=== PATIENT | male | born 1935 | race Caucasian/White ===

== ENCOUNTER 2016-06-23 10:38 | Observation (INO) ==
[2016-06-23] MEDS ORDERED: Aspirin 81 MG TAB.CHEW PO ONE (11:05)
--- NOTE | 2016-06-23 11:13 | Emergency Department Note ---
Disposition Clinical Impression: Right sided weakness, Stroke-like symptoms Disposition: Admitted As Inpatient Condition: Good Referrals: Jonathan Herron Jr, MD [Primary Care Provider] - Forms: ED Satisfaction Letter General Adult HPI - General Chief complaint: ED Neuro Symptoms/Deficit Stated complaint: fell yesterday neuro Time Seen by Provider: 06/23/16 10:41 Source: patient, family Limitations: no limitations Nursing Notes Reviewed: Yes Vital Signs Reviewed: Yes - History of Present Illness Pain Scale: 3 - Related Data Home Medications Medication Instructions Recorded Confirmed Aspirin 81 mg PO DAILY 06/23/16 06/23/16 Cholecalciferol (Vitamin D3) 2,000 unit PO DAILY 06/23/16 06/23/16 [Vitamin D] Clotrimazole 1% CRM [Lotrimin 1%] 1 appl TP BID 06/23/16 06/23/16 Dextrose Gel [Gluctose] 15 gm PO DAILY PRN 06/23/16 06/23/16 Finasteride [Proscar] 5 mg PO DAILY 06/23/16 06/23/16 Hydrocortisone 2.5% CREAM [Cortaid] 1 applic TP QID 06/23/16 06/23/16 Insulin ASPART [NovoLOG] 10 unit SQ TID 06/23/16 06/23/16 Metformin [Glucophage] 1,000 mg PO DAILY 06/23/16 06/23/16 Mv-Mn/FA/Vit K/Lycop/Lut/Coq10 1 each PO DAILY 06/23/16 06/23/16 [Daily Multivitamin Capsule] Potassium Chloride [K-Tab ER] 10 meq PO BID 06/23/16 06/23/16 Pravastatin Sodium [Pravachol] 40 mg PO DAILY 06/23/16 06/23/16 Ranitidine HCl [Heartburn Relief] 150 mg PO HS 06/23/16 06/23/16 Tamsulosin [Flomax] 0.4 mg PO BID 06/23/16 06/23/16 Urea [Ure-K] 1 appl TP BID 06/23/16 06/23/16 Allergies Allergy/AdvReac Type Severity Reaction Status Date / Time gabapentin Allergy Itching Verified 06/12/16 20:56 Nortriptyline Allergy Rash Verified 06/12/16 20:56 Terazosin Allergy Itching Verified 06/12/16 20:56 Past Medical History - Past Medical History Medical history: Reports: arthritis, cancer, diabetes, hypertension, other Psychiatric history: Reports: PTSD - Social History Smoking Status: Former smoker Smokeless Tobacco Status: No Alcohol use: Reports: rarely Drug use: Reports: none Physical Exam - General Limitations: no limitations General appearance: alert Course Vital Signs Temperature 97.5 F L 06/23/16 10:42 Pulse Rate 95 06/23/16 10:42 Respiratory Rate 16 06/23/16 10:42 Blood Pressure 156/102 06/23/16 10:42 O2 Sat by Pulse Oximetry 96 06/23/16 10:42 Temperature 97.5 F L 06/23/16 10:42 Pulse Rate 95 06/23/16 10:42 Respiratory Rate 16 06/23/16 10:42 Blood Pressure 156/102 06/23/16 10:42 O2 Sat by Pulse Oximetry 96 06/23/16 10:42 Medical Decision Making - MDM Narrative Medical decision making narrative: I examined this patient and my medical decision-making was reviewed with the COMMUNICATION ENGINEER/PA/Advanced Practice Nurse/Resident Physician. I agree with the documented findings, disposition and treatment plan as described except to the extent set forth below. I evaluated this patient with Dr. Hayden, agree with his evaluation management plan, supervised care the patient's stay. Patient had a what he thought was a TIA about 2 days ago that left him with facial droop and also he has been dragging his left foot. Not certain why he did not come in sooner. He also said he fell off his ladder denies striking his head. He said some issues with driving also. He has had TIAs in the past; lives at home with his spouse. Going to do a stroke workup. He is outside of the window for any intervention. He will need admission, neurology evaluation. We will also have social welfare clerk see him. Patient's agreement with this plan. Head CT 06/23/16 10:45 IMPRESSION: No acute intracranial abnormality. D/ / Munir Daniels MD / Munir Daniels MD Interpreting Provider: Munir Daniels MD Chest X-Ray 06/23/16 11:05 IMPRESSION: Right upper lobe pulmonary nodule. Follow-up chest CT is recommended for further evaluation. D/ / Larry Leiva MD / Larry Leiva MD Interpreting Provider: Larry Leiva MD Patient CT is back with no signs of acute bleed. Does have a right upper lobe pulmonary nodule which will need outpatient follow-up. Waiting on his labs. Starting on aspirin. And then talking with neurology and hospitalist for admission and further workup. 1226 hrs.: Labs are back. Patient stable. We will discuss with neurology and hospitalist for admission. - Lab Data Result diagrams: 06/23/16 11:21 06/23/16 11:21 Lab Results 06/23/16 06/23/16 06/23/16 Range/Units 10:45 11:21 11:21 WBC 7.3 (4.3-11.1) K/mcL RBC 5.29 (4.19-5.50) M/mcL Hgb 14.2 (12.9-16.9) g/dL Hct 42.9 (37.5-50.1) % MCV 81.1 L (83.0-100.0) fL MCH 26.8 L (28.0-33.3) pg MCHC 33.1 (31.6-35.5) g/dL RDW 14.2 (11.5-14.5) % Plt Count 263 (140-400) K/mcL MPV 11.5 (9.4-12.4) fL Immature Gran % 0.4 (0-4) % Seg Neutrophils % 68.3 % Lymphocytes % 21.9 % Monocytes % 8.3 % Eosinophils % 0.7 % Basophils % 0.4 % Neutrophils # 5.0 (1.6-8.9) K/mcL Lymphocytes # 1.6 (0.6-4.6) K/mcL Monocytes # 0.6 (0.0-1.3) K/mcL Eosinophils # 0.1 (0.0-0.6) K/mcL Basophils # 0.0 (0.0-0.2) K/mcL Sodium 140 (136-145) mEq/L Potassium 4.1 (3.5-4.5) mEq/L Chloride 104 (98-109) mEq/L Carbon Dioxide 26 (19-29) mEq/L BUN 19 (8-26) mg/dL Creatinine 1.06 (0.72-1.25) mg/dL Est GFR ( Amer) > 60 (> 60) Est GFR (Non-Af Amer) > 60 (> 60) BUN/Creatinine Ratio 18 (6-26) Glucose 329 H (70-99) mg/dL POC Glucose 273 H (58-89) Calculated Osmolality 305 H (280-300) Calcium 9.4 (8.6-10.8) mg/dL
[2016-06-23 11:26] LABS: Basophils % 0.4 %; Eosinophils # 0.1 K/mcL (0.0-0.6); Eosinophils % 0.7 %; Hematocrit 42.9 % (37.5-50.1); Hemoglobin 14.2 g/dL (12.9-16.9); Immature Granulocytes % 0.4 % (0-4); Lymphocytes # 1.6 K/mcL (0.6-4.6); Lymphocytes % 21.9 %; Mean Corpuscular HGB Conc 33.1 g/dL (31.6-35.5); Mean Corpuscular Hemoglobin 26.8 pg (28.0-33.3); Mean Corpuscular Volume 81.1 fL (83.0-100.0); Mean Platelet Volume 11.5 fL (9.4-12.4); Monocytes # 0.6 K/mcL (0.0-1.3); Monocytes % 8.3 %; Platelet Count 263 K/mcL (140-400); Red Blood Count 5.29 M/mcL (4.19-5.50); Red Cell Distribution Width 14.2 % (11.5-14.5); Segmented Neutrophils % 68.3 %
[2016-06-23 11:38] LABS: BUN/Creatinine Ratio 18 (6-26); Blood Urea Nitrogen 19 mg/dL (8-26); Calcium 9.4 mg/dL (8.6-10.8); Carbon Dioxide 26 mEq/L (19-29); Chloride 104 mEq/L (98-109); Glucose 329 mg/dL (70-99); Osmolality,Calculated 305 (280-300); Potassium 4.1 mEq/L (3.5-4.5); Sodium 140 mEq/L (136-145); eGFR For African Americans > 60 (> 60); eGFR For Non-African Americans > 60 (> 60)
--- NOTE | 2016-06-23 11:57 | Emergency Department Note ---
Disposition Clinical Impression: Right sided weakness, Stroke-like symptoms Disposition: Admitted As Inpatient Condition: Good Referrals: Jonathan Herron Jr, MD [Partnered Physician] - Forms: ED Satisfaction Letter Time of Disposition: 12:16 Neuro HPI - General Chief Complaint: ED Neuro Symptoms/Deficit Stated Complaint: fell yesterday neuro Time Seen by Provider: 06/23/16 10:41 Source: patient, family Mode of arrival: ambulatory Limitations: no limitations Nursing Notes Reviewed: Yes Vital Signs Reviewed: Yes - History of Present Illness HPI Narrative: Patient presents emergency room with complaint of right-sided weakness that started 2 days ago. He notices symptoms on and off. He was walking around the yard and fell a couple days prior even to that. Family is concerned and brought him into the emergency room for evaluation. Denied any fevers chills nausea vomiting diarrhea. Denied chest pain shortness of breath headache or vision changes. Main complaint was inability to use his right lower extremity as well as he normally does. No other history concerning for stroke or TIA according to the patient her family Onset of Symptoms Date: 06/21/16 Symptom Onset Unknown: Yes Location: right arm, right leg History of same: No Severity: mild Quality: weakness Symptoms Improving: No Improves with: none Worsens with: none Context: gradual onset On Anticoagulants: No Associated symptoms: Reports: denies other symptoms Treatments Prior to Arrival: none - Related Data Allergies/Adverse Reactions: Allergies Allergy/AdvReac Type Severity Reaction Status Date / Time gabapentin Allergy Itching Verified 06/12/16 20:56 Nortriptyline Allergy Rash Verified 06/12/16 20:56 Terazosin Allergy Itching Verified 06/12/16 20:56 All systems ED: reviewed and negative except as stated. Cardiovascular: Denies: chest pain, palpitations Respiratory: Denies: cough, dyspnea, wheezes Gastrointestinal: Denies: abdominal pain Musculoskeletal: Denies: back pain, neck pain Neurological: Reports: weakness, abnormal gait. Denies: headache Past Medical History - Past Medical History Attestation: Yes The following information was validated with the patient. Source: patient Medical history: Reports: arthritis, cancer, diabetes, hypertension, other Psychiatric history: Reports: PTSD - Social History Smoking Status: Former smoker Smokeless Tobacco Status: No Alcohol use: Reports: rarely Drug use: Reports: none Physical Exam - General Limitations: no limitations General appearance: alert - Eye Eye exam: Present: normal appearance, PERRL, EOMI - ENT ENT exam: normal exam, normal oropharynx, mucous membranes moist - Chest Chest inspection: Present: normal inspection, symmetric chest wall rise - Respiratory Respiratory exam: Present: normal lung sounds bilaterally - Cardiovascular Cardiovascular exam: Present: regular rate, normal rhythm, normal heart sounds - Abdominal Exam Abdominal exam: Present: soft, Non-Tender. Absent: tenderness, distention, pulsatile mass - Extremities Exam Extremities exam: Present: normal inspection, full ROM. Absent: tenderness - Back Exam Back exam: Present: normal inspection, full ROM. Absent: tenderness - Neurological Exam Neurological exam: Present: alert, oriented X3, CN II-XII intact, normal gait, motor sensory deficit (Patient has decreased strength in the right upper and right lower extremity at a 4 out of 5. He hand can hold against gravity but does have weakness) - Psychiatric Psychiatric exam: Present: normal affect, normal mood - Skin Skin exam: Present: warm, dry, intact, normal color Course Course Narrative: Patient seen and examined the time of arrival. See history of present illness. 81-year-old male presents emergency room in the care of the family for evaluation of difficulty with walking. Symptom onset has been progressively coming on over the last 2 weeks but main episodes of over the last 2 days. Gentleman now is saying that he has difficulty with using his right foot. He feels like his foot turns out he is trying to walk. He denies any history of stroke. He does have hypertension diabetes and high cholesterol. He takes his medications according to him. He denies any recent trauma or injury. He has no other complaints or symptoms at this time except that he has difficulty with using the right side of his body. My physical exam on initial presentation shows right-sided facial droop his speech is normal with no slurring of his phonation at this time. His trachea is midline pupils are equal round reactive to light his extraocular muscles are intact. He has no visual field deficits based on my evaluation at the bedside. He moves the bilateral upper and lower extremities has full range of motion but does have what appears to be a 4 out of 5 muscle strength on the right side in comparison to the left. Right lower extremity shows what appears to be mild ataxia and drift with the foot deviating laterally with lifting the leg off the bed. Otherwise stroke scale was resulted and documented in the note. Based on my evaluation patient has an NIH of 3. Symptom onset was greater than 48 hours ago. Patient is not in acute stroke on presentation. Stroke alert was not called on arrival. Patient this point is stable presentation with no progression of his symptoms. He has no other acute neurologic findings on my evaluation. He is mentating appropriately he is alert and oriented 3. He is not on any blood thinners at this time and has no other acute findings on evaluation. Patient had basic laboratory workup while here and CT imaging of his head to be resulted. No other acute findings at this time warrant further workup. Patient was informed that we would recommend admission to the hospital for definitive stroke evaluation. He is comfortable with this plan at this time. We will provide him with an aspirin while here in the emergency room and complete the course of care. Vital signs stable he is afebrile - Reevaluation(s) Reevaluation #1: CT of the head is negative for acute intracranial bleed. Patient's mentation and presentation of been stable with no changes throughout the course of care at this time. Labs are reviewed he does have elevated glucose but no other acute findings during this triage evaluation. Hospitalist patient this time for admission. Family informed patient informed comfortable with this plan. We will continue monitor his admission process is completed. Consultation was placed for the neurologist and we will also contact him out of the emergency room. Time: 12:08 Vital Signs Temperature 97.5 F L 06/23/16 10:42 Pulse Rate 95 06/23/16 10:42 Respiratory Rate 16 06/23/16 10:42 Blood Pressure 156/102 06/23/16 10:42 O2 Sat by Pulse Oximetry 96 06/23/16 10:42 Temperature 97.5 F L 06/23/16 10:42 Pulse Rate 95 06/23/16 10:42 Respiratory Rate 16 06/23/16 10:42 Blood Pressure 156/102 06/23/16 10:42 O2 Sat by Pulse Oximetry 96 06/23/16 10:42 Neuro Symptoms/Deficit - MDM Narrative Medical decision making narrative: Right-sided weakness, increased falls, strokelike symptoms - Medical Records Medical records reviewed: Yes I reviewed the patient's medical records. - Lab Data Lab results reviewed: Yes I reviewed the patient's lab results. Result diagrams: 06/23/16 11:21 06/23/16 11:21 Lab Results 06/23/16 06/23/16 06/23/16 Range/Units 10:45 11:21 11:21 WBC 7.3 (4.3-11.1) K/mcL RBC 5.29 (4.19-5.50) M/mcL Hgb 14.2 (12.9-16.9) g/dL Hct 42.9 (37.5-50.1) % MCV 81.1 L (83.0-100.0) fL MCH 26.8 L (28.0-33.3) pg MCHC 33.1 (31.6-35.5) g/dL RDW 14.2 (11.5-14.5) % Plt Count 263 (140-400) K/mcL MPV 11.5 (9.4-12.4) fL Immature Gran % 0.4 (0-4) % Seg Neutrophils % 68.3 % Lymphocytes % 21.9 % Monocytes % 8.3 % Eosinophils % 0.7 % Basophils % 0.4 % Neutrophils # 5.0 (1.6-8.9) K/mcL Lymphocytes # 1.6 (0.6-4.6) K/mcL Monocytes # 0.6 (0.0-1.3) K/mcL Eosinophils # 0.1 (0.0-0.6) K/mcL Basophils # 0.0 (0.0-0.2) K/mcL Sodium 140 (136-145) mEq/L Potassium 4.1 (3.5-4.5) mEq/L Chloride 104 (98-109) mEq/L Carbon Dioxide 26 (19-29) mEq/L BUN 19 (8-26) mg/dL Creatinine 1.06 (0.72-1.25) mg/dL Est GFR ( Amer) > 60 (> 60) Est GFR (Non-Af Amer) > 60 (> 60) BUN/Creatinine Ratio 18 (6-26) Glucose 329 H (70-99) mg/dL POC Glucose 273 H (58-89) Calculated Osmolality 305 H (280-300) Calcium 9.4 (8.6-10.8) mg/dL - Radiology Data Radiology results reviewed: Yes I reviewed the patient's radiology results. CT imaging of the head as well as chest x-ray negative for acute findings. This is reviewed by myself and confirmed by the radiologist - EKG Data EKG attestation: Yes I reviewed and interpreted this EKG. EKG shows normal: sinus rhythm, axis, intervals, QRS complexes, ST-T waves Rate: normal Rhythm: NSR [place]/QRS: normal When compared to previous EKG there are: no significant changes Interpretation: no acute changes, unchanged when compared to prior tracing (date ) (06/12/16) NIH Stroke Scale - Level of Consciousness LOC: Alert - LOC Questions LOC Questions: Answers both correctly - LOC Commands LOC Commands: Performs both correctly - Best Gaze Best Gaze: Normal - Visual Visual: No visual loss - Facial Palsy Facial Palsy: Minor asymmetry on smiling, flattened nasolabial fold - Motor Arms Motor Arm-Left: No drift for 10 seconds Motor Arm-Right: No drift for 10 seconds - Motor Legs Motor Leg-Left: No drift for 5 seconds Motor Leg-Right: No drift for 5 seconds - Limb Ataxia Limb Ataxia: Present in TWO limbs - Sensory Sensory: Normal - Best Language Best Language: No aphasia - Dysarthria Dysarthria: Normal - Extinction and Inattention Extinction and Inattention: Normal - NIHSS Total Score NIHSS Total Score: 3 TPA Checklist - LKW: 3-4.5 hrs Add. Contraindications Patient/family understanding: The patient/family members have been counseled and understood the risk, benefit , and alternatives of treatment. Critical Care Time Critical Care Time: Yes Total Critical Care Time: 35 Attestation: Independent of medical intervention consultations
--- NOTE | 2016-06-23 13:29 | Neurology - Consult Note ---
<Alan Gomez - Last Filed: 06/23/16 15:48> Date of Encounter: 06/23/16 Time of Encounter: 13:29 Assessment and Plan (1) Stroke-like symptoms Current Visit: Yes Status: Acute - possible CVA with right sided weakness, improved - CT head negative for hemorrhagic bleed - will proceed with stroke workup including Brain MRI, Carotid doppler, ECHO, and lipid panel - he certainly has many of the risk factors for stroke, former smoker, HTN, HLD , DM - he takes an ASA at home and was given 324 in the ED (2) Right sided weakness Current Visit: Yes Status: Acute - weak dorsiflexion of right foot, as he describes almost a foot drop as well as obvious right leg weakness - history of right total knee replacement several years ago - denies any back pain or radicular pain, denies any bowel/bladder dysfunction or saddle anesthesia - will await MRI brain before further imaging or recommendations - reflexes are diminished with poor muscle mass in bilateral lower extremities likely multifactorial from diabetes and deconditioning - will workup for possible CVA (3) Diabetic neuropathy associated with type 2 diabetes mellitus Current Visit: Yes Status: Chronic - history of diabetic neuropathy bilaterally - he has diminished sensation and proprioception in the foot and toes - admits that it gets worse when sugars run higher which has been recently over the past several days - does not currently take medications for his neuropathy Qualifiers: Diabetes mellitus complication detail: with other neurological complication Qualified Code(s): E11.49 - Type 2 diabetes mellitus with other diabetic neurological complication History of Present Illness Chief complaint: RIGHT LEG WEAKNESS/CVA HPI: Mr. 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 Neurology was consulted for possible CVA from the ED. Patient seen and examined in the ED. Over the past several months patient has increased issues with ambulation and gait. However, over the past 2 days patient reports difficulty with ambulation due to right leg weakness or numbness. Symptoms have been intermittent most recent today around 0900. He describes his right foot as going "down and out" and sometimes dragging. Denies any history of TIA or stroke. Today was the worst with some associated numbness/tingling around the lips as well, lasting only a few seconds. His son and girlfriend had to help him out of the bathroom. Reports the other day of falling. Denies any headache, fever, recent illness, chest pain, syncope, or loss of consciousness. Denies any slurring of the speech , facial drooping, or difficulty speaking. Blood sugars have reportedly been running high and usually he has noticed these symptoms of numbness and pain when they run high. History of diabetic neuropathy, he reports that he goes to the [facility] for therapy 3 times a week to help with strength and conditioning. He admits to laying around the house over the past 2 months without much activity. Illness over several months ago when they discovered a nodule in his lung and prescribed him steroids, reports his gait has progressively worsened since then because sugars were as high as 400 at that time. Past Med Surg Social Fam HX - Past Medical History Medical history: arthritis, cancer, diabetes, hypertension, other Psychiatric history: PTSD - Past Surgical History Surgical History: knee replacement - Social History Smoking Status: Former smoker Smokeless Tobacco Status: No Alcohol use: rarely Drug use: none Medications and Allergies Aspirin 81 mg PO DAILY 06/23/16 [History] Cholecalciferol (Vitamin D3) [Vitamin D] 2,000 unit PO DAILY 06/23/16 [History] Clotrimazole 1% CRM [Lotrimin 1%] 1 appl TP BID 06/23/16 [History] Dextrose Gel [Gluctose] 15 gm PO DAILY PRN 06/23/16 [History] Finasteride [Proscar] 5 mg PO DAILY 06/23/16 [History] Hydrocortisone 2.5% CREAM [Cortaid] 1 applic TP QID 06/23/16 [History] Insulin ASPART [NovoLOG] 10 unit SQ TID 06/23/16 [History] Metformin [Glucophage] 1,000 mg PO DAILY 06/23/16 [History] Mv-Mn/FA/Vit K/Lycop/Lut/Coq10 [Daily Multivitamin Capsule] 1 each PO DAILY [History] Potassium Chloride [K-Tab ER] 10 meq PO BID 06/23/16 [History] Pravastatin Sodium [Pravachol] 40 mg PO DAILY 06/23/16 [History] Ranitidine HCl [Heartburn Relief] 150 mg PO HS 06/23/16 [History] Tamsulosin [Flomax] 0.4 mg PO BID 06/23/16 [History] Urea [Ure-K] 1 appl TP BID 06/23/16 [History] Allergies gabapentin Allergy (Verified 06/12/16 20:56) Itching Nortriptyline Allergy (Verified 06/12/16 20:56) Rash Terazosin Allergy (Verified 06/12/16 20:56) Itching All Systems: A 10-system review of systems was performed and is negative for pertinent findings except as documented above in the HPI. - Constitutional Constitutional ROS IM: weakness, weight loss, no fever(s), no headache(s), no increased appetite - Nose, Mouth, Throat Nose, mouth and throat: as per HPI - Cardiovascular Cardiovascular ROS IM: as per HPI - Respiratory Respiratory IM: as per HPI - Gastrointestinal Gastrointestinal: as per HPI - Genitourinary Genitourinary ROS: as per HPI - Musculoskeletal Musculoskeletal ROS IM: abnormal gait, muscle weakness, numbness, no arthralgias , no back pain - Integumentary Integumentary IM: as per HPI - Neurological Neurological ROS: as per HPI Physical Examination - Vital Signs Vital Signs: Initial Vital Signs Temp Pulse Resp BP Pulse Ox 97.5 F L 95 16 156/102 96 06/23/16 10:42 06/23/16 10:42 06/23/16 10:42 06/23/16 10:42 06/23/16 10:42 - Constitutional General appearance: comfortable - Neurologic Sensorimotor examination: intact Detailed motor examination: grossly full strength in all extremities, full strength in all major muscle groups Motor examination - right side: 3/5: hip flexors, tibialis Anterior, quadriceps , toe extension (EHL), plantarflexion, 4/5: deltoids, story reader, 5/5: biceps, triceps , wrist flexion, wrist extension Motor examination - left side: 4/5: hip flexors, story reader, quadriceps, tibialis Anterior, toe extension (EHL), plantarflexion, 5/5: deltoids, biceps, triceps, wrist flexion, wrist extension Detailed sensory examination: other (diminished sensation in lower extremities particularly in the feet and lower leg, POOR proprioception in upper and lower extremities) Reflex and gait examination: other (not observed/tested) Reflexes: Biceps: 1+, Triceps: 1+, Brachioradialis: 1+, Patella: 1+, Achilles: 1 + Mental Status Examination: awake, alert, oriented to person, oriented to place, oriented to time, follows commands appropriately, answers questions appropriately (hard of hearing), no agnosia, no aphasia, no aproxia Cranial nerve examination: PERRL, EOMI, visual monreal intact, sensory to face intact, mastication intact, no facial asymmetry is present, no dysarthria, hearing is intact symmetrically, soft palate elevates bilaterally upon phonation , flexes SCM and trapezius muscles symmetrically with full power, tongue protrudes midline, no atrophy or facial fasiculations present Ataxia: right lower extremity (dysmetria to upper and lower right extremities,) Results - Laboratory Findings CBC and BMP: 06/23/16 11:21 06/23/16 11:21 Abnormal lab findings: Abnormal lab results MCV 81.1 fL (83.0-100.0) L 06/23/16 11:21 MCH 26.8 pg (28.0-33.3) L 06/23/16 11:21 Glucose 329 mg/dL (70-99) H 06/23/16 11:21 POC Glucose 273 (58-89) H 06/23/16 10:45 Calculated Osmolality 305 (280-300) H 06/23/16 11:21 Consult Discharge Plan - Plan Referrals: Jonathan Herron Jr, MD [Primary Care Provider] - <Watson Jimenes - Last Filed: 06/23/16 15:57> Date of Encounter: 06/23/16 Time of Encounter: 15:49 Assessment and Plan (1) Right sided weakness Current Visit: Yes Status: Acute Patient presents with new-onset weakness primarily of the right lower extremity however there is some subtle weakness of the right upper extremity as well. Since admission he is had blood pressures as high as 187/150. I am concerned about the possibility of a left hemispheric infarct. CT scan of the brain was negative for evidence of hemorrhagic infarct. He denies back pain which she is the likelihood of radiculopathy and lumbar stenosis. He does have other stroke risk factors including diabetes mellitus and uncontrolled hypertension. He is scheduled to have an MRI scan of the brain this evening along with carotid Doppler study and echocardiogram. His already received an aspirin. Further conditions will be made pending the outcome of the MRI scan. History of Present Illness HPI: On the chart was reviewed, patient was seen and examined, along with Dr. Gomez. CT scans of the brain were reviewed as well. The case was discussed with Dr. Gomez. I agree with his history as stated above. All Systems: A 10-system review of systems was performed and is negative for pertinent findings except as documented above in the HPI. Review of Systems: 10 point Review of systems is consistent with a history of present illness and otherwise negative. Physical Examination - Vital Signs Vital Signs: Initial Vital Signs Temp Pulse Resp BP Pulse Ox 97.5 F L 95 16 156/102 96 06/23/16 10:42 06/23/16 10:42 06/23/16 10:42 06/23/16 10:42 06/23/16 10:42 - Neurologic Detailed sensory examination: other (He does complain of hypoesthesia of the right leg.) Results - Laboratory Findings CBC and BMP: 06/23/16 11:21 06/23/16 11:21 Abnormal lab findings: Abnormal lab results MCV 81.1 fL (83.0-100.0) L 06/23/16 11:21 MCH 26.8 pg (28.0-33.3) L 06/23/16 11:21 Glucose 329 mg/dL (70-99) H 06/23/16 11:21 POC Glucose 252 (58-89) H 06/23/16 14:42 Calculated Osmolality 305 (280-300) H 06/23/16 11:21
[2016-06-23] MEDS ORDERED: Naloxone 0.4 MG/ML INJ IVP PRN (14:21)
[2016-06-23] MEDS ORDERED: Ondansetron 4 MG/2 ML VIAL IVP PRN (14:21)
[2016-06-23] MEDS ORDERED: MOM Conc 10 ML UD.LIQ PO PRN (14:21)
[2016-06-23] MEDS ORDERED: Acetaminophen 325 MG TABLET PO PRN (14:21)
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
[2016-06-23] MEDS ORDERED: D5% in Water 1,000 ML IV PRN (15:44)
[2016-06-23] MEDS ORDERED: *HR* Dextrose 50 % in Water (Syg) 50 ML SYRINGE IVP PRN (15:44)
[2016-06-23] MEDS ORDERED: Dextrose Gel 15 GM PO PRN ×2 (15:44)
[2016-06-23 16:09] LABS: Hemoglobin A1C 7.3 %
[2016-06-23] MEDS: Insulin LISPRO 300 UNITS/3 ML VIAL SQ SCH ×3 (17:44→21:26)
[2016-06-23 18:20] LABS: Chol/HDL Ratio 3.7 (0-4.9); Cholesterol 143 mg/dL (< 200); HDL Cholesterol 39 mg/dL (40-59); LDL Cholesterol,Calculated 66 mg/dL (0-99); Triglycerides 191 mg/dL (< 150)
[2016-06-23] MEDS ORDERED: [UNRECOGNIZED DRUG - OTHER] TP SCH (21:00)
[2016-06-23] MEDS: Famotidine 20 MG TABLET PO SCH (21:23)
[2016-06-23] MEDS: Clotrimazole 1% CRM 15 GM TUBE TP SCH (21:27)
[2016-06-24 04:56] LABS: Basophils % 0.5 %; Eosinophils # 0.2 K/mcL (0.0-0.6); Eosinophils % 2.6 %; Hematocrit 40.4 % (37.5-50.1); Hemoglobin 13.6 g/dL (12.9-16.9); Immature Granulocytes % 0.3 % (0-4); Lymphocytes % 30.9 %; Mean Corpuscular HGB Conc 33.7 g/dL (31.6-35.5); Mean Corpuscular Hemoglobin 27.3 pg (28.0-33.3); Mean Platelet Volume 11.4 fL (9.4-12.4); Monocytes # 0.6 K/mcL (0.0-1.3); Monocytes % 9.7 %; Neutrophils # 3.6 K/mcL (1.6-8.9); Platelet Count 253 K/mcL (140-400); Red Blood Count 4.99 M/mcL (4.19-5.50); Red Cell Distribution Width 14.2 % (11.5-14.5)
[2016-06-24 05:12] LABS: BUN/Creatinine Ratio 16 (6-26); Blood Urea Nitrogen 13 mg/dL (8-26); Calcium 8.9 mg/dL (8.6-10.8); Carbon Dioxide 23 mEq/L (19-29); Chloride 109 mEq/L (98-109); Glucose 99 mg/dL (70-99); Osmolality,Calculated 292 (280-300); Potassium 3.3 mEq/L (3.5-4.5); Sodium 141 mEq/L (136-145); eGFR For African Americans > 60 (> 60); eGFR For Non-African Americans > 60 (> 60)
--- NOTE | 2016-06-24 08:02 | Neurology Progress Note ---
Date of Encounter: 06/24/16 Time of Encounter: 08:02 Assessment and Plan (1) Right sided weakness Current Visit: Yes Status: Acute - no acute signs of cerebrovascular infarct - Brain MRI is negative for intracranial abnormality - preliminary Carotid reveals nonstenotic plaque - denies any back pain or radicular pain to suggest radiculopathy - right dorsiflexion continues to remain weak - ECHO results remain pending, as long as normal patient ok to discharge - recommend placing patient in ankle-fot orthotic and schedule for an outpatient EMG in the office with Dr. Jimenes. Continue baby Aspirin at home Thank you for your consult (2) Diabetic neuropathy associated with type 2 diabetes mellitus Current Visit: Yes Status: Chronic - likely a component of the numbness is due to diabetic neuropathy - agree with plan to start on Lyrica Qualifiers: Qualified Code(s): E11.49 - Type 2 diabetes mellitus with other diabetic neurological complication Subjective Principal diagnosis: Right leg weakness Interval history: Patient seen and examined. He reports resting well yesterday and feels improvement in his lower extremity. He continues to speak without much difficulty and denies any headaches, back pain, radicular pain, urinary symptoms. Imaging did not reveal evidence of any acute infarct. Objective - Constitutional Vitals: Temp Pulse Resp BP Pulse Ox 97.9 F 85 17 153/79 93 L 06/24/16 07:37 06/24/16 07:37 06/24/16 07:37 06/24/16 07:37 06/24/16 07:37 General appearance: Present: A&O X 3, pleasant, no acute distress - Eye Eye exam: Present: EOMI, normal appearance - Neurological Exam Sensorimotor examination: Present: intact Motor Examination: Present: grossly full strength in all extremities, full strength in all major muscle groups Motor examination - right side: 3/5: hip flexors, tibialis Anterior, quadriceps , toe extension (EHL), plantarflexion, 4/5: deltoids, fork repairer, 5/5: biceps, triceps , wrist flexion, wrist extension Motor examination - left side: 4/5: hip flexors, fork repairer, quadriceps, tibialis Anterior, toe extension (EHL), plantarflexion, 5/5: deltoids, biceps, triceps, wrist flexion, wrist extension Sensation intact: Present: other (He does complain of hypoesthesia of the right leg.) Reflex and gait examination: other (not observed/tested) Reflexes: Biceps: 1+, Triceps: 1+, Brachioradialis: 1+, Patella: 1+, Achilles: 1 + Mental Status Examination: Present: awake, alert, oriented to person, oriented to place, oriented to time, follows commands appropriately, answers questions appropriately (hard of hearing), no agnosia, no aphasia, no aproxia Cranial nerve examination: Present: PERRL, EOMI, visual monreal intact, sensory to face intact, mastication intact, no facial asymmetry is present, no dysarthria, hearing is intact symmetrically, soft palate elevates bilaterally upon phonation, flexes SCM and trapezius muscles symmetrically with full power, tongue protrudes midline, no atrophy or facial fasiculations present Ataxia: right lower extremity Results - Laboratory Findings CBC and BMP: 06/24/16 04:31 06/24/16 04:31 Abnormal lab findings: Abnormal lab results MCV 81.0 fL (83.0-100.0) L 06/24/16 04:31 MCH 27.3 pg (28.0-33.3) L 06/24/16 04:31 Potassium 3.3 mEq/L (3.5-4.5) L 06/24/16 04:31 POC Glucose 99 (58-89) H 06/24/16 07:32 Hemoglobin A1c 7.3 % (-5.6) H 06/23/16 11:21 Triglycerides 191 mg/dL (< 150) H 06/23/16 11:21 VLDL Cholesterol, Calc 38 mg/dL (< 31) H 06/23/16 11:21 HDL Cholesterol 39 mg/dL (40-59) L 06/23/16 11:21 Consult Discharge Plan - Plan Referrals: Jonathan Herron Jr, MD [Primary Care Provider] -
[2016-06-24] MEDS: Insulin LISPRO 300 UNITS/3 ML VIAL SQ SCH ×4 (08:29→20:46)
[2016-06-24] MEDS ORDERED: Lisinopril 20 MG TABLET PO SCH (09:00)
[2016-06-24] MEDS: Finasteride 5 MG TABLET PO SCH (09:33)
[2016-06-24] MEDS: Aspirin 81 MG TAB.CHEW PO SCH (09:33)
[2016-06-24] MEDS: Cholecalciferol (D-3) 1,000 UNIT TABLET PO SCH (09:34)
[2016-06-24] MEDS: Multivit/Ca/Min/Fe/FA 1 TAB TABLET PO SCH (09:34)
--- NOTE | 2016-06-24 10:47 | Internal Med Progress Note ---
Date of Encounter: 06/24/16 Time of Encounter: 10:00 - Assessment and plan (1) Right sided weakness Current Visit: Yes Status: Acute Assessment and plan: 1-week history of right sided weakness with associated falls. Brain MRI/MRA negative for any acute process. No signs of CVA. Negative doppler of carotids. Appreciate neurology input. PT/ OT recommend rehab placement. information services assistant is following: [facility] will have a bed on Monday. (2) Hypertension Current Visit: Yes Status: Chronic Assessment and plan: Start lisinopril at a lower dose. Qualifiers: Hypertension type: essential hypertension Qualified Code(s): I10 - Essential (primary) hypertension (3) Diabetes mellitus Current Visit: Yes Status: Acute Assessment and plan: He takes metformin and novolog. continue insulin sliding scale and diabetic diet. Qualifiers: Diabetes mellitus type: type 2 Diabetes mellitus complication status: with neurologic complications Diabetes mellitus complication detail: with polyneuropathy Diabetes mellitus penitentiary insulin use: with penitentiary use Qualified Code(s): E11.42 - Type 2 diabetes mellitus with diabetic polyneuropathy; Z79.4 - residential (current) use of insulin (4) Diabetic neuropathy associated with type 2 diabetes mellitus Current Visit: Yes Status: Chronic Assessment and plan: pt was started on lyrica. Qualifiers: Diabetes mellitus complication detail: with other neurological complication Qualified Code(s): E11.49 - Type 2 diabetes mellitus with other diabetic neurological complication - Subjective Interval history: he reports persistent weakness in all extremities. patient reports he was taking lisinopril 40 - 20 mg in the past and he developed hypotension. - Constitutional Vitals: Temp Pulse Resp BP Pulse Ox 97.9 F 85 17 153/79 93 L 06/24/16 07:37 06/24/16 07:37 06/24/16 07:37 06/24/16 07:37 06/24/16 09:03 General appearance: Present: A&O X 3, pleasant, no acute distress, answers questions appropriately - Eye Eye exam: Present: PERRL - Neck Neck exam general surgery: Present: supple, trachea midline. Absent: lymphadenopathy - Respiratory Respiratory exam: Present: CTAB - Cardiovascular Cardiovascular exam: Present: RRR - GI/Abdominal GI/Abdominal exam: Present: normal bowel sounds, soft. Absent: distended, tenderness - Extremities Exam Extremities exam: Absent: pedal edema - Neurological Exam Neurological exam: Present: alert, oriented X3, no focal deficits, strengths equal and symetr throughout. Absent: pronater drift, facial droop, speech deficit - Skin Skin exam: Absent: rash Internal Medicine: Result - Labs CBC & Chem 7: 06/24/16 04:31 06/24/16 04:31 Labs: Short CBC 06/24/16 Range/Units 04:31 WBC 6.5 (4.3-11.1) K/mcL Hgb 13.6 (12.9-16.9) g/dL Hct 40.4 (37.5-50.1) % Plt Count 253 (140-400) K/mcL Neutrophils # 3.6 (1.6-8.9) K/mcL BMP 06/24/16 04:31 Sodium 141 Potassium 3.3 L Chloride 109 Carbon Dioxide 23 BUN 13 Creatinine 0.80 Glucose 99 Calcium 8.9 - Impressions Impressions Head MRA 06/23/16 13:02 IMPRESSION: No acute intracranial abnormality. Mild parenchymal volume loss. Mild chronic microvascular disease. Unremarkable MRA of the head. D/ / Jose A Wilson MD / Jose A Wilson MD Interpreting Provider: Jose A Wilson MD Consult Discharge Plan - Plan Referrals: Jonathan Herron Jr, MD [Primary Care Provider] -
--- NOTE | 2016-06-24 11:08 | ECHO - Doppler Report ---
Echo with Saline Contrast Name: Wilfredo Conn Date of Study: 06/23/2016 Date: 1935 Ht: 65.0 in Medical Record#: [id number] Age: 81 Wt: 148.0 lb Gender: Male BSA: 1.74 Order #: [id number] Location: [facility] Room #: [facility] Reading Physician: Ian Machado DO, FACLuiza, DOUGLAS LYLE Snagger: Karissa Orozco RVT Ordering Physician: Rosanne Nguyen CNP Primary Physician: Jonathan Herron MD Indications: Cerebrovascular Accident Impressions: LVEF 60-65%. Normal LV chamber size, wall thickness and function. Mild left ventricular diastolic dysfunction. Normal right ventricular structure and function. No significant valvular dysfunction. No evidence of PFO with agitated saline contrast. No evidence of pulmonary hypertension. Left Ventricular Wall Motion: Rest Echo Findings All wall segments showed normal motion. Findings: Study Quality * Technically adequate exam. ECG Findings * Normal sinus rhythm. Left Ventricle * LVEF 60-65%. * Normal LV chamber size, wall thickness and function. * Mild left ventricular diastolic dysfunction. Right Ventricle * Normal right ventricular structure and function. Left Atrium * Mildly dilated left atrium. Right Atrium * Normal right atrial size. Interatrial Septum * No evidence of PFO with agitated saline contrast. Aortic Valve * Trileaflet aortic valve. * The noncoronary cusp appears focally calcified. * No aortic regurgitation. * No aortic stenosis. Mitral Valve * Mildly thickened mitral valve leaflets. * Trace mitral regurgitation. * No mitral stenosis. Tricuspid Valve * Normal tricuspid valve structure and function. * Trace tricuspid regurgitation. * No evidence of pulmonary hypertension. Pulmonic Valve * Normal pulmonic valve structure and function. * No pulmonic regurgitation. Aorta * Normally sized aortic root. Pericardium * There is a trivial pericardial effusion present. IVC * Normal IVC dimensions and inspiratory collapse. Pulmonary Artery * Normal visualized portions of the main pulmonary artery. History Hypertension Diabetes Contrast: Agitated saline 20 ml. Measurements: BP: 177/ 81 2D Normal Values RVIDd: 3.40 cm <2.7 cm IVSd: 1.00 cm 0.6 - 1.0 cm LVIDd: 4.50 cm 3.7 - 5.6 cm LVPWd: .90 cm 0.6 - 1.1 cm LVIDs: 3.00 cm 1.5 - 3.6 cm AO: 2.80 cm < 4.0 cm LA: 3.40 cm 2.0 - 4.0cm %FS: 33.30 cm >25 % LA volume: 57 Mitral Valve Peak E:.59 m/sec Peak A:1.09 m/sec E/A Ratio:0.5 Peak E' Lat Georges:4.78 cm/s Peak E' Med Georges:4.39 cm/s E/E' Lat Ratio:12.3 E/E' Med Ratio:13.3 Tricuspid Valve TV Regurg Peak Grad: 24.00mmHg TV Regurg Peak Georges: 2.46m/sec Updated by Ian Machado DO, FACLuiza, DARIELA, DOUGLAS on 06/24/2016 11:01:26 AM electronically signed on 06/24/2016 11:03:22 AM with status of Final Wall Motion Cabrera: 1=Normal, 2=Hypokinesis, 3=Akinesis, 4=Dyskinesis, 5=Aneurysmal, 6=Hyperkinetic, X=Not Visualized (Blank)=Missing
--- NOTE | 2016-06-24 16:14 | Electrocardiograph Report ---
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
--- NOTE | 2016-06-24 16:25 | Carotid Imaging Report ---
Carotid Duplex Patient Name:Wilfredo Conn Order Number:[id number] Procedure Date:06/23/2016 Date:1935ge:81 yrs Gender:Male Lt BP:177 / 81 mmHg Location:[facility] Room #: 3B52 Powerhouse Attendant:Karissa Orozco RVT Referring MD:Rosanne Nguyen FINISH REPAIR WORKER road worker:Jonathan Herron MD Reading MD:Gurpreet Tinoco MD , FACS Risk Factors Yes/No Hypertension Yes Diabetes Yes Smoker Previous Yes Impressions: Findings: Bilateral carotid systems have nonstenotic plaque. Findings Carotid Duplex: Right: There is nonstenotic plaque in the right bifurcation. There is smooth heterogeneous plaque. There is nonstenotic plaque in the right proximal internal carotid artery. There is smooth heterogeneous plaque. Left: There is nonstenotic plaque in the left mid common carotid artery. There is smooth heterogeneous plaque. There is nonstenotic plaque in the left bifurcation. There is smooth heterogeneous plaque. There is nonstenotic plaque in the left proximal internal carotid artery. There is smooth heterogeneous plaque. Prior Study: No prior study available for comparison. Carotid Results Right PSV EDV Assessment Proximal CCA 89 7 Normal Mid CCA 77 7 Normal Distal CCA 64 9 Normal Bifurcation 110 21 Non Stenotic Plaque Proximal ICA 80 11 Non Stenotic Plaque Mid ICA 102 16 Normal Distal ICA 60 11 Normal ECA 122 8 Normal Vertebral Artery 47 8 Antegrade Flow Left PSV EDV Assessment Proximal CCA 81 9 Normal Mid CCA 76 9 Non Stenotic Plaque Distal CCA 71 10 Normal Bifurcation 90 8 Non Stenotic Plaque Proximal ICA 67 9 Non Stenotic Plaque Mid ICA 66 14 Normal Distal ICA 92 22 Normal ECA 128 8 Normal Vertebral Artery 64 14 Antegrade Flow Ratio's Right ICA/CCA Ratio: 1.32 ICA/CCA Values: 102/77 Left ICA/CCA Ratio: 1.21 ICA/CCA Values: 92/76 Updated by Gurpreet Tinoco MD, FACS on 06/24/2016 4:19:51 PM Gurpreet Tinoco MD electronically signed on 06/24/2016 4:20:19 PM with status of Final
[2016-06-24] MEDS: Clotrimazole 1% CRM 15 GM TUBE TP SCH ×2 (20:48→21:05)
[2016-06-24] MEDS: Famotidine 20 MG TABLET PO SCH (21:05)
[2016-06-25] MEDS: Insulin LISPRO 300 UNITS/3 ML VIAL SQ SCH ×5 (06:49→20:45)
[2016-06-25] MEDS: Aspirin 81 MG TAB.CHEW PO SCH (08:22)
[2016-06-25] MEDS: Multivit/Ca/Min/Fe/FA 1 TAB TABLET PO SCH (08:22)
[2016-06-25] MEDS: Cholecalciferol (D-3) 1,000 UNIT TABLET PO SCH (08:23)
[2016-06-25] MEDS: Finasteride 5 MG TABLET PO SCH (08:23)
[2016-06-25] MEDS: Clotrimazole 1% CRM 15 GM TUBE TP SCH ×2 (08:24→20:01)
--- NOTE | 2016-06-25 12:11 | Internal Med Progress Note ---
Date of Encounter: 06/25/16 Time of Encounter: 11:30 - Assessment and plan (1) Right sided weakness Current Visit: Yes Status: Acute Assessment and plan: 1-week history of right sided weakness with associated falls. Brain MRI/MRA negative for any acute process. No signs of CVA. Negative doppler of carotids. Appreciate neurology input. PT/ OT recommend rehab placement. volunteer services manager is following: [place] [facility] will have a bed on Monday. (2) Hypertension Current Visit: Yes Status: Chronic Assessment and plan: continue lisinopril. bp is adequate. Qualifiers: Hypertension type: essential hypertension Qualified Code(s): I10 - Essential (primary) hypertension (3) Diabetes mellitus Current Visit: Yes Status: Acute Assessment and plan: He takes metformin and novolog. continue insulin sliding scale and diabetic diet. 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 Qualifiers: Diabetes mellitus complication detail: with other neurological complication Qualified Code(s): E11.49 - Type 2 diabetes mellitus with other diabetic neurological complication - Subjective Interval history: patient has no complaints. no dizziness. no chest pain. no lightheadedness. He still has generalized weakness. - Constitutional Vitals: Temp Pulse Resp BP Pulse Ox 98.2 F 86 18 135/76 95 06/25/16 11:19 06/25/16 11:19 06/25/16 11:19 06/25/16 11:19 06/25/16 11:19 General appearance: Present: cooperative, A&O X 3, pleasant, no acute distress, answers questions appropriately - Eye Eye exam: Present: PERRL, sclera anicteric - Neck Neck exam general surgery: Present: lymphadenopathy. Absent: supple, trachea midline - Respiratory Respiratory exam: Present: CTAB. Absent: wheezes, tachypnea - Cardiovascular Cardiovascular exam: Present: RRR. Absent: systolic murmur - GI/Abdominal GI/Abdominal exam: Present: normal bowel sounds, soft. Absent: distended, tenderness - Extremities Exam Extremities exam: Absent: pedal edema - Neurological Exam Neurological exam: Present: alert, oriented X3, strengths equal and symetr throughout. Absent: facial droop, speech deficit - Skin Skin exam: Absent: rash Internal Medicine: Result - Labs CBC & Chem 7: 06/24/16 04:31 06/24/16 04:31 Consult Discharge Plan - Plan Referrals: Jonathan Herron Jr, MD [Primary Care Provider] -
[2016-06-25] MEDS: Famotidine 20 MG TABLET PO SCH (20:01)
[2016-06-26 04:54] LABS: BUN/Creatinine Ratio 14 (6-26); Blood Urea Nitrogen 12 mg/dL (8-26); Calcium 9.1 mg/dL (8.6-10.8); Carbon Dioxide 21 mEq/L (19-29); Chloride 107 mEq/L (98-109); Glucose 197 mg/dL (70-99); Osmolality,Calculated 295 (280-300); Potassium 3.5 mEq/L (3.5-4.5); Sodium 140 mEq/L (136-145); eGFR For African Americans > 60 (> 60); eGFR For Non-African Americans > 60 (> 60)
[2016-06-26] MEDS: Finasteride 5 MG TABLET PO SCH (08:41)
[2016-06-26] MEDS: Aspirin 81 MG TAB.CHEW PO SCH (08:41)
[2016-06-26] MEDS: Multivit/Ca/Min/Fe/FA 1 TAB TABLET PO SCH (08:42)
[2016-06-26] MEDS: Cholecalciferol (D-3) 1,000 UNIT TABLET PO SCH (08:42)
[2016-06-26] MEDS: Insulin LISPRO 300 UNITS/3 ML VIAL SQ SCH ×4 (08:42→20:05)
[2016-06-26] MEDS: Clotrimazole 1% CRM 15 GM TUBE TP SCH ×2 (08:43→20:22)
--- NOTE | 2016-06-26 11:04 | Internal Med Progress Note ---
Date of Encounter: 06/26/16 Time of Encounter: 10:45 - Assessment and plan (1) Right sided weakness Current Visit: Yes Status: Acute Assessment and plan: 1-week history of right sided weakness with associated falls. Brain MRI/MRA negative for any acute process. No signs of CVA. Negative doppler of carotids. Appreciate neurology input. PT/ OT recommend rehab placement. vocational services specialist is following: [place] [facility] will have a bed on Monday. (2) Hypertension Current Visit: Yes Status: Chronic Assessment and plan: Not yet controlled. Increase lisinopril to 10 mg twice a day. Start metoprolol 50 mg twice a day. Close monitoring. Qualifiers: Hypertension type: essential hypertension Qualified Code(s): I10 - Essential (primary) hypertension (3) Diabetes mellitus Current Visit: Yes Status: Acute Assessment and plan: He takes metformin and novolog 10 units TIDAC. Blood sugars are ranging from 160-260. continue insulin sliding scale and diabetic diet. Qualifiers: Diabetes mellitus type: type 2 Diabetes mellitus complication status: with neurologic complications Diabetes mellitus complication detail: with polyneuropathy Diabetes mellitus senior care insulin use: with terminal system operator use Qualified Code(s): E11.42 - Type 2 diabetes mellitus with diabetic polyneuropathy; Z79.4 - termite control representative (current) use of insulin (4) Diabetic neuropathy associated with type 2 diabetes mellitus Current Visit: Yes Status: Chronic Assessment and plan: pt was started on lyrica. Qualifiers: Diabetes mellitus complication detail: with other neurological complication Qualified Code(s): E11.49 - Type 2 diabetes mellitus with other diabetic neurological complication - Subjective Interval history: Patient reports feeling better. No complaints. - Constitutional Vitals: Temp Pulse Resp BP Pulse Ox 98.3 F 91 16 155/75 94 L 06/26/16 07:19 06/26/16 07:19 06/26/16 07:19 06/26/16 07:19 06/26/16 07:19 General appearance: Present: cooperative, A&O X 3, pleasant, no acute distress, answers questions appropriately - Eye Eye exam: Present: PERRL, sclera anicteric - Neck Neck exam general surgery: Present: supple, trachea midline. Absent: lymphadenopathy - Respiratory Respiratory exam: Present: CTAB - Cardiovascular Cardiovascular exam: Present: RRR - GI/Abdominal GI/Abdominal exam: Present: normal bowel sounds, soft. Absent: distended, tenderness - Extremities Exam Extremities exam: Absent: pedal edema - Back Exam Back exam: Absent: CVA tenderness (L), CVA tenderness (R) - Neurological Exam Neurological exam: Present: alert, oriented X3. Absent: facial droop, speech deficit - Skin Skin exam: Absent: rash Internal Medicine: Result - Labs CBC & Chem 7: 06/24/16 04:31 06/26/16 03:42 Labs: BMP 06/26/16 03:42 Sodium 140 Potassium 3.5 Chloride 107 Carbon Dioxide 21 BUN 12 Creatinine 0.85 Glucose 197 H Calcium 9.1 - VTE Documentation of Mechanical Device: Intermittent pneumatic compression device Consult Discharge Plan - Plan Referrals: Jonathan Herron Jr, MD [Primary Care Provider] -
[2016-06-26] MEDS: Famotidine 20 MG TABLET PO SCH (20:05)
[2016-06-27 05:10] LABS: BUN/Creatinine Ratio 14 (6-26); Blood Urea Nitrogen 13 mg/dL (8-26); Calcium 9.3 mg/dL (8.6-10.8); Carbon Dioxide 22 mEq/L (19-29); Chloride 107 mEq/L (98-109); Glucose 176 mg/dL (70-99); Osmolality,Calculated 296 (280-300); Potassium 3.7 mEq/L (3.5-4.5); Sodium 141 mEq/L (136-145); eGFR For African Americans > 60 (> 60); eGFR For Non-African Americans > 60 (> 60)
[2016-06-27] MEDS: Multivit/Ca/Min/Fe/FA 1 TAB TABLET PO SCH (08:36)
[2016-06-27] MEDS: Aspirin 81 MG TAB.CHEW PO SCH (08:36)
[2016-06-27] MEDS: Finasteride 5 MG TABLET PO SCH (08:36)
[2016-06-27] MEDS: Insulin LISPRO 300 UNITS/3 ML VIAL SQ SCH ×4 (08:36→20:54)
[2016-06-27] MEDS: Cholecalciferol (D-3) 1,000 UNIT TABLET PO SCH (08:36)
[2016-06-27] MEDS: Clotrimazole 1% CRM 15 GM TUBE TP SCH ×3 (08:45→20:55)
--- NOTE | 2016-06-27 10:07 | Internal Med Progress Note ---
Date of Encounter: 06/27/16 Time of Encounter: 10:00 - Assessment and plan (1) Right sided weakness Current Visit: Yes Status: Acute Assessment and plan: 1-week history of right sided weakness with associated falls. Brain MRI/MRA negative for any acute process. No signs of CVA. Negative doppler of carotids. Appreciate neurology input. PT/ OT recommend rehab placement. stable for discharge. rehabilitation services director is following : [facility] a bed tomorrow. (2) Hypertension Current Visit: Yes Status: Chronic Assessment and plan: better controlled. continue lisinopril 10 mg twice a day and metoprolol 50 mg twice a day. Close monitoring. Qualifiers: Hypertension type: essential hypertension Qualified Code(s): I10 - Essential (primary) hypertension (3) Diabetes mellitus Current Visit: Yes Status: Acute Assessment and plan: He takes metformin and novolog 10 units TIDAC. fasting is 163. continue insulin sliding scale and diabetic diet. 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 Qualifiers: Diabetes mellitus complication detail: with other neurological complication Qualified Code(s): E11.49 - Type 2 diabetes mellitus with other diabetic neurological complication - Subjective Interval history: Patient has no complaints. - Constitutional Vitals: Temp Pulse Resp BP Pulse Ox 98.5 F 83 17 164/81 97 06/27/16 06:53 06/27/16 06:53 06/27/16 06:53 06/27/16 06:53 06/27/16 06:53 General appearance: Present: cooperative, A&O X 3, pleasant, no acute distress, answers questions appropriately - Eye Eye exam: Present: PERRL, sclera anicteric - Neck Neck exam general surgery: Present: supple, trachea midline. Absent: lymphadenopathy - Respiratory Respiratory exam: Present: CTAB - Cardiovascular Cardiovascular exam: Present: RRR - GI/Abdominal GI/Abdominal exam: Present: normal bowel sounds, soft. Absent: distended, tenderness - Extremities Exam Extremities exam: Absent: pedal edema - Back Exam Back exam: Absent: CVA tenderness (L), CVA tenderness (R) - Neurological Exam Neurological exam: Present: alert, oriented X3, no focal deficits. Absent: facial droop, speech deficit - Skin Skin exam: Absent: rash Internal Medicine: Result - Labs CBC & Chem 7: 06/24/16 04:31 06/27/16 04:00 Labs: BMP 06/27/16 04:00 Sodium 141 Potassium 3.7 Chloride 107 Carbon Dioxide 22 BUN 13 Creatinine 0.90 Glucose 176 H Calcium 9.3 - VTE Documentation of Mechanical Device: Intermittent pneumatic compression device Consult Discharge Plan - Plan Referrals: Jonathan Herron Jr, MD [Primary Care Provider] - 07/04/16 3:00 pm
[2016-06-27] MEDS: Famotidine 20 MG TABLET PO SCH (20:53)
[2016-06-28 06:58] VITALS: BP 118/66
--- NOTE | 2016-06-28 07:29 | Discharge Summary ---
Date of Encounter: 06/28/16 Time of Encounter: 07:27 - Discharge Diagnosis (1) Right sided weakness Priority: Primary Status: Acute (2) Diabetes mellitus Priority: Secondary Status: Acute Qualifiers: Diabetes mellitus type: type 2 Diabetes mellitus complication status: with neurologic complications Diabetes mellitus complication detail: with polyneuropathy Diabetes mellitus long term care administrator insulin use: with longterm use Qualified Code(s): E11.42 - Type 2 diabetes mellitus with diabetic polyneuropathy; Z79.4 - truck terminal manager (current) use of insulin (3) Diabetic neuropathy associated with type 2 diabetes mellitus Priority: Secondary Status: Chronic Qualifiers: Diabetes mellitus complication detail: with other neurological complication Qualified Code(s): E11.49 - Type 2 diabetes mellitus with other diabetic neurological complication (4) Hypertension Priority: Secondary Status: Chronic Qualifiers: Hypertension type: essential hypertension Qualified Code(s): I10 - Essential (primary) hypertension - Discharge Medications Prescriptions: Lisinopril [Zestril] 10 mg PO BID #60 tablet Metoprolol [Lopressor] 50 mg PO BID #60 tablet Home Medications: Aspirin 81 mg PO DAILY 06/23/16 [History] Cholecalciferol (Vitamin D3) [Vitamin D3] 2,000 unit PO DAILY 06/23/16 [History] Clotrimazole 1% CRM [Lotrimin 1%] 1 appl TP BID 06/23/16 [History] Dextrose Gel [Gluctose] 15 gm PO DAILY PRN 06/23/16 [History] Finasteride [Proscar] 5 mg PO DAILY 06/23/16 [History] Hydrocortisone 2.5% CREAM [Cortaid] 1 applic TP QID 06/23/16 [History] Insulin ASPART [NovoLOG] 10 unit SQ TID 06/23/16 [History] Metformin [Glucophage] 1,000 mg PO DAILY 06/23/16 [History] Mv-Mn/FA/Vit K/Lycop/Lut/Coq10 [Daily Multivitamin Capsule] 1 each PO DAILY [History] Potassium Chloride [K-Tab ER] 10 meq PO BID 06/23/16 [History] Pravastatin Sodium [Pravachol] 40 mg PO DAILY 06/23/16 [History] Ranitidine HCl [Heartburn Relief] 150 mg PO HS 06/23/16 [History] Tamsulosin [Flomax] 0.4 mg PO BID 06/23/16 [History] Urea [Ure-K] 1 appl TP BID 06/23/16 [History] Lisinopril [Zestril] 10 mg PO BID #60 tablet 06/28/16 [Rx] Metoprolol [Lopressor] 50 mg PO BID #60 tablet 06/28/16 [Rx] Allergies/Adverse Reactions: Allergies gabapentin Allergy (Verified 06/12/16 20:56) Itching Nortriptyline Allergy (Verified 06/12/16 20:56) Rash Terazosin Allergy (Verified 06/12/16 20:56) Itching Date of admission: 06/23/16 12:26 Primary care physician: Jonathan Herron Jr, MD Consults: 06/23/16 12:47 Consult to Neurology [CONS] Routine Consulting Provider: [facility] Reason for Consult: CVA Call Completed: Yes 06/23/16 14:23 Consult to Physical Therapy [CONS] Routine Comment: Evaluate, develop and implement POC 06/23/16 14:24 Consult to Speech Therapy [CONS] Stat Comment: Evaluate, develop and implement POC Reason for Consult: CVA symptoms Time Notified: 14:25 Call Completed: No 06/23/16 14:48 OT [Consult to Occupational Therapy] [CONS] Routine Comment: Evaluate, develop and implement POC 06/23/16 15:51 Consult to Storekeeper Steward [CONS] Stat Reason for SW Consult: Rehab, home health Discharging clinician: Jagruti Leija Anticipated date of discharge: 06/28/16 - Patient Status Disposition: Transfer SNF Condition: Good Functional capacity at discharge: uses cane/walker Overall status at discharge: patient is progressing back to baseline - Discharge Instructions Instructions: Diabetes Mellitus Type 2 in Adults (DC) Follow Up With: Jonathan Herron Jr, MD [Primary Care Provider] - 07/04/16 3:00 pm Watson Jimenes DO [Partnered Physician] - (in 1-2 weeks for EMG) - Diet and Activity Activity: as per physical therapy Diet: diabetic diet, low fat, low cholesterol, low salt diet Hospital course: Mr. Conn is a 81 year old male with history of diabetes mellitus type 2, hypertension who was observed in the hospital with 1 week history of right- sided weakness, facial tingling and falls. Patient was observed and monitored for possible TIA/CVA. He underwent a brain MRI and MRA which did not show any acute stroke. Patient was evaluated by neurology and recommended continuing baby aspirin and scheduling outpatient follow-up with neurology. Patient was also evaluated by physical therapy and recommended placement to skilled rehabilitation. Patient is scheduled to be discharged to [facility] today. - Time Spent with Patient Total time spent providing and/or coordinating discharge services: Less than 30 minutes (25 min) - Constitutional Vitals: Temp Pulse Resp BP Pulse Ox 98.4 F 81 15 118/66 94 L 06/28/16 06:58 06/28/16 06:58 06/28/16 06:58 06/28/16 06:58 06/28/16 06:58 General appearance: Present: cooperative, A&O X 3, pleasant, no acute distress, answers questions appropriately - Respiratory Respiratory exam: Present: CTAB. Absent: accessory muscle use, rales, rhonchi, wheezes - Cardiovascular Cardiovascular exam: Present: RRR, +S1, +S2. Absent: diastolic murmur, gallop, rubs, systolic murmur - Extremities Exam Extremities exam: Present: warm, radial pulses palpable and symetrical. Absent : calf tenderness, cyanotic, pedal edema - Neurological Exam Neurological exam: Present: CN II-XII intact, oriented X3, no focal deficits. Absent: facial droop, speech deficit Additional comments: Decreased strength in right lower extremity. - Skin Skin exam: Present: dry, intact - VTE Documentation of Mechanical Device: Intermittent pneumatic compression device - Attending Attestation This document has been at least partially created by [employer] voice recognition technology by Dr. Leija. Errors in grammar, wording or other phrases may exist. If errors are found after the documentation is signed, they will be addressed individually in the addendum section of this document when appropriate.
--- NOTE | 2016-06-28 07:35 | Physician Discharge Referral ---
ExtendedCare Referral Info Transfer To: SNF Provider in Charge after Transfer: PCP Institutional Level of Care: Skilled - Diagnosis (1) Right sided weakness Priority: Primary Status: Acute (2) Diabetes mellitus Priority: Secondary Status: Acute (3) Diabetic neuropathy associated with type 2 diabetes mellitus Priority: Secondary Status: Chronic (4) Hypertension Priority: Secondary Status: Chronic - Transfer Medications Prescriptions: Lisinopril [Zestril] 10 mg PO BID #60 tablet Metoprolol [Lopressor] 50 mg PO BID #60 tablet Home Medications: Aspirin 81 mg PO DAILY 06/23/16 [History] Cholecalciferol (Vitamin D3) [Vitamin D3] 2,000 unit PO DAILY 06/23/16 [History] Clotrimazole 1% CRM [Lotrimin 1%] 1 appl TP BID 06/23/16 [History] Dextrose Gel [Gluctose] 15 gm PO DAILY PRN 06/23/16 [History] Finasteride [Proscar] 5 mg PO DAILY 06/23/16 [History] Hydrocortisone 2.5% CREAM [Cortaid] 1 applic TP QID 06/23/16 [History] Insulin ASPART [NovoLOG] 10 unit SQ TID 06/23/16 [History] Metformin [Glucophage] 1,000 mg PO DAILY 06/23/16 [History] Mv-Mn/FA/Vit K/Lycop/Lut/Coq10 [Daily Multivitamin Capsule] 1 each PO DAILY [History] Potassium Chloride [K-Tab ER] 10 meq PO BID 06/23/16 [History] Pravastatin Sodium [Pravachol] 40 mg PO DAILY 06/23/16 [History] Ranitidine HCl [Heartburn Relief] 150 mg PO HS 06/23/16 [History] Tamsulosin [Flomax] 0.4 mg PO BID 06/23/16 [History] Urea [Ure-K] 1 appl TP BID 06/23/16 [History] Lisinopril [Zestril] 10 mg PO BID #60 tablet 06/28/16 [Rx] Metoprolol [Lopressor] 50 mg PO BID #60 tablet 06/28/16 [Rx] Allergies/Adverse Reactions: Allergies gabapentin Allergy (Verified 06/12/16 20:56) Itching Nortriptyline Allergy (Verified 06/12/16 20:56) Rash Terazosin Allergy (Verified 06/12/16 20:56) Itching - Respiratory Orders Smoking Cessation: Smoking cessation has been advised. For more information, call the [place] Tobacco Quit Line at 3-148-WUOD-NOW. - Ancillary Orders May consult with Dentist, Training Development Director, Engine Cleaner PRN - Advance Directives Code Status: Full Code - Mobility Orders Other (per PT/ OT) - Rehabiliation Orders Rehab Potential: Fair Rehab Orders: Evaluation for Physical Therapy, Evaluation for Occupational Therapy - Diet Orders No Added Salt (LORNA), No Concentrated Sweets, Cardiac (and diabetic) CERTIFICATION: I certify that the transfer of the above named patient to an Extended Care Facility is necessary for the continuing treatment of the diagnosis listed. The above information is true and accurate reflection of patient's current condition. Confidential - Redisclosure prohibited without a patient's written consent.
[2016-06-28] MEDS: Insulin LISPRO 300 UNITS/3 ML VIAL SQ SCH (09:00)
[2016-06-28] MEDS: Finasteride 5 MG TABLET PO SCH (09:33)
[2016-06-28] MEDS: Clotrimazole 1% CRM 15 GM TUBE TP SCH (09:33)
[2016-06-28] MEDS: Aspirin 81 MG TAB.CHEW PO SCH (09:33)
[2016-06-28] MEDS: Cholecalciferol (D-3) 1,000 UNIT TABLET PO SCH (09:34)
[2016-06-28] MEDS: Multivit/Ca/Min/Fe/FA 1 TAB TABLET PO SCH (09:34)
== END 2016-06-28 11:59 ==
LOC: 3BNU 10:38 → EMEROO 10:38 → SUATTDRO 12:26 → 3BNU 13:32
PROVIDERS: ADMIT Internal Medicine; ATTEND Internal Medicine

== ENCOUNTER 2016-07-19 00:01 | Inpatient (IN) ==
[2016-07-19 00:46] LABS: Basophils % 0.3 %; Eosinophils % 0.1 %; Hematocrit 40.9 % (37.5-50.1); Hemoglobin 13.6 g/dL (12.9-16.9); Immature Granulocytes % 0.4 % (0-4); Lymphocytes # 1.5 K/mcL (0.6-4.6); Lymphocytes % 10.6 %; Mean Corpuscular HGB Conc 33.3 g/dL (31.6-35.5); Mean Corpuscular Hemoglobin 27.7 pg (28.0-33.3); Mean Corpuscular Volume 83.3 fL (83.0-100.0); Mean Platelet Volume 12.1 fL (9.4-12.4); Monocytes # 0.8 K/mcL (0.0-1.3); Monocytes % 6.2 %; Neutrophils # 11.2 K/mcL (1.6-8.9); Platelet Count 205 K/mcL (140-400); Red Blood Count 4.91 M/mcL (4.19-5.50); Red Cell Distribution Width 13.9 % (11.5-14.5); Segmented Neutrophils % 82.4 %
[2016-07-19 00:56] LABS: Prothrombin Time 10.9 Seconds (9.4-12.1)
[2016-07-19 00:59] LABS: Activated Partial Thrombo Time 28.6 Seconds (26.0-36.0)
[2016-07-19 01:00] LABS: BUN/Creatinine Ratio 18 (6-26); Blood Urea Nitrogen 25 mg/dL (8-26); Calcium 8.8 mg/dL (8.6-10.8); Carbon Dioxide 24 mEq/L (19-29); Chloride 105 mEq/L (98-109); Glucose 138 mg/dL (70-99); Osmolality,Calculated 293 (280-300); Potassium 4.1 mEq/L (3.5-4.5); Sodium 138 mEq/L (136-145); eGFR For African Americans > 60 (> 60); eGFR For Non-African Americans 51 (> 60)
--- NOTE | 2016-07-19 01:56 | Emergency Department Note ---
Disposition Clinical Impression: GI bleed Qualifiers: GI bleed type/associated pathology: unspecified gastrointestinal hemorrhage type Qualified Code(s): K92.2 - Gastrointestinal hemorrhage, unspecified Disposition: Admitted As Inpatient Condition: Good GI Bleed HPI - General Chief complaint: ED GI Bleed Stated complaint: rectal bleed Source: patient Limitations: physical limitation Nursing Notes Reviewed: Yes Vital Signs Reviewed: Yes - History of Present Illness HPI Narrative: Patient transferred from the [place] for evaluation of GI bleed. Physician: Report from the [place] states that the patient has blood in his stool and they do not have GI. Patient is a resident there. Upon arrival squad report the patient states that he has been having issues for approximately 2 months related to GI and constipation. Patient does not complain of any specific abdominal pain but states that he is here because they noticed blood. He has not noticed blood in his stool because he has not been checking. Patient is resting comfortably in bed and is a relatively poor historian. He does complain of different GI issues of which are related to pain with constipation and straining. Patient has a history of colon cancer that has undergone resection and chemotherapy. - Related Data Home Medications Medication Instructions Recorded Confirmed Aspirin 81 mg PO DAILY 06/23/16 06/23/16 Cholecalciferol (Vitamin D3) 2,000 unit PO DAILY 06/23/16 06/23/16 [Vitamin D3] Clotrimazole 1% CRM [Lotrimin 1%] 1 appl TP BID 06/23/16 06/23/16 Dextrose Gel [Gluctose] 15 gm PO DAILY PRN 06/23/16 06/23/16 Finasteride [Proscar] 5 mg PO DAILY 06/23/16 06/23/16 Hydrocortisone 2.5% CREAM [Cortaid] 1 applic TP QID 06/23/16 06/23/16 Insulin ASPART [NovoLOG] 10 unit SQ TID 06/23/16 06/23/16 Metformin [Glucophage] 1,000 mg PO DAILY 06/23/16 06/23/16 Mv-Mn/FA/Vit K/Lycop/Lut/Coq10 1 each PO DAILY 06/23/16 06/23/16 [Daily Multivitamin Capsule] Potassium Chloride [K-Tab ER] 10 meq PO BID 06/23/16 06/23/16 Pravastatin Sodium [Pravachol] 40 mg PO DAILY 06/23/16 06/23/16 Ranitidine HCl [Heartburn Relief] 150 mg PO HS 06/23/16 06/23/16 Tamsulosin [Flomax] 0.4 mg PO BID 06/23/16 06/23/16 Urea [Ure-K] 1 appl TP BID 06/23/16 06/23/16 Previous Rx's Medication Instructions Recorded Lisinopril [Zestril] 10 mg PO BID #60 tablet 06/28/16 Metoprolol [Lopressor] 50 mg PO BID #60 tablet 06/28/16 Allergies Allergy/AdvReac Type Severity Reaction Status Date / Time gabapentin Allergy Itching Verified 06/12/16 20:56 Nortriptyline Allergy Rash Verified 06/12/16 20:56 Terazosin Allergy Itching Verified 06/12/16 20:56 All systems ED: reviewed and negative except as stated. Constitutional: Denies: fever, chills, weakness Cardiovascular: Denies: chest pain Respiratory: Denies: cough, dyspnea Gastrointestinal: Reports: constipation, hematochezia. Denies: abdominal pain, nausea, vomiting, diarrhea Genitourinary: Denies: urgency, dysuria Musculoskeletal: Denies: back pain Integumentary: Denies: rash Neurological: Denies: headache, weakness Endocrine: Denies: fatigue Past Medical History - Past Medical History Medical history: Reports: arthritis, cancer, diabetes, hypertension, other Surgical history: Reports: knee replacement Psychiatric history: Reports: PTSD - Social History Smoking Status: Former smoker Smokeless Tobacco Status: No Alcohol use: Reports: rarely Drug use: Reports: none Physical Exam - General Limitations: physical limitation General appearance: alert - Head Head exam: atraumatic, normocephalic - Eye Eye exam: Present: normal appearance - ENT ENT exam: normal exam, normal oropharynx - Neck Neck exam: Present: normal inspection, full ROM - Chest Chest inspection: Present: normal inspection - Respiratory Respiratory exam: Present: normal lung sounds bilaterally. Absent: respiratory distress - Cardiovascular Cardiovascular exam: Present: regular rate, normal rhythm - Abdominal Exam Abdominal exam: Present: soft, Non-Tender - Rectal Exam Rectal exam: Present: normal rectal tone, heme (+) stool, hemorrhoids - Extremities Exam Extremities exam: Present: normal inspection. Absent: tenderness - Neurological Exam Neurological exam: Present: alert - Psychiatric Psychiatric exam: Present: normal affect, normal mood Course - Reevaluation(s) Reevaluation #1: Patient with past medical history of colon cancer that was resected with chemotherapy. There is a transfer from the [place] for rectal bleeding that was confirmed with rectal exam. Due to the complexity of his previous colon cancer and the possibility of recurrent cancer, we recommend admission for further evaluation. - Consultations Consultation #1: Discussed with Dr. Alarcon. Patient accepted for admission. Vital Signs Temperature 98.0 F 07/19/16 00:04 Pulse Rate 90 07/19/16 00:04 Respiratory Rate 18 07/19/16 00:04 Blood Pressure 125/68 07/19/16 00:04 O2 Sat by Pulse Oximetry 96 07/19/16 00:04 Temperature 98.0 F 07/19/16 00:04 Pulse Rate 90 07/19/16 00:04 Respiratory Rate 18 07/19/16 04:09 Blood Pressure 149/67 07/19/16 04:09 O2 Sat by Pulse Oximetry 96 07/19/16 00:04 Oxygen Delivery Oxygen Delivery Room Air GI Bleed - Lab Data Result diagrams: 07/19/16 00:34 07/19/16 00:34 Lab Results 07/19/16 07/19/16 07/19/16 Range/Units 00:34 00:34 00:34 WBC 13.6 H (4.3-11.1) K/mcL RBC 4.91 (4.19-5.50) M/mcL Hgb 13.6 (12.9-16.9) g/dL Hct 40.9 (37.5-50.1) % MCV 83.3 (83.0-100.0) fL MCH 27.7 L (28.0-33.3) pg MCHC 33.3 (31.6-35.5) g/dL RDW 13.9 (11.5-14.5) % Plt Count 205 (140-400) K/mcL MPV 12.1 (9.4-12.4) fL Immature Gran % 0.4 (0-4) % Seg Neutrophils % 82.4 % Lymphocytes % 10.6 % Monocytes % 6.2 % Eosinophils % 0.1 % Basophils % 0.3 % Neutrophils # 11.2 H (1.6-8.9) K/mcL Lymphocytes # 1.5 (0.6-4.6) K/mcL Monocytes # 0.8 (0.0-1.3) K/mcL Eosinophils # 0.0 (0.0-0.6) K/mcL Basophils # 0.0 (0.0-0.2) K/mcL PT 10.9 (9.4-12.1) Seconds INR 1.0 APTT 28.6 (26.0-36.0) Seconds Sodium 138 (136-145) mEq/L Potassium 4.1 (3.5-4.5) mEq/L Chloride 105 (98-109) mEq/L Carbon Dioxide 24 (19-29) mEq/L BUN 25 (8-26) mg/dL Creatinine 1.36 H (0.72-1.25) mg/dL Est GFR ( Amer) > 60 (> 60) Est GFR (Non-Af Amer) 51 L (> 60) BUN/Creatinine Ratio 18 (6-26) Glucose 138 H (70-99) mg/dL Calculated Osmolality 293 (280-300) Calcium 8.8 (8.6-10.8) mg/dL Stool Occult Blood (Negative) Blood Type Antibody Screen 07/19/16 07/19/16 Range/Units 00:34 01:03 WBC (4.3-11.1) K/mcL RBC (4.19-5.50) M/mcL Hgb (12.9-16.9) g/dL Hct (37.5-50.1) % MCV (83.0-100.0) fL MCH (28.0-33.3) pg MCHC (31.6-35.5) g/dL RDW (11.5-14.5) % Plt Count (140-400) K/mcL MPV (9.4-12.4) fL Immature Gran % (0-4) % Seg Neutrophils % % Lymphocytes % % Monocytes % % Eosinophils % % Basophils % % Neutrophils # (1.6-8.9) K/mcL Lymphocytes # (0.6-4.6) K/mcL Monocytes # (0.0-1.3) K/mcL Eosinophils # (0.0-0.6) K/mcL Basophils # (0.0-0.2) K/mcL PT (9.4-12.1) Seconds INR APTT (26.0-36.0) Seconds Sodium (136-145) mEq/L Potassium (3.5-4.5) mEq/L Chloride (98-109) mEq/L Carbon Dioxide (19-29) mEq/L BUN (8-26) mg/dL Creatinine (0.72-1.25) mg/dL Est GFR ( Amer) (> 60) Est GFR (Non-Af Amer) (> 60) BUN/Creatinine Ratio (6-26) Glucose (70-99) mg/dL Calculated Osmolality (280-300) Calcium (8.6-10.8) mg/dL Stool Occult Blood Positive A (Negative) Blood Type O NEGATIVE Antibody Screen NEGATIVE Attestation Statement - Attestation Attestation: For this encounter, I have reviewed the resident, GERIATRIC CARE MANAGER, or PA documentation, treatment plan, and medical decision making; and I have had face to face time with this patient. 81-year-old [facility]. Patient has a history of neoplasm of the colon which has produced hematochezia and the past which has required blood transfusion. Rectal exam revealed brown stool surrounded by gross blood. Patient's vital signs are stable in the emergency department today in his hemoglobin is not significantly decreased however patient is at risk for worsening of his condition and may require acute intervention. Patient will be admitted for further care and evaluation of hematochezia.
--- NOTE | 2016-07-19 03:38 | Internal Med History&Physical ---
<John Hale - Last Filed: 07/19/16 05:50> Date of Encounter: 07/19/16 Internal Medicine - H&P: HPI History of present illness: Mr. Conn is a 81 year old male Internal Medicine - H&P: Meds Aspirin 81 mg PO DAILY 06/23/16 [History] Cholecalciferol (Vitamin D3) [Vitamin D3] 2,000 unit PO DAILY 06/23/16 [History] Clotrimazole 1% CRM [Lotrimin 1%] 1 appl TP BID 06/23/16 [History] Dextrose Gel [Gluctose] 15 gm PO DAILY PRN 06/23/16 [History] Finasteride [Proscar] 5 mg PO DAILY 06/23/16 [History] Hydrocortisone 2.5% CREAM [Cortaid] 1 applic TP QID 06/23/16 [History] Insulin ASPART [NovoLOG] 10 unit SQ TID 06/23/16 [History] Metformin [Glucophage] 1,000 mg PO DAILY 06/23/16 [History] Mv-Mn/FA/Vit K/Lycop/Lut/Coq10 [Daily Multivitamin Capsule] 1 each PO DAILY [History] Potassium Chloride [K-Tab ER] 10 meq PO BID 06/23/16 [History] Pravastatin Sodium [Pravachol] 40 mg PO DAILY 06/23/16 [History] Ranitidine HCl [Heartburn Relief] 150 mg PO HS 06/23/16 [History] Tamsulosin [Flomax] 0.4 mg PO BID 06/23/16 [History] Urea [Ure-K] 1 appl TP BID 06/23/16 [History] Lisinopril [Zestril] 10 mg PO BID #60 tablet 06/28/16 [Rx] Metoprolol [Lopressor] 50 mg PO BID #60 tablet 06/28/16 [Rx] Allergies gabapentin Allergy (Verified 06/12/16 20:56) Itching Nortriptyline Allergy (Verified 06/12/16 20:56) Rash Terazosin Allergy (Verified 06/12/16 20:56) Itching All Systems PM: A 10-system review of systems was performed and is negative for pertinent findings except as documented above in the HPI. - Constitutional Vitals: Temp Pulse Resp BP Pulse Ox 98.0 F 90 18 149/67 96 02/21/17 00:04 07/19/16 00:04 07/19/16 04:09 07/19/16 04:09 07/19/16 00:04 Internal Med - H&P Results - Labs CBC & Chem 7: 07/19/16 00:34 07/19/16 00:34 - Attending Attestation I examined this patient and my medical decision-making was reviewed with the Resident Physician, Dr Carlton. I agree with the documented findings, disposition and treatment plan as described except to the extent set forth below. Pt asymptomatic, no CP, dizziness. Exam RRR S1S2, abd soft, nontender, + BS Hb 13.6 Plan: monitor H&H, VS. gentle iv fluid hydration. Full code. <Ranjan Carlton - Last Filed: 07/19/16 05:59> Date of Encounter: 07/19/16 Time of Encounter: 03:35 Assessment and Plan (1) Lower GI bleed Current visit: Yes Status: Acute Hb was 13.6 upon admission and he is not actively bleeding since admission Will obtain CBC now to monitor for any acute drops in hemoglobin No urgent need for colonoscopy while inpatient, but he may benefit from GI/ Surgery consult if bleeding persists Obtain iron profile, ferritin as MCV was 83 Will start on clear liquids and administer maintenance fluids at 75 ml/hr (2) RUFINA (acute kidney injury) Current visit: Yes Status: Acute Likely pre-renal secondary to dehydration as patient has been having poor oral intake and nausea Will start on clear liquids, encourage fluid intake and supplement with maintenance fluids at 75 ml/hr Hold home Lisinopril and avoid nephrotoxic agents (3) Non-insulin dependent type 2 diabetes mellitus Current visit: Yes Status: Chronic Hold home diabetic medications while in hospital He will be on clear liquids for now, start on SSI ACHS accuchecks (4) Hypertension Current visit: No Status: Chronic Blood pressures well controlled since admission Will continue home Metoprolol but hold Lisinopril in setting of RUFINA Qualifiers: Hypertension type: essential hypertension Qualified Code(s): I10 - Essential (primary) hypertension (5) DVT prophylaxis Current visit: Yes Status: Acute SCDs in setting of GIB Internal Medicine - H&P: HPI Chief complaint: rectal bleed Admitted From: Long-term Nursing Facility Plans for Post Hospital Care: Transfer Detention Care History of present illness: Mr. Conn is a 81 year old male who is transferred here from the [place] for GI bleed. He is a poor historian and there is no family at bedside. Patient states that he has no complaints himself and did not notice the GI bleed until a nurse saw her earlier yesterday night. He does not have any abdominal pain but describes recurrent constipation and diarrhea which she takes medication for. He did mention having an episode of diarrhea earlier yesterday but admitted taking laxatives prior to it. He also describes having nausea but has not had any vomiting. He does state that his appetite has been poor lately and attributes some of his nausea due to neuropathy. Of note, he does have a history of colon cancer and had a resection in roughly 2001 and was on chemotherapy. He reports no complications from the procedure and denied having any bleeding or clotting problems. 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 He currently denies any chest pain , shortness of breath, fever, chills. Past Med Surg Social Fam HX - Past Medical History Medical history: arthritis, cancer, diabetes, hypertension, other Psychiatric history: PTSD - Past Surgical History Surgical History: knee replacement - Social History Smoking Status: Former smoker Smokeless Tobacco Status: No Alcohol use: rarely Drug use: none - Family History Father Living Status: Hx Family Neurologic Disorders: Yes All Systems PM: A 10-system review of systems was performed and is negative for pertinent findings except as documented above in the HPI. - Constitutional Constitutional: no chills, no fever(s), no night sweats - EENT Eyes: no change in vision, no discharge, no pain, no photophobia Ears: no ear discharge, no ear pain, no tinnitus Nose, mouth and throat: no dysphagia, no nasal discharge, no neck pain, no sore throat - Cardiovascular Cardiovascular ROS IM: no chest pain, no diaphoresis, no dyspnea, no lightheadedness, no palpitations, no syncope - Respiratory Respiratory: no cough, no dyspnea, no wheezing, no excessive phlegm production - Gastrointestinal Gastrointestinal: hematochezia, nausea, no abdominal pain, no diarrhea, no hematemesis, no melena, no vomiting - Musculoskeletal Musculoskeletal ROS IM: myalgias, numbness, tingling - Integumentary Integumentary IM: no rash, no unusual bruising - Neurological Neurological ROS: memory loss, no confusion, no convulsions, no focal weakness, no numbness, no tingling, no tremor(s) - Hematologic/Lymphatic Hematologic/Lymphatic: no easy bruising - Constitutional Vitals: Temp Pulse Resp BP Pulse Ox 98.0 F 90 18 125/68 96 07/19/16 00:04 07/19/16 00:04 07/19/16 00:04 07/19/16 00:04 07/19/16 00:04 General appearance: Present: cooperative, A&O X 3, pleasant, no acute distress, answers questions appropriately - Head Head exam: Present: atraumatic, normocephalic - Eye Eye exam: Present: PERRL, conjuntiva pink, sclera anicteric - Neck Neck exam general surgery: Present: supple, trachea midline. Absent: lymphadenopathy - Respiratory Respiratory exam: Present: CTAB. Absent: accessory muscle use, rales, rhonchi, wheezes - Cardiovascular Cardiovascular exam: Present: RRR, +S1, +S2. Absent: diastolic murmur, gallop, rubs, systolic murmur - GI/Abdominal GI/Abdominal exam: Present: normal bowel sounds, soft, no peritoneal signs. Absent: distended, tenderness Additional comments: previous midline scar noted from previous colon resection - Extremities Exam Extremities exam: Present: warm, radial pulses palpable and symetrical. Absent : calf tenderness, cyanotic, pedal edema - Neurological Exam Neurological exam: Present: alert, oriented X3, no focal deficits. Absent: facial droop, speech deficit - Skin Skin exam: Present: dry, intact Internal Med - H&P Results - Labs CBC & Chem 7: 07/19/16 00:34 07/19/16 00:34
[2016-07-19] MEDS ORDERED: Acetaminophen 325 MG TABLET PO PRN (03:54)
[2016-07-19] MEDS ORDERED: Naloxone 0.4 MG/ML INJ IVP PRN (03:54)
[2016-07-19] MEDS ORDERED: Ondansetron ODT 4 MG TAB.RAPDIS SL PRN (03:54)
[2016-07-19] MEDS ORDERED: Dextrose Gel 15 GM PO PRN ×2 (05:51)
[2016-07-19] MEDS ORDERED: *HR* Dextrose 50 % in Water (Syg) 50 ML SYRINGE IVP PRN (05:51)
[2016-07-19] MEDS ORDERED: D5% in Water 1,000 ML IV PRN (05:51)
[2016-07-19] MEDS: 0.9 % Sodium Chloride 1,000 ML IVC SCH ×2 (06:59→23:17)
[2016-07-19] MEDS: Insulin LISPRO 300 UNITS/3 ML VIAL SQ SCH ×4 (07:07→22:54)
[2016-07-19 07:18] LABS: BUN/Creatinine Ratio 19 (6-26); Blood Urea Nitrogen 20 mg/dL (8-26); Calcium 9.3 mg/dL (8.6-10.8); Carbon Dioxide 26 mEq/L (19-29); Chloride 107 mEq/L (98-109); Glucose 149 mg/dL (70-99); Osmolality,Calculated 297 (280-300); Potassium 4.5 mEq/L (3.5-4.5); Sodium 141 mEq/L (136-145); eGFR For African Americans > 60 (> 60); eGFR For Non-African Americans > 60 (> 60)
[2016-07-19 07:22] LABS: Basophils % 0.4 %; Eosinophils # 0.1 K/mcL (0.0-0.6); Eosinophils % 0.5 %; Hematocrit 43.7 % (37.5-50.1); Hemoglobin 14.4 g/dL (12.9-16.9); Immature Granulocytes % 0.4 % (0-4); Lymphocytes # 2.2 K/mcL (0.6-4.6); Lymphocytes % 20.5 %; Mean Corpuscular Hemoglobin 27.6 pg (28.0-33.3); Mean Corpuscular Volume 83.7 fL (83.0-100.0); Mean Platelet Volume 12.5 fL (9.4-12.4); Monocytes # 0.8 K/mcL (0.0-1.3); Monocytes % 7.8 %; Neutrophils # 7.6 K/mcL (1.6-8.9); Platelet Count 207 K/mcL (140-400); Red Blood Count 5.22 M/mcL (4.19-5.50); Red Cell Distribution Width 14.1 % (11.5-14.5); Segmented Neutrophils % 70.4 %
[2016-07-19 07:53] LABS: Hemoglobin A1C 7.4 %
[2016-07-19] MEDS: Finasteride 5 MG TABLET PO SCH (08:11)
[2016-07-19] MEDS: Aspirin 81 MG TAB.CHEW PO SCH (08:12)
[2016-07-19 10:37] LABS: % Iron Saturation 13 % (20-55); Iron 42 mcg/dL (65-175); Transferrin 228 mg/dL (174-364)
[2016-07-19 11:01] LABS: Ferritin 71 ng/ml (22-275)
--- NOTE | 2016-07-19 16:02 | Internal Med Progress Note ---
Date of Encounter: 07/19/16 Time of Encounter: 15:59 - Assessment and plan (1) Lower GI bleed Current Visit: Yes Status: Acute Assessment and plan: Patient was admitted due to a lower GI bleeding. However, his hemoglobin is 14.1. No signs of active bleeding during this encounter. Coagulation profile within normal limits. I have consulted with gastroenterology for possible endoscopic exercise. The patient has a history of colon cancer. He states that hot colonoscopy done in February of last year. Will follow recommendations by gastroenterology. (2) DVT prophylaxis Current Visit: Yes Status: Acute Assessment and plan: Avoid heparin in light of GI bleeding. Compressive devices for DVT prophylaxis. (3) RUFINA (acute kidney injury) Current Visit: Yes Status: Acute Assessment and plan: Initial RUFINA which has responded to iv fluids. (4) Non-insulin dependent type 2 diabetes mellitus Current Visit: Yes Status: Chronic (5) Hypertension Current Visit: No Status: Chronic Qualifiers: Hypertension type: essential hypertension Qualified Code(s): I10 - Essential (primary) hypertension - Time Spent With Patient 25 - 35 minutes - Subjective Interval history: This is my first encounter with the patient. The patient is alert, awake, oriented. He denies abdominal pain at this point. He states that some blood was found his stool yesterday and [facility] - Constitutional Vitals: Temp Pulse Resp BP Pulse Ox 98.1 F 94 18 155/78 94 L 07/19/16 14:00 07/19/16 14:00 07/19/16 14:00 07/19/16 14:00 07/19/16 14:00 General appearance: Present: cooperative, A&O X 3, pleasant, no acute distress, answers questions appropriately - Head Head exam: Present: atraumatic, normocephalic - Eye Eye exam: Present: PERRL, conjuntiva pink, sclera anicteric Pupils: Present: PERRL - Neck Neck exam general surgery: Present: supple, trachea midline. Absent: lymphadenopathy - Respiratory Respiratory exam: Present: CTAB. Absent: accessory muscle use, rales, rhonchi, wheezes - Cardiovascular Cardiovascular exam: Present: RRR, +S1, +S2. Absent: diastolic murmur, gallop, rubs, systolic murmur - GI/Abdominal GI/Abdominal exam: Present: normal bowel sounds, soft, no peritoneal signs. Absent: distended, tenderness - Extremities Exam Extremities exam: Present: warm, radial pulses palpable and symetrical. Absent : calf tenderness, cyanotic, pedal edema - Neurological Exam Neurological exam: Present: CN II-XII intact, oriented X3, no focal deficits. Absent: pronater drift, facial droop, speech deficit - Skin Skin exam: Present: dry, intact Internal Medicine: Result - Labs CBC & Chem 7: 07/19/16 06:37 07/19/16 06:37 Labs: Short CBC 07/19/16 Range/Units 06:37 WBC 10.8 (4.3-11.1) K/mcL Hgb 14.4 (12.9-16.9) g/dL Hct 43.7 (37.5-50.1) % Plt Count 207 (140-400) K/mcL Neutrophils # 7.6 (1.6-8.9) K/mcL BMP 07/19/16 06:37 Sodium 141 Potassium 4.5 Chloride 107 Carbon Dioxide 26 BUN 20 Creatinine 1.07 Glucose 149 H Calcium 9.3 - ABG Interpretation ABG results: PT/INR, D-dimer PT 10.9 Seconds (9.4-12.1) 07/19/16 00:34 Consult Discharge Plan - Plan Referrals: Jonathan Herron Jr, MD [Partnered Physician] - 08/01/16 2:45 pm Watson Jimenes DO [Partnered Physician] - 08/01/16 1:45 pm
[2016-07-19] MEDS: Famotidine 20 MG TABLET PO SCH (22:55)
[2016-07-20 09:04] LABS: Hematocrit 44.8 % (37.5-50.1); Hemoglobin 14.4 g/dL (12.9-16.9)
[2016-07-20] MEDS: Aspirin 81 MG TAB.CHEW PO SCH (10:20)
--- NOTE | 2016-07-20 11:09 | Discharge Summary ---
Date of Encounter: 07/20/16 Time of Encounter: 11:05 - Discharge Diagnosis (1) Lower GI bleed Priority: Primary Status: Acute (2) DVT prophylaxis Priority: Secondary Status: Acute (3) RUFINA (acute kidney injury) Priority: Secondary Status: Acute (4) Non-insulin dependent type 2 diabetes mellitus Priority: Secondary Status: Chronic (5) Hypertension Priority: Secondary Status: Chronic Qualifiers: Hypertension type: essential hypertension Qualified Code(s): I10 - Essential (primary) hypertension - Discharge Medications Home Medications: Aspirin 81 mg PO DAILY 06/23/16 [History] Cholecalciferol (Vitamin D3) [Vitamin D3] 2,000 unit PO DAILY 06/23/16 [History] Dextrose Gel [Gluctose] 15 gm PO DAILY PRN 06/23/16 [History] Finasteride [Proscar] 5 mg PO DAILY 06/23/16 [History] Insulin ASPART [NovoLOG] 10 unit SQ TID 06/23/16 [History] Metformin [Glucophage] 1,000 mg PO DAILY 06/23/16 [History] Mv-Mn/FA/Vit K/Lycop/Lut/Coq10 [Daily Multivitamin Capsule] 1 each PO DAILY [History] Potassium Chloride [K-Tab ER] 10 meq PO BID 06/23/16 [History] Pravastatin Sodium [Pravachol] 40 mg PO DAILY 06/23/16 [History] Ranitidine HCl [Heartburn Relief] 150 mg PO HS 06/23/16 [History] Tamsulosin [Flomax] 0.4 mg PO BID 06/23/16 [History] Urea [Ure-K] 1 appl TP BID 06/23/16 [History] Lisinopril [Zestril] 10 mg PO BID #60 tablet 06/28/16 [Rx] Metoprolol [Lopressor] 50 mg PO BID #60 tablet 06/28/16 [Rx] Chlorhexidine Gluconate [Betasept] 15 ml TP BID 07/19/16 [History] Docusate Sodium [Dok] 200 mg PO DAILY 07/19/16 [History] Fludrocortisone Acetate [Florinef] 0.1 mg PO DAILY 07/19/16 [History] MOM Conc [Milk of Magnesia Conc] 10 ml PO Q4H PRN 07/19/16 [History] Mirtazapine [Remeron] 15 mg PO HS 07/19/16 [History] Ondansetron HCl 4 mg PO Q6H PRN 07/19/16 [History] Polyethylene Glycol/Polyvinyl [Hypotears Eye Drops] 1 drop BOTH EYES TID [History] Pregabalin [Lyrica] 50 mg PO HS 07/19/16 [History] Allergies/Adverse Reactions: Allergies gabapentin Allergy (Verified 07/19/16 09:47) Itching Nortriptyline Allergy (Verified 07/19/16 09:47) Rash Terazosin Allergy (Verified 07/19/16 09:47) Itching Date of admission: 07/19/16 03:07 [facility] Consults: 07/19/16 04:00 Consult to Clean Out Driller [CONS] Routine Reason for SW Consult: [facility] 07/19/16 10:51 Consult to Gastroenterology [CONS] Routine Consulting Provider: Gastroenterology Darya Reason for Consult: Lower GI bleed. Discussed with Watson Hardy Call Completed: No Discharging clinician: Jay Christian Anticipated date of discharge: 07/20/16 - Patient Status Disposition: Transfer Inpatient Rehab Fac Condition: Fair Functional capacity at discharge: independent ambulation Overall status at discharge: patient is back to baseline - Discharge Instructions Follow Up With: Jonathan Herron Jr, MD [Partnered Physician] - 08/01/16 2:45 pm Watson Jimenes DO [Partnered Physician] - 08/01/16 1:45 pm - Diet and Activity Activity: increase activity as tolerated Diet: advance to your usual diet Interval History: Mr. Conn is a 81 year old male who is transferred here from the [facility] for GI bleed. He is a poor historian and there is no family at bedside. Patient states that he has no complaints himself and did not notice the GI bleed until a nurse saw her earlier yesterday night. He does not have any abdominal pain but describes recurrent constipation and diarrhea which she takes medication for. He did mention having an episode of diarrhea earlier yesterday but admitted taking laxatives prior to it. He also describes having nausea but has not had any vomiting. He does state that his appetite has been poor lately and attributes some of his nausea due to neuropathy. Of note, he does have a history of colon cancer and had a resection in roughly 2001 and was on chemotherapy. He reports no complications from the procedure and denied having any bleeding or clotting problems. 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 He currently denies any chest pain , shortness of breath, fever, chills. Hospital course: Mr. Conn is a 81 year old male admitted due to lower GI bleeding. His hemoglobin has been stable and within normal limits since admission. No signs of bleeding since admission. He was evaluated by gastroenterology, at this point they do not recommend to repeat endoscopic studies. Furthermore, the patient underwent a colonoscopy 3 months ago. We will discharge the patient back to the [facility], the patient should follow up with gastroenterology at the [facility] or with [facility]. The patient was explained about the plan, expresses understanding. We will discharge the patient today. Pending acceptance from the [facility]. - Time Spent with Patient Total time spent providing and/or coordinating discharge services: Greater than 30 minutes - Constitutional Vitals: Temp Pulse Resp BP Pulse Ox 98.1 F 72 18 177/81 96 07/20/16 06:26 07/20/16 06:26 07/20/16 06:26 07/20/16 06:26 07/20/16 06:26 General appearance: Present: cooperative, A&O X 3, pleasant, no acute distress, answers questions appropriately - Head Head exam: Present: atraumatic, normocephalic - Eye Eye exam: Present: PERRL, conjuntiva pink, sclera anicteric Pupils: Present: PERRL - Neck Neck exam general surgery: Present: supple, trachea midline. Absent: lymphadenopathy - Respiratory Respiratory exam: Present: CTAB. Absent: accessory muscle use, rales, rhonchi, wheezes - Cardiovascular Cardiovascular exam: Present: RRR, +S1, +S2. Absent: diastolic murmur, gallop, rubs, systolic murmur - GI/Abdominal GI/Abdominal exam: Present: normal bowel sounds, soft, no peritoneal signs. Absent: distended, tenderness - Extremities Exam Extremities exam: Present: warm, radial pulses palpable and symetrical. Absent : calf tenderness, cyanotic, pedal edema - Neurological Exam Neurological exam: Present: CN II-XII intact, oriented X3, no focal deficits. Absent: pronater drift, facial droop, speech deficit - Skin Skin exam: Present: dry, intact - VTE Documentation of Mechanical Device: Intermittent pneumatic compression device
--- NOTE | 2016-07-20 11:14 | Physician Discharge Referral ---
ExtendedCare Referral Info Transfer To: ECF Provider in Charge after Transfer: PCP Institutional Level of Care: Skilled - Diagnosis (1) Lower GI bleed Status: Acute (2) DVT prophylaxis Status: Acute (3) RUFINA (acute kidney injury) Status: Acute (4) Non-insulin dependent type 2 diabetes mellitus Status: Chronic (5) Hypertension Status: Chronic - Transfer Medications Home Medications: Aspirin 81 mg PO DAILY 06/23/16 [History] Cholecalciferol (Vitamin D3) [Vitamin D3] 2,000 unit PO DAILY 06/23/16 [History] Dextrose Gel [Gluctose] 15 gm PO DAILY PRN 06/23/16 [History] Finasteride [Proscar] 5 mg PO DAILY 06/23/16 [History] Insulin ASPART [NovoLOG] 10 unit SQ TID 06/23/16 [History] Metformin [Glucophage] 1,000 mg PO DAILY 06/23/16 [History] Mv-Mn/FA/Vit K/Lycop/Lut/Coq10 [Daily Multivitamin Capsule] 1 each PO DAILY [History] Potassium Chloride [K-Tab ER] 10 meq PO BID 06/23/16 [History] Pravastatin Sodium [Pravachol] 40 mg PO DAILY 06/23/16 [History] Ranitidine HCl [Heartburn Relief] 150 mg PO HS 06/23/16 [History] Tamsulosin [Flomax] 0.4 mg PO BID 06/23/16 [History] Urea [Ure-K] 1 appl TP BID 06/23/16 [History] Lisinopril [Zestril] 10 mg PO BID #60 tablet 06/28/16 [Rx] Metoprolol [Lopressor] 50 mg PO BID #60 tablet 06/28/16 [Rx] Chlorhexidine Gluconate [Betasept] 15 ml TP BID 07/19/16 [History] Docusate Sodium [Dok] 200 mg PO DAILY 07/19/16 [History] Fludrocortisone Acetate [Florinef] 0.1 mg PO DAILY 07/19/16 [History] MOM Conc [Milk of Magnesia Conc] 10 ml PO Q4H PRN 07/19/16 [History] Mirtazapine [Remeron] 15 mg PO HS 07/19/16 [History] Ondansetron HCl 4 mg PO Q6H PRN 07/19/16 [History] Polyethylene Glycol/Polyvinyl [Hypotears Eye Drops] 1 drop BOTH EYES TID [History] Pregabalin [Lyrica] 50 mg PO HS 07/19/16 [History] Allergies/Adverse Reactions: Allergies gabapentin Allergy (Verified 07/19/16 09:47) Itching Nortriptyline Allergy (Verified 07/19/16 09:47) Rash Terazosin Allergy (Verified 07/19/16 09:47) Itching - Respiratory Orders Smoking Cessation: Smoking cessation has been advised. For more information, call the [place] Tobacco Quit Line at 8-826-VYPB-NOW. - Advance Directives Code Status: Full Code - Mobility Orders Other (As tolerated. Fall precautions.) - Rehabiliation Orders Rehab Potential: Fair Rehab Orders: ROM Exercises, Evaluation for Physical Therapy, Evaluation for Occupational Therapy - Diet Orders Regular CERTIFICATION: I certify that the transfer of the above named patient to an Extended Care Facility is necessary for the continuing treatment of the diagnosis listed. The above information is true and accurate reflection of patient's current condition. Confidential - Redisclosure prohibited without a patient's written consent.
--- NOTE | 2016-07-20 11:27 | Gastroenterology Consult Note ---
<Watson Hardy - Last Filed: 07/20/16 11:24> Date of Encounter: 07/20/16 Time of Encounter: 09:55 - Assessment and plan (1) Lower GI bleed Current Visit: Yes Status: Acute Assessment and plan: Likely secondary to hemorrhoids. Hgb stable at 14.4. No indication for colonoscopy at this time. (2) Alternating constipation and diarrhea Current Visit: Yes Status: Acute Assessment and plan: Recommend daily fiber supplement. - Time Spent With Patient Total time spent is greater than 50% in coordination of care (as documented) at patient's floor/unit and/or counseling patient: GI History of Present Illness - Data of Consult Patient: new to practice Consult date: 07/20/16 Requesting Physician: Jay Christian - Consult Narrative Reason for consult: GI bleed History of present illness: Mr. Conn is a 81 year old male with PMHx of arthritis, colon cancer, DM, HTN who was transferred [facility] with GI bleed. He states he did not see any BRBPR, but he also noted that he does not look either. Hgb on admission 13.6 and FOBT was positive. He reports history of hemorrhoids. He denies abdominal pain, but does complain of alternating constipation and diarrhea. He admits to nausea, but denies any vomiting. He has history of colon cancer and had resection around 2001 and chemotherapy. Procedures: Colonoscopy February 2016 per pt report. NSAIDs: ASA Anticoagulation: None Past Med Surg Social Fam HX - Past Medical History Medical history: arthritis, cancer, diabetes, hypertension, other Psychiatric history: PTSD - Past Surgical History Surgical History: knee replacement - Social History Smoking Status: Former smoker Smokeless Tobacco Status: No Alcohol use: rarely Drug use: none - Family History Father History Unknown: Yes Adopted: [place]: [place] [employer] Age: 63 Family Member Ethnicity: Non- Living Status: Age at : 61 Hx Family Cardiac Disorders: Yes Hx Family Respiratory Disorders: No Hx Family Cancer: No Hx Family GI Disorders: No Hx Family Genitourinary Disorders: No Hx Family Endocrine Disorder: No Hx Family Musculoskeletal Disorders: No Hx Family Neuromuscular Disorders: No Hx Family Neurologic Disorders: Yes Hx Family HEENT Disorders: No Hx Family Autoimmune Disorders: No Hx Family Reproductive Disorders: No Hx Family Psychosocial Disorders: No Hx Family Medical Disorders: No - Gastrointestinal Gastrointestinal: Present: as per HPI - Constitutional Constitutional: as per HPI - EENT Eyes: as per HPI Ears: Present: as per HPI Nose, mouth and throat: Present: as per HPI - Cardiovascular Cardiovascular ROS: Present: as per HPI - Respiratory Respiratory IM: Present: as per HPI - Genitourinary Genitourinary: Absent: change in color, Urinary frequency - Neurological ROS Neurological GI: Present: as per HPI - Hematologic/Lymphatic Hematologic/Lymphatic pediatric: Present: as per HPI - Musculoskeletal Musculoskeletal ROS GI: Present: as per HPI - Integumentary Integumentary GI: Present: as per HPI - Psychiatric ROS Psychiatric GI: Present: as per HPI - Endocrine Endocrine IM: Present: as per HPI - Constitutional Vitals: Temp Pulse Resp BP Pulse Ox 98.1 F 72 18 177/81 96 07/20/16 06:26 07/20/16 06:26 07/20/16 06:26 07/20/16 06:26 07/20/16 06:26 General appearance: Present: cooperative, A&O X 3, no acute distress, answers questions appropriately - Head Head exam: Present: atraumatic, normocephalic - Eye Eye exam: Present: normal appearance, sclera anicteric - ENT ENT exam: Present: mucous membranes moist - Neck Neck exam general surgery: Present: normal inspection, trachea midline - Respiratory Respiratory exam: Present: CTAB. Absent: rales, rhonchi - Cardiovascular Cardiovascular exam: Present: RRR, +S1, +S2 - GI/Abdominal GI/Abdominal exam: Present: soft, no peritoneal signs. Absent: distended, firm , guarding, tenderness - Rectal Rectal exam: Present: deferred - Extremities Exam Extremities exam: Present: warm - Neurological Exam Neurological exam: Present: no focal deficits - Psychiatric Psychiatric exam: Present: normal affect, normal mood - Skin Skin exam: Present: dry, intact, normal color, warm Results - Labs CBC & Chem 7: 07/20/16 08:45 07/19/16 06:37 Labs: Last Result Calcium 9.3 mg/dL (8.6-10.8) 07/19/16 06:37 Iron 42 mcg/dL (65-175) L 07/19/16 06:37 % Saturation 13 % (20-55) L 07/19/16 06:37 Transferrin 228 mg/dL (174-364) 07/19/16 06:37 Ferritin 71 ng/ml (22-275) 07/19/16 06:37 Stool Occult Blood Positive (Negative) A 07/19/16 01:03 Entire Visit Hgb 14.4 g/dL (12.9-16.9) 07/20/16 08:45 Hct 44.8 % (37.5-50.1) 07/20/16 08:45 PT 10.9 Seconds (9.4-12.1) 07/19/16 00:34 Ferritin 71 ng/ml (22-275) 07/19/16 06:37 - ABG ABG results: PT/INR, D-dimer PT 10.9 Seconds (9.4-12.1) 07/19/16 00:34 Consult Discharge Plan - Plan Referrals: Jonathan Herron Jr, MD [Partnered Physician] - 08/01/16 2:45 pm Watson Jimenes DO [Partnered Physician] - 08/01/16 1:45 pm <Raoul Guaman - Last Filed: 07/20/16 14:15> Date of Encounter: 07/20/16 Time of Encounter: 14:00 - Time Spent With Patient Total time spent is greater than 50% in coordination of care (as documented) at patient's floor/unit and/or counseling patient: GI History of Present Illness - Data of Consult Requesting Physician: Jay Christian - Consult Narrative History of present illness: Mr. Conn is a 81 year old male - Constitutional Vitals: Temp Pulse Resp BP Pulse Ox 98.3 F 83 16 186/89 97 07/20/16 13:20 07/20/16 13:20 07/20/16 13:20 07/20/16 13:20 07/20/16 13:20 Results - Labs CBC & Chem 7: 07/20/16 08:45 07/19/16 06:37 Labs: Last Result Calcium 9.3 mg/dL (8.6-10.8) 07/19/16 06:37 Iron 42 mcg/dL (65-175) L 07/19/16 06:37 % Saturation 13 % (20-55) L 07/19/16 06:37 Transferrin 228 mg/dL (174-364) 07/19/16 06:37 Ferritin 71 ng/ml (22-275) 07/19/16 06:37 Stool Occult Blood Positive (Negative) A 07/19/16 01:03 Entire Visit Hgb 14.4 g/dL (12.9-16.9) 07/20/16 08:45 Hct 44.8 % (37.5-50.1) 07/20/16 08:45 PT 10.9 Seconds (9.4-12.1) 07/19/16 00:34 Ferritin 71 ng/ml (22-275) 07/19/16 06:37 - ABG ABG results: PT/INR, D-dimer PT 10.9 Seconds (9.4-12.1) 07/19/16 00:34 - Attending Attestation I examined this patient and my medical decision-making was reviewed with the FLOAT BUILDER/PA/Advanced Practice Nurse/Resident Physician. I agree with the documented findings, disposition and treatment plan as described except to the extent set forth below.
[2016-07-20] MEDS: Insulin LISPRO 300 UNITS/3 ML VIAL SQ SCH ×4 (12:04→22:03)
[2016-07-20] MEDS: 0.9 % Sodium Chloride 1,000 ML IVC SCH (15:07)
[2016-07-20] MEDS: hydrALAZINE 25 MG TABLET PO SCH (18:13)
[2016-07-20] MEDS: amLODIPine 5 MG TABLET PO SCH (21:20)
[2016-07-20] MEDS: Finasteride 5 MG TABLET PO SCH (21:20)
[2016-07-20] MEDS: Famotidine 20 MG TABLET PO SCH (21:45)
[2016-07-21] MEDS: hydrALAZINE 25 MG TABLET PO SCH ×2 (00:11→05:21)
[2016-07-21 06:18] LABS: Basophils % 0.5 %; Eosinophils # 0.1 K/mcL (0.0-0.6); Eosinophils % 1.5 %; Hematocrit 45.2 % (37.5-50.1); Hemoglobin 14.7 g/dL (12.9-16.9); Immature Granulocytes % 1.1 % (0-4); Immature Platelets 13.8 % (1.1-6.1); Lymphocytes # 2.4 K/mcL (0.6-4.6); Lymphocytes % 30.4 %; Mean Corpuscular HGB Conc 32.5 g/dL (31.6-35.5); Mean Corpuscular Hemoglobin 26.8 pg (28.0-33.3); Mean Corpuscular Volume 82.5 fL (83.0-100.0); Mean Platelet Volume 12.5 fL (9.4-12.4); Monocytes # 0.8 K/mcL (0.0-1.3); Monocytes % 9.8 %; Neutrophils # 4.5 K/mcL (1.6-8.9); Platelet Count 240 K/mcL (140-400); Red Blood Count 5.48 M/mcL (4.19-5.50); Red Cell Distribution Width 13.8 % (11.5-14.5); Segmented Neutrophils % 56.7 %
[2016-07-21 06:23] LABS: BUN/Creatinine Ratio 11 (6-26); Blood Urea Nitrogen 13 mg/dL (8-26); Carbon Dioxide 26 mEq/L (19-29); Chloride 105 mEq/L (98-109); Glucose 194 mg/dL (70-99); Osmolality,Calculated 297 (280-300); Potassium 3.7 mEq/L (3.5-4.5); Sodium 141 mEq/L (136-145); eGFR For African Americans > 60 (> 60); eGFR For Non-African Americans 59 (> 60)
[2016-07-21 08:09] VITALS: BP 91/52
[2016-07-21] MEDS: Aspirin 81 MG TAB.CHEW PO SCH (08:10)
[2016-07-21] MEDS: Finasteride 5 MG TABLET PO SCH (08:13)
[2016-07-21] MEDS: amLODIPine 5 MG TABLET PO SCH (08:14)
[2016-07-21] MEDS: Insulin LISPRO 300 UNITS/3 ML VIAL SQ SCH (08:59)
--- NOTE | 2016-07-21 09:17 | Internal Med Progress Note ---
Date of Encounter: 07/21/16 Time of Encounter: 09:15 - Assessment and plan (1) Lower GI bleed Current Visit: Yes Status: Acute Assessment and plan: Patient was admitted due to a lower GI bleeding. However, his hemoglobin has been stable since admission. No signs of active bleeding during this encounter. Coagulation profile within normal limits. No endoscopic procedures for now as per GI evaluation. D/C back to [facility]. Awaiting for slate picker. He was medically discharged yesterday. (2) DVT prophylaxis Current Visit: Yes Status: Acute Assessment and plan: Avoid heparin in light of GI bleeding. Compressive devices for DVT prophylaxis. (3) RUFINA (acute kidney injury) Current Visit: Yes Status: Acute (4) Non-insulin dependent type 2 diabetes mellitus Current Visit: Yes Status: Chronic (5) Hypertension Current Visit: No Status: Chronic Assessment and plan: Stable. Qualifiers: Hypertension type: essential hypertension Qualified Code(s): I10 - Essential (primary) hypertension - Time Spent With Patient 25 - 35 minutes - Subjective Interval history: The patient is alert, awake, oriented. He denies abdominal pain at this point. No bloody bowel movements since admission. Feels weak but otherwise at his baseline. - Constitutional Vitals: Temp Pulse Resp BP Pulse Ox 97.7 F 79 18 91/52 94 L 07/21/16 08:01 07/21/16 08:01 07/21/16 08:01 07/21/16 08:01 07/21/16 08:01 General appearance: Present: cooperative, A&O X 3, pleasant, no acute distress, answers questions appropriately - Head Head exam: Present: atraumatic, normocephalic - Eye Eye exam: Present: PERRL, conjuntiva pink, sclera anicteric Pupils: Present: PERRL - Neck Neck exam general surgery: Present: supple, trachea midline. Absent: lymphadenopathy - Respiratory Respiratory exam: Present: CTAB. Absent: accessory muscle use, rales, rhonchi, wheezes - Cardiovascular Cardiovascular exam: Present: RRR, +S1, +S2. Absent: diastolic murmur, gallop, rubs, systolic murmur - GI/Abdominal GI/Abdominal exam: Present: normal bowel sounds, soft, no peritoneal signs. Absent: distended, tenderness - Extremities Exam Extremities exam: Present: warm, radial pulses palpable and symetrical. Absent : calf tenderness, cyanotic, pedal edema - Neurological Exam Neurological exam: Present: CN II-XII intact, oriented X3, no focal deficits. Absent: pronater drift, facial droop, speech deficit - Skin Skin exam: Present: dry, intact Internal Medicine: Result - Labs CBC & Chem 7: 07/21/16 05:10 07/21/16 05:10 Labs: Short CBC 07/21/16 Range/Units 05:10 WBC 8.0 (4.3-11.1) K/mcL Hgb 14.7 (12.9-16.9) g/dL Hct 45.2 (37.5-50.1) % Plt Count 240 (140-400) K/mcL Neutrophils # 4.5 (1.6-8.9) K/mcL BMP 07/21/16 05:10 Sodium 141 Potassium 3.7 Chloride 105 Carbon Dioxide 26 BUN 13 Creatinine 1.19 Glucose 194 H Calcium 9.0 - ABG Interpretation ABG results: PT/INR, D-dimer PT 10.9 Seconds (9.4-12.1) 07/19/16 00:34 - VTE Documentation of Mechanical Device: Intermittent pneumatic compression device Consult Discharge Plan - Plan Referrals: Jonathan Herron Jr, MD [Partnered Physician] - 08/01/16 2:45 pm Watson Jimenes DO [Partnered Physician] - 08/01/16 1:45 pm
== END 2016-07-21 11:07 | DRG 378 ==
LOC: EMEROO 00:01 → 3NENU 03:07 → SUATTDRO 03:07 → 3NENU 04:15 → 3ANU 07-20 07:33
PROVIDERS: ADMIT Internal Medicine; ATTEND Internal Medicine

== ENCOUNTER 2016-07-31 17:04 | Inpatient (IN) ==
[2016-07-31] MEDS ORDERED: 0.9 % Sodium Chloride 1,000 ML IV ONE (17:16)
--- NOTE | 2016-07-31 17:16 | Emergency Department Note ---
Disposition Clinical Impression: Failure to thrive Qualifiers: Failure to thrive age range: in adult Qualified Code(s): R62.7 - Adult failure to thrive Disposition: Admitted As Inpatient Weakness HPI - General Chief complaint: ED Weakness Stated complaint: Dehydrated Time Seen by Provider: 07/31/16 17:11 Source: patient, family Limitations: no limitations Nursing Notes Reviewed: Yes Vital Signs Reviewed: Yes - History of Present Illness HPI Narrative: Patient presents with complaint of weakness and decreased by mouth intake. Patient states that this gradually been ongoing. Patient denies any sick contacts denies fevers and chills. Patient lives with his son at the house patient denies chest pain denies shortness of breath. Patient denies bowel or bladder dysfunction associated with this. Pain Scale: 7 - Related Data Home Medications Medication Instructions Recorded Confirmed Aspirin 81 mg PO DAILY 06/23/16 07/19/16 Cholecalciferol (Vitamin D3) 2,000 unit PO DAILY 06/23/16 07/19/16 [Vitamin D3] Dextrose Gel [Gluctose] 15 gm PO DAILY PRN 06/23/16 07/19/16 Finasteride [Proscar] 5 mg PO DAILY 06/23/16 07/19/16 Insulin ASPART [NovoLOG] 10 unit SQ TID 06/23/16 07/19/16 Metformin [Glucophage] 1,000 mg PO DAILY 06/23/16 07/19/16 Mv-Mn/FA/Vit K/Lycop/Lut/Coq10 1 each PO DAILY 06/23/16 07/19/16 [Daily Multivitamin Capsule] Potassium Chloride [K-Tab ER] 10 meq PO BID 06/23/16 07/19/16 Pravastatin Sodium [Pravachol] 40 mg PO DAILY 06/23/16 07/19/16 Ranitidine HCl [Heartburn Relief] 150 mg PO HS 06/23/16 07/19/16 Tamsulosin [Flomax] 0.4 mg PO BID 06/23/16 07/19/16 Urea [Ure-K] 1 appl TP BID 06/23/16 07/19/16 Chlorhexidine Gluconate [Betasept] 15 ml TP BID 07/19/16 07/19/16 Docusate Sodium [Dok] 200 mg PO DAILY 07/19/16 07/19/16 Fludrocortisone Acetate [Florinef] 0.1 mg PO DAILY 07/19/16 07/19/16 MOM Conc [Milk of Magnesia Conc] 10 ml PO Q4H PRN 07/19/16 07/19/16 Mirtazapine [Remeron] 15 mg PO HS 07/19/16 07/19/16 Ondansetron HCl 4 mg PO Q6H PRN 07/19/16 07/19/16 Polyethylene Glycol/Polyvinyl 1 drop BOTH EYES TID 07/19/16 07/19/16 [Hypotears Eye Drops] Pregabalin [Lyrica] 50 mg PO HS 07/19/16 07/19/16 Previous Rx's Medication Instructions Recorded Lisinopril [Zestril] 10 mg PO BID #60 tablet 06/28/16 Metoprolol [Lopressor] 50 mg PO BID #60 tablet 06/28/16 Allergies Allergy/AdvReac Type Severity Reaction Status Date / Time gabapentin Allergy Itching Verified 07/19/16 09:47 Nortriptyline Allergy Rash Verified 07/19/16 09:47 Terazosin Allergy Itching Verified 07/19/16 09:47 All systems ED: reviewed and negative except as stated. Past Medical History - Past Medical History Source: patient Medical history: Reports: arthritis, cancer, diabetes, hypertension, other Surgical history: Reports: knee replacement Psychiatric history: Reports: PTSD - Social History Smoking Status: Former smoker Smokeless Tobacco Status: No Alcohol use: Reports: rarely Drug use: Reports: none Physical Exam - General Limitations: no limitations General appearance: cachectic - Head Head exam: atraumatic, normocephalic, normal inspection - Eye Eye exam: Present: normal appearance, PERRL, EOMI - ENT ENT exam: normal exam, normal oropharynx, mucous membranes moist - Neck Neck exam: Present: normal inspection, full ROM, trachea midline - Chest Chest inspection: Present: normal inspection, symmetric chest wall rise - Respiratory Respiratory exam: Present: normal lung sounds bilaterally - Cardiovascular Cardiovascular exam: Present: regular rate, normal rhythm, normal heart sounds - Abdominal Exam Abdominal exam: Present: soft, Non-Tender. Absent: tenderness, distention, guarding, rebound, rigidity - Extremities Exam Extremities exam: Present: normal inspection, full ROM. Absent: tenderness, pedal edema - Back Exam Back exam: Present: normal inspection, full ROM. Absent: tenderness - Neurological Exam Neurological exam: Present: alert, oriented X3 - Psychiatric Psychiatric exam: Present: normal affect, normal mood - Skin Skin exam: Present: warm, dry, intact, normal color Course Vital Signs Temperature 98.1 F 07/31/16 17:05 Pulse Rate 92 07/31/16 17:05 Respiratory Rate 18 07/31/16 17:05 Blood Pressure 75/38 07/31/16 17:05 O2 Sat by Pulse Oximetry 94 L 07/31/16 17:05 Temperature 98.1 F 07/31/16 17:05 Pulse Rate 90 07/31/16 20:00 Respiratory Rate 16 07/31/16 20:28 Blood Pressure 132/62 07/31/16 20:28 O2 Sat by Pulse Oximetry 94 L 07/31/16 20:00 Oxygen Delivery Oxygen Delivery Room Air Weakness - Differential Diagnosis Differential Diagnosis: Likely: acute myocardial infarction, anemia, hypoglycemia, sepsis/infection, dehydration, medication effect, thyroid/ endocrine disorder - Lab Data Lab results reviewed: Yes I reviewed the patient's lab results. Result diagrams: 07/31/16 17:24 07/31/16 17:24 Lab Results 07/31/16 07/31/16 07/31/16 Range/Units 17:24 17:24 17:24 WBC 7.3 (4.3-11.1) K/mcL RBC 5.35 (4.19-5.50) M/mcL Hgb 14.4 (12.9-16.9) g/dL Hct 44.4 (37.5-50.1) % MCV 83.0 (83.0-100.0) fL MCH 26.9 L (28.0-33.3) pg MCHC 32.4 (31.6-35.5) g/dL RDW 13.7 (11.5-14.5) % Plt Count 268 (140-400) K/mcL MPV 11.8 (9.4-12.4) fL Immature Gran % 0.4 (0-4) % Seg Neutrophils % 57.4 % Lymphocytes % 31.4 % Monocytes % 8.9 % Eosinophils % 1.5 % Basophils % 0.4 % Neutrophils # 4.2 (1.6-8.9) K/mcL Lymphocytes # 2.3 (0.6-4.6) K/mcL Monocytes # 0.7 (0.0-1.3) K/mcL Eosinophils # 0.1 (0.0-0.6) K/mcL Basophils # 0.0 (0.0-0.2) K/mcL APTT 31.5 (26.0-36.0) Seconds Sodium 144 (136-145) mEq/L Potassium 3.7 (3.5-4.5) mEq/L Chloride 108 (98-109) mEq/L Carbon Dioxide 26 (19-29) mEq/L BUN 14 (8-26) mg/dL Creatinine 1.16 (0.72-1.25) mg/dL Est GFR ( Amer) > 60 (> 60) Est GFR (Non-Af Amer) > 60 (> 60) BUN/Creatinine Ratio 12 (6-26) Glucose 103 H (70-99) mg/dL Calculated Osmolality 299 (280-300) Lactic Acid (0.5-2.2) mmol/L Calcium 9.1 (8.6-10.8) mg/dL Total Bilirubin 1.2 (0.2-1.2) mg/dL AST 15 (5-34) Units/L ALT 12 (0-55) Units/L Alkaline Phosphatase 77 (38-126) Units/L Troponin I (0-0.03) ng/mL Serum Total Protein 6.5 (6.0-8.3) g/dL Albumin 3.2 L (3.5-5.0) g/dL Globulin 3.3 (2.4-3.5) g/dL Albumin/Globulin Ratio 1.0 L (1.1-2.2) Urine Color (Yellow) Urine Clarity (Clear) Urine pH (5.0-8.0) pH Units Ur Specific [place] (1.010-1.025) Urine Protein (Neg-Trace) mg/dL Urine Glucose (UA) (Normal) mg/dL Urine Ketones (Negative) mg/dL Urine Blood (Negative) Urine Nitrite (Negative) Urine Bilirubin (Negative) Urine Urobilinogen (Normal) mg/dL Ur Leukocyte Esterase (Negative) Ur Culture Indicated? (NO) 07/31/16 07/31/16 07/31/16 Range/Units 17:24 17:24 19:31 WBC (4.3-11.1) K/mcL RBC (4.19-5.50) M/mcL Hgb (12.9-16.9) g/dL Hct (37.5-50.1) % MCV (83.0-100.0) fL MCH (28.0-33.3) pg MCHC (31.6-35.5) g/dL RDW (11.5-14.5) % Plt Count (140-400) K/mcL MPV (9.4-12.4) fL Immature Gran % (0-4) % Seg Neutrophils % % Lymphocytes % % Monocytes % % Eosinophils % % Basophils % % Neutrophils # (1.6-8.9) K/mcL Lymphocytes # (0.6-4.6) K/mcL Monocytes # (0.0-1.3) K/mcL Eosinophils # (0.0-0.6) K/mcL Basophils # (0.0-0.2) K/mcL APTT (26.0-36.0) Seconds Sodium (136-145) mEq/L Potassium (3.5-4.5) mEq/L Chloride (98-109) mEq/L Carbon Dioxide (19-29) mEq/L BUN (8-26) mg/dL Creatinine (0.72-1.25) mg/dL Est GFR ( Amer) (> 60) Est GFR (Non-Af Amer) (> 60) BUN/Creatinine Ratio (6-26) Glucose (70-99) mg/dL Calculated Osmolality (280-300) Lactic Acid 1.4 (0.5-2.2) mmol/L Calcium (8.6-10.8) mg/dL Total Bilirubin (0.2-1.2) mg/dL AST (5-34) Units/L ALT (0-55) Units/L Alkaline Phosphatase (38-126) Units/L Troponin I 0.02 (0-0.03) ng/mL Serum Total Protein (6.0-8.3) g/dL Albumin (3.5-5.0) g/dL Globulin (2.4-3.5) g/dL Albumin/Globulin Ratio (1.1-2.2) Urine Color Yellow (Yellow) Urine Clarity Clear (Clear) Urine pH 7.0 (5.0-8.0) pH Units Ur Specific [place] 1.018 (1.010-1.025) Urine Protein Negative (Neg-Trace) mg/dL Urine Glucose (UA) Normal (Normal) mg/dL Urine Ketones Negative (Negative) mg/dL Urine Blood Negative (Negative) Urine Nitrite Negative (Negative) Urine Bilirubin Negative (Negative) Urine Urobilinogen Normal (Normal) mg/dL Ur Leukocyte Esterase Negative (Negative) Ur Culture Indicated? NO (NO) - Radiology Data Radiology results reviewed: Yes I reviewed the patient's radiology results. Chest X-Ray 07/31/16 17:13 IMPRESSION: Focal opacity right upper lobe worrisome for possible lung carcinoma. Chest CT is warranted for complete evaluation. D/ / 07/31/2016 17:57:32 Glen Fernandez MD / manan Interpreting Provider: Glen Fernandez MD Chest CT 07/31/16 18:00 IMPRESSION: 1. A 2.0 cm x 1.3 cm solid nodule with spiculated margins in the right upper lobe corresponds with the radiographic finding and is suspicious for malignancy. Recommend follow-up per the Fleischner Society recommendations solid nodules as below. 2. 1.5 cm x 1.1 cm multilobulated solid nodule in the left lower lobe along the course of an opacified bronchus from more suggestive of an infectious or inflammatory etiology. 3. Additional solid nodules measuring up to 0.4 cm and groundglass nodules measuring up to 0.7 cm x 0.3 cm bilaterally. 4. 1.1 cm x 0.8 cm subtle hypodense lesion in hepatic segment 4 could represent focal steatosis or a hemangioma. However, a metastasis could appear similar. Recommend further evaluation with liver protocol MRI using Eovist contrast on a nonemergent basis. 5. Mild left ventricular septal hypertrophy. 6. Mild coronary atherosclerotic calcifications. 7. Cholelithiasis without findings of acute cholecystitis. RECOMMENDATIONS: Fleischner Society guidelines for follow-up and management of pulmonary nodules: Nodule size greater than 8 mm In low-risk and high-risk patients follow-up CT at around 3, 9, and 24 months, contrast-enhanced CT, PET, and/or biopsy. Low risk patients include individuals with minimal or absent history of smoking and other known risk factors. High risk patients include individuals with a history of smoking or other known risk factors. Radiology 2005; [id number] D/ / Watson Shearer MD / Watson Shearer MD Interpreting Provider: Watson Shearer MD - EKG Data EKG attestation: Yes I reviewed and interpreted this EKG. EKG shows normal: sinus rhythm Rate: normal
[2016-07-31 17:33] LABS: Basophils % 0.4 %; Eosinophils # 0.1 K/mcL (0.0-0.6); Eosinophils % 1.5 %; Hematocrit 44.4 % (37.5-50.1); Hemoglobin 14.4 g/dL (12.9-16.9); Immature Granulocytes % 0.4 % (0-4); Lymphocytes # 2.3 K/mcL (0.6-4.6); Lymphocytes % 31.4 %; Mean Corpuscular HGB Conc 32.4 g/dL (31.6-35.5); Mean Corpuscular Hemoglobin 26.9 pg (28.0-33.3); Mean Platelet Volume 11.8 fL (9.4-12.4); Monocytes # 0.7 K/mcL (0.0-1.3); Monocytes % 8.9 %; Neutrophils # 4.2 K/mcL (1.6-8.9); Platelet Count 268 K/mcL (140-400); Red Blood Count 5.35 M/mcL (4.19-5.50); Red Cell Distribution Width 13.7 % (11.5-14.5); Segmented Neutrophils % 57.4 %
[2016-07-31 17:47] LABS: Alanine Aminotransferase 12 Units/L (0-55); Albumin 3.2 g/dL (3.5-5.0); Alkaline Phosphatase 77 Units/L (38-126); Aspartate Amino Transferase 15 Units/L (5-34); BUN/Creatinine Ratio 12 (6-26); Bilirubin,Total 1.2 mg/dL (0.2-1.2); Blood Urea Nitrogen 14 mg/dL (8-26); Calcium 9.1 mg/dL (8.6-10.8); Carbon Dioxide 26 mEq/L (19-29); Chloride 108 mEq/L (98-109); Globulin 3.3 g/dL (2.4-3.5); Glucose 103 mg/dL (70-99); Osmolality,Calculated 299 (280-300); Potassium 3.7 mEq/L (3.5-4.5); Sodium 144 mEq/L (136-145); Total Protein 6.5 g/dL (6.0-8.3); eGFR For African Americans > 60 (> 60); eGFR For Non-African Americans > 60 (> 60)
[2016-07-31 19:43] LABS: Bilirubin,Urine Negative (Negative); Blood,Urine Negative (Negative); Clarity,Urine Clear (Clear); Color,Urine Yellow (Yellow); Glucose,Urine (UA) Normal (Normal); Ketones,Urine Negative (Negative); Leukocyte Esterase,Urine Negative (Negative); Nitrite,Urine Negative (Negative); Protein,Urine Negative (Neg-Trace); Specific Gravity,Urine 1.018 (1.010-1.025); Urobilinogen,Urine Normal (Normal)
--- NOTE | 2016-07-31 21:54 | Internal Med History&Physical ---
Date of Encounter: 07/31/16 Time of Encounter: 21:30 Assessment and Plan (1) Generalized weakness Status: Acute . (2) Dehydration, moderate Status: Acute . (3) Polypharmacy Status: Acute . (4) Mass of upper lobe of right lung Status: Acute . (5) Anorexia Status: Acute . (6) Hypovolemia due to dehydration Status: Acute . (7) Hypotension, postural Status: Acute . (8) Acute and chronic respiratory failure with hypoxia Status: Acute . (9) COPD mixed type Status: Chronic . (10) Weight loss, unintentional Status: Acute . (11) H/O malignant neoplasm of colon Status: Chronic . (12) Cholelithiases Status: Chronic . Qualifiers: Cholelithiasis location: gallbladder Cholecystitis presence: without cholecystitis Biliary obstruction: without biliary obstruction Qualified Code(s): K80.20 - Calculus of gallbladder without cholecystitis without obstruction (13) CAD (coronary artery disease), [place] coronary artery Status: Chronic . Qualifiers: [place] vs. transplanted heart: [place] heart Associated angina: angina presence unspecified Qualified Code(s): I25.10 - Atherosclerotic heart disease of [place] coronary artery without angina pectoris (14) Failure to thrive Status: Acute . Qualifiers: Failure to thrive age range: in adult Qualified Code(s): R62.7 - Adult failure to thrive (15) Diabetic neuropathy associated with type 2 diabetes mellitus Status: Chronic . Qualifiers: Diabetes mellitus complication detail: diabetic polyneuropathy Qualified Code(s): E11.42 - Type 2 diabetes mellitus with diabetic polyneuropathy (16) Hypertension Status: Chronic . Qualifiers: Hypertension type: essential hypertension Qualified Code(s): I10 - Essential (primary) hypertension (17) Non-insulin dependent type 2 diabetes mellitus Status: Chronic . Internal Medicine - H&P: HPI Chief complaint: Generalized weakness; unintentional weight loss. Admitted From: Emergency Dept Plans for Post Hospital Care: Home History of present illness: Mr. 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 The patient is admitted to [facility] with complaints of generalized weakness, decreased by mouth intake, weight loss and dehydration. She lives with his son who serves as witness of present illness and decline in ability to complete activities of daily living independently. Initial studies are worrisome for bilateral pulmonary nodules worrisome for malignancy Cumulative laboratory and radiographic data base will be considered and discussed. Pertinent ancillary medical records including ECW and PCI documentation when available was reviewed and considered. Given the patient's presenting concerns, past medical history, clinical findings and symptoms, he is admitted at this time will undergo further evaluation and disposition. Orders were written as per Computerized physician pit recorder system.......................................................................... .................... Consultative opinion and will be sought as clinical circumstances justify. Pain management needs will be addressed. Laboratory /radiographic data base will be updated as appropriate. Studies include: Cultures of blood and urine and sputum, coags, cardiac injury panel, BNP, cpk, LDH, CEA, ammonia, metabolic and hematologic panel, magnesium phosphorus, ionized calcium, thyroid panel/ lipid profile, A1c/ C-peptide, CRP sedimentation rate, respiratory infection profile, respiratory virus panel, blood gas, lactic acid, serologies, etc. Precautions: Aspiration, fall, delirium protocol/surveillance initiated. Telemetry with continuous hemodynamic monitoring and pulse oximetry initiated. Empiric antibiotic coverage: Intravenous Rocephin and azithromycin pending culture data. Special studies: CT/CTA chest, CT abd/pel, chest x-ray, telemetry, EKG. Pulmonary toilet: Incentive spirometry, aerosol bronchodilator, mucolytic, antitussive, supplemental oxygen. Corticosteroid therapy. CPAP/BiPAP supplemental oxygen delivery. Aerosol Mucomyst therapy. Fluid and electrolyte repletion efforts will proceed. Careful attention to fluid balance and renal recovery will be emphasized. Avoidance of nephrotoxic exposure and adverse drug drug interaction in the setting of impaired renal function will be monitored closely. Acute coronary syndrome protocol/surveillance initiated. DVT and PUD prophylaxis initiated: PPI therapy, intermittent pneumatic cuffs. Subcutaneous heparin. Early ambulation will be encouraged. Immunization updates recommended. Influenza and pneumococcal vaccinations as part of ongoing preventative healthcare recommendations strongly recommended. Smoking cessation counseling briefly addressed. Patient is a former smoker. Advanced care directive discussion briefly addressed. Patient does not declare any healthcare restrictions at this time. Cardiovascular risk appraisal and cardiovascular risk reduction efforts will be emphasized. Physical /occupational therapy may be counseled to evaluate patient's function capacity and progressive mobility of her circumstances justify. Sliding scale insulin coverage, ADA dietary restraint and schedule an as-needed basis fingerstick glucose assessments were initiated. Nutrition/diabetes education counseling may be considered as circumstances justify. Outpatient medication schedules will be reviewed confirmed and facilitated as appropriate. Reconciliation of home treatments including adjustment substitutions and reintroduction into the treatment regimen as necessary maintenance therapies for chronic pre-existing medical conditions. Plan of care has been reviewed and discussed in detail with the patient. Questions addressed. Hospital course dictated by clinical findings, treatment response and potential consultative interventions. Patient is a risk for further acute clinical decline due to his age, chief complaints and comorbid conditions. Condition is serious. Prognosis is guarded. CODE STATUS is full. Past Med Surg Social Fam HX - Past Medical History Source: old records reviewed Medical history: arthritis, cancer, COPD (KRISTAL), coronary artery disease, CVA, dementia, diabetes, GERD, GI bleed (History of melena secondary to small bowel intussusception status post resection.), hyperlipidemia, hypertension, malignancy, myocardial infarction, osteoporosis, renal disease (BPH with prostatism and urinary retention/urinary incontinence.), thyroid disease, other (Cholelithiasis. History of colon cancer.) Psychiatric history: anxiety, depression, PTSD, other - Past Surgical History Surgical History: angioplasty/stent, cancer surgery, colectomy (partial colectomy for colon CA), herniorrhaphy, knee replacement, orthopedic, other, other (Partial small bowel resection of distal small bowel intussusception 2013.colonoscopy. EGD.) - Social History Smoking Status: Former smoker Packs per day: ~3ppp [id number]; abstinent x20yrs Smokeless Tobacco Status: No Alcohol use: rarely Drug use: none Occupational status: retired Current living situation: Home - Independent Activity Level: Independent ambulation, Mostly sedentary Recent Out of Country Travel Within the Last 8 Weeks: No Exposure or Possible Exposure to Illness During Travel: No - Family History Father Adopted: No Family Member Ethnicity: Non- Living Status: Hx Family Cardiac Disorders: Yes Hx Family Respiratory Disorders: No Hx Family Cancer: No Hx Family GI Disorders: No Hx Family Endocrine Disorder: No Hx Family Neuromuscular Disorders: No Hx Family Neurologic Disorders: Yes Hx Family HEENT Disorders: No Hx Family Autoimmune Disorders: No Internal Medicine - H&P: Meds Aspirin 81 mg PO DAILY 06/23/16 [History] Cholecalciferol (Vitamin D3) [Vitamin D3] 2,000 unit PO DAILY 06/23/16 [History] Finasteride [Proscar] 5 mg PO DAILY 06/23/16 [History] Insulin ASPART [NovoLOG] 10 unit SQ TID 06/23/16 [History] Metformin [Glucophage] 1,000 mg PO DAILY 06/23/16 [History] Mv-Mn/FA/Vit K/Lycop/Lut/Coq10 [Daily Multivitamin Capsule] 1 cap PO DAILY 06/23 [History] Potassium Chloride [K-Tab ER] 10 meq PO BID 06/23/16 [History] Pravastatin Sodium [Pravachol] 40 mg PO DAILY 06/23/16 [History] Ranitidine HCl [Heartburn Relief] 150 mg PO HS 06/23/16 [History] Tamsulosin [Flomax] 0.4 mg PO BID 06/23/16 [History] Urea [Ure-K] 1 appl TP BID 06/23/16 [History] Lisinopril [Zestril] 10 mg PO BID #60 tablet 06/28/16 [Rx] Docusate Sodium [Dok] 200 mg PO DAILY 07/19/16 [History] Fludrocortisone Acetate [Florinef] 0.1 mg PO DAILY 07/19/16 [History] Mirtazapine [Remeron] 15 mg PO HS 07/19/16 [History] Ondansetron HCl 4 mg PO Q6H PRN 07/19/16 [History] Polyethylene Glycol/Polyvinyl [Hypotears Eye Drops] 1 drop BOTH EYES TID [History] Pregabalin [Lyrica] 50 mg PO HS 07/19/16 [History] Clotrimazole 1% CRM [Lotrimin 1%] 1 appl TP BID 08/01/16 [History] Guaifenesin [Sherrie-Tussin] 10 ml PO Q4H PRN 08/01/16 [History] Hydrocortisone 2.5% CREAM [Cortaid] 1 appl RC QID PRN 08/01/16 [History] Insulin Glargine [Lantus] 8 unit SQ HS 08/01/16 [History] Metoprolol [Lopressor] 25 mg PO BID 08/01/16 [History] Pantoprazole Sodium [Protonix] 40 mg PO DAILY 08/01/16 [History] Polyethylene Glycol 3350 [MiraLAX bowel prep] 17 gm PO HS 08/01/16 [History] Sennosides [Senna] 8.6 mg PO BID 08/01/16 [History] Venlafaxine XR (24 HR) [Effexor Xr] 37.5 mg PO DAILY 08/01/16 [History] Dicyclomine [Bentyl] 10 mg PO QID #60 capsule 08/04/16 [Rx] Megestrol Acetate [Megace] 400 mg PO DAILY 30 Days 08/04/16 [Rx] Metoclopramide [Reglan] 5 mg PO QIDAC 30 Days 08/04/16 [Rx] Omeprazole [PriLOSEC] 20 mg PO BID 30 Days 08/04/16 [Rx] Ondansetron [Zofran] 4 mg PO Q8HR #30 tablet 08/04/16 [Rx] Sucralfate [Carafate] 1 gm PO QIDAC 30 Days 08/04/16 [Rx] Allergies gabapentin Allergy (Verified 08/16/16 20:55) Itching Nortriptyline Allergy (Verified 08/16/16 20:55) Rash Terazosin Allergy (Verified 08/16/16 20:55) Itching All Systems PM: A 10-system review of systems was performed and is negative for pertinent findings except as documented above in the HPI. - Constitutional Constitutional: as per HPI, fatigue, malaise, weight loss, no chills, no fever(s ), no night sweats - EENT Eyes: as per HPI, no change in vision, no discharge, no pain, no photophobia Ears: as per HPI, decreased hearing, no ear discharge, no ear pain, no tinnitus Nose, mouth and throat: as per HPI, no dysphagia, no nasal discharge, no neck pain, no sore throat - Cardiovascular Cardiovascular ROS IM: as per HPI, no chest pain, no diaphoresis, no dyspnea, no lightheadedness, no palpitations, no syncope - Respiratory Respiratory: as per HPI, no cough, no dyspnea, no wheezing, no excessive phlegm production - Gastrointestinal Gastrointestinal: as per HPI, early satiety, other, no abdominal pain, no diarrhea, no hematemesis, no hematochezia, no melena, no nausea, no vomiting - Genitourinary Genitourinary ROS male: as per HPI - Musculoskeletal Musculoskeletal ROS IM: as per HPI, no numbness, no tingling - Integumentary Integumentary IM: as per HPI, no rash, no unusual bruising - Neurological Neurological ROS: as per HPI, weakness, other, no confusion, no convulsions, no focal weakness, no numbness, no tingling, no tremor(s) - Psychiatric Psychiatric: as per HPI - Endocrine Endocrine IM: as per HPI - Hematologic/Lymphatic Hematologic/Lymphatic: as per HPI, no easy bruising - Allergic/Immunologic Allergic/Immunologic: as per HPI - Constitutional Vitals: Temp Pulse Resp BP Pulse Ox 98.3 F 87 14 136/79 97 07/31/16 20:52 07/31/16 20:52 07/31/16 20:52 07/31/16 20:52 07/31/16 20:52 General appearance: Present: cachectic, cooperative, mild distress, A&O X 3, answers questions appropriately - Head Head exam: Present: atraumatic, normocephalic - Eye Eye exam: Present: EOMI, PERRL, conjuntiva pink, sclera anicteric Pupils: Present: normal accommodation, PERRL - ENT ENT exam: Present: mucous membranes moist, normal oropharynx - Neck Neck exam general surgery: Present: full ROM, supple, trachea midline. Absent: lymphadenopathy - Respiratory Respiratory exam: Present: decreased breath sounds, CTAB. Absent: accessory muscle use, rales, respiratory distress, rhonchi, wheezes - Cardiovascular Cardiovascular exam: Present: distant heart sounds, RRR, +S1, +S2. Absent: diastolic murmur, gallop, rubs, systolic murmur - GI/Abdominal GI/Abdominal exam: Present: normal bowel sounds, soft, no peritoneal signs. Absent: distended, tenderness - Extremities Exam Extremities exam: Present: full ROM, warm, radial pulses palpable and symetrical. Absent: calf tenderness, cyanotic, pedal edema - Neurological Exam Neurological exam: Present: alert, CN II-XII intact, oriented X3, no focal deficits. Absent: pronater drift, facial droop, speech deficit - Psychiatric Psychiatric exam: Present: normal affect, normal mood - Skin Skin exam: Present: dry, intact, warm. Absent: petechiae, rash, urticaria, vesicles Internal Med - H&P Results - Labs CBC & Chem 7: 08/03/16 11:25 08/03/16 11:25 Labs: Vital Signs Temp Pulse Resp BP Pulse Ox 07/31/16 20:52 98.3 F 87 14 136/79 97 07/31/16 20:28 16 132/62 07/31/16 20:00 90 162/74 94 L 07/31/16 19:17 100 16 184/72 97 07/31/16 18:37 85 98 07/31/16 18:00 0 16 126/73 93 L 07/31/16 17:22 87 15 102/58 95 07/31/16 17:05 98.1 F 92 18 75/38 94 L Intake and Output 07/31/16 07/31/16 07/31/16 07:59 15:59 23:59 Intake Total 1000 / 1000 Output Total 0 / 0 Balance 1000 / 1000 Intake: IV Fluids 1000 / 1000 0.9 % Sodium Chloride 1, 1000 / 1000 000 ML @ Wide Open IV BOLUS ONE Rx#:[id number] Oral 0 / 0 Output: Urine 0 / 0 Other: Weight 60.3 kg Patient Weight 07/31/16 23:59 Weight 60.3 kg Short CBC 07/31/16 Range/Units 17:24 WBC 7.3 (4.3-11.1) K/mcL Hgb 14.4 (12.9-16.9) g/dL Hct 44.4 (37.5-50.1) % Plt Count 268 (140-400) K/mcL Neutrophils # 4.2 (1.6-8.9) K/mcL BMP 07/31/16 Range/Units 17:24 Sodium 144 (136-145) mEq/L Potassium 3.7 (3.5-4.5) mEq/L Chloride 108 (98-109) mEq/L Carbon Dioxide 26 (19-29) mEq/L BUN 14 (8-26) mg/dL Creatinine 1.16 (0.72-1.25) mg/dL Glucose 103 H (70-99) mg/dL Calcium 9.1 (8.6-10.8) mg/dL Cardiac Enzymes 07/31/16 Range/Units 17:24 Troponin I 0.02 (0-0.03) ng/mL Liver Function 07/31/16 Range/Units 17:24 Total Bilirubin 1.2 (0.2-1.2) mg/dL AST 15 (5-34) Units/L ALT 12 (0-55) Units/L Alkaline Phosphatase 77 (38-126) Units/L Albumin 3.2 L (3.5-5.0) g/dL Urine 07/31/16 Range/Units 19:31 Urine Color Yellow (Yellow) Urine Clarity Clear (Clear) Urine pH 7.0 (5.0-8.0) pH Units Ur Specific Zamora 1.018 (1.010-1.025) Urine Protein Negative (Neg-Trace) mg/dL Urine Glucose (UA) Normal (Normal) mg/dL - Impressions Abnormal lab results MCH 26.9 pg (28.0-33.3) L 07/31/16 17:24 Glucose 103 mg/dL (70-99) H 07/31/16 17:24 Albumin 3.2 g/dL (3.5-5.0) L 07/31/16 17:24 Albumin/Globulin Ratio 1.0 (1.1-2.2) L 07/31/16 17:24 Laboratory Results WBC 7.3 K/mcL (4.3-11.1) 07/31/16 17:24 RBC 5.35 M/mcL (4.19-5.50) 07/31/16 17:24 Hgb 14.4 g/dL (12.9-16.9) 07/31/16 17:24 Hct 44.4 % (37.5-50.1) 07/31/16 17:24 MCV 83.0 fL (83.0-100.0) 07/31/16 17:24 MCH 26.9 pg (28.0-33.3) L 07/31/16 17:24 MCHC 32.4 g/dL (31.6-35.5) 07/31/16 17: RDW 13.7 % (11.5-14.5) 07/31/16 17: Plt Count 268 K/mcL (140-400) 07/31/16 17:24 MPV 11.8 fL (9.4-12.4) 07/31/16 17: Immature Gran % 0.4 % (0-4) 07/31/16: Seg Neutrophils % 57.4 % 07/31/16 17:24 Lymphocytes % 31.4 % 07/31/16 17:24 Monocytes % 8.9 % 07/31/16 17: Eosinophils % 1.5 % 07/31/16 17: Basophils % 0.4 % 07/31/16 17:24 Neutrophils # 4.2 K/mcL (1.6-8.9) 07/31/16 17:24 Lymphocytes # 2.3 K/mcL (0.6-4.6) 07/31/16 17: Monocytes # 0.7 K/mcL (0.0-1.3) 07/31/16 17: Eosinophils # 0.1 K/mcL (0.0-0.6) 07/31/16: Basophils # 0.0 K/mcL (0.0-0.2) 07/31/16 17:24 APTT 31.5 Seconds (26.0-36.0) 07/31/16 17:24 Sodium 144 mEq/L (136-145) 07/31/16 17:24 Potassium 3.7 mEq/L (3.5-4.5) 07/31/16 17:24 Chloride 108 mEq/L (98-109) 07/31/16 17:24 Carbon Dioxide 26 mEq/L (19-29) 07/31/16 17:24 BUN 14 mg/dL (8-26) 07/31/16 17:24 Creatinine 1.16 mg/dL (0.72-1.25) 07/31/16 17:24 Est GFR ( Amer) > 60 (> 60) 07/31/16 17:24 Est GFR (Non-Af Amer) > 60 (> 60) 07/31/16 17:24 BUN/Creatinine Ratio 12 (6-26) 07/31/16 17:24 Glucose 103 mg/dL (70-99) H 07/31/16 17:24 Calculated Osmolality 299 (280-300) 07/31/16 17:24 Lactic Acid 1.4 mmol/L (0.5-2.2) 07/31/16 17:24 Calcium 9.1 mg/dL (8.6-10.8) 07/31/16 17:24 Total Bilirubin 1.2 mg/dL (0.2-1.2) 07/31/16 17:24 AST 15 Units/L (5-34) 07/31/16 17:24 ALT 12 Units/L (0-55) 07/31/16 17:24 Alkaline Phosphatase 77 Units/L (38-126) 07/31/16 17:24 Troponin I 0.02 ng/mL (0-0.03) 07/31/16 17:24 Serum Total Protein 6.5 g/dL (6.0-8.3) 07/31/16 17:24 Albumin 3.2 g/dL (3.5-5.0) L 07/31/16 17:24 Globulin 3.3 g/dL (2.4-3.5) 07/31/16 17:24 Albumin/Globulin Ratio 1.0 (1.1-2.2) L 07/31/16 17:24 Urine Color Yellow (Yellow) 07/31/16 19:31 Urine Clarity Clear (Clear) 07/31/16 19:31 Urine pH 7.0 pH Units (5.0-8.0) 07/31/16 19: Ur Specific [place] 1.018 (1.010-1.025) 07/31/16 19:31 Urine Protein Negative mg/dL (Neg-Trace) 07/31/16 19: Urine Glucose (UA) Normal mg/dL (Normal) 07/31/16 19: Urine Ketones Negative mg/dL (Negative) 07/31/16 19: Urine Blood Negative (Negative) 03/05/17 19:31 Urine Nitrite Negative (Negative) 07/31/16 19:31 Urine Bilirubin Negative (Negative) 07/31/16 19:31 Urine Urobilinogen Normal mg/dL (Normal) 07/31/16 19:31 Ur Leukocyte Esterase Negative (Negative) 07/31/16 19:31 Ur Culture Indicated? NO (NO) 07/31/16 19:31 Impressions Chest X-Ray 07/31/16 17:13 IMPRESSION: Focal opacity right upper lobe worrisome for possible lung carcinoma. Chest CT is warranted for complete evaluation. D/ / 07/31/2016 17:57:32 Glen Fernandez MD / manan Interpreting Provider: Glen Fernandez MD Chest CT 07/31/16 18:00 IMPRESSION: 1. A 2.0 cm x 1.3 cm solid nodule with spiculated margins in the right upper lobe corresponds with the radiographic finding and is suspicious for malignancy. Recommend follow-up per the Fleischner Society recommendations solid nodules as below. 2. 1.5 cm x 1.1 cm multilobulated solid nodule in the left lower lobe along the course of an opacified bronchus from more suggestive of an infectious or inflammatory etiology. 3. Additional solid nodules measuring up to 0.4 cm and groundglass nodules measuring up to 0.7 cm x 0.3 cm bilaterally. 4. 1.1 cm x 0.8 cm subtle hypodense lesion in hepatic segment 4 could represent focal steatosis or a hemangioma. However, a metastasis could appear similar. Recommend further evaluation with liver protocol MRI using Eovist contrast on a nonemergent basis. 5. Mild left ventricular septal hypertrophy. 6. Mild coronary atherosclerotic calcifications. 7. Cholelithiasis without findings of acute cholecystitis. RECOMMENDATIONS: Fleischner Society guidelines for follow-up and management of pulmonary nodules: Nodule size greater than 8 mm In low-risk and high-risk patients follow-up CT at around 3, 9, and 24 months, contrast-enhanced CT, PET, and/or biopsy. Low risk patients include individuals with minimal or absent history of smoking and other known risk factors. High risk patients include individuals with a history of smoking or other known risk factors. Radiology 2005; [id number] D/ / Watson Shearer MD / Watson Shearer MD Interpreting Provider: Watson Shearer MD - Attending Attestation Allergies gabapentin Allergy (Verified 08/16/16 20:55) Itching Nortriptyline Allergy (Verified 08/16/16 20:55) Rash Terazosin Allergy (Verified 08/16/16 20:55) Itching Home Medications Medication Instructions Recorded Confirmed Type Aspirin 81 mg PO DAILY 06/23/16 08/01/16 History Cholecalciferol (Vitamin D3) 2,000 unit PO DAILY 06/23/16 08/01/16 History [Vitamin D3] Finasteride [Proscar] 5 mg PO DAILY 06/23/16 08/01/16 History Insulin ASPART [NovoLOG] 10 unit SQ TID 06/23/16 08/01/16 History Metformin [Glucophage] 1,000 mg PO DAILY 06/23/16 08/01/16 History Mv-Mn/FA/Vit K/Lycop/Lut/Coq10 1 cap PO DAILY 06/23/16 08/01/16 History [Daily Multivitamin Capsule] Potassium Chloride [K-Tab ER] 10 meq PO BID 06/23/16 08/01/16 History Pravastatin Sodium [Pravachol] 40 mg PO DAILY 06/23/16 08/01/16 History Ranitidine HCl [Heartburn Relief] 150 mg PO HS 06/23/16 08/01/16 History Tamsulosin [Flomax] 0.4 mg PO BID 06/23/16 08/01/16 History Urea [Ure-K] 1 appl TP BID 06/23/16 08/01/16 History Docusate Sodium [Dok] 200 mg PO DAILY 07/19/16 08/01/16 History Fludrocortisone Acetate [Florinef] 0.1 mg PO DAILY 07/19/16 08/01/16 History Mirtazapine [Remeron] 15 mg PO HS 07/19/16 08/01/16 History Ondansetron HCl 4 mg PO Q6H PRN 07/19/16 08/01/16 History Polyethylene Glycol/Polyvinyl 1 drop BOTH EYES TID 07/19/16 08/01/16 History [Hypotears Eye Drops] Pregabalin [Lyrica] 50 mg PO HS 07/19/16 08/01/16 History Clotrimazole 1% CRM [Lotrimin 1%] 1 appl TP BID 08/01/16 08/01/16 History Guaifenesin [Sherrie-Tussin] 10 ml PO Q4H PRN 08/01/16 08/01/16 History Hydrocortisone 2.5% CREAM [Cortaid] 1 appl RC QID PRN 08/01/16 08/01/16 History Insulin Glargine [Lantus] 8 unit SQ HS 08/01/16 08/01/16 History Metoprolol [Lopressor] 25 mg PO BID 08/01/16 08/01/16 History Pantoprazole Sodium [Protonix] 40 mg PO DAILY 08/01/16 08/01/16 History Polyethylene Glycol 3350 [MiraLAX 17 gm PO HS 08/01/16 08/01/16 History bowel prep] Sennosides [Senna] 8.6 mg PO BID 08/01/16 08/01/16 History Venlafaxine XR (24 HR) [Effexor Xr] 37.5 mg PO DAILY 08/01/16 08/01/16 History Prescriptions Medication Instructions Recorded Type Dicyclomine [Bentyl] 10 mg PO QID #60 capsule 08/04/16 Rx Megestrol Acetate [Megace] 400 mg PO DAILY 30 Days 08/04/16 Rx Metoclopramide [Reglan] 5 mg PO QIDAC 30 Days 08/04/16 Rx Omeprazole [PriLOSEC] 20 mg PO BID 30 Days 08/04/16 Rx Ondansetron [Zofran] 4 mg PO Q8HR #30 tablet 08/04/16 Rx Sucralfate [Carafate] 1 gm PO QIDAC 30 Days 08/04/16 Rx Medications Discontinued Medications Acetaminophen (Tylenol) 650 mg PO Q6HR PRN PRN Reason: Mild Pain (1-3) Stop: 01/31/17 01:34 Albuterol Sulfate (Proventil Neb) 2.5 mg IH Q2H PRN PRN Reason: Shortness Of Breath/Wheezing Stop: 01/31/17 01:34 Albuterol/Ipratropium (Duoneb) 3 ml IH QIDR DAVIS Stop: 01/31/17 05:01 Last Admin: 08/04/16 10:54 Dose: Artificial Tears (Akwa Tears) 1 drop BOTH EYES TID DAVIS Stop: 01/31/17 09:01 Last Admin: 08/03/16 20:55 Dose: 1 drop Aspirin (Aspirin) 81 mg PO DAILY DAVIS Stop: 01/31/17 09:01 Last Admin: 08/04/16 08:29 Dose: 81 mg Benzonatate (Tessalon) 200 mg PO TID PRN PRN Reason: Cough Stop: 01/31/17 01:34 Dextrose/Water (Dextrose 50% (Syg)) 25 ml IVP AD PRN PRN Reason: Hypoglycemia Stop: 01/31/17 01:34 Docusate Sodium (Colace) 200 mg PO DAILY DAVIS PRN Reason: Protocol Stop: 01/31/17 09:01 Last Admin: 08/04/16 08:30 Dose: 200 mg Docusate Sodium (Colace) 100 mg PO BID PRN PRN Reason: Constipation Stop: 01/31/17 01:34 Dronabinol (Marinol) 2.5 mg PO BIDLS [facility] Stop: 01/31/17 12:01 Last Admin: 08/03/16 17:26 Dose: 2.5 mg Enoxaparin Sodium (Lovenox) 40 mg SQ 0600 DAVIS PRN Reason: Protocol Stop: 01/31/17 06:01 Last Admin: 08/04/16 05:12 Dose: 40 mg Famotidine (Pepcid) 20 mg PO HS [facility] Stop: 01/31/17 21:01 Finasteride (Proscar) 5 mg PO DAILY DAVIS PRN Reason: Protocol Stop: 01/31/17 09:01 Last Admin: 08/04/16 08:31 Dose: 5 mg Fludrocortisone Acetate (Florinef) 0.1 mg PO DAILY [facility] Stop: 01/31/17 09:01 Last Admin: 08/04/16 08:31 Dose: 0.1 mg Glucagon (Glucagen) 1 mg IM ONCE PRN PRN Reason: Hypoglycemia Stop: 01/31/17 01:34 Glucose (Gluctose) 15 gm PO ONCE PRN PRN Reason: Hypoglycemia Stop: 01/31/17 01:34 Glucose (Gluctose) 30 gm PO ONCE PRN PRN Reason: Hypoglycemia Stop: 01/31/17 01:34 Guaifenesin (Mucinex) 600 mg PO BID PRN PRN Reason: Congestion Stop: 01/31/17 01:34 Hydralazine HCl (Hydralazine) 20 mg IVP Q6HR PRN PRN Reason: Hypertension Stop: 02/01/17 00:27 Last Admin: 08/02/16 00:40 Dose: 20 mg Sodium Chloride (0.9 % Sodium Chloride) 1,000 mls @ 0 mls/hr IV BOLUS ONE PRN Reason: Wide Open Stop: 07/31/16 17:17 Last Infusion: 07/31/16 19:29 Dose: 0 mls/hr Sodium Chloride (0.9 % Sodium Chloride) 1,000 mls @ 50 mls/hr IVC .Q20H [facility] Stop: 01/31/17 01:46 Last Admin: 08/03/16 00:30 Dose: 50 mls/hr Dextrose (Dextrose 5%) 1,000 mls @ 100 mls/hr IV CONT PRN PRN Reason: HYPOGLYCEMIA Stop: 01/31/17 01:34 Sodium Chloride (0.9 % Sodium Chloride) 1,000 mls @ 100 mls/hr IVC .Q10H [facility] Stop: 02/02/17 11:00 Last Admin: 08/03/16 11:18 Dose: 100 mls/hr Sodium Chloride (0.9 % Sodium Chloride) 1,000 mls @ 50 mls/hr IVC .Q20H [facility] Stop: 02/02/17 13:36 Last Admin: 08/03/16 14:53 Dose: 50 mls/hr Insulin Human Lispro (Humalog) 0 units SQ TIDAC [facility] PRN Reason: Protocol Stop: 01/31/17 07:31 Last Admin: 08/04/16 08:26 Dose: Insulin Human Lispro (Humalog) 0 units SQ HS [facility] PRN Reason: Protocol Stop: 01/31/17 21:01 Last Admin: 08/03/16 20:56 Dose: Lisinopril (Zestril) 10 mg PO DAILY [facility] PRN Reason: Protocol Stop: 01/31/17 09:01 Last Admin: 08/04/16 08:35 Dose: 10 mg Comments: Medication scanned as wrong med. Medication verified to order. Pharmacy notifed. Megestrol Acetate (Megace) 400 mg PO DAILY [facility] PRN Reason: Protocol Stop: 01/31/17 09:01 Last Admin: 08/04/16 08:29 Dose: 400 mg Metoclopramide HCl (Reglan) 5 mg PO QIDAC [facility] Stop: 02/01/17 16:31 Last Admin: 08/04/16 08:31 Dose: 5 mg Metoprolol Tartrate (Lopressor) 50 mg PO BID [facility] Stop: 01/31/17 09:01 Last Admin: 08/04/16 08:31 Dose: 50 mg Mirtazapine (Remeron) 15 mg PO HS [facility] Stop: 01/31/17 21:01 Last Admin: 08/03/16 20:53 Dose: 15 mg Morphine Sulfate (Morphine Sulfate) 2 mg IVP Q4HR PRN PRN Reason: Severe Pain (7-10) Stop: 01/31/17 01:34 Naloxone HCl (Narcan) 0.4 mg IVP Q2MIN PRN PRN Reason: Opioid Reversal Stop: 01/31/17 01:34 Omeprazole (Prilosec) 20 mg PO DAILY@0630 [facility] PRN Reason: Protocol Stop: 01/31/17 06:31 Last Admin: 08/03/16 05:10 Dose: Not Given Non-Admin Reason: NPO Omeprazole (Prilosec) 20 mg PO BID [facility] PRN Reason: Protocol Stop: 02/02/17 21:01 Last Admin: 08/04/16 08:29 Dose: 20 mg Ondansetron HCl (Zofran) 4 mg IVP Q8HR PRN PRN Reason: Nausea And Vomiting Stop: 01/31/17 01:34 Last Admin: 08/02/16 21:43 Dose: 4 mg Oxycodone HCl (Roxicodone) 10 mg PO Q6HR PRN PRN Reason: Moderate Pain (4-6) Stop: 01/31/17 01:34 Pregabalin (Lyrica) 50 mg PO HS [facility] Stop: 01/31/17 21:01 Last Admin: 08/03/16 20:53 Dose: 50 mg Simvastatin (Zocor) 20 mg PO DAILY [facility] Stop: 01/31/17 09:01 Last Admin: 08/04/16 08:31 Dose: 20 mg Tamsulosin HCl (Flomax) 0.4 mg PO BID [facility] PRN Reason: Protocol Stop: 01/31/17 09:01 Last Admin: 08/04/16 08:29 Dose: 0.4 mg Microbiology Results 07/31/16 17:29 Peripheral Venipuncture Blood Culture - Final No growth. 07/31/16 17:24 Peripheral Venipuncture Blood Culture - Final No growth. Nursing Notes 08/04/16 10:51 Nurse Note by Nai Perkins No vitals per nurse. Patient being d/c Initialized on 08/04/16 10:51 - END OF NOTE 08/04/16 10:21 Nurse Note by Patricia Campbell Report called to Robyn at the [facility]. Updated on patient status and plan of care. Family to take patient to appointments and have been notified of date and time. Initialized on 08/04/16 10:21 - END OF NOTE 08/04/16 08:26 Solar Energy System Installer Note by Estefanía Galicia Per request from [employer] Operator , sent clinical updates to the [facility]. Initialized on 08/04/16 08:26 - END OF NOTE 08/04/16 08:23 Nurse Note by Patricia Campbell 0731 Telemetry called and reported change in heart rhythm. Clinical access would not load. Review rhythm on monitored and appeared to be possible Aflutter. ECG performed and shown to Dr Hawthorne and she reported that patient was having PVC's. No new orders. Patient to be discharged. Initialized on 08/04/16 08:23 - END OF NOTE 08/03/16 16:22 Social Work Note by Autumn ElizabethT, Autumn Elizabeth received a phone call from the patient's son, Jesse Conn ). Jesse states that he wants to know if the nerve damage to his father's stomach is being addressed during his stay here at [place] [facility]. Jesse was seemingly upset because he doesn't think that his father is receiving appropriate care. Jesse states that "if you aren't going to address this issue then we should just bring his Dad home to ." SWT informed Jesse that medical questions would need to be answered by the physician or nursing staff. SWT offered to have the physician or nurse call Jesse to discuss his father's care. SWT suggested possibly having a family meeting with all members present and the physician to discuss a plan of care. Jesse requested a phone call from medical staff. SWT spoke with patient's RN, Alana who states that Dr. Hawthorne was just in with the family and they are thinking of transferring him to another hospital. SWT spoke with Dr. Hawthorne who states that she is working to find a place for the patient at the [facility]. in [place], [place]. SWT informed Dr. Hawthorne of the patient's son's concern. Dr. Hawthorne informed SWT to have the call the son. SWT confirmed understanding. SWT spoke with the patient and patient's , patient's was on the phone with son Jesse. SWT informed family that Dr. Hawthorne is working to find a bed at the [facility]. as requested and will be assisting them. Patient's was informed by SWShyanne that we would assist in transportation to the [facility] if the patient was accepted. director of women's services availability made known. Patient and family indicated no further needs at this time. Gary TELLEZ reviewed and approved this documentation. Initialized on 08/03/16 16:22 - END OF NOTE 08/03/16 15:39 PT Missed Visit by Beatriz De La O PT Missed Visit PT Missed Visit Start: 08/01/16 11: 50 Freq: Status: Active Document 08/03/16 13:49 ADH (Rec: 08/03/16 13:50 ADH [id number]) Missed Visit Reason Missed Visit Reason With Other Care Providers Comment Pt with multiple care providers and family at time of attempt and unavailable to this TRUST VAULT CUSTODIAN. TRUST VAULT CUSTODIAN revisisted room this afternoon for second attempt recieving verbal refusal from pt stating he didn't want to participate. Preliminary Draft Until Electronically Signed by Supervising Therapist Initialized on 08/03/16 15:39 - END OF NOTE 08/03/16 15:13 OT Missed Visit by Millie Dodd OT Missed Visit OT Missed Visit Start: 08/01/16 13: 00 Freq: Status: Active Document 08/03/16 15:12 DLP (Rec: 08/03/16 15:13 DLP [id number]) Missed Visit Reason Missed Visit Reason Refused/Declined Comment pt stated he did not want to do any tx today Preliminary Draft Until Electronically Signed by Supervising Therapist Initialized on 08/03/16 15:13 - END OF NOTE 08/03/16 14:52 Social Work Note by Autumn Elizabeth, Autumn Elizabeth was informed by Cate SIMPSON that this patient would most likely discharge tomorrow. SWT confirmed understanding. Autumn GRAJEDA called Ann at the [facility] and informed her that this patient was most likely ready for discharge tomorrow. Ann confirmed understanding. NICCI requested [facility] to send updates to the [facility] for this patient. [facility] confirmed understanding and will send updates. SWT informed the patient's RN, Nadya that this patient was a bedhold at the [facility] and if they are discharging tomorrow the RN will need to call report before 10am. RN confirmed understanding. Gary TELLEZ reviewed and approved this documentation. Initialized on 08/03/16 14:52 - END OF NOTE 08/03/16 13:50 PT Missed Visit by Beatriz De La O PT Missed Visit PT Missed Visit Start: 08/01/16 11: 50 Freq: Status: Active Document 08/03/16 13:49 ADH (Rec: 08/03/16 13:50 ADH [id number]) Missed Visit Reason Missed Visit Reason With Other Care Providers Comment Pt with multiple care providers and family at time of attempt and unavailable to this TRUST VAULT CUSTODIAN. Preliminary Draft Until Electronically Signed by Supervising Therapist Initialized on 08/03/16 13:50 - END OF NOTE 08/03/16 11:29 Solar Energy System Installer Note by Estefanía Galicia Per TECHNICIAN SUPPORT ENGINEER [facility] Initialized on 08/03/16 11:29 - END OF NOTE 08/03/16 11:21 Nurse Note by Nadya Rivas This RN spoke with May from who informed this RN that CT was down, therefor, pt would not be receiving lung biopsy today. She suggested pt have the procedure outpatient is medically cleared to be discharged--this RN informed of this. Patient is possible discharge tomorrow 08/04/16 back to [facility] for rehab. This RN explained this to patient and family Initialized on 08/03/16 11:21 - END OF NOTE 08/02/16 13:38 Social Work Note by Autumn Elizabeth SWT, Autumn Elizabeth was informed from previous SW' notes that [facility] bed[facility] SWT requested the [facility] to fax updated information to the [facility]. [facility] confirmed understanding and will send updates. Gary TELLEZ reviewed and approved this documentation. Initialized on 08/02/16 13:38 - END OF NOTE 08/02/16 12:50 PT Missed Visit by Beatriz De La O PT Missed Visit PT Missed Visit Start: 08/01/16 11: 50 Freq: Status: Active Document 08/02/16 12:49 ADH (Rec: 08/02/16 12:50 ADH [id number]) Missed Visit Reason Missed Visit Reason Refused/Declined Comment Pt adamently refused despite max encouragement provided to pt this morning with pt stating he is to be going for a procedure later this morning . Preliminary Draft Until Electronically Signed by Supervising Therapist Initialized on 08/02/16 12:50 - END OF NOTE 08/02/16 12:06 OT Acute/Nursery Daily N. by Batsheva Hobbs Occupational Therapy OT Acute Daily Note Start: 08/01/16 13: 00 Freq: Status: Active Document 08/02/16 12:03 KMT (Rec: 08/02/16 12:06 KMT [email or web address]) General/Subjective General Date of Admission 07/31/16 Referring Provider Falguni Shea OT Visit # 2 Diagnosis Other nonspecific abnormal finding of lung field OT Treatment Diagnosis Weakness Subjective Subjective reports needing help to walk at home; reports feeling weak Precautions Restrictions/Precautions Fall Precautions/Risk Sensation Impaired Bed/Chair Alarm Objective Functional Ability Bed Mobility supine to sit sba Transfers bed to BSC with modA; sit to stand Christiano repeatedly; lateraly stepping along bed at min to modA Therapeutic Exercise Exercise Comment yellow theraband x10 reps x5 exercises seated on EOB Assessment/Plan Assessment Assessment tolerated fair, educated to ask for assist for getting up Disposition at end of Eval/Treatment In bed Call light/phone within reach Tray table within reach All needs met Plan Plan Continue per POC in collaboration with OTR Time Started 10:15 Time Ended 10:43 Total Treatment Time (Min) (min) 28 Charge Sheet G-Code Therapies Therapeutic Exercise 1 Therapeutic Activity 1 Documentation Complete OT Charges/Documentation Finished? Yes Preliminary Draft Until Electronically Signed by Supervising Therapist Initialized on 08/02/16 12:06 - END OF NOTE 08/02/16 11:38 Solar Energy System Installer Note by Estefanía Galicia A Request from [facility] to send updated clinical to [facility]. Printed and faxed. Initialized on 08/02/16 11:38 - END OF NOTE 08/01/16 22:04 Nurse Note by Jorge Alberto Layton RN notified about blood pressure. Initialized on 08/01/16 22:04 - END OF NOTE 08/01/16 13:36 Clinical Case Mgmt by Cate Guadalupe Attempted to speak with patient regarding home set up and discharge planning. Patient states he resides at home with his son and [id number]; stated goal was to return. States he also lives at the [facility] and that his son came to pick him up on Monday but then he "couldn't walk all of a sudden so they brought me out here". Clarification-[facility] Patient was on a weekend pass to visit son/family. Patient confused. Attempted to ask about previous admission, patient stated "you know, I don't remember". Goal to return to [facility]. consult in place; Caty updated this CM on information. Will continue to monitor for CM discharge needs. Clinical Case Mgmt Is Patient Currently Being Yes Followed By Navigation Navigation Team/Teams [facility] Following Patient What Brought The Patient To "I was weak, couldn't walk" The Hospital Does The Patient Have A Yes Physician That They See Regularly Regular Provider Jonathan Herron Jr Patient Referred To [id number] No Does The PT Have Any Trouble No Getting To Their Appointment Are There Any Meds The PT Has No Trouble Getting Filled Monthly Home Environment House Resides With Child,Other Does The Patient Plan To No Return Home Is There A Caregiver At Home Yes To Help The Patient Wheel Chair Now Is The Patient Appropriate For Yes Case Management Is The Patient Appropriate For Yes Social Work Consult Referrals Made Yes Is The PT Appropriate For No Navigation Or Payer Case Mgmt Initialized on 08/01/16 13:36 - END OF NOTE 08/01/16 13:27 OT Evaluation by Briana Willams (Please sign and return this section for non-electronic signatures) I have reviewed, and agree with, the below stated plan of care: Referring Provider Signature/Printed Name Date OT Treatment Diagnosis Weakness Assessment OT evaluation completed this date. Due to the impairments listed above pt requires continued skilled OT services during acute hospital care. Upon discharge from hospital pt requires continued skilled OT services via inpatient rehab to increase independence and safety with ADLs/IADLs prior to returning home. Rehab Potential Good Planned OT Interventions Therapeutic Exercise,Therapeutic Activity,Self Care/Home Management OT Treatment Frequency Once a Day, Mon-Fri OT Duration of Treatment until discharged from acute hospital care Estimated OT Needs at Inpatient Rehab/Swing Bed Discharge Patient will participate Mod(I)UB ADLs;Min(A)LB ADLs;Mod(A)toileting Patient will improve [place] AM-PAC "6-clicks" Patient will perform paced 3-5 minutes functional activity/ADLs while st Patient will improve left port cdl a driver strength by 1/2 grade Patient will complete 5-10 min with rest breaks Patient will complete bed SBA Patient will improve Contact Guard Assistance Patient will verbally/ Walker Safety/Assistive D demonstrate recall of precautio Occupational Therapy OT Acute Eval Start: 08/01/16 13: 00 Freq: Status: Active Document 08/01/16 13:00 SKS (Rec: 08/01/16 13:27 SKS [email or web address]) Inpatient Rehab Intake History Date of Admission 07/31/16 Date of Onset 07/31/16 Chief Complaint weakness PMH/Surgical History Relevant to Rehab arthritis, colon cancer s/p colectomy, COPD, KRISTAL, CVA, dementia, DM, GERD, GI bleed, HTN, HI, OP, renal disease, thyroid disease, TKA, anxiety, depression, PTSD Factors/Comorbidities Impacting POC COPD DM Hx CVA Hx Cancer Cognitive Impairment HTN Prior Treatment/Testing chest CT- nodules suspicious for malignancy Medical Diagnosis Diagnosis Other nonspecific abnormal finding of lung field Reason for Referral/Orders Evaluate, develop, and implement POC Safety/Limitations History of falls in past 6 months Multiple falls, more than 2 times Restrictions/Precautions Fall Precautions/Risk Sensation Impaired Bed/Chair Alarm Home/PLOF History Provided By Patient Lives With: lives with son Type of Dwelling Single Family Home Number of Floors (Floors) 1 Number of Stairs to Enter (Stairs) 0 Bathing Environment Shower Current DME Four Wheeled Walker/Rollator Cane Wheelchair Built in Shower Seat Prior Level Of Function Son assists with ADLs as needed. Pt. requires help with snaps/buttons. He states he is able to perform most of bathing. His son assists getting him in/out of shower Prior Mobility Level Pt. mod I using w/c for mobility. Reports his son assists at times for transfers . Pt. states he has not ambulated in approximately 2 months Driving Son can provide transportation Patient/Family Goal Return home. Open to further rehab Pain Assessment Pain Present Pain Present Reports Pain Pain bilateral hands Intensity 6 Scale Used Numeric (1 - 10) Functional Mobility Assessment Bed Mobility Bed Mobility Ability Minimum Assistance 1 Person Assist Bed Mobility Assistive Devices Elevated HOB Bed Transfers Bed Transfer Ability Minimum Assistance 1 Person Assist Bed Transfer Assistive Devices Rolling Walker Transfer Belt Chair Transfers Chair Transfer Ability Minimum Assistance 1 Person Assist Chair Transfer Assistive Devices Rolling Walker Transfer Belt Balance Static Sitting Balance Ability Good Dynamic Sitting Balance Ability Good Static Standing Balance Ability Good -/Fair + Dynamic Standing Balance Ability Fair Ambulation Assistive Devices Rolling Walker Endurance Activity Tolerance Good Additional Info Additional Information Pt completed functional mobility from EOB>bedside chair with RW and Min(A). ADL Assessment Grooming Grooming Ability Modified Independent Upper Body Dressing Upper Body Dressing Ability Standby Assistance Lower Body Dressing Lower Body Dressing Ability Moderate Assistance Bathing Washing/Drying Upper Body Ability Standby Assistance Washing/Drying Lower Extremities Ability Moderate Assistance Eating Eating (Feeding) Ability Setup Toileting Performing Toilet Hygiene Ability Standby Assistance Managing Clothing Ability Maximum Assistance Functional Activity Tolerance Activity Tolerance Good Gross Strength/ROM Upper Extremity Gross UE Strength Within Functional Limits Gross UE ROM Within Functional Limits UE ROM/Strength Detail (B)UE strength: 4+/5, left forearm NT d/t IV but observed to be WFL (R) port cdl a driver: good (L) port cdl a driver: good-/fair+ Lower Extremity LE ROM/Strength Detail See PT evaluation for details. Edema/Skin Integrity Skin Integrity Comment Intact Gross Sensorimotor Sensory Sensation Assessment Summary Comments Pt reports decreased sensation with (B)UEs, more decreased sensation on the distal aspect . Pt reports numbness in (B) LEs from knees down through feet. Cognition/Visual Assessment Alertness/Orientation Level of Alertness Alert Active Able to Remain Focused on Simple Task Patient Orientation Name Date of Awareness/Safety Safety Awareness Situational Awareness Attention to Task No Deficits Noted Auditory Hearing Ability Normal Comprehension Ability to Follow Directions Follows One Step Follows Two Step Comprehension Ability Understands Concepts Expression/Communication Patient Behavior Appropriate Cooperative Speech Pattern Clear Appropriate Problem Solving Problem Solving Ability Able To Solve Simple Problems Acute OT POC Stroke Is patient being assessed for No rehabilitation for diagnosis of stroke? Summary -LOCATED WITHIN [facility] OT Inpatient Daily Activity Raw 16 Score [facility] CMS 0-100% Impaired Score 53 Problems/Impairments/Functional Decreased ADL's/IADL's Limitation Decreased Functional Mobility/ Transfers Decreased Standing Tolerance Balance Decreased Strength Impaired Sensation Assessment OT evaluation completed this date. Due to the impairments listed above pt requires continued skilled OT services during acute hospital care. Upon discharge from hospital pt requires continued skilled OT services via inpatient rehab to increase independence and safety with ADLs/IADLs prior to returning home. Rehab Potential Good Disposition at end of Eval/Treatment Up in chair Chair Alarm Call light/phone within reach Tray table within reach All needs met Plan of Care OT Treatment Diagnosis Weakness Planned OT Interventions Therapeutic Exercise Therapeutic Activity Self Care/Home Management OT Treatment Frequency Once a Day, Mon-Fri OT Duration of Treatment until discharged from acute hospital care Estimated OT Needs at Discharge Inpatient Rehab/Swing Bed OT Estimated DME Needs at D/C Transfer Tub Bench Grab Bars in Shower Grab Bars at Toilet ADL/Outcome Goals Patient will participate in ADLs of Mod(I)UB ADLs;Min(A)LB ADLs; various media (dressing,bathing) with___ Mod(A)toileting __ to improve ADL I/participation by hospital discharge. Patient will improve functional outcome [facility] "6-clicks" score on by noted improvement of score (increase or decrease as measured on tool by 2 points) within short term hospitalization stay. Strength/ROM/Endurance Goals Patient will perform paced functional 3-5 minutes activity/ADLs while standing for to improve functional activity tolerance as needed for improved ADL performance prior to discharge. Patient will improve strength by 1 left port cdl a driver /2 grade to improve ADL participation & independence by short term hospial stay. Patient will complete of paced 5-10 min with rest breaks therapeutic exercise to improve functional stamina as needed for daily routine & ADLs by hosptial discharge. Functional Mobility/Standing Goals Patient will complete bed mobility to SBA improve functional mobility as needed for ADL participation with by hospital discharge. Patient will improve functional transfer Contact Guard Assistance ability to to improve independence with ADLs by dicharge from hospital. Compensation/Educational Goals Patient will verbally/demonstrate recall Walker Safety/Assistive Device of precautions in order to increase safety with ADLs & promote proper healing by discharge. Supervising Therapist Supervising Therapist Briana Willams Eval and Re-Eval Charges G-Code Evaluation Time Evaluation Time: Minutes with Patient 20 Complexity Eval/Re-eval Occupational Therapy Evaluation Low Yes Complexity Documentation Complete OT Charges/Documentation Finished? Yes Last Visit Is patient being discharged from OT No today? Business Needs Please Select All That Apply To Today's Ulysses Documented Visit OT Visit Counter 1 Financial Class MCR Secondary Payer Y OT G-code Therapy Billing Start: 08/01/16 13: 00 Freq: Status: Active Document 08/01/16 13:00 [email or web address] (Rec: 08/01/16 13:27 SK [email or web address]) OT G-codes G-Code Required G-code Required For This Visit Yes Current G-code Status OT Current Status Self Care OT Current Status Modifier At least 40% but less than 60% impaired, limited or restricted Goal G-code Status OT Goal Status Self Care OT Goal Status Modifier At least 20% but less than 40% impaired, limited or restricted Preliminary Draft Until Electronically Signed by Supervising Therapist Initialized on 08/01/16 13:27 - END OF NOTE 08/01/16 12:16 PT Evaluation by Paty Amaral (Please sign and return this section for non-electronic signatures) I have reviewed, and agree with, the below stated plan of care: Referring Provider Signature/Printed Name Date Assessment Pt. is a 81y/o male admitted with generalized weakness and mass RUL lung. Pt. lives with son. Pt. states son will be returning back to construction job soon and pt. will be alone. He states he has been using a w/c for the past 2 months as he has been unable to walk d/t weakness. Pt. mod I to assisted from son with transfers. Pt. now minimal assist for all mobility. Will continue PT during hospital stay for strengthening and advancing mobility. Pt. may benefit from Inpatient Rehab stay for further strengthening and mobility training to increase independence so pt. can function independently PT Treatment Diagnosis Other abnormalities of gait and mobility Planned Interventions Therapeutic Exercise,Therapeutic Activity,Gait Training,Re-Evaluation PT Treatment Frequency Once a Day, Mon-Fri Duration of Treatment 10 visits Estimated PT Needs at Inpatient Rehab/Swing Bed Discharge Pt. will perform all bed Contact Guard Assistance mobility Pt. will perform all transfers Contact Guard Assistance Pt. will demonstrate Fair (+) static/dynamic balance Pt. will demonstrate gait ____ at least 10 feet with WW and CGA ___ feet with assist Pt. will verbally recall Walker Safety/Assistive D precautions without cues Physical Therapy PT Acute Eval Start: 08/01/16 11: 50 Freq: Status: Active Document 08/01/16 11:50 LJS (Rec: 08/01/16 12:16 LJS [email or web address]) Inpatient Rehab Intake History Date of Admission 07/31/16 Chief Complaint weakness PMH/Surgical History Relevant to Rehab arthritis, colon cancer s/p colectomy, COPD, KRISTAL, CVA, dementia, DM, GERD, GI bleed, HTN, HI, OP, renal disease, thyroid disease, TKA, anxiety, depression, PTSD Factors/Comorbidities Impacting POC COPD DM Hx CVA Hx Cancer HTN Prior Treatment/Testing chest CT- nodules suspicious for malignancy Medical Diagnosis Diagnosis Other nonspecific abnormal finding of lung field Reason for Referral/Orders Evaluate, develop, and implement POC Safety/Limitations History of falls in past 6 months Multiple falls, more than 2 times Restrictions/Precautions Fall Precautions/Risk Bed/Chair Alarm Home/PLOF History Provided By Patient Lives With: lives with son Type of Dwelling Single Family Home Number of Floors (Floors) 1 Number of Stairs to Enter (Stairs) 0 Bathing Environment Shower Current DME Four Wheeled Walker/Rollator Cane Wheelchair Built in Shower Seat Prior Level Of Function Son assists with ADLs as needed. Pt. requires help with snaps/buttons. He states he is able to perform most of bathing. His son assists getting him in/out of shower Prior Mobility Level Pt. mod I using w/c for mobility. Reports his son assists at times for transfers . Pt. states he has not ambulated in approximately 2 months Driving Son can provide transportation Patient/Family Goal Return home. Open to further rehab Pain Assessment Pain Present Pain Present Reports Pain Pain bilateral hands Intensity 6 Scale Used Numeric (1 - 10) Functional Mobility Assessment Bed Mobility Bed Mobility Ability Minimum Assistance 1 Person Assist Bed Mobility Assistive Devices Elevated HOB Bed Transfers Bed Transfer Ability Minimum Assistance 1 Person Assist Bed Transfer Assistive Devices Rolling Walker Transfer Belt Chair Transfers Chair Transfer Ability Minimum Assistance 1 Person Assist Chair Transfer Assistive Devices Rolling Walker Transfer Belt Balance Static Sitting Balance Ability Good Dynamic Sitting Balance Ability Good Static Standing Balance Ability Good -/Fair + Dynamic Standing Balance Ability Fair Ambulation Assistive Devices Rolling Walker Endurance Activity Tolerance Good Additional Info Additional Information Pt. requires cueing for safety for proper hand placement during transfers Gait/Stairs Deviation Assess. General Ambulation Ability Minimum Assistance 1 Person Assist Ambulation Assistive Device Rolling Walker Gait Belt General Gait Pattern Weaving Gait Trunk Anterior to Pelvis Ambulation Ability Comments Pt. with unsteadiness in standing/gait d/t weakness and decreased sensation bilateral LEs below knees. Pt. able to take 3 steps bed to chair with WW. Decreased heel strike bilaterally also noted with steps Gross Strength/ROM Upper Extremity UE ROM/Strength Detail See OT eval Lower Extremity Gross LE Strength Impaired Gross LE ROM Within Functional Limits LE ROM/Strength Detail 3+ to 4-/5 Torso/Spine Gross Trunk Strength Within Functional Limits Limitations/Factors of Tone Rating Muscle Tone Description Normal Edema/Skin Integrity Skin Integrity Comment intact Gross Sensorimotor Sensory Gross Sensation RUE Impaired LUE Impaired RLE Impaired LLE Impaired Sensation Assessment Summary Comments numbness bilateral hands and bilateral lower extremities below knees d/t neuropathy Coordination Fine Motor Coordination RUE Impaired LUE Impaired Cognition/Visual Assessment Alertness/Orientation Level of Alertness Alert Patient Orientation Person Place Name Date of Awareness/Safety Mental Status Alert & Oriented Safety Awareness Patient Is Aware of Their Safety Attention to Task No Deficits Noted Visual Visual Acuity No Deficits Noted Visual Processing Visual Spatial Deficit No Deficits Noted Auditory Hearing Ability Hard of Hearing Comprehension Ability to Follow Directions Follows Two Step Comprehension Ability No Impairment Expression/Communication Patient Behavior Appropriate Cooperative Speech Pattern Clear Appropriate Eye Contact Maintains Eye Contact Problem Solving Problem Solving Ability Able To Solve Simple Problems Rehab Education Education Provided Education Topic Bed Mobility Transfers Gait Safety Awareness Teaching Recipient Patient Teaching Method Verbal Response to Teaching Return demonstration Verbalize understanding Reinforcement needed Acute Care PT POC Stroke Is patient being assessed for No rehabilitation for diagnosis of stroke? Summary AM-PAC PT Basic Mobility Raw Score 15 AM-PAC CMS 0-100% Impaired Score 44 Standardized Testing/Functional Outcomes AM-PAC 5 items Utilized/Results Problems/Impairments/Functional Decreased Functional Mobility/ Limitation Transfers Decreased Standing Tolerance Needs AE/Compensatory Education Balance Impaired Gait Decreased Strength Impaired Sensation Assessment Pt. is a 81y/o male admitted with generalized weakness and mass RUL lung. Pt. lives with son. Pt. states son will be returning back to construction job soon and pt. will be alone. He states he has been using a w/c for the past 2 months as he has been unable to walk d/t weakness. Pt. mod I to assisted from son with transfers. Pt. now minimal assist for all mobility. Will continue PT during hospital stay for strengthening and advancing mobility. Pt. may benefit from Inpatient Rehab stay for further strengthening and mobility training to increase independence so pt. can function independently Disposition at end of Eval/Treatment Up in chair Chair Alarm Call light/phone within reach Tray table within reach All needs met Plan of Care PT Treatment Diagnosis Other abnormalities of gait and mobility Additional PT Treatment Diagnosis/ Weakness R53.1 Clarification Planned Interventions Therapeutic Exercise Therapeutic Activity Gait Training Re-Evaluation PT Treatment Frequency Once a Day, Mon-Fri Duration of Treatment 10 visits Goals Determined With Patient/Family Yes Estimated PT Needs at Discharge Inpatient Rehab/Swing Bed Functional Mobility Goals Pt. will perform all bed mobility with__ Contact Guard Assistance ___to increase functional indendence. Pt. will perform all transfers with Contact Guard Assistance to increase safe functional mobility and independence. Pt. will demonstrate static/dynamic Fair (+) balance during all functional activities allowing increased safety awareness. Pt. will demonstrate gait feet at least 10 feet with WW and with assist using to CGA increase functional mobility, strength, and/or endurance. Education Goals Pt. will verbally recall precautions Walker Safety/Assistive Device without cues for increased safety & compliance in discharge environment. Supervising Therapist Supervising Therapist Paty Amaral Eval and Re-Eval Charges G-Code Evaluation Time Evaluation Time: Minutes with Patient 26 Complexity Eval/Re-eval Physical Therapy Evaluation Moderate Yes Complexity Documentation Complete PT Charges/Documentation Finished? Yes Last Visit Is patient being discharged from PT No today? Business Needs Please Select All That Apply To Today's [place]es Documented Visit Financial Class MCR Secondary Payer Y PT G-code Therapy Billing Start: 08/01/16 11: 50 Freq: Status: Active Document 08/01/16 11:50 LJS (Rec: 08/01/16 12:16 [email or web address]) PT G-codes G-Code Required G-code Required For This Visit Yes Current G-code Status PT Current Status Mobility PT Current Status Modifier At least 40% but less than 60% impaired, limited or restricted Goal G-code Status PT Goal Status Mobility PT Goal Status Modifer At least 20% but less than 40% impaired, limited or restricted Preliminary Draft Until Electronically Signed by Supervising Therapist Initialized on 08/01/16 12:16 - END OF NOTE 08/01/16 11:02 Social Work Note by Caty Ramírez Sw continued follow up and faxed updates to the [facility] on patient for [facility] to review. They will inform when they can accept patient back. He does not have a discharge order at this time. Per Ann with the [facility], patient had been in their rehab and went on a pass with his son. [facility] is holding his bed for him to return. Initialized on 08/01/16 11:02 - END OF NOTE 08/01/16 09:33 Social Work Note by Caty Ramírez Social work continued follow up. Patient's chart was reviewed. Patient is a 81y.o. male. Patient is a . He is 70% SC and is on the RED team at the [facility]. lives with son, Mejia who is his appointed HCPOA, forms were completed here at [place] during last visit. Patient at last visit on 07-21-16 was transferred to the [facility] inpatient rehab unit. This provider is attempting to determine if patient was discharged home or if he was transferred from the [facility]. Contacted admissions for [facility] unit at [phone] x. [phone] and left a message. Patient was sleeping heavily in his room. No visitors present with patient. This provider attempted to contact patient's son and left a general message on voicemail. Pt/Ot are consulted, as well as multiple other specialities. Patient is OBSERVATION at this time. Sw will follow. Initialized on 08/01/16 09:33 - END OF NOTE 08/01/16 08:44 Nurse Note by Sandy Land I asked the PT. if he wanted me to help him with a bed bath, he stated that he wanted to wait later. Initialized on 08/01/16 08:44 - END OF NOTE 08/01/16 07:03 Transport Report by Danita Shafer Date: 08/01/16 Transport Method: Stretcher gabapentin Allergy (Verified 07/19/16 09:47) Itching Nortriptyline Allergy (Verified 07/19/16 09:47) Rash Terazosin Allergy (Verified 07/19/16 09:47) Itching Resuscitation Status 07/31/16 17:13 ECG 12 lead ECG [ECG] Stat Mode Of Transportation: Stretcher Reason For Exam: hypotension Exam Performed At:: [facility] 08/01/16 01:48 EV echocardiogram Routine Mode Of Transportation: Stretcher Reason For Exam: chest pain. weakness. dyspnea. Order Doctor: Jeramie Alarcon Exam Performed At:: [facility] Oxygen: Room Air Mental Status: Alert Fall Risk: Isolation: Nurse Required for Transport: No ___ Yes Limb Restrictions: No ___ Yes Behavioral issue/Risk for Elopement: No ___ Yes Telemetry Room Notification: Destination: MRI XRAY STRESS ULTRASOUND CT DIALYSIS ENDO OTHER: Depart Time: Nurse: Transporter: Arrive Time: Received by: ___ Return Time: Nurse: Transporter: ] Initialized on 08/01/16 07:03 - END OF NOTE 07/31/16 20:27 Nurse Note by Mariusz Ferrer REPORT WAS GIVEN TO EMMY AND CRISTINA GOING TO THE FLOOR NOW. Initialized on 07/31/16 20:27 - END OF NOTE 07/31/16 19:58 Nurse Note by Mariusz Ferrer ATTEMPTED TO CALL REPORT TO 3A AND STAFF STATED RODRÍGUEZ GOODSON WAS NOT ABLE TO TAKE REPORT AND WOULD CALL BACK. ALSO STATED THERE WAS NOONE ELSE TO TAKE REPORT. Initialized on 07/31/16 19:58 - END OF NOTE 07/31/16 19:09 Transport Report by Jordi Lauren Date: 07/31/16 Transport Method: Stretcher gabapentin Allergy (Verified 07/19/16 09:47) Itching Nortriptyline Allergy (Verified 07/19/16 09:47) Rash Terazosin Allergy (Verified 07/19/16 09:47) Itching Resuscitation Status 07/31/16 17:13 ECG 12 lead ECG [ECG] Stat Mode Of Transportation: Stretcher Reason For Exam: hypotension Exam Performed At:: [facility] Oxygen: Mental Status: Fall Risk: Isolation: Nurse Required for Transport: No ___ Yes Limb Restrictions: No ___ Yes Behavioral issue/Risk for Elopement: No ___ Yes Telemetry Room Notification: Destination: MRI XRAY STRESS ULTRASOUND CT DIALYSIS ENDO OTHER: Depart Time: Nurse: Transporter: Arrive Time: Received by: ___ Return Time: Nurse: Transporter: ] Initialized on 07/31/16 19:09 - END OF NOTE 07/31/16 18:04 Transport Report by Bubba Anaya Date: 07/31/16 Transport Method: Stretcher gabapentin Allergy (Verified 07/19/16 09:47) Itching Nortriptyline Allergy (Verified 07/19/16 09:47) Rash Terazosin Allergy (Verified 07/19/16 09:47) Itching Resuscitation Status 07/31/16 17:13 ECG 12 lead ECG [ECG] Stat Mode Of Transportation: Stretcher Reason For Exam: hypotension Exam Performed At:: [facility] 07/31/16 18:00 CT chest w con [CT] Stat Mode Of Transportation: Stretcher Reason For Exam: abnormal chest xray Order Doctor: Gonzalez,Ming K Exam Performed At:: [facility] Allergic to Contrast: No Oxygen: Mental Status: Fall Risk: Isolation: Nurse Required for Transport: No ___ Yes Limb Restrictions: No ___ Yes Behavioral issue/Risk for Elopement: No ___ Yes Telemetry Room Notification: Destination: MRI XRAY STRESS ULTRASOUND CT DIALYSIS ENDO OTHER: Depart Time: Nurse: Transporter: Arrive Time: Received by: ___ Return Time: Nurse: Transporter: ] Initialized on 07/31/16 18:04 - END OF NOTE Orders 07/31/16 17:13 XR chest 1V portable [XR] Stat Mode Of Transportation: Stretcher Reason For Exam: shortness of breath Exam Performed At:: [facility] ECG 12 lead ECG [ECG] Stat Mode Of Transportation: Stretcher Reason For Exam: hypotension Exam Performed At:: [facility] 07/31/16 17:14 12 lead ECG assessment [RC] NOW 07/31/16 17:16 0.9 % Sodium Chloride 1,000 ml IV BOLUS 07/31/16 17:24 Activated Partial Thrombo Time [COAG] Stat Comment: Specimen: Send someone from the department to collect Complete Blood Count [HEME] Stat Comment: Specimen: Send someone from the department to collect Comprehensive Metabolic Panel Stat Comment: Specimen: Send someone from the department to collect Culture,Blood [BC] Stat Comment: KYLE Source: Peripheral Venipuncture Quantity: 1 Specimen: Send someone from the department to collect Specimen Description: Lactic Acid ([facility] Only) Stat Comment: Specimen: Send someone from the department to collect Troponin I Stat Comment: Specimen: Send someone from the department to collect 07/31/16 17:29 Culture,Blood,Additional [BC] Stat Comment: KYLE Source: Peripheral Venipuncture Quantity: 2 Specimen: Send someone from the department to collect Specimen Description: 07/31/16 18:00 CT chest w con [CT] Stat Mode Of Transportation: Stretcher Reason For Exam: abnormal chest xray Order Doctor: Ming Gonzalez Exam Performed At:: [facility] Allergic to Contrast: No 07/31/16 19:[address] Stat Comment: Reason for Visit: failure to thrive 07/31/16 19:31 Urinalysis Reflex Cult & Micro [URIN] Stat Comment: Specimen: Send someone from the department to collect 07/31/16 21:33 Consult to Metal Finish Inspector [CONS] Routine Reason for SW Consult: AGE 81, POTENTIAL NEED FOR HOME HEALTH 08/01/16 01:33 Apply anti-embolic stockings [RC] .NOW Aspiration precautions [RC] .WITH MEALS Cardiac monitoring [RC] .ONCE Glucose, blood poc measurement [RC] ACHS Head of bed elevation [RC] .ONCE Hypoglycemia Treatment Orders [RC] .once Incentive Spirometry [RC] .10 TIMES PER HR WHILE AWAKE Notify provider [RC] once Physician Instructions: Peripheral IV [RC] CONT Vital Signs Assessment [RC] Q4H Consult to Child Specialist [CONS] Routine Comment: Consult to Nurse Navigator [CONS] Routine Comment: Acetaminophen [Tylenol] 650 mg PO Q6HR PRN Albuterol Neb [Proventil Neb] 2.5 mg IH Q2H PRN Benzonatate [Tessalon] 200 mg PO TID PRN D5% in Water [Dextrose 5%] 1,000 ml IV CONT Dextrose 50 % in Water (Syg) [Dextrose 50% (Syg)] 25 ml IVP AD PRN Dextrose Gel [Gluctose] 15 gm PO ONCE PRN Dextrose Gel [Gluctose] 30 gm PO ONCE PRN Docusate [Colace] 100 mg PO BID PRN Glucagon, Human Recombinant [GlucaGen] 1 mg IM ONCE PRN GuaiFENesin ER [Mucinex] 600 mg PO BID PRN Morphine [Morphine Sulfate] 2 mg IVP Q4HR PRN Naloxone [Narcan] 0.4 mg IVP Q2MIN PRN Ondansetron [Zofran] 4 mg IVP Q8HR PRN OxyCODONE Immed Rel [Roxicodone] 10 mg PO Q6HR PRN 08/01/16 01:34 Bed rest [RC] .CONT Physician Instructions: Bed rest w/bedside commode [RC] .PRN Cardiac Monitoring Med/Surg [RC] .CONT Telemetry Reason: Stroke/Syncope/TIA Continuous pulse oximetry [RC] CONT Comment: Measure intake and output [RC] QSHIFT Measure weight [RC] DAILY 08/01/16 01:35 Oxygen via nasal cannula Nasal Cannula 2 lpm Comment: Titrate O2 to main O2 sat greater than: 92% RT has an order or consult [RC] NOW 08/01/16 01:40 Consult to Occupational Therapy [CONS] Routine Comment: Evaluate, develop and implement POC Consult to Physical Therapy [CONS] Routine Comment: Evaluate, develop and implement POC 08/01/16 01:45 0.9 % Sodium Chloride 1,000 ml IVC 50 mls/hr Up with Assist Daily Comment: Physician Instructions: 08/01/16 01:48 EV limited echocardiogram Routine Mode Of Transportation: Stretcher Reason For Exam: chest pain. weakness. dyspnea. Order Doctor: Jeramie Alarcon Exam Performed At:: [facility] 08/01/16 01:50 consult to roofing tile sorter [Consult to Nutrition] [CONS] Routine Comment: Consulting Provider: NUTRITION Reason for Dietary Consult: PO Supplementation 08/01/16 04:00 Urinalysis reflex Microscopic [URIN] AM 0400 Comment: Specimen: Send someone from the department to collect Source of specimen:: Not Supplied 08/01/16 05:00 Ipratropium/Albuterol Neb [Duoneb] 3 ml IH QIDR 08/01/16 05:19 ACTH AM 0400 Comment: Specimen: Send someone from the department to collect C-Peptide AM 0400 Comment: Specimen: Send someone from the department to collect C-Reactive Protein AM 0400 Comment: Specimen: Send someone from the department to collect Carcinoembryonic Antigen AM 0400 Comment: Specimen: Send someone from the department to collect Cortisol,Random AM 0400 Comment: Specimen: Send someone from the department to collect Erythrocyte Sedimentation Rate [HEME] AM 0400 Comment: Specimen: Send someone from the department to collect Hgb A1C AM 0400 Comment: Specimen: Send someone from the department to collect Ionized Calcium AM 0400 Comment: Specimen: Send someone from the department to collect Lactic Acid ([facility] Only) AM 0400 Comment: Specimen: Send someone from the department to collect Lipid Panel AM 0400 Comment: Specimen: Send someone from the department to collect Magnesium AM 0400 Comment: Specimen: Send someone from the department to collect Phosphorous AM 0400 Comment: Specimen: Send someone from the department to collect Prothrombin Time INR [COAG] AM 0400 Comment: Specimen: Send someone from the department to collect Thyroid Stimulating Hormone Stat Comment: Specimen: Send someone from the department to collect Thyroxine (T4) Free Routine Triiodothyronine (T3) Free Routine Troponin I Q6H Comment: Specimen: Send someone from the department to collect Venous Blood Gas Stat Comment: Specimen: Send someone from the department to collect 08/01/16 06:00 Enoxaparin [Lovenox] 40 mg SQ 0600 08/01/16 06:30 Omeprazole [PriLOSEC] 20 mg PO DAILY@0630 08/01/16 07:30 Insulin LISPRO [HumaLOG] See Protocol SQ TIDAC 08/01/16 09:00 Consult to Physician [CONS] Routine Consulting Provider: Kalli Russo Reason for Consult: 81-year-old male with 40 pound unintentional weight loss and CT chest suggesting right upper lobe related mass lesion worrisome for CA. Please evaluate and advise. Time Notified: 01:42 Call Completed: No Consult to Pulmonology [CONS] Routine Consulting Provider: [facility] [place] Reason for Consult: 80-year-old male with 40 pound unintentional weight loss and CT chest demonstrating a right upper lobe spiculated mass worrisome for CA. Please evaluate and advise. Time Notified: 01:45 Call Completed: No Artificial Tears SOLN [Akwa Tears] 1 drop BOTH EYES TID How will this medication be supplied?: Pharmacy to Subsitute Aspirin 81 mg PO DAILY Docusate [Colace] 200 mg PO DAILY Finasteride [Proscar] 5 mg PO DAILY Fludrocortisone Acetate [Florinef] 0.1 mg PO DAILY Lisinopril [Zestril] 10 mg PO DAILY Megestrol Acetate [Megace] 400 mg PO DAILY Metoprolol [Lopressor] 50 mg PO BID Simvastatin [Zocor] 20 mg PO DAILY How will this medication be supplied?: Pharmacy to Subsitute Tamsulosin [Flomax] 0.4 mg PO BID 08/01/16 10:51 Troponin I Q6H Comment: Specimen: Send someone from the department to collect 08/01/16 10:55 POC Glucometer Test [POC] Routine 08/01/16 12:00 Dronabinol [Marinol] 2.5 mg PO BIDLS 08/01/16 12:59 Consult to Neurology [CONS] Routine Consulting Provider: Neurology [facility] Reason for Consult: 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 thank you. Call Completed: Yes 08/01/16 16:28 POC Glucometer Test [POC] Routine 08/01/16 17:32 Troponin I Q6H Comment: Specimen: Send someone from the department to collect 08/01/16 21:00 Famotidine [Pepcid] 20 mg PO HS How will this medication be supplied?: Pharmacy to Subsitute Insulin LISPRO [HumaLOG] See Protocol SQ HS Mirtazapine [Remeron] 15 mg PO HS Pregabalin [Lyrica] 50 mg PO HS 08/01/16 Breakfast Diabetic Diet Diet Modifications: 08/01/16 Dinner Diabetic Diet Diet Modifications: Dietary Supplement Comment: Diet Modifications: Ensure PLUS, TID, strwbrry. *count as 15gm CHO. 08/02/16 00:26 HydrALAZINE 20 mg IVP Q6HR PRN 08/02/16 01:45 Up with Assist Daily Comment: Physician Instructions: 08/02/16 08:03 POC Glucometer Test [POC] Routine 08/02/16 11:47 POC Glucometer Test [POC] Routine 08/02/16 13:43 Admit as Inpatient Stat Estimated Total Length of Stay (Days): 3 Plans for Post Hospital Care: Home Inpatient Status Required: Unresolved acute problem Explain each choice below Explain Concerns: FTT, nausea/vomiting, gastroparesis, lung nodules requiring biopsy. Potential Adverse Outcome: Further Morbidity Fall Risk at Home Other Is VTE Prophylaxis Indicated?: Yes 08/02/16 16:30 Metoclopramide [Reglan] 5 mg PO QIDAC 08/02/16 17:22 POC Glucometer Test [POC] Routine 08/02/16 20:37 POC Glucometer Test [POC] Routine 08/03/16 00:46 POC Glucometer Test [POC] Routine 08/03/16 01:45 Up with Assist Daily Comment: Physician Instructions: 08/03/16 05:26 POC Glucometer Test [POC] Routine 08/03/16 10:59 0.9 % Sodium Chloride 1,000 ml IVC 100 mls/hr 08/03/16 11:25 CBC [Complete Blood Count] [HEME] Stat Comment: Specimen: Send someone from the department to collect Chem 7 [Basic Metabolic Panel] Stat Comment: Specimen: Send someone from the department to collect 08/03/16 11:53 POC Glucometer Test [POC] Routine 08/03/16 13:35 0.9 % Sodium Chloride 1,000 ml IVC 50 mls/hr 08/03/16 17:20 POC Glucometer Test [POC] Routine 08/03/16 19:56 POC Glucometer Test [POC] Routine 08/03/16 21:00 Omeprazole [PriLOSEC] 20 mg PO BID 08/03/16 Lunch Diabetic Diet Diet Modifications: Dietary Supplement Comment: Diet Modifications: Ensure Plus TID, strawberry *Count as 15gm CHO 08/04/16 01:45 Up with Assist Daily Comment: Physician Instructions: 08/04/16 07:53 ECG 12 lead ECG [ECG] Routine Mode Of Transportation: Stretcher Reason For Exam: . 08/04/16 08:04 POC Glucometer Test [POC] Routine 08/04/16 08:14 Discharge Order [DISCHARGE] Routine Comment: Vital Signs Temp Pulse Resp BP Pulse Ox 08/04/16 08:30 87 112/65 08/04/16 08:10 98.3 F 84 18 99/58 95 08/04/16 04:38 98.7 F 83 16 134/69 97 08/04/16 01:35 98.1 F 83 16 153/78 97 08/03/16 23:21 80 08/03/16 20:06 98.8 F 91 14 134/67 99 08/03/16 15:40 98.2 F 83 16 155/76 91 L 08/03/16 12:07 97.8 F 78 18 132/73 95 08/03/16 07:16 98.8 F 86 18 169/61 99 08/03/16 02:44 98.4 F 80 18 152/68 94 L 08/02/16 22:23 98.8 F 83 16 124/56 95 08/02/16 18:57 98.2 F 74 18 142/69 95 08/02/16 15:12 98.2 F 84 18 129/61 96 08/02/16 11:45 98.5 F 80 18 156/67 98 08/02/16 10:56 16 99 08/02/16 06:36 99.0 F 77 18 135/64 96 08/02/16 04:57 16 94 L 08/02/16 00:05 85 174/79 08/01/16 22:21 18 98 08/01/16 22:02 99.3 F 73 14 167/74 95 08/01/16 18:41 98.2 F 73 14 131/62 96 08/01/16 16:02 16 94 L 08/01/16 14:24 97.9 F 79 18 174/81 94 L 08/01/16 11:02 16 95 08/01/16 10:51 98.1 F 79 16 135/75 95 08/01/16 07:13 98.5 F 89 16 162/76 97 08/01/16 04:51 16 95 08/01/16 03:30 98.4 F 89 14 160/80 97 08/01/16 01:20 98.0 F 83 16 132/69 97 07/31/16 20:52 98.3 F 87 14 136/79 97 03/05/17 20:28 16 132/62 07/31/16 20:00 90 162/74 94 L 07/31/16 19:17 100 16 184/72 97 07/31/16 18:37 85 98 07/31/16 18:00 0 16 126/73 93 L 07/31/16 17:22 87 15 102/58 95 07/31/16 17:05 98.1 F 92 18 75/38 94 L Laboratory Results 07/31/16 07/31/16 07/31/16 Range/Units 17:24 17:24 17:24 WBC 7.3 (4.3-11.1) K/mcL RBC 5.35 (4.19-5.50) M/mcL Hgb 14.4 (12.9-16.9) g/dL Hct 44.4 (37.5-50.1) % MCV 83.0 (83.0-100.0) fL MCH 26.9 L (28.0-33.3) pg MCHC 32.4 (31.6-35.5) g/dL RDW 13.7 (11.5-14.5) % Plt Count 268 (140-400) K/mcL MPV 11.8 (9.4-12.4) fL Immature Gran % 0.4 (0-4) % Seg Neutrophils % 57.4 % Lymphocytes % 31.4 % Monocytes % 8.9 % Eosinophils % 1.5 % Basophils % 0.4 % Neutrophils # 4.2 (1.6-8.9) K/mcL Lymphocytes # 2.3 (0.6-4.6) K/mcL Monocytes # 0.7 (0.0-1.3) K/mcL Eosinophils # 0.1 (0.0-0.6) K/mcL Basophils # 0.0 (0.0-0.2) K/mcL ESR (0-10) mm/hr PT (9.4-12.1) Seconds INR APTT 31.5 (26.0-36.0) Seconds VBG pH (7.32-7.42) pH Units VBG pCO2 (41-51) mmHg VBG pO2 (25-40) mmHg VBG HCO3 (21-27) mEq/L Sodium 144 (136-145) mEq/L Potassium 3.7 (3.5-4.5) mEq/L Chloride 108 (98-109) mEq/L Carbon Dioxide 26 (19-29) mEq/L BUN 14 (8-26) mg/dL Creatinine 1.16 (0.72-1.25) mg/dL Est GFR ( Amer) > 60 (> 60) Est GFR (Non-Af Amer) > 60 (> 60) BUN/Creatinine Ratio 12 (6-26) Glucose 103 H (70-99) mg/dL POC Glucose (58-89) Est Mean Plasma Glucose mg/dl Hemoglobin A1c ( - 5.6) % C-Peptide (0.8-3.5) ng/mL Calculated Osmolality 299 (280-300) Lactic Acid (0.5-2.2) mmol/L Calcium 9.1 (8.6-10.8) mg/dL Ionized Calcium (1.15-1.35) mmol/L Phosphorus (2.3-4.7) mg/dL Magnesium (1.6-2.6) mg/dL Total Bilirubin 1.2 (0.2-1.2) mg/dL AST 15 (5-34) Units/L ALT 12 (0-55) Units/L Alkaline Phosphatase 77 (38-126) Units/L Troponin I (0-0.03) ng/mL C-Reactive Protein (Less than 5) mg/L Serum Total Protein 6.5 (6.0-8.3) g/dL Albumin 3.2 L (3.5-5.0) g/dL Globulin 3.3 (2.4-3.5) g/dL Albumin/Globulin Ratio 1.0 L (1.1-2.2) Triglycerides (< 150) mg/dL Cholesterol (< 200) mg/dL LDL Cholesterol, Calc (0-99) mg/dL VLDL Cholesterol, Calc (< 31) mg/dL HDL Cholesterol (40-59) mg/dL Cholesterol/HDL Ratio (0-4.9) Carcinoembryonic Ag (0-5.0) ng/mL TSH (0.350-4.840) mcIU/mL Free T4 (0.70-1.48) ng/dl Free T3 (1.71-3.71) pg/mL Random Cortisol mcg/dl ACTH (7-69) pg/mL Urine Color (Yellow) Urine Clarity (Clear) Urine pH (5.0-8.0) pH Units Ur Specific [place] (1.010-1.025) Urine Protein (Neg-Trace) mg/dL Urine Glucose (UA) (Normal) mg/dL Urine Ketones (Negative) mg/dL Urine Blood (Negative) Urine Nitrite (Negative) Urine Bilirubin (Negative) Urine Urobilinogen (Normal) mg/dL Ur Leukocyte Esterase (Negative) Ur Culture Indicated? (NO) 07/31/16 07/31/16 07/31/16 Range/Units 17:24 17:24 19:31 WBC (4.3-11.1) K/mcL RBC (4.19-5.50) M/mcL Hgb (12.9-16.9) g/dL Hct (37.5-50.1) % MCV (83.0-100.0) fL MCH (28.0-33.3) pg MCHC (31.6-35.5) g/dL RDW (11.5-14.5) % Plt Count (140-400) K/mcL MPV (9.4-12.4) fL Immature Gran % (0-4) % Seg Neutrophils % % Lymphocytes % % Monocytes % % Eosinophils % % Basophils % % Neutrophils # (1.6-8.9) K/mcL Lymphocytes # (0.6-4.6) K/mcL Monocytes # (0.0-1.3) K/mcL Eosinophils # (0.0-0.6) K/mcL Basophils # (0.0-0.2) K/mcL ESR (0-10) mm/hr PT (9.4-12.1) Seconds INR APTT (26.0-36.0) Seconds VBG pH (7.32-7.42) pH Units VBG pCO2 (41-51) mmHg VBG pO2 (25-40) mmHg VBG HCO3 (21-27) mEq/L Sodium (136-145) mEq/L Potassium (3.5-4.5) mEq/L Chloride (98-109) mEq/L Carbon Dioxide (19-29) mEq/L BUN (8-26) mg/dL Creatinine (0.72-1.25) mg/dL Est GFR ( Amer) (> 60) Est GFR (Non-Af Amer) (> 60) BUN/Creatinine Ratio (6-26) Glucose (70-99) mg/dL POC Glucose (58-89) Est Mean Plasma Glucose mg/dl Hemoglobin A1c ( - 5.6) % C-Peptide (0.8-3.5) ng/mL Calculated Osmolality (280-300) Lactic Acid 1.4 (0.5-2.2) mmol/L Calcium (8.6-10.8) mg/dL Ionized Calcium (1.15-1.35) mmol/L Phosphorus (2.3-4.7) mg/dL Magnesium (1.6-2.6) mg/dL Total Bilirubin (0.2-1.2) mg/dL AST (5-34) Units/L ALT (0-55) Units/L Alkaline Phosphatase (38-126) Units/L Troponin I 0.02 (0-0.03) ng/mL C-Reactive Protein (Less than 5) mg/L Serum Total Protein (6.0-8.3) g/dL Albumin (3.5-5.0) g/dL Globulin (2.4-3.5) g/dL Albumin/Globulin Ratio (1.1-2.2) Triglycerides (< 150) mg/dL Cholesterol (< 200) mg/dL LDL Cholesterol, Calc (0-99) mg/dL VLDL Cholesterol, Calc (< 31) mg/dL HDL Cholesterol (40-59) mg/dL Cholesterol/HDL Ratio (0-4.9) Carcinoembryonic Ag (0-5.0) ng/mL TSH (0.350-4.840) mcIU/mL Free T4 (0.70-1.48) ng/dl Free T3 (1.71-3.71) pg/mL Random Cortisol mcg/dl ACTH (7-69) pg/mL Urine Color Yellow (Yellow) Urine Clarity Clear (Clear) Urine pH 7.0 (5.0-8.0) pH Units Ur Specific [place] 1.018 (1.010-1.025) Urine Protein Negative (Neg-Trace) mg/dL Urine Glucose (UA) Normal (Normal) mg/dL Urine Ketones Negative (Negative) mg/dL Urine Blood Negative (Negative) Urine Nitrite Negative (Negative) Urine Bilirubin Negative (Negative) Urine Urobilinogen Normal (Normal) mg/dL Ur Leukocyte Esterase Negative (Negative) Ur Culture Indicated? NO (NO) 08/01/16 08/01/16 08/01/16 Range/Units 05:19 05:19 05:19 WBC (4.3-11.1) K/mcL RBC (4.19-5.50) M/mcL Hgb (12.9-16.9) g/dL Hct (37.5-50.1) % MCV (83.0-100.0) fL MCH (28.0-33.3) pg MCHC (31.6-35.5) g/dL RDW (11.5-14.5) % Plt Count (140-400) K/mcL MPV (9.4-12.4) fL Immature Gran % (0-4) % Seg Neutrophils % % Lymphocytes % % Monocytes % % Eosinophils % % Basophils % % Neutrophils # (1.6-8.9) K/mcL Lymphocytes # (0.6-4.6) K/mcL Monocytes # (0.0-1.3) K/mcL Eosinophils # (0.0-0.6) K/mcL Basophils # (0.0-0.2) K/mcL ESR (0-10) mm/hr PT (9.4-12.1) Seconds INR APTT (26.0-36.0) Seconds VBG pH 7.43 H (7.32-7.42) pH Units VBG pCO2 36 L (41-51) mmHg VBG pO2 48 H (25-40) mmHg VBG HCO3 23.9 (21-27) mEq/L Sodium (136-145) mEq/L Potassium (3.5-4.5) mEq/L Chloride (98-109) mEq/L Carbon Dioxide (19-29) mEq/L BUN (8-26) mg/dL Creatinine (0.72-1.25) mg/dL Est GFR ( Amer) (> 60) Est GFR (Non-Af Amer) (> 60) BUN/Creatinine Ratio (6-26) Glucose (70-99) mg/dL POC Glucose (58-89) Est Mean Plasma Glucose mg/dl Hemoglobin A1c ( - 5.6) % C-Peptide (0.8-3.5) ng/mL Calculated Osmolality (280-300) Lactic Acid (0.5-2.2) mmol/L Calcium (8.6-10.8) mg/dL Ionized Calcium (1.15-1.35) mmol/L Phosphorus (2.3-4.7) mg/dL Magnesium (1.6-2.6) mg/dL Total Bilirubin (0.2-1.2) mg/dL AST (5-34) Units/L ALT (0-55) Units/L Alkaline Phosphatase (38-126) Units/L Troponin I 0.01 (0-0.03) ng/mL C-Reactive Protein (Less than 5) mg/L Serum Total Protein (6.0-8.3) g/dL Albumin (3.5-5.0) g/dL Globulin (2.4-3.5) g/dL Albumin/Globulin Ratio (1.1-2.2) Triglycerides (< 150) mg/dL Cholesterol (< 200) mg/dL LDL Cholesterol, Calc (0-99) mg/dL VLDL Cholesterol, Calc (< 31) mg/dL HDL Cholesterol (40-59) mg/dL Cholesterol/HDL Ratio (0-4.9) Carcinoembryonic Ag (0-5.0) ng/mL TSH 0.652 (0.350-4.840) mcIU/mL Free T4 (0.70-1.48) ng/dl Free T3 (1.71-3.71) pg/mL Random Cortisol mcg/dl ACTH (7-69) pg/mL Urine Color (Yellow) Urine Clarity (Clear) Urine pH (5.0-8.0) pH Units Ur Specific [place] (1.010-1.025) Urine Protein (Neg-Trace) mg/dL Urine Glucose (UA) (Normal) mg/dL Urine Ketones (Negative) mg/dL Urine Blood (Negative) Urine Nitrite (Negative) Urine Bilirubin (Negative) Urine Urobilinogen (Normal) mg/dL Ur Leukocyte Esterase (Negative) Ur Culture Indicated? (NO) 08/01/16 08/01/16 08/01/16 Range/Units 05:19 05:19 05:19 WBC (4.3-11.1) K/mcL RBC (4.19-5.50) M/mcL Hgb (12.9-16.9) g/dL Hct (37.5-50.1) % MCV (83.0-100.0) fL MCH (28.0-33.3) pg MCHC (31.6-35.5) g/dL RDW (11.5-14.5) % Plt Count (140-400) K/mcL MPV (9.4-12.4) fL Immature Gran % (0-4) % Seg Neutrophils % % Lymphocytes % % Monocytes % % Eosinophils % % Basophils % % Neutrophils # (1.6-8.9) K/mcL Lymphocytes # (0.6-4.6) K/mcL Monocytes # (0.0-1.3) K/mcL Eosinophils # (0.0-0.6) K/mcL Basophils # (0.0-0.2) K/mcL ESR 11 H (0-10) mm/hr PT 11.6 (9.4-12.1) Seconds INR 1.1 APTT (26.0-36.0) Seconds VBG pH (7.32-7.42) pH Units VBG pCO2 (41-51) mmHg VBG pO2 (25-40) mmHg VBG HCO3 (21-27) mEq/L Sodium (136-145) mEq/L Potassium (3.5-4.5) mEq/L Chloride (98-109) mEq/L Carbon Dioxide (19-29) mEq/L BUN (8-26) mg/dL Creatinine (0.72-1.25) mg/dL Est GFR ( Amer) (> 60) Est GFR (Non-Af Amer) (> 60) BUN/Creatinine Ratio (6-26) Glucose (70-99) mg/dL POC Glucose (58-89) Est Mean Plasma Glucose 160 mg/dl Hemoglobin A1c 7.2 H ( - 5.6) % C-Peptide (0.8-3.5) ng/mL Calculated Osmolality (280-300) Lactic Acid (0.5-2.2) mmol/L Calcium (8.6-10.8) mg/dL Ionized Calcium (1.15-1.35) mmol/L Phosphorus (2.3-4.7) mg/dL Magnesium (1.6-2.6) mg/dL Total Bilirubin (0.2-1.2) mg/dL AST (5-34) Units/L ALT (0-55) Units/L Alkaline Phosphatase (38-126) Units/L Troponin I (0-0.03) ng/mL C-Reactive Protein (Less than 5) mg/L Serum Total Protein (6.0-8.3) g/dL Albumin (3.5-5.0) g/dL Globulin (2.4-3.5) g/dL Albumin/Globulin Ratio (1.1-2.2) Triglycerides (< 150) mg/dL Cholesterol (< 200) mg/dL LDL Cholesterol, Calc (0-99) mg/dL VLDL Cholesterol, Calc (< 31) mg/dL HDL Cholesterol (40-59) mg/dL Cholesterol/HDL Ratio (0-4.9) Carcinoembryonic Ag (0-5.0) ng/mL TSH (0.350-4.840) mcIU/mL Free T4 (0.70-1.48) ng/dl Free T3 (1.71-3.71) pg/mL Random Cortisol mcg/dl ACTH (7-69) pg/mL Urine Color (Yellow) Urine Clarity (Clear) Urine pH (5.0-8.0) pH Units Ur Specific [place] (1.010-1.025) Urine Protein (Neg-Trace) mg/dL Urine Glucose (UA) (Normal) mg/dL Urine Ketones (Negative) mg/dL Urine Blood (Negative) Urine Nitrite (Negative) Urine Bilirubin (Negative) Urine Urobilinogen (Normal) mg/dL Ur Leukocyte Esterase (Negative) Ur Culture Indicated? (NO) 08/01/16 08/01/16 08/01/16 Range/Units 05:19 05:19 05:19 WBC (4.3-11.1) K/mcL RBC (4.19-5.50) M/mcL Hgb (12.9-16.9) g/dL Hct (37.5-50.1) % MCV (83.0-100.0) fL MCH (28.0-33.3) pg MCHC (31.6-35.5) g/dL RDW (11.5-14.5) % Plt Count (140-400) K/mcL MPV (9.4-12.4) fL Immature Gran % (0-4) % Seg Neutrophils % % Lymphocytes % % Monocytes % % Eosinophils % % Basophils % % Neutrophils # (1.6-8.9) K/mcL Lymphocytes # (0.6-4.6) K/mcL Monocytes # (0.0-1.3) K/mcL Eosinophils # (0.0-0.6) K/mcL Basophils # (0.0-0.2) K/mcL ESR (0-10) mm/hr PT (9.4-12.1) Seconds INR APTT (26.0-36.0) Seconds VBG pH (7.32-7.42) pH Units VBG pCO2 (41-51) mmHg VBG pO2 (25-40) mmHg VBG HCO3 (21-27) mEq/L Sodium (136-145) mEq/L Potassium (3.5-4.5) mEq/L Chloride (98-109) mEq/L Carbon Dioxide (19-29) mEq/L BUN (8-26) mg/dL Creatinine (0.72-1.25) mg/dL Est GFR ( Amer) (> 60) Est GFR (Non-Af Amer) (> 60) BUN/Creatinine Ratio (6-26) Glucose (70-99) mg/dL POC Glucose (58-89) Est Mean Plasma Glucose mg/dl Hemoglobin A1c ( - 5.6) % C-Peptide 1.5 (0.8-3.5) ng/mL Calculated Osmolality (280-300) Lactic Acid 0.9 (0.5-2.2) mmol/L Calcium (8.6-10.8) mg/dL Ionized Calcium 1.20 (1.15-1.35) mmol/L Phosphorus 3.9 (2.3-4.7) mg/dL Magnesium 1.9 (1.6-2.6) mg/dL Total Bilirubin (0.2-1.2) mg/dL AST (5-34) Units/L ALT (0-55) Units/L Alkaline Phosphatase (38-126) Units/L Troponin I (0-0.03) ng/mL C-Reactive Protein 2 (Less than 5) mg/L Serum Total Protein (6.0-8.3) g/dL Albumin (3.5-5.0) g/dL Globulin (2.4-3.5) g/dL Albumin/Globulin Ratio (1.1-2.2) Triglycerides 124 (< 150) mg/dL Cholesterol 109 (< 200) mg/dL LDL Cholesterol, Calc 49 (0-99) mg/dL VLDL Cholesterol, Calc 25 (< 31) mg/dL HDL Cholesterol 35 L (40-59) mg/dL Cholesterol/HDL Ratio 3.1 (0-4.9) Carcinoembryonic Ag 5.4 H (0-5.0) ng/mL TSH (0.350-4.840) mcIU/mL Free T4 1.28 (0.70-1.48) ng/dl Free T3 2.11 (1.71-3.71) pg/mL Random Cortisol 13.1 mcg/dl ACTH 14 (7-69) pg/mL Urine Color (Yellow) Urine Clarity (Clear) Urine pH (5.0-8.0) pH Units Ur Specific [place] (1.010-1.025) Urine Protein (Neg-Trace) mg/dL Urine Glucose (UA) (Normal) mg/dL Urine Ketones (Negative) mg/dL Urine Blood (Negative) Urine Nitrite (Negative) Urine Bilirubin (Negative) Urine Urobilinogen (Normal) mg/dL Ur Leukocyte Esterase (Negative) Ur Culture Indicated? (NO) 08/01/16 08/01/16 08/01/16 Range/Units 10:51 10:55 16:28 WBC (4.3-11.1) K/mcL RBC (4.19-5.50) M/mcL Hgb (12.9-16.9) g/dL Hct (37.5-50.1) % MCV (83.0-100.0) fL MCH (28.0-33.3) pg MCHC (31.6-35.5) g/dL RDW (11.5-14.5) % Plt Count (140-400) K/mcL MPV (9.4-12.4) fL Immature Gran % (0-4) % Seg Neutrophils % % Lymphocytes % % Monocytes % % Eosinophils % % Basophils % % Neutrophils # (1.6-8.9) K/mcL Lymphocytes # (0.6-4.6) K/mcL Monocytes # (0.0-1.3) K/mcL Eosinophils # (0.0-0.6) K/mcL Basophils # (0.0-0.2) K/mcL ESR (0-10) mm/hr PT (9.4-12.1) Seconds INR APTT (26.0-36.0) Seconds VBG pH (7.32-7.42) pH Units VBG pCO2 (41-51) mmHg VBG pO2 (25-40) mmHg VBG HCO3 (21-27) mEq/L Sodium (136-145) mEq/L Potassium (3.5-4.5) mEq/L Chloride (98-109) mEq/L Carbon Dioxide (19-29) mEq/L BUN (8-26) mg/dL Creatinine (0.72-1.25) mg/dL Est GFR ( Amer) (> 60) Est GFR (Non-Af Amer) (> 60) BUN/Creatinine Ratio (6-26) Glucose (70-99) mg/dL POC Glucose 185 H 145 H (58-89) Est Mean Plasma Glucose mg/dl Hemoglobin A1c ( - 5.6) % C-Peptide (0.8-3.5) ng/mL Calculated Osmolality (280-300) Lactic Acid (0.5-2.2) mmol/L Calcium (8.6-10.8) mg/dL Ionized Calcium (1.15-1.35) mmol/L Phosphorus (2.3-4.7) mg/dL Magnesium (1.6-2.6) mg/dL Total Bilirubin (0.2-1.2) mg/dL AST (5-34) Units/L ALT (0-55) Units/L Alkaline Phosphatase (38-126) Units/L Troponin I 0.01 (0-0.03) ng/mL C-Reactive Protein (Less than 5) mg/L Serum Total Protein (6.0-8.3) g/dL Albumin (3.5-5.0) g/dL Globulin (2.4-3.5) g/dL Albumin/Globulin Ratio (1.1-2.2) Triglycerides (< 150) mg/dL Cholesterol (< 200) mg/dL LDL Cholesterol, Calc (0-99) mg/dL VLDL Cholesterol, Calc (< 31) mg/dL HDL Cholesterol (40-59) mg/dL Cholesterol/HDL Ratio (0-4.9) Carcinoembryonic Ag (0-5.0) ng/mL TSH (0.350-4.840) mcIU/mL Free T4 (0.70-1.48) ng/dl Free T3 (1.71-3.71) pg/mL Random Cortisol mcg/dl ACTH (7-69) pg/mL Urine Color (Yellow) Urine Clarity (Clear) Urine pH (5.0-8.0) pH Units Ur Specific [place] (1.010-1.025) Urine Protein (Neg-Trace) mg/dL Urine Glucose (UA) (Normal) mg/dL Urine Ketones (Negative) mg/dL Urine Blood (Negative) Urine Nitrite (Negative) Urine Bilirubin (Negative) Urine Urobilinogen (Normal) mg/dL Ur Leukocyte Esterase (Negative) Ur Culture Indicated? (NO) 08/01/16 08/02/16 08/02/16 Range/Units 17:32 01:51 08:03 WBC (4.3-11.1) K/mcL RBC (4.19-5.50) M/mcL Hgb (12.9-16.9) g/dL Hct (37.5-50.1) % MCV (83.0-100.0) fL MCH (28.0-33.3) pg MCHC (31.6-35.5) g/dL RDW (11.5-14.5) % Plt Count (140-400) K/mcL MPV (9.4-12.4) fL Immature Gran % (0-4) % Seg Neutrophils % % Lymphocytes % % Monocytes % % Eosinophils % % Basophils % % Neutrophils # (1.6-8.9) K/mcL Lymphocytes # (0.6-4.6) K/mcL Monocytes # (0.0-1.3) K/mcL Eosinophils # (0.0-0.6) K/mcL Basophils # (0.0-0.2) K/mcL ESR (0-10) mm/hr PT (9.4-12.1) Seconds INR APTT (26.0-36.0) Seconds VBG pH (7.32-7.42) pH Units VBG pCO2 (41-51) mmHg VBG pO2 (25-40) mmHg VBG HCO3 (21-27) mEq/L Sodium (136-145) mEq/L Potassium (3.5-4.5) mEq/L Chloride (98-109) mEq/L Carbon Dioxide (19-29) mEq/L BUN (8-26) mg/dL Creatinine (0.72-1.25) mg/dL Est GFR ( Amer) (> 60) Est GFR (Non-Af Amer) (> 60) BUN/Creatinine Ratio (6-26) Glucose (70-99) mg/dL POC Glucose 192 H (58-89) Est Mean Plasma Glucose mg/dl Hemoglobin A1c ( - 5.6) % C-Peptide (0.8-3.5) ng/mL Calculated Osmolality (280-300) Lactic Acid (0.5-2.2) mmol/L Calcium (8.6-10.8) mg/dL Ionized Calcium (1.15-1.35) mmol/L Phosphorus (2.3-4.7) mg/dL Magnesium (1.6-2.6) mg/dL Total Bilirubin (0.2-1.2) mg/dL AST (5-34) Units/L ALT (0-55) Units/L Alkaline Phosphatase (38-126) Units/L Troponin I 0.01 (0-0.03) ng/mL C-Reactive Protein (Less than 5) mg/L Serum Total Protein (6.0-8.3) g/dL Albumin (3.5-5.0) g/dL Globulin (2.4-3.5) g/dL Albumin/Globulin Ratio (1.1-2.2) Triglycerides (< 150) mg/dL Cholesterol (< 200) mg/dL LDL Cholesterol, Calc (0-99) mg/dL VLDL Cholesterol, Calc (< 31) mg/dL HDL Cholesterol (40-59) mg/dL Cholesterol/HDL Ratio (0-4.9) Carcinoembryonic Ag (0-5.0) ng/mL TSH (0.350-4.840) mcIU/mL Free T4 (0.70-1.48) ng/dl Free T3 (1.71-3.71) pg/mL Random Cortisol mcg/dl ACTH (7-69) pg/mL Urine Color Yellow (Yellow) Urine Clarity Clear (Clear) Urine pH 6.5 (5.0-8.0) pH Units Ur Specific [place] 1.012 (1.010-1.025) Urine Protein Negative (Neg-Trace) mg/dL Urine Glucose (UA) 100 H (Normal) mg/dL Urine Ketones Negative (Negative) mg/dL Urine Blood Negative (Negative) Urine Nitrite Negative (Negative) Urine Bilirubin Negative (Negative) Urine Urobilinogen Normal (Normal) mg/dL Ur Leukocyte Esterase Negative (Negative) Ur Culture Indicated? (NO) 08/02/16 08/02/16 08/02/16 Range/Units 11:47 17:22 20:37 WBC (4.3-11.1) K/mcL RBC (4.19-5.50) M/mcL Hgb (12.9-16.9) g/dL Hct (37.5-50.1) % MCV (83.0-100.0) fL MCH (28.0-33.3) pg MCHC (31.6-35.5) g/dL RDW (11.5-14.5) % Plt Count (140-400) K/mcL MPV (9.4-12.4) fL Immature Gran % (0-4) % Seg Neutrophils % % Lymphocytes % % Monocytes % % Eosinophils % % Basophils % % Neutrophils # (1.6-8.9) K/mcL Lymphocytes # (0.6-4.6) K/mcL Monocytes # (0.0-1.3) K/mcL Eosinophils # (0.0-0.6) K/mcL Basophils # (0.0-0.2) K/mcL ESR (0-10) mm/hr PT (9.4-12.1) Seconds INR APTT (26.0-36.0) Seconds VBG pH (7.32-7.42) pH Units VBG pCO2 (41-51) mmHg VBG pO2 (25-40) mmHg VBG HCO3 (21-27) mEq/L Sodium (136-145) mEq/L Potassium (3.5-4.5) mEq/L Chloride (98-109) mEq/L Carbon Dioxide (19-29) mEq/L BUN (8-26) mg/dL Creatinine (0.72-1.25) mg/dL Est GFR ( Amer) (> 60) Est GFR (Non-Af Amer) (> 60) BUN/Creatinine Ratio (6-26) Glucose (70-99) mg/dL POC Glucose 194 H 147 H 126 H (58-89) Est Mean Plasma Glucose mg/dl Hemoglobin A1c ( - 5.6) % C-Peptide (0.8-3.5) ng/mL Calculated Osmolality (280-300) Lactic Acid (0.5-2.2) mmol/L Calcium (8.6-10.8) mg/dL Ionized Calcium (1.15-1.35) mmol/L Phosphorus (2.3-4.7) mg/dL Magnesium (1.6-2.6) mg/dL Total Bilirubin (0.2-1.2) mg/dL AST (5-34) Units/L ALT (0-55) Units/L Alkaline Phosphatase (38-126) Units/L Troponin I (0-0.03) ng/mL C-Reactive Protein (Less than 5) mg/L Serum Total Protein (6.0-8.3) g/dL Albumin (3.5-5.0) g/dL Globulin (2.4-3.5) g/dL Albumin/Globulin Ratio (1.1-2.2) Triglycerides (< 150) mg/dL Cholesterol (< 200) mg/dL LDL Cholesterol, Calc (0-99) mg/dL VLDL Cholesterol, Calc (< 31) mg/dL HDL Cholesterol (40-59) mg/dL Cholesterol/HDL Ratio (0-4.9) Carcinoembryonic Ag (0-5.0) ng/mL TSH (0.350-4.840) mcIU/mL Free T4 (0.70-1.48) ng/dl Free T3 (1.71-3.71) pg/mL Random Cortisol mcg/dl ACTH (7-69) pg/mL Urine Color (Yellow) Urine Clarity (Clear) Urine pH (5.0-8.0) pH Units Ur Specific [place] (1.010-1.025) Urine Protein (Neg-Trace) mg/dL Urine Glucose (UA) (Normal) mg/dL Urine Ketones (Negative) mg/dL Urine Blood (Negative) Urine Nitrite (Negative) Urine Bilirubin (Negative) Urine Urobilinogen (Normal) mg/dL Ur Leukocyte Esterase (Negative) Ur Culture Indicated? (NO) 03/08/17 03/08/17 03/08/17 Range/Units 00:46 05:26 11:25 WBC 7.4 (4.3-11.1) K/mcL RBC 4.71 (4.19-5.50) M/mcL Hgb 12.8 L D (12.9-16.9) g/dL Hct 38.9 (37.5-50.1) % MCV 82.6 L (83.0-100.0) fL MCH 27.2 L (28.0-33.3) pg MCHC 32.9 (31.6-35.5) g/dL RDW 13.8 (11.5-14.5) % Plt Count 214 (140-400) K/mcL MPV 12.1 (9.4-12.4) fL Immature Gran % 0.3 (0-4) % Seg Neutrophils % 69.3 % Lymphocytes % 21.0 % Monocytes % 7.3 % Eosinophils % 1.8 % Basophils % 0.3 % Neutrophils # 5.2 (1.6-8.9) K/mcL Lymphocytes # 1.6 (0.6-4.6) K/mcL Monocytes # 0.5 (0.0-1.3) K/mcL Eosinophils # 0.1 (0.0-0.6) K/mcL Basophils # 0.0 (0.0-0.2) K/mcL ESR (0-10) mm/hr PT (9.4-12.1) Seconds INR APTT (26.0-36.0) Seconds VBG pH (7.32-7.42) pH Units VBG pCO2 (41-51) mmHg VBG pO2 (25-40) mmHg VBG HCO3 (21-27) mEq/L Sodium (136-145) mEq/L Potassium (3.5-4.5) mEq/L Chloride (98-109) mEq/L Carbon Dioxide (19-29) mEq/L BUN (8-26) mg/dL Creatinine (0.72-1.25) mg/dL Est GFR ( Amer) (> 60) Est GFR (Non-Af Amer) (> 60) BUN/Creatinine Ratio (6-26) Glucose (70-99) mg/dL POC Glucose 256 H 159 H (58-89) Est Mean Plasma Glucose mg/dl Hemoglobin A1c ( - 5.6) % C-Peptide (0.8-3.5) ng/mL Calculated Osmolality (280-300) Lactic Acid (0.5-2.2) mmol/L Calcium (8.6-10.8) mg/dL Ionized Calcium (1.15-1.35) mmol/L Phosphorus (2.3-4.7) mg/dL Magnesium (1.6-2.6) mg/dL Total Bilirubin (0.2-1.2) mg/dL AST (5-34) Units/L ALT (0-55) Units/L Alkaline Phosphatase (38-126) Units/L Troponin I (0-0.03) ng/mL C-Reactive Protein (Less than 5) mg/L Serum Total Protein (6.0-8.3) g/dL Albumin (3.5-5.0) g/dL Globulin (2.4-3.5) g/dL Albumin/Globulin Ratio (1.1-2.2) Triglycerides (< 150) mg/dL Cholesterol (< 200) mg/dL LDL Cholesterol, Calc (0-99) mg/dL VLDL Cholesterol, Calc (< 31) mg/dL HDL Cholesterol (40-59) mg/dL Cholesterol/HDL Ratio (0-4.9) Carcinoembryonic Ag (0-5.0) ng/mL TSH (0.350-4.840) mcIU/mL Free T4 (0.70-1.48) ng/dl Free T3 (1.71-3.71) pg/mL Random Cortisol mcg/dl ACTH (7-69) pg/mL Urine Color (Yellow) Urine Clarity (Clear) Urine pH (5.0-8.0) pH Units Ur Specific [place] (1.010-1.025) Urine Protein (Neg-Trace) mg/dL Urine Glucose (UA) (Normal) mg/dL Urine Ketones (Negative) mg/dL Urine Blood (Negative) Urine Nitrite (Negative) Urine Bilirubin (Negative) Urine Urobilinogen (Normal) mg/dL Ur Leukocyte Esterase (Negative) Ur Culture Indicated? (NO) 08/03/16 08/03/16 08/03/16 Range/Units 11:25 11:53 17:20 WBC (4.3-11.1) K/mcL RBC (4.19-5.50) M/mcL Hgb (12.9-16.9) g/dL Hct (37.5-50.1) % MCV (83.0-100.0) fL MCH (28.0-33.3) pg MCHC (31.6-35.5) g/dL RDW (11.5-14.5) % Plt Count (140-400) K/mcL MPV (9.4-12.4) fL Immature Gran % (0-4) % Seg Neutrophils % % Lymphocytes % % Monocytes % % Eosinophils % % Basophils % % Neutrophils # (1.6-8.9) K/mcL Lymphocytes # (0.6-4.6) K/mcL Monocytes # (0.0-1.3) K/mcL Eosinophils # (0.0-0.6) K/mcL Basophils # (0.0-0.2) K/mcL ESR (0-10) mm/hr PT (9.4-12.1) Seconds INR APTT (26.0-36.0) Seconds VBG pH (7.32-7.42) pH Units VBG pCO2 (41-51) mmHg VBG pO2 (25-40) mmHg VBG HCO3 (21-27) mEq/L Sodium 142 (136-145) mEq/L Potassium 3.3 L (3.5-4.5) mEq/L Chloride 111 H (98-109) mEq/L Carbon Dioxide 22 (19-29) mEq/L BUN 12 (8-26) mg/dL Creatinine 0.84 (0.72-1.25) mg/dL Est GFR ( Amer) > 60 (> 60) Est GFR (Non-Af Amer) > 60 (> 60) BUN/Creatinine Ratio 14 (6-26) Glucose 191 H (70-99) mg/dL POC Glucose 220 H 163 H (58-89) Est Mean Plasma Glucose mg/dl Hemoglobin A1c ( - 5.6) % C-Peptide (0.8-3.5) ng/mL Calculated Osmolality 299 (280-300) Lactic Acid (0.5-2.2) mmol/L Calcium 8.0 L (8.6-10.8) mg/dL Ionized Calcium (1.15-1.35) mmol/L Phosphorus (2.3-4.7) mg/dL Magnesium (1.6-2.6) mg/dL Total Bilirubin (0.2-1.2) mg/dL AST (5-34) Units/L ALT (0-55) Units/L Alkaline Phosphatase (38-126) Units/L Troponin I (0-0.03) ng/mL C-Reactive Protein (Less than 5) mg/L Serum Total Protein (6.0-8.3) g/dL Albumin (3.5-5.0) g/dL Globulin (2.4-3.5) g/dL Albumin/Globulin Ratio (1.1-2.2) Triglycerides (< 150) mg/dL Cholesterol (< 200) mg/dL LDL Cholesterol, Calc (0-99) mg/dL VLDL Cholesterol, Calc (< 31) mg/dL HDL Cholesterol (40-59) mg/dL Cholesterol/HDL Ratio (0-4.9) Carcinoembryonic Ag (0-5.0) ng/mL TSH (0.350-4.840) mcIU/mL Free T4 (0.70-1.48) ng/dl Free T3 (1.71-3.71) pg/mL Random Cortisol mcg/dl ACTH (7-69) pg/mL Urine Color (Yellow) Urine Clarity (Clear) Urine pH (5.0-8.0) pH Units Ur Specific [place] (1.010-1.025) Urine Protein (Neg-Trace) mg/dL Urine Glucose (UA) (Normal) mg/dL Urine Ketones (Negative) mg/dL Urine Blood (Negative) Urine Nitrite (Negative) Urine Bilirubin (Negative) Urine Urobilinogen (Normal) mg/dL Ur Leukocyte Esterase (Negative) Ur Culture Indicated? (NO) 08/03/16 08/04/16 Range/Units 19:56 08:04 WBC (4.3-11.1) K/mcL RBC (4.19-5.50) M/mcL Hgb (12.9-16.9) g/dL Hct (37.5-50.1) % MCV (83.0-100.0) fL MCH (28.0-33.3) pg MCHC (31.6-35.5) g/dL RDW (11.5-14.5) % Plt Count (140-400) K/mcL MPV (9.4-12.4) fL Immature Gran % (0-4) % Seg Neutrophils % % Lymphocytes % % Monocytes % % Eosinophils % % Basophils % % Neutrophils # (1.6-8.9) K/mcL Lymphocytes # (0.6-4.6) K/mcL Monocytes # (0.0-1.3) K/mcL Eosinophils # (0.0-0.6) K/mcL Basophils # (0.0-0.2) K/mcL ESR (0-10) mm/hr PT (9.4-12.1) Seconds INR APTT (26.0-36.0) Seconds VBG pH (7.32-7.42) pH Units VBG pCO2 (41-51) mmHg VBG pO2 (25-40) mmHg VBG HCO3 (21-27) mEq/L Sodium (136-145) mEq/L Potassium (3.5-4.5) mEq/L Chloride (98-109) mEq/L Carbon Dioxide (19-29) mEq/L BUN (8-26) mg/dL Creatinine (0.72-1.25) mg/dL Est GFR ( Amer) (> 60) Est GFR (Non-Af Amer) (> 60) BUN/Creatinine Ratio (6-26) Glucose (70-99) mg/dL POC Glucose 141 H 128 H (58-89) Est Mean Plasma Glucose mg/dl Hemoglobin A1c ( - 5.6) % C-Peptide (0.8-3.5) ng/mL Calculated Osmolality (280-300) Lactic Acid (0.5-2.2) mmol/L Calcium (8.6-10.8) mg/dL Ionized Calcium (1.15-1.35) mmol/L Phosphorus (2.3-4.7) mg/dL Magnesium (1.6-2.6) mg/dL Total Bilirubin (0.2-1.2) mg/dL AST (5-34) Units/L ALT (0-55) Units/L Alkaline Phosphatase (38-126) Units/L Troponin I (0-0.03) ng/mL C-Reactive Protein (Less than 5) mg/L Serum Total Protein (6.0-8.3) g/dL Albumin (3.5-5.0) g/dL Globulin (2.4-3.5) g/dL Albumin/Globulin Ratio (1.1-2.2) Triglycerides (< 150) mg/dL Cholesterol (< 200) mg/dL LDL Cholesterol, Calc (0-99) mg/dL VLDL Cholesterol, Calc (< 31) mg/dL HDL Cholesterol (40-59) mg/dL Cholesterol/HDL Ratio (0-4.9) Carcinoembryonic Ag (0-5.0) ng/mL TSH (0.350-4.840) mcIU/mL Free T4 (0.70-1.48) ng/dl Free T3 (1.71-3.71) pg/mL Random Cortisol mcg/dl ACTH (7-69) pg/mL Urine Color (Yellow) Urine Clarity (Clear) Urine pH (5.0-8.0) pH Units Ur Specific [place] (1.010-1.025) Urine Protein (Neg-Trace) mg/dL Urine Glucose (UA) (Normal) mg/dL Urine Ketones (Negative) mg/dL Urine Blood (Negative) Urine Nitrite (Negative) Urine Bilirubin (Negative) Urine Urobilinogen (Normal) mg/dL Ur Leukocyte Esterase (Negative) Ur Culture Indicated? (NO) Assessments/Treatments 12 lead ECG assessment Start: 07/31/16 17: 14 Freq: NOW Status: Complete Document 07/31/16 17:27 DLW (Rec: 07/31/16 17:28 DLW [id number]) EKG EKG performed by saran navas EKG shown to and signed by KIEL GONGORA Cardiac Monitoring Med/Surg Start: 08/01/16 01: 34 Freq: .CONT Status: Discharge Document 08/01/16 04:00 [id number] (Rec: 08/01/16 05:31 [id number]) Cardiac Monitoring Monitor Number 2100 Strip placed in Chart Yes Memory Cleared No Alarms/Limits HR Alarm 120/40 Heart Rate 88 EKG Method Telemetry Rhythm Sinus Rhythm SC Interval 0.15 QRS Interval 0.06 QT Interval 0.28 Cardiac monitoring Start: 08/01/16 01: 33 Freq: .ONCE Status: Discharge Document 08/01/16 02:35 [id number] (Rec: 08/01/16 03:26 [id number]) Cardiac Monitoring Monitor Number 2100 Strip placed in Chart Yes Memory Cleared No Alarms/Limits HR Alarm 120/40 Heart Rate 89 EKG Method Telemetry Rhythm Sinus Rhythm SC Interval 0.15 QRS Interval 0.10 QT Interval 0.30 Document 08/02/16 08:30 [id number] (Rec: 08/02/16 20:11 [id number]) Cardiac Monitoring Monitor Number 2100 Strip placed in Chart Yes History Reviewed Yes Memory Cleared No Alarms/Limits HR Alarm 120/40 Heart Rate 83 EKG Method Telemetry Rhythm Sinus Rhythm SC Interval 0.07 QRS Interval 0.05 QT Interval 0.36 Document 08/02/16 11:52 [id number] (Rec: 08/02/16 20:11 [id number]) Cardiac Monitoring Monitor Number 2100 Strip placed in Chart Yes History Reviewed Yes Memory Cleared No Alarms/Limits HR Alarm 120/40 Heart Rate 85 EKG Method Telemetry Rhythm Sinus Rhythm SC Interval 0.12 QRS Interval 0.06 QT Interval 0.31 Document 08/02/16 15:37 [id number] (Rec: 08/02/16 20:11 [id number]) Cardiac Monitoring Monitor Number 2100 Strip placed in Chart Yes History Reviewed Yes Memory Cleared No Alarms/Limits HR Alarm 120/40 Heart Rate 72 EKG Method Telemetry Rhythm Sinus Rhythm SC Interval 0.11 QRS Interval 0.05 QT Interval 0.36 Document 08/03/16 06:29 BSS (Rec: 08/03/16 11:06 BSS [id number]) Cardiac Monitoring Monitor Number 2100 Strip placed in Chart Yes Memory Cleared No Alarms/Limits HR Alarm 120/40 Heart Rate 85 EKG Method Telemetry Rhythm Sinus Rhythm SC Interval 0.07 QRS Interval 0.03 QT Interval 0.34 Document 08/03/16 12:05 BSS (Rec: 08/03/16 12:06 [id number] Cardiac Monitoring Monitor Number 2100 Strip placed in Chart Yes Memory Cleared No Alarms/Limits HR Alarm 120/40 Heart Rate 77 EKG Method Telemetry Rhythm Sinus Rhythm SC Interval 0.17 QRS Interval 0.03 QT Interval 0.36 Collect Specimen Start: 07/31/16 17: 09 Freq: Status: Complete Document 07/31/16 19:37 DLW (Rec: 07/31/16 19:37 DLW [id number]) Collect Specimen Urine specimen collected as ordered Yes Urine specimen collected via Clean catch kit Urine tubes collected Urinalysis tube Urine culture tube Red top tube Specimen(s) labled in presence of Yes patient Specimen sent to lab via Tube system [facility] Administrator Nutrition Assessment Start: 08/01/16 14: 56 Freq: Status: Discharge Document 08/01/16 14:57 [facility] (Rec: 08/01/16 15:05 [facility] [id number]) Nutritional Assessment - [facility] Administrator Subjective Data: Consult for supplemental nutrition 81 YOM admitted with FTT, generalized weakness and lung nodules. Pulm consulted, plan for bronchoscopy and bx tomorrow. Pt reports ongoing weight loss along with n/v for the past 2 months. Is currently residing at the [place] for rehab. Pt with fair intake at , but reports inability to consume any lunch d/t nausea and episode of emesis. Meds currently include Megace, Marinol and Remeron. Appears pt was placed on Remeron last month. Hx: HTN, DM, colon cancer s/p resection, CVA, PTSD labs: alb 3.2, BG 185, A1c 7.2 % Meds: NS @ 50mlhr, Zofran PRN, Colace, Megace, Remeron, Marinol, SSI [place] Body Weight 178 Weight During Past 3 Months Has Decreased Amount of Weight Increase/Decrease -4# x 2weeks During Past 3 Months Weight Change Unintentional Comment CBW: 134# BMI: 18.2/underweight Jul 19 2017: 138# UBW: 175# Diet Diabetic Gastrointestinal Symptoms Nausea Vomiting Calories Needed to Maintain Weight 2135kcal (35kcal/kg, CBW 61kg) for wt gain Estimated Protein Needs 85gm (1.4gm/kg, CBW) Initial assessment face to face time Severe protein calorie with patient (mins) malnutrition Nutrition Problem PES Statement r/t acute illness aeb 3% wt loss x2 weeks, severe loss of subcutaneous fat stores. Initial Assessment Face to face time 15 with patient (mins) (minutes) Nutrition Intervention: Meals and Snacks Oral Nutrition Supplement Coordination of Care Comment 1. Diabetic diet, as tolerated 2. Add Ensure Plus, TID, strawberry (count as 15gm CHO/ meal) 3. Symtom management- recommend RN give Zofran. ?if Reglan would be helpful. Nutrition Monitoring: Energy Intake Gastrointestinal Profile Comment f/u 3/8 PO intakes/tolerance, medical workup Discharge Assessment Start: 07/31/16 19: 51 Freq: Status: Discharge Document 08/04/16 08:42 [id number] (Rec: 08/04/16 08:46 [id number]) Discharge Assessment Discharge Disposition Halfway Facility Mode of Discharge Ambulance/EMS Accompanied By Ambulance Personnel Belongings sent with patient Yes Services Needed at Discharge Physical Therapy Outpatient Mental Health Summary of Care Provided Yes Patient was provided information on Yes accessing patient portal Level Of Consciousness Awake Alert Appropriate Follows Commands Eating (Feeding) Ability Setup Bathing Ability 2 Person Assist Upper Body Dressing Ability Maximum Assistance Lower Body Dressing Ability Maximum Assistance Ambulation Ability Maximum Assistance 2 Person Assist Toileting Ability Maximum Assistance Bowel Continent Bladder Continent Has Patient Been in Isolation During No Hospital Stay Doctor's Appointment Made Yes Referrals Made No Patient Education Given Yes Discharge Instructions Given To Home Care Nurse/Telephone Discharge Instructions Address Activity Diet Medications Symptoms Worsening Follow Up Problems Patient instructed regarding new No: called report to [place] nurse medications and to provide the list to their Primary Care Provider Patient instructed to carry their No: Report called to [place] nurse medication list with them at all times in case of emergency Prescriptions Given To Primary Textbook Associate Was patient discharged on Warfarin for No confirmed VTE diagnosis? Was patient discharged with diagnosis of No ischemic or hemmorrhagic stroke? Flu Vaccine Given No Reason Flu Vaccine Not Given Previously Received Current Flu Season Vaccine administration documented on No EMAR Nursing Summary Patient is returning to [place] for rehab. patient gets up to BSC with x2 assist. Unsteady gait . occasionally incont. wear brief. [place]. wears dentures. Hx of lung cancer. patient will need outpatient bioposy scheduled at the [facility] monday08/09/16. ED Discharge Assessment Start: 07/31/16 17: 09 Freq: Status: Discharge Document 07/31/16 20:28 DLW (Rec: 07/31/16 20:30 DLW [id number]) ED Discharge Assessment ED Discharge Disposition Admitted ED Condition on Discharge Good Med Rec/Patient Pharmacy Completed? Yes Admitted to 3A Bed assigned 3A-31 Transported by nurse Transported with monitor oxygen IV pulse oximetry Report given to Nurse Care transferred to (name/credentials) EMMY GOODSON Information relayed patient's care treatments medications given condition recent/anticipated changes Clinical Documentation Summary Provided Yes Pain Scale 0 Pain Scale Used Standard (1-10) Blood Pressure 132/62 Heart rate 76 Respiratory Rate 16 Oxygen Delivery Room Air Oxygen Saturation 97 Critical Care Minutes 0 ED Weakness Assessment Start: 07/31/16 17: 09 Freq: Status: Complete Document 07/31/16 17:22 DLW (Rec: 07/31/16 17:27 DLW [id number]) Weakness Assessment Symptoms/Complaint Generalized Weakness Duration Constant Associated Symptoms Denies Other Symptoms Level Of Consciousness Awake Alert Appropriate Follows Commands Patient Orientation Person Place Time Neurological Symptoms None All Four Limbs Movement Description +5 - Full ROM, Full Strength. Problems with Ambulation Gait and Balance Satisfactory Capillary Refill < 3 Seconds Anterior & Posterior Bilateral Throughout Breath Sounds Clear Respiratory Depth Normal Abdomen Description Soft Nausea/Vomiting Presence None Fall Precautions Acute Start: 07/31/16 20: 34 Freq: Q12H Status: Discharge Document 07/31/16 21:34 [id number] (Rec: 07/31/16 21:37 [id number]) [facility] Fall Risk Assessment Tool High Fall Risk-Implement High Fall Risk History of more than one fall interventions per protocol within 6 months before admission Fall Risk Category High Risk Fall Risk Interventions Low Risk Interventions Bed in lowest position Top side rails up x 2 Secure brake on bed Use properly fitting non-skid footwear Call light and frequently needed objects within reach Encourage patients/families to call for assistance when needed Fall education including risk assessment, injury risk and routine/ Inspect environment for safety and communication risk Supervise and assist with toileting/ADLs as needed Moderate Risk Interventions Institue fall-risk tooklit ( yellow flag, yellow non-skid socks and High Risk Interventions Remain with patient while toileting Activate bed/chair exit Document 08/01/16 20:00 ALD (Rec: 08/01/16 21:17 ALD [id number]) [facility] Fall Risk Assessment Tool High Fall Risk-Implement High Fall Risk History of more than one fall interventions per protocol within 6 months before admission Fall Risk Category High Risk Fall Risk Interventions Low Risk Interventions Bed in lowest position Top side rails up x 2 Secure brake on bed Use properly fitting non-skid footwear Call light and frequently needed objects within reach Encourage patients/families to call for assistance when needed Fall education including risk assessment, injury risk and routine/ Inspect environment for safety and communication risk Supervise and assist with toileting/ADLs as needed Moderate Risk Interventions Institue fall-risk tooklit ( yellow flag, yellow non-skid socks and High Risk Interventions Remain with patient while toileting Activate bed/chair exit Document 08/02/16 08:13 [id number] (Rec: 08/02/16 08:21 [id number]) [facility] Fall Risk Assessment Tool High Fall Risk-Implement High Fall Risk History of more than one fall interventions per protocol within 6 months before admission Fall Risk Category High Risk Fall Risk Interventions Low Risk Interventions Bed in lowest position Top side rails up x 2 Secure brake on bed Use properly fitting non-skid footwear Call light and frequently needed objects within reach Encourage patients/families to call for assistance when needed Fall education including risk assessment, injury risk and routine/ Inspect environment for safety and communication risk Supervise and assist with toileting/ADLs as needed Moderate Risk Interventions Institue fall-risk tooklit ( yellow flag, yellow non-skid socks and High Risk Interventions Remain with patient while toileting Activate bed/chair exit Move patient to room with best visual access Obtain PT consult, if pat Document 08/02/16 21:29 ALD (Rec: 08/02/16 21:30 ALD [id number]) [facility] Fall Risk Assessment Tool High Fall Risk-Implement High Fall Risk History of more than one fall interventions per protocol within 6 months before admission Fall Risk Category High Risk Fall Risk Interventions Low Risk Interventions Bed in lowest position Top side rails up x 2 Secure brake on bed Use properly fitting non-skid footwear Call light and frequently needed objects within reach Encourage patients/families to call for assistance when needed Fall education including risk assessment, injury risk and routine/ Inspect environment for safety and communication risk Supervise and assist with toileting/ADLs as needed Moderate Risk Interventions Institue fall-risk tooklit ( yellow flag, yellow non-skid socks and High Risk Interventions Remain with patient while toileting Activate bed/chair exit Move patient to room with best visual access Obtain PT consult, if pat Document 08/03/16 07:59 BSS (Rec: 08/03/16 08:05 BSS [id number]) [facility] Fall Risk Assessment Tool High Fall Risk-Implement High Fall Risk History of more than one fall interventions per protocol within 6 months before admission Fall Risk Category High Risk Fall Risk Interventions Low Risk Interventions Bed in lowest position Top side rails up x 2 Secure brake on bed Use properly fitting non-skid footwear Call light and frequently needed objects within reach Encourage patients/families to call for assistance when needed Fall education including risk assessment, injury risk and routine/ Inspect environment for safety and communication risk Supervise and assist with toileting/ADLs as needed Moderate Risk Interventions Institue fall-risk tooklit ( yellow flag, yellow non-skid socks and High Risk Interventions Remain with patient while toileting Move patient to room with best visual access Obtain PT consult, if pat Document 08/03/16 19:00 GLD (Rec: 08/03/16 19:57 GLD [id number]) [facility] Fall Risk Assessment Tool High Fall Risk-Implement High Fall Risk History of more than one fall interventions per protocol within 6 months before admission Fall Risk Category High Risk Fall Risk Interventions Low Risk Interventions Bed in lowest position Top side rails up x 2 Secure brake on bed Use properly fitting non-skid footwear Call light and frequently needed objects within reach Encourage patients/families to call for assistance when needed Fall education including risk assessment, injury risk and routine/ Inspect environment for safety and communication risk Supervise and assist with toileting/ADLs as needed Moderate Risk Interventions Institue fall-risk tooklit ( yellow flag, yellow non-skid socks and High Risk Interventions Remain with patient while toileting Move patient to room with best visual access Obtain PT consult, if pat Flu Vaccine Screen Start: 07/31/16 19: 51 Freq: Status: Discharge Document 08/04/16 08:42 [id number] (Rec: 08/04/16 08:46 [id number]) Flu Vaccine Screen Flu Vaccine Contraindications Previously Received Current Flu Season Patient meets criteria for vaccination No and consents to receive it Glucose, blood point of care measurement Start: 08/01/16 01: 33 Freq: ACHS Status: Discharge Document 08/01/16 07:13 ROBERT (Rec: 08/01/16 07:20 ROBERT [id number]) Blood Glucose Assessment Blood Glucose* 116 Hypoglycemia Symptoms None Hyperglycemia Symptoms None Document 08/01/16 10:58 ROBERT (Rec: 08/01/16 10:58 ROBERT [id number]) Blood Glucose Assessment Blood Glucose* 185 Hypoglycemia Symptoms None Hyperglycemia Symptoms None Document 08/01/16 20:04 RKA (Rec: 08/01/16 20:05 RKA [id number]) Blood Glucose Assessment Blood Glucose* 197 Hypoglycemia Symptoms None Hyperglycemia Symptoms Blood Glucose > 180 Action Taken Wrote on board, will notify RN Document 08/02/16 08:01 EG (Rec: 08/02/16 08:05 [id number]) Blood Glucose Assessment Blood Glucose* 192 Hypoglycemia Symptoms None Hyperglycemia Symptoms None Action Taken RN notified Document 08/02/16 11:45 EGH (Rec: 08/02/16 11:53 [id number]) Blood Glucose Assessment Blood Glucose* 194 Hypoglycemia Symptoms None Hyperglycemia Symptoms None Action Taken RN notified Document 08/02/16 17:25 LEB (Rec: 08/02/16 17:25 LEB [id number]) Blood Glucose Assessment Blood Glucose* 147 Action Taken on board Document 08/02/16 20:38 [id number] (Rec: 08/02/16 20:38 [id number]) Blood Glucose Assessment Blood Glucose* 126 Hypoglycemia Symptoms None Hyperglycemia Symptoms None Action Taken nurse is aware Document 08/03/16 00:48 [id number] (Rec: 08/03/16 00:48 [id number]) Blood Glucose Assessment Blood Glucose* 256 Hypoglycemia Symptoms None Hyperglycemia Symptoms None Action Taken nurse is aware Document 08/03/16 05:34 [id number] (Rec: 08/03/16 05:34 [id number]) Blood Glucose Assessment Blood Glucose* 159 Hypoglycemia Symptoms None Hyperglycemia Symptoms None Action Taken nurse is aware Document 08/03/16 12:07 [facility] (Rec: 08/03/16 12:08 [facility] [id number]) Blood Glucose Assessment Blood Glucose* 220 Hypoglycemia Symptoms None Hyperglycemia Symptoms None Action Taken RN notified Document 08/03/16 17:21 EG (Rec: 08/03/16 17:22 [facility] [id number]) Blood Glucose Assessment Blood Glucose* 163 Hypoglycemia Symptoms None Hyperglycemia Symptoms None Action Taken RN notified Document 08/03/16 20:19 LMO (Rec: 08/03/16 20:20 LMO [id number]) Blood Glucose Assessment Blood Glucose* 141 Hypoglycemia Symptoms None Hyperglycemia Symptoms None Document 08/04/16 08:10 BEH (Rec: 08/04/16 08:11 BEH [id number]) Blood Glucose Assessment Blood Glucose* 128 Hypoglycemia Symptoms None Hyperglycemia Symptoms None Action Taken On board for RN Glucose, blood point of care measurement Start: 08/01/16 10: 58 Freq: Status: Discharge Document 08/01/16 16:25 ROBERT (Rec: 08/01/16 16:30 ROBERT [id number]) Blood Glucose Assessment Blood Glucose* 145 Hypoglycemia Symptoms None Hyperglycemia Symptoms None Hygiene activity Start: 07/31/16 20: 34 Freq: .PRN Status: Discharge Document 08/01/16 08:24 ROBERT (Rec: 08/01/16 08:24 ROBERT [id number]) Hygiene Bath Type Full Bed Bath Bathing Ability 1 Person Assist Linen Change Complete Document 08/01/16 08:44 ROBERT (Rec: 08/01/16 08:44 ROBERT [id number]) Hygiene Bath Type Postpone Until Later 08/01/16 08:44 Nurse Note by [place] I asked the PT. if he wanted me to help him with a bed bath, he stated that he wanted to wait later. Initialized on 08/01/16 08:44 - END OF NOTE Document 08/01/16 10:35 ROBERT (Rec: 08/01/16 10:35 ROBERT [id number]) Hygiene Bath Type Postpone Until Later Linen Change Complete Document 08/02/16 01:58 RKA (Rec: 08/02/16 01:58 RKA [id number]) Hygiene Bath Type Postpone Until Later Linen Change Complete IV-Invasive Line Management Start: 07/31/16 20: 34 Freq: Q4H Status: Discharge Document 07/31/16 21:37 [id number] (Rec: 07/31/16 21:38 [id number]) IV/Invasive Line Assessment Left Antecubital Date of Insertion 07/31/16 Time of Insertion 17:26 Gauge (gauge) 20 IV Catheter Type Peripheral IV Site Observation Patent [place] Dressing Applied Transparent Dressing Line Care Saline Flush P-Locked Labs drawn from Line* No Document 08/01/16 00:20 [id number] (Rec: 08/01/16 01:22 [id number]) IV/Invasive Line Assessment Left Antecubital Date of Insertion 07/31/16 Time of Insertion 17:26 Gauge (gauge) 20 IV Catheter Type Peripheral IV Site Observation Patent [place] Dressing Applied Transparent Dressing Line Care P-Locked Labs drawn from Line* No Document 08/01/16 04:00 [id number] (Rec: 08/01/16 04:32 [id number]) IV/Invasive Line Assessment Left Antecubital Date of Insertion 07/31/16 Time of Insertion 17:26 Reason for Line Insertion/Rationale for Provide Access for IV Insertion Medication(s) Provide Access for Emergency Gauge (gauge) 20 IV Catheter Type Peripheral IV Site Observation Patent [place] Dressing Applied Transparent Dressing Line Care Saline Flush Labs drawn from Line* No Document 08/01/16 08:44 KENNETH (Rec: 08/01/16 18:45 KENNETH [id number]) IV/Invasive Line Assessment Left Antecubital Date of Insertion 07/31/16 Time of Insertion 17:26 Reason for Line Insertion/Rationale for Provide Access for IV Insertion Medication(s) Provide Access for Emergency Gauge (gauge) 20 IV Catheter Type Peripheral IV Site Observation Patent [place] Dressing Applied Transparent Dressing Line Care Saline Flush Labs drawn from Line* No Document 08/01/16 14:29 KENNETH (Rec: 08/01/16 18:51 KENNETH [id number]) IV/Invasive Line Assessment Left Antecubital Date of Insertion 07/31/16 Time of Insertion 17:26 Reason for Line Insertion/Rationale for Provide Access for IV Insertion Medication(s) Provide Access for Emergency Gauge (gauge) 20 IV Catheter Type Peripheral IV Site Observation Patent [place] Dressing Applied Transparent Dressing Line Care Saline Flush Labs drawn from Line* No Document 08/01/16 16:00 KENNETH (Rec: 08/01/16 18:55 KENNETH [id number]) IV/Invasive Line Assessment Right Forearm Date of Insertion 08/01/16 Time of Insertion 17:30 Reason for Line Insertion/Rationale for Provide Access for IV Insertion Medication(s) Gauge (gauge) 18 IV Catheter Type Peripheral IV Site Observation Patent Site Observation Intervention [place] IV Inserted Dressing Applied Transparent Dressing Line Care Saline Flush Left Antecubital Date of Insertion 07/31/16 Time of Insertion 17:26 Reason for Line Insertion/Rationale for Provide Access for IV Insertion Medication(s) Provide Access for Emergency Gauge (gauge) 20 IV Catheter Type Peripheral IV Line Complications Patient Pulled Catheter Out Labs drawn from Line* No Document 08/01/16 20:00 ALD (Rec: 08/01/16 21:22 ALD [id number]) IV/Invasive Line Assessment Right Forearm Date of Insertion 08/01/16 Time of Insertion 17:30 Reason for Line Insertion/Rationale for Provide Access for IV Insertion Medication(s) Gauge (gauge) 18 IV Catheter Type Peripheral IV Site Observation Patent Site Observation Intervention [place] IV Inserted Dressing Applied Transparent Dressing Line Care Saline Flush Labs drawn from Line* No Document 08/01/16 23:00 ALD (Rec: 08/02/16 01:08 ALD [id number]) IV/Invasive Line Assessment Right Forearm Date of Insertion 08/01/16 Time of Insertion 17:30 Reason for Line Insertion/Rationale for Provide Access for IV Insertion Medication(s) Gauge (gauge) 18 IV Catheter Type Peripheral IV Site Observation Patent Site Observation Intervention [place] IV Inserted Dressing Applied Transparent Dressing Line Care Saline Flush Labs drawn from Line* No Document 08/02/16 03:10 ALD (Rec: 08/02/16 03:19 ALD [id number]) IV/Invasive Line Assessment Right Forearm Date of Insertion 08/01/16 Time of Insertion 17:30 Reason for Line Insertion/Rationale for Provide Access for IV Insertion Medication(s) Gauge (gauge) 18 IV Catheter Type Peripheral IV Site Observation Patent Site Observation Intervention [place] IV Inserted Dressing Applied Transparent Dressing Line Care Saline Flush Labs drawn from Line* No Document 08/02/16 08:13 [id number] (Rec: 08/02/16 08:21 [id number]) IV/Invasive Line Assessment Right Forearm Date of Insertion 08/01/16 Time of Insertion 17:30 Reason for Line Insertion/Rationale for Provide Access for IV Insertion Medication(s) Gauge (gauge) 18 IV Catheter Type Peripheral IV Site Observation Patent Dressing Applied Transparent Dressing Line Care P-Locked Labs drawn from Line* No Document 08/02/16 12:22 [id number] (Rec: 08/02/16 12:23 [id number]) IV/Invasive Line Assessment Right Forearm Date of Insertion 08/01/16 Time of Insertion 17:30 Reason for Line Insertion/Rationale for Provide Access for IV Insertion Medication(s) Gauge (gauge) 18 IV Catheter Type Peripheral IV Site Observation Patent Dressing Applied Transparent Dressing Line Care P-Locked Labs drawn from Line* No Document 08/02/16 16:57 [id number] (Rec: 08/02/16 17:03 [id number]) IV/Invasive Line Assessment Right Forearm Date of Insertion 08/01/16 Time of Insertion 17:30 Reason for Line Insertion/Rationale for Provide Access for IV Insertion Medication(s) Gauge (gauge) 18 IV Catheter Type Peripheral IV Site Observation Patent Dressing Applied Transparent Dressing Line Care P-Locked Labs drawn from Line* No Document 08/02/16 19:00 ALD (Rec: 08/02/16 21:35 ALD [id number]) IV/Invasive Line Assessment Right Forearm Date of Insertion 08/01/16 Time of Insertion 17:30 Reason for Line Insertion/Rationale for Provide Access for IV Insertion Medication(s) Gauge (gauge) 18 IV Catheter Type Peripheral IV Site Observation Patent Dressing Applied Transparent Dressing Line Care P-Locked Labs drawn from Line* No Document 08/02/16 23:40 ALD (Rec: 08/03/16 00:48 ALD [id number]) IV/Invasive Line Assessment Right Forearm Date of Insertion 08/01/16 Time of Insertion 17:30 Reason for Line Insertion/Rationale for Provide Access for IV Insertion Medication(s) Gauge (gauge) 18 IV Catheter Type Peripheral IV Site Observation Patent Dressing Applied Transparent Dressing Line Care P-Locked Labs drawn from Line* No Document 08/03/16 03:30 ALD (Rec: 08/03/16 04:52 ALD [id number]) IV/Invasive Line Assessment Right Forearm Date of Insertion 08/01/16 Time of Insertion 17:30 Reason for Line Insertion/Rationale for Provide Access for IV Insertion Medication(s) Gauge (gauge) 18 IV Catheter Type Peripheral IV Site Observation Patent Dressing Applied Transparent Dressing Line Care P-Locked Labs drawn from Line* No Document 08/03/16 07:59 BSS (Rec: 08/03/16 08:05 [id number]) IV/Invasive Line Assessment Right Forearm Date of Insertion 08/01/16 Time of Insertion 17:30 Reason for Line Insertion/Rationale for Provide Access for IV Insertion Medication(s) Gauge (gauge) 18 IV Catheter Type Peripheral IV Site Observation Patent Site Observation Intervention Inspected Line Dressing Applied Window Dressing Dry/Intact Line Care Saline Flush Labs drawn from Line* No Document 08/03/16 11:06 BSS (Rec: 08/03/16 11:06 [id number]) IV/Invasive Line Assessment Right Forearm Date of Insertion 08/01/16 Time of Insertion 17:30 Reason for Line Insertion/Rationale for Provide Access for IV Insertion Medication(s) Gauge (gauge) 18 IV Catheter Type Peripheral IV Site Observation Patent Site Observation Intervention Inspected Line Dressing Applied Window Dressing Dry/Intact Line Care Saline Flush Labs drawn from Line* No Document 08/03/16 15:12 [id number] (Rec: 08/03/16 15:19 [id number]) IV/Invasive Line Assessment Right Forearm Date of Insertion 08/01/16 Time of Insertion 17:30 Reason for Line Insertion/Rationale for Provide Access for IV Insertion Medication(s) Gauge (gauge) 18 IV Catheter Type Peripheral IV Site Observation Patent Site Observation Intervention Inspected Line Dressing Applied Window Dressing Dry/Intact Line Care Saline Flush Labs drawn from Line* No Document 08/03/16 19:00 GLD (Rec: 08/03/16 19:57 GLD [id number]) IV/Invasive Line Assessment Right Forearm Date of Insertion 08/01/16 Time of Insertion 17:30 Reason for Line Insertion/Rationale for Provide Access for IV Insertion Medication(s) Gauge (gauge) 18 IV Catheter Type Peripheral IV Site Observation Patent Site Observation Intervention Inspected Line Dressing Applied Window Dressing Dry/Intact Line Care Saline Flush Labs drawn from Line* No Document 08/03/16 22:40 GLD (Rec: 08/03/16 22:40 GLD [id number]) IV/Invasive Line Assessment Right Forearm Date of Insertion 08/01/16 Time of Insertion 17:30 Reason for Line Insertion/Rationale for Provide Access for IV Insertion Medication(s) Gauge (gauge) 18 IV Catheter Type Peripheral IV Site Observation Patent Site Observation Intervention Inspected Line Dressing Applied Window Dressing Dry/Intact Line Care Saline Flush Labs drawn from Line* No Document 08/04/16 02:45 GLD (Rec: 08/04/16 02:45 GLD [id number]) IV/Invasive Line Assessment Right Forearm Date of Insertion 08/01/16 Time of Insertion 17:30 Reason for Line Insertion/Rationale for Provide Access for IV Insertion Medication(s) Gauge (gauge) 18 IV Catheter Type Peripheral IV Site Observation Patent Site Observation Intervention Inspected Line Dressing Applied Window Dressing Dry/Intact Line Care Saline Flush Labs drawn from Line* No Initial Patient Assessment Start: 07/31/16 20: 34 Freq: .ONCE Status: Discharge Document 07/31/16 21:24 [id number] (Rec: 07/31/16 21:33 [id number]) General Questions Date of Arrival on Unit 03/05/17 Time of Arrival on Unit 20:37 Admitted From Emergency Dept Chief Complaint WEAKNESS, DEHYDRATED, NO APPITITE, WT LOSS History Provided By Patient Orientation To Call Light Bed Phone TV Bathroom Smoking Policy Visiting Hours Procedures ID Bracelet On Emergency Contact Name Mejia Conn Relationship to Patient Son Emergency Contact Bands applied ID band Allergy band Patient Health Portal Patient was provided information on Yes accessing patient portal Patient Requests Portal Enrollment No Reason No Portal Enrollment No Email Malnutrition Screening Tool (MST) Have You Recently Lost Weight Without Yes Trying If Yes, How Much Weight Have You Lost 34 or More Pounds Have You Been Eating Poorly Because of a Yes Decreased Appetite MST Score 5 Advance Directives Advance Directives Yes Advance Directives on File No Power of Merry Go Round Operator Yes Power of Merry Go Round Operator Name JESSE CONN Power of Merry Go Round Operator Patient Rights Copy of Rights Given and Verbalizes Yes Understanding Tobacco Free [place]: Copy of AHS Yes Statement Given and Patient Verbalizes Understanding Communication Ability Primary Language Greenlandic Preferred Language Greenlandic Foundation Relations Manager Required No Ability to Follow Directions Good Able to Read Yes Able to Write Yes Hearing Ability Hard of Hearing Visual Assistive Devices Glasses Pain Assessment Do You Have Any Ongoing (Chronic) Pain No Problems Educated on Pain Scale Yes Past Medical History Medical history arthritis cancer diabetes hypertension other Additional medical history COLON CANCER Male Surgical History knee replacement Additional surgical history BOWEL RESECTION 2015 Psychiatric history PTSD Smoking Status Former smoker Smokeless Tobacco Status No Alcohol use rarely Drug use none Occupational status retired Current living situation Home With Family Activity level Uses cane/walker Recent Out of Country Travel Within the No Last 8 Weeks Exposure or Possible Exposure to Illness No During Travel Family History-Meaningful Use Father Adopted No Ethnicity Non- Living Status Hx Family Cardiac Disorders Yes Hx Family Respiratory Disorders No Hx Family Cancer No Hx Family GI Disorders No Hx Family Endocrine Disorder No Hx Family Neuromuscular Disorders No Hx Family Neurologic Disorders Yes Hx Family HEENT Disorders No Hx Family Autoimmune Disorders No Psychosocial Over Age 75 and Lives Alone or Over Age No 80 Potential Need for Follow-up Care (ECF, Yes Home Health, ECT) Developmentally Disabled or History of No Mental Health Problems 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 Need or No Terminal Implications Responsible for Care of Others No Financial Concerns No Suspected Abuse or Neglect No Suicidal or Homicidal Ideation No Social Service Consult Needed Yes Functional Assessment Employment Status Retired Eating (Feeding) Ability Independent Bathing Ability Minimum Assistance 1 Person Assist Upper Body Dressing Ability Moderate Assistance Lower Body Dressing Ability Moderate Assistance Ambulation Ability Moderate Assistance 1 Person Assist Toileting Ability Minimum Assistance Bladder Occasionally Incontinent Bowel Occasionally Incontinent Date of Last Known Bowel Movement 07/29/16 Intake and Output, Strict Start: 07/31/16 20: 34 Freq: Q8H Status: Discharge Document 07/31/16 20:52 LMO (Rec: 07/31/16 20:58 LMO [place] [id number]) Intake and Output Intake, Oral Amount 0 Output, Urine Amount 0 Document 08/01/16 01:20 LMO (Rec: 08/01/16 01:22 LMO [id number]) Intake and Output Intake, Oral Amount 0 Output, Urine Amount 0 Document 08/01/16 03:30 LMO (Rec: 08/01/16 03:33 LMO [id number]) Intake and Output Intake, Oral Amount 0 Output, Urine Amount 0 Document 08/01/16 07:13 ROBERT (Rec: 08/01/16 07:20 ROBERT [id number]) Intake and Output Output, Urine Amount 0 Number of Bowel Movements 0 Document 08/01/16 10:51 ROBERT (Rec: 08/01/16 10:58 ROBERT [id number]) Intake and Output Output, Urine Amount 0 Number of Bowel Movements 0 Document 08/01/16 13:13 ROBERT (Rec: 08/01/16 13:13 ROBERT [id number]) Intake and Output Intake, Oral Amount 480 Meal Lunch Percent of Meal Consumed 10% Oral Supplements* None Document 08/01/16 14:24 ROBERT (Rec: 08/01/16 14:27 ROBERT [id number]) Intake and Output Intake, Oral Amount 200 Output, Urine Amount 0 Number of Bowel Movements 0 Document 08/01/16 16:37 ROBERT (Rec: 08/01/16 16:38 ROBERT [id number]) Intake and Output Number of Voids 1 Document 08/01/16 17:50 ZC (Rec: 08/01/16 17:50 ZC [id number]) Intake and Output Intake, Oral Amount 240 Meal Dinner Percent of Meal Consumed 30% Oral Supplements* Ensure plus 8oz bottle Document 08/01/16 21:38 RKA (Rec: 08/01/16 21:38 RKA [id number]) Intake and Output Output, Urine Amount 150 Urine Color Straw Document 08/01/16 22:02 RKA (Rec: 08/01/16 22:03 RKA [id number]) Intake and Output Intake, Oral Amount 100 Document 08/01/16 23:04 CMT (Rec: 08/01/16 23:04 CMT [id number]) Intake and Output Intake, Oral Amount 0 Output, Urine Amount 125 Urine Color Bright Yellow Document 08/02/16 04:38 [id number] (Rec: 08/02/16 04:39 [id number]) Intake and Output Output, Urine Amount 125 Urine Color Bright Yellow Document 08/02/16 06:36 EGH (Rec: 08/02/16 06:37 EGH [id number]) Intake and Output Intake, Oral Amount 0 Output, Urine Amount 0 Document 08/02/16 11:45 EGH (Rec: 08/02/16 11:53 EGH [id number]) Intake and Output Intake, Oral Amount 0 Output, Urine Amount 400 Urine Color Dark Yellow Document 08/02/16 13:20 JSB (Rec: 08/02/16 13:21 JSB [id number]) Intake and Output Intake, Oral Amount 120 Meal Lunch Percent of Meal Consumed 50% Oral Supplements* Ensure plus 8oz bottle Document 08/02/16 15:12 EGH (Rec: 08/02/16 15:14 EGH [id number]) Intake and Output Intake, Oral Amount 200 Output, Urine Amount 150 Urine Color Bright Yellow Document 08/02/16 18:57 [id number] (Rec: 08/02/16 18:58 [id number]) Intake and Output Output, Urine Amount 125 Urine Color Bright Yellow Document 08/02/16 18:57 LEB (Rec: 08/02/16 18:58 LEB [id number]) Intake and Output Intake, Oral Amount 480 Meal Dinner Percent of Meal Consumed 50% Oral Supplements* None Document 08/02/16 22:23 [id number] (Rec: 08/02/16 22:30 [id number]) Intake and Output Output, Urine Amount 0 Document 08/03/16 00:48 [id number] (Rec: 08/03/16 00:49 [id number]) Intake and Output Output, Urine Amount 50 Urine Color Dark Yellow Document 08/03/16 01:40 TMC (Rec: 08/03/16 02:11 TMC [id number]) Intake and Output Stool Size Small Stool Consistency loose Stool Color Brown Document 08/03/16 02:44 [id number] (Rec: 08/03/16 02:46 [id number]) Intake and Output Output, Urine Amount 100 Urine Color Dark Yellow Number of Bowel Movement Diapers (0-100) 1 Number of Bowel Movements 1 Stool Size Smear Document 08/03/16 07:16 EGH (Rec: 08/03/16 07:22 EGH [id number]) Intake and Output Intake, Oral Amount 0 Output, Urine Amount 0 Document 08/03/16 09:25 [id number] (Rec: 08/03/16 09:25 [id number]) Intake and Output Meal NPO Oral Supplements* None Document 08/03/16 12:07 EGH (Rec: 08/03/16 12:08 EGH [id number]) Intake and Output Intake, Oral Amount 0 Output, Urine Amount 0 Document 08/03/16 15:40 EGH (Rec: 08/03/16 15:42 EGH [id number]) Intake and Output Output, Urine Amount 0 Document 08/03/16 18:56 LEB (Rec: 08/03/16 18:56 LEB [id number]) Intake and Output Intake, Oral Amount 0 Meal Dinner Percent of Meal Consumed 0% Oral Supplements* None Document 08/03/16 20:06 LMO (Rec: 08/03/16 20:07 LMO [id number]) Intake and Output Intake, Oral Amount 0 Output, Urine Amount 0 Document 08/04/16 01:35 LMO (Rec: 08/04/16 01:41 LMO [id number]) Intake and Output Intake, Oral Amount 0 Output, Urine Amount 0 Document 08/04/16 04:38 LMO (Rec: 08/04/16 04:56 LMO [id number]) Intake and Output Intake, Oral Amount 0 Number of Urine Diapers 1 Number of Bowel Movement Diapers (0-100) 1 Document 08/04/16 04:51 GLD (Rec: 08/04/16 04:52 GLD [id number]) Intake and Output Output, Urine Amount 300 Document 08/04/16 09:38 [id number] (Rec: 08/04/16 09:38 [id number]) Intake and Output Intake, Oral Amount 120 Meal Breakfast Oral Supplements* None Measure intake and output Start: 08/01/16 01: 34 Freq: QSHIFT Status: Discharge Document 08/01/16 06:48 JMW (Rec: 08/01/16 06:48 JMW [id number]) Intake and Output Output, Urine Amount 200 Urine Color Dark Yellow Document 08/01/16 10:35 ROBERT (Rec: 08/01/16 10:35 ROBERT [id number]) Intake and Output Intake, Oral Amount 240 Meal Breakfast Percent of Meal Consumed 5% Oral Supplements* None Document 08/02/16 08:01 EGH (Rec: 08/02/16 08:05 EGH [id number]) Intake and Output Intake, Oral Amount 0 Number of Voids 1 Document 08/03/16 11:03 BSS (Rec: 08/03/16 11:05 BSS [id number]) Intake and Output Stool Size Smear Stool Consistency soft formed Stool Characteristics Normal for Patient Stool Color Brown Document 08/03/16 11:05 BSS (Rec: 08/03/16 11:05 BSS [id number]) Intake and Output Number of Voids 1 Document 08/03/16 21:00 GLD (Rec: 08/03/16 22:39 GLD [id number]) Intake and Output Intake, Oral Amount 0 Document 08/04/16 09:26 BLG (Rec: 08/04/16 09:27 BLG [id number]) Intake and Output Number of Urine Diapers 1 Number of Bowel Movement Diapers (0-100) 1 Stool Size Small Measure weight Start: 07/31/16 20: 34 Freq: Status: Discharge Document 07/31/16 20:52 LMO (Rec: 07/31/16 20:58 LMO [id number]) Height and Weight Height 1.68 m Weight 60.3 kg Weight Measurement Method Built in [facility] Body Mass Index (BMI) 21.44 BMI Classification Normal Measure weight Start: 08/01/16 01: 34 Freq: DAILY Status: Discharge Document 08/01/16 03:30 LMO (Rec: 08/01/16 03:33 LMO [id number]) Height and Weight Height 1.83 m Weight 60.9 kg Weight Measurement Method Built in [employer] Body Mass Index (BMI) 18.14 BMI Classification Underweight Document 08/02/16 04:25 RKA (Rec: 08/02/16 04:25 RKA [id number]) Height and Weight Weight 63.2 kg Weight Measurement Method Standing Scale Document 08/03/16 02:44 [id number] (Rec: 08/03/16 02:46 [id number]) Height and Weight Height 1.83 m Weight 65.14 kg Weight Measurement Method Built in [employer] Body Mass Index (BMI) 19.40 BMI Classification Normal Med Rec Tech Start: 08/01/16 13: 47 Freq: Status: Discharge Document 08/01/16 13:47 MRB (Rec: 08/01/16 13:47 MRB [id number]) Pharmacy Med Rec Tech Home Medicatons Reconciled? Yes Was this to catch up from previous day Yes Does patient take 10 or more medications Yes ? Does patient request medication Yes education Do home meds include Coumadin, Xarelto, No Pradaxa, Eliquis Added Patient Preferred Pharmacy Yes Verified Allergies Yes Would Patient Like to use [place] Out No Patient Pharmacy Notify provider Start: 08/01/16 01: 33 Freq: once Status: Discharge Document 08/01/16 01:55 [id number] (Rec: 08/01/16 01:55 [id number]) Document 08/02/16 08:13 [id number] (Rec: 08/02/16 08:21 [id number]) Document 08/03/16 00:48 [id number] (Rec: 08/03/16 00:48 [id number]) Document 08/03/16 23:21 GLD (Rec: 08/03/16 23:27 GLD [id number]) OT Acute Daily Note Start: 08/01/16 13: 00 Freq: Status: Discharge Document 08/02/16 12:03 KMT (Rec: 08/02/16 12:06 KMT [email or web address]) General/Subjective Date of Admission 07/31/16 Referring Provider Falguni Shea OT Visit # 2 Diagnosis Other nonspecific abnormal finding of lung field OT Treatment Diagnosis Weakness Subjective reports needing help to walk at home; reports feeling weak Restrictions/Precautions Fall Precautions/Risk Sensation Impaired Bed/Chair Alarm Objective Bed Mobility supine to sit sba Transfers bed to C with modA; sit to stand Christiano repeatedly; lateraly stepping along bed at min to modA Exercise Comment yellow theraband x10 reps x5 exercises seated on EOB Assessment/Plan Assessment tolerated fair, educated to ask for assist for getting up Disposition at end of Eval/Treatment In bed Call light/phone within reach Tray table within reach All needs met Plan Continue per POC in collaboration with OTR Time Started 10:15 Time Ended 10:43 Total Treatment Time (Min) (min) 28 Charge Sheet Therapeutic Exercise 1 Therapeutic Activity 1 OT Charges/Documentation Finished? Yes OT Acute Eval Start: 08/01/16 13: 00 Freq: Status: Discharge Document 08/01/16 13:00 SK (Rec: 08/01/16 13:27 SKS [email or web address]) Inpatient Rehab Intake Date of Admission 07/31/16 Date of Onset 07/31/16 Chief Complaint weakness PMH/Surgical History Relevant to Rehab arthritis, colon cancer s/p colectomy, COPD, KRISTAL, CVA, dementia, DM, GERD, GI bleed, HTN, HI, OP, renal disease, thyroid disease, TKA, anxiety, depression, PTSD Factors/Comorbidities Impacting POC COPD DM Hx CVA Hx Cancer Cognitive Impairment HTN Prior Treatment/Testing chest CT- nodules suspicious for malignancy Diagnosis Other nonspecific abnormal finding of lung field Reason for Referral/Orders Evaluate, develop, and implement POC History of falls in past 6 months Multiple falls, more than 2 times Restrictions/Precautions Fall Precautions/Risk Sensation Impaired Bed/Chair Alarm History Provided By Patient Lives With: lives with son Type of Dwelling Single Family Home Number of Floors (Floors) 1 Number of Stairs to Enter (Stairs) 0 Bathing Environment Shower Current DME Four Wheeled Walker/Rollator Cane Wheelchair Built in Shower Seat Prior Level Of Function Son assists with ADLs as needed. Pt. requires help with snaps/buttons. He states he is able to perform most of bathing. His son assists getting him in/out of shower Prior Mobility Level Pt. mod I using w/c for mobility. Reports his son assists at times for transfers . Pt. states he has not ambulated in approximately 2 months Driving Son can provide transportation Patient/Family Goal Return home. Open to further rehab Pain Assessment Pain Present Reports Pain bilateral hands Intensity 6 Scale Used Numeric (1 - 10) Functional Mobility Assessment Bed Mobility Ability Minimum Assistance 1 Person Assist Bed Mobility Assistive Devices Elevated HOB Bed Transfer Ability Minimum Assistance 1 Person Assist Bed Transfer Assistive Devices Rolling Walker Transfer Belt Chair Transfer Ability Minimum Assistance 1 Person Assist Chair Transfer Assistive Devices Rolling Walker Transfer Belt Static Sitting Balance Ability Good Dynamic Sitting Balance Ability Good Static Standing Balance Ability Good -/Fair + Dynamic Standing Balance Ability Fair Ambulation Assistive Devices Rolling Walker Activity Tolerance Good Additional Information Pt completed functional mobility from EOB>bedside chair with RW and Min(A). ADL Assessment Grooming Ability Modified Independent Upper Body Dressing Ability Standby Assistance Lower Body Dressing Ability Moderate Assistance Washing/Drying Upper Body Ability Standby Assistance Washing/Drying Lower Extremities Ability Moderate Assistance Eating (Feeding) Ability Setup Performing Toilet Hygiene Ability Standby Assistance Managing Clothing Ability Maximum Assistance Activity Tolerance Good Gross Strength/ROM Gross UE Strength Within Functional Limits Gross UE ROM Within Functional Limits UE ROM/Strength Detail (B)UE strength: 4+/5, left forearm NT d/t IV but observed to be WFL (R) port cdl a driver: good (L) port cdl a driver: good-/fair+ LE ROM/Strength Detail See PT evaluation for details. Edema/Skin Integrity Comment Intact Gross Sensorimotor Sensation Assessment Summary Comments Pt reports decreased sensation with (B)UEs, more decreased sensation on the distal aspect . Pt reports numbness in (B) LEs from knees down through feet. Cognition/Visual Assessment Level of Alertness Alert Active Able to Remain Focused on Simple Task Patient Orientation Name Date of Safety Awareness Situational Awareness Attention to Task No Deficits Noted Hearing Ability Normal Ability to Follow Directions Follows One Step Follows Two Step Comprehension Ability Understands Concepts Patient Behavior Appropriate Cooperative Speech Pattern Clear Appropriate Problem Solving Ability Able To Solve Simple Problems Acute OT POC Is patient being assessed for No rehabilitation for diagnosis of stroke? AM-PAC OT Inpatient Daily Activity Raw 16 Score AM-PAC CMS 0-100% Impaired Score 53 Problems/Impairments/Functional Decreased ADL's/IADL's Limitation Decreased Functional Mobility/ Transfers Decreased Standing Tolerance Balance Decreased Strength Impaired Sensation Assessment OT evaluation completed this date. Due to the impairments listed above pt requires continued skilled OT services during acute hospital care. Upon discharge from hospital pt requires continued skilled OT services via inpatient rehab to increase independence and safety with ADLs/IADLs prior to returning home. Rehab Potential Good Disposition at end of Eval/Treatment Up in chair Chair Alarm Call light/phone within reach Tray table within reach All needs met OT Treatment Diagnosis Weakness Planned OT Interventions Therapeutic Exercise Therapeutic Activity Self Care/Home Management OT Treatment Frequency Once a Day, Mon-Fri OT Duration of Treatment until discharged from acute hospital care Estimated OT Needs at Discharge Inpatient Rehab/Swing Bed OT Estimated DME Needs at D/C Transfer Tub Bench Grab Bars in Shower Grab Bars at Toilet Patient will participate in ADLs of Mod(I)UB ADLs;Min(A)LB ADLs; various media (dressing,bathing) with___ Mod(A)toileting __ to improve ADL I/participation by hospital discharge. Patient will improve functional outcome [place] AM-PAC "6-clicks" score on by noted improvement of score (increase or decrease as measured on tool by 2 points) within short term hospitalization stay. Patient will perform paced functional 3-5 minutes activity/ADLs while standing for to improve functional activity tolerance as needed for improved ADL performance prior to discharge. Patient will improve strength by 1 left port cdl a driver /2 grade to improve ADL participation & independence by short term hospial stay. Patient will complete of paced 5-10 min with rest breaks therapeutic exercise to improve functional stamina as needed for daily routine & ADLs by hosptial discharge. Patient will complete bed mobility to SBA improve functional mobility as needed for ADL participation with by hospital discharge. Patient will improve functional transfer Contact Guard Assistance ability to to improve independence with ADLs by dicharge from hospital. Patient will verbally/demonstrate recall Walker Safety/Assistive Device of precautions in order to increase safety with ADLs & promote proper healing by discharge. Supervising Therapist Briana Willams Eval and Re-Eval Charges Evaluation Time: Minutes with Patient 20 Occupational Therapy Evaluation Low Yes Complexity OT Charges/Documentation Finished? Yes Is patient being discharged from OT No today? Please Select All That Apply To Today's Anthony-godes Documented Visit OT Visit Counter 1 Financial Class MCR Secondary Payer Y OT G-code Therapy Billing Start: 08/01/16 13: 00 Freq: Status: Discharge Document 08/01/16 13:00 SKS (Rec: 08/01/16 13:27 SKS [email or web address]) OT G-codes G-code Required For This Visit Yes OT Current Status Self Care OT Current Status Modifier At least 40% but less than 60% impaired, limited or restricted OT Goal Status Self Care OT Goal Status Modifier At least 20% but less than 40% impaired, limited or restricted OT Missed Visit Start: 08/01/16 13: 00 Freq: Status: Discharge Document 08/03/16 15:12 DLP (Rec: 08/03/16 15:13 DLP [id number]) Missed Visit Missed Visit Reason Refused/Declined Comment pt stated he did not want to do any tx today Oxygen administration Start: 07/31/16 20: 34 Freq: Q12H Status: Discharge Document 07/31/16 21:34 [id number] (Rec: 07/31/16 21:37 [id number]) Oxygen Oxygen Delivery Method Room Air Document 08/02/16 08:13 [id number] (Rec: 08/02/16 08:21 [id number]) Oxygen Oxygen Delivery Method Room Air Document 08/03/16 07:59 BSS (Rec: 08/03/16 08:05 BSS [id number]) Oxygen Oxygen Delivery Method Room Air Document 08/03/16 19:00 GLD (Rec: 08/03/16 19:57 GLD [id number]) Oxygen Oxygen Delivery Method Room Air Comment pt didn't want tx at this time PT Acute Eval Start: 08/01/16 11: 50 Freq: Status: Discharge Document 08/01/16 11:50 LJS (Rec: 08/01/16 12:16 LJS [id number]) Inpatient Rehab Intake Date of Admission 07/31/16 Chief Complaint weakness PMH/Surgical History Relevant to Rehab arthritis, colon cancer s/p colectomy, COPD, KRISTAL, CVA, dementia, DM, GERD, GI bleed, HTN, HI, OP, renal disease, thyroid disease, TKA, anxiety, depression, PTSD Factors/Comorbidities Impacting POC COPD DM Hx CVA Hx Cancer HTN Prior Treatment/Testing chest CT- nodules suspicious for malignancy Diagnosis Other nonspecific abnormal finding of lung field Reason for Referral/Orders Evaluate, develop, and implement POC History of falls in past 6 months Multiple falls, more than 2 times Restrictions/Precautions Fall Precautions/Risk Bed/Chair Alarm History Provided By Patient Lives With: lives with son Type of Dwelling Single Family Home Number of Floors (Floors) 1 Number of Stairs to Enter (Stairs) 0 Bathing Environment Shower Current DME Four Wheeled Walker/Rollator Cane Wheelchair Built in Shower Seat Prior Level Of Function Son assists with ADLs as needed. Pt. requires help with snaps/buttons. He states he is able to perform most of bathing. His son assists getting him in/out of shower Prior Mobility Level Pt. mod I using w/c for mobility. Reports his son assists at times for transfers . Pt. states he has not ambulated in approximately 2 months Driving Son can provide transportation Patient/Family Goal Return home. Open to further rehab Pain Assessment Pain Present Reports Pain bilateral hands Intensity 6 Scale Used Numeric (1 - 10) Functional Mobility Assessment Bed Mobility Ability Minimum Assistance 1 Person Assist Bed Mobility Assistive Devices Elevated HOB Bed Transfer Ability Minimum Assistance 1 Person Assist Bed Transfer Assistive Devices Rolling Walker Transfer Belt Chair Transfer Ability Minimum Assistance 1 Person Assist Chair Transfer Assistive Devices Rolling Walker Transfer Belt Static Sitting Balance Ability Good Dynamic Sitting Balance Ability Good Static Standing Balance Ability Good -/Fair + Dynamic Standing Balance Ability Fair Ambulation Assistive Devices Rolling Walker Activity Tolerance Good Additional Information Pt. requires cueing for safety for proper hand placement during transfers Gait/Stairs Deviation Assess. Ambulation Ability Minimum Assistance 1 Person Assist Ambulation Assistive Device Rolling Walker Gait Belt General Gait Pattern Weaving Gait Trunk Anterior to Pelvis Ambulation Ability Comments Pt. with unsteadiness in standing/gait d/t weakness and decreased sensation bilateral LEs below knees. Pt. able to take 3 steps bed to chair with WW. Decreased heel strike bilaterally also noted with steps Gross Strength/ROM UE ROM/Strength Detail See OT eval Gross LE Strength Impaired Gross LE ROM Within Functional Limits LE ROM/Strength Detail 3+ to 4-/5 Gross Trunk Strength Within Functional Limits Limitations/Factors of Tone Muscle Tone Description Normal Edema/Skin Integrity Comment intact Gross Sensorimotor Gross Sensation RUE Impaired LUE Impaired RLE Impaired LLE Impaired Sensation Assessment Summary Comments numbness bilateral hands and bilateral lower extremities below knees d/t neuropathy Fine Motor Coordination RUE Impaired LUE Impaired Cognition/Visual Assessment Level of Alertness Alert Patient Orientation Person Place Name Date of Mental Status Alert & Oriented Safety Awareness Patient Is Aware of Their Safety Attention to Task No Deficits Noted Visual Acuity No Deficits Noted Visual Spatial Deficit No Deficits Noted Hearing Ability Hard of Hearing Ability to Follow Directions Follows Two Step Comprehension Ability No Impairment Patient Behavior Appropriate Cooperative Speech Pattern Clear Appropriate Eye Contact Maintains Eye Contact Problem Solving Ability Able To Solve Simple Problems Rehab Education Education Topic Bed Mobility Transfers Gait Safety Awareness Teaching Recipient Patient Teaching Method Verbal Response to Teaching Return demonstration Verbalize understanding Reinforcement needed Acute Care PT POC Is patient being assessed for No rehabilitation for diagnosis of stroke? AM-PAC PT Basic Mobility Raw Score 15 AM-PAC CMS 0-100% Impaired Score 44 Standardized Testing/Functional Outcomes AM-LOCATED WITHIN [facility] 5 items Utilized/Results Problems/Impairments/Functional Decreased Functional Mobility/ Limitation Transfers Decreased Standing Tolerance Needs AE/Compensatory Education Balance Impaired Gait Decreased Strength Impaired Sensation Assessment Pt. is a 81y/o male admitted with generalized weakness and mass RUL lung. Pt. lives with son. Pt. states son will be returning back to construction job soon and pt. will be alone. He states he has been using a w/c for the past 2 months as he has been unable to walk d/t weakness. Pt. mod I to assisted from son with transfers. Pt. now minimal assist for all mobility. Will continue PT during hospital stay for strengthening and advancing mobility. Pt. may benefit from Inpatient Rehab stay for further strengthening and mobility training to increase independence so pt. can function independently Disposition at end of Eval/Treatment Up in chair Chair Alarm Call light/phone within reach Tray table within reach All needs met PT Treatment Diagnosis Other abnormalities of gait and mobility Additional PT Treatment Diagnosis/ Weakness R53.1 Clarification Planned Interventions Therapeutic Exercise Therapeutic Activity Gait Training Re-Evaluation PT Treatment Frequency Once a Day, Mon-Fri Duration of Treatment 10 visits Goals Determined With Patient/Family Yes Estimated PT Needs at Discharge Inpatient Rehab/Swing Bed Pt. will perform all bed mobility with__ Contact Guard Assistance ___to increase functional indendence. Pt. will perform all transfers with Contact Guard Assistance to increase safe functional mobility and independence. Pt. will demonstrate static/dynamic Fair (+) balance during all functional activities allowing increased safety awareness. Pt. will demonstrate gait feet at least 10 feet with WW and with assist using to CGA increase functional mobility, strength, and/or endurance. Pt. will verbally recall precautions Walker Safety/Assistive Device without cues for increased safety & compliance in discharge environment. Supervising Therapist Paty Keith and Mehreen Charges Evaluation Time: Minutes with Patient 26 Physical Therapy Evaluation Moderate Yes Complexity PT Charges/Documentation Finished? Yes Is patient being discharged from PT No today? Please Select All That Apply To Today's G-godes Documented Visit Financial Class MCR Secondary Payer Y PT G-code Therapy Billing Start: 08/01/16 11: 50 Freq: Status: Discharge Document 08/01/16 11:50 LJS (Rec: 08/01/16 12:16 LJS [id number]) PT G-codes G-code Required For This Visit Yes PT Current Status Mobility PT Current Status Modifier At least 40% but less than 60% impaired, limited or restricted PT Goal Status Mobility PT Goal Status Modifer At least 20% but less than 40% impaired, limited or restricted PT Missed Visit Start: 08/01/16 11: 50 Freq: Status: Discharge Document 08/02/16 12:49 ADH (Rec: 08/02/16 12:50 ADH [id number]) Missed Visit Missed Visit Reason Refused/Declined Comment Pt adamently refused despite max encouragement provided to pt this morning with pt stating he is to be going for a procedure later this morning . Document 08/03/16 13:49 ADH (Rec: 08/03/16 13:50 ADH [id number]) Missed Visit Missed Visit Reason With Other Care Providers Comment Pt with multiple care providers and family at time of attempt and unavailable to this [employer]. [employer] CUSTODIAN revisisted room this afternoon for second attempt recieving verbal refusal from pt stating he didn't want to participate. Patient Belongings Start: 07/31/16 20: 34 Freq: .ONCE Status: Discharge Document 07/31/16 21:24 [id number] (Rec: 07/31/16 21:33 [id number]) Patient Belongings Belongings With Patient on Admission Yes At Bedside Patient Belongings Coat Shirt Shoes Patient Rounding Start: 07/31/16 20: 34 Freq: Q1H Status: Discharge Document 07/31/16 20:52 LMO (Rec: 07/31/16 20:58 LMO [id number]) Hourly Rounding Hourly Rounding Checked for Patient Positioning Patient Personal Items Placed Within Reach Hourly Rounding Completed Yes Patient Awake Is family present? No Safety Call Light Within Reach Bed Position Low Phone Within Reach Bed Brake On Side Rails Up X2 Are the Floors Free From Trip Hazards? Yes Is the Room Free From Clutter? Yes Turn and Postion Bedrest No Turn Q 2HR No Patient Position Back Document 07/31/16 21:37 [id number] (Rec: 07/31/16 21:37 [id number]) Hourly Rounding Hourly Rounding Checked for Patient Positioning Patient Personal Items Placed Within Reach Checked Patient Pain Level Hourly Rounding Completed Yes Patient Awake Is family present? No Safety Call Light Within Reach Bed Position Low Fall Precautions Phone Within Reach Bed Brake On Side Rails Up X2 Are the Floors Free From Trip Hazards? Yes Is the Room Free From Clutter? Yes Turn and Postion Bedrest No Turn Q 2HR No Patient Position Back Head of Bed Position (degrees) 45 Document 07/31/16 22:15 [id number] (Rec: 08/01/16 01:15 [id number]) Hourly Rounding Hourly Rounding Checked for Patient Positioning Patient Personal Items Placed Within Reach Hourly Rounding Completed Yes Patient Sleeping Is family present? No Safety Call Light Within Reach Bed Position Low Fall Precautions Phone Within Reach Bed Brake On Side Rails Up X2 Are the Floors Free From Trip Hazards? Yes Is the Room Free From Clutter? Yes Turn and Postion Bedrest No Turn Q 2HR No Patient Position Right Side Document 08/01/16 00:05 [id number] (Rec: 08/01/16 01:16 [id number]) Hourly Rounding Hourly Rounding Checked for Patient Positioning Patient Personal Items Placed Within Reach Hourly Rounding Completed Yes Patient Sleeping Is family present? No Safety Call Light Within Reach Bed Position Low Fall Precautions Phone Within Reach Bed Brake On Side Rails Up X2 Are the Floors Free From Trip Hazards? Yes Is the Room Free From Clutter? Yes Turn and Postion Bedrest No Turn Q 2HR No Patient Position Right Side Document 08/01/16 00:20 [id number] (Rec: 08/01/16 01:22 [id number]) Hourly Rounding Hourly Rounding Checked for Patient Positioning Patient Personal Items Placed Within Reach Hourly Rounding Completed Yes Patient Sleeping Is family present? No Safety Call Light Within Reach Bed Position Low Fall Precautions Phone Within Reach Bed Brake On Side Rails Up X2 Are the Floors Free From Trip Hazards? Yes Is the Room Free From Clutter? Yes Turn and Postion Bedrest No Turn Q 2HR No Patient Position Right Side Document 08/01/16 01:20 LMO (Rec: 08/01/16 01:22 LMO [id number]) Hourly Rounding Hourly Rounding Checked for Patient Positioning Patient Personal Items Placed Within Reach Hourly Rounding Completed Yes Patient Sleeping Is family present? No Safety Call Light Within Reach Bed Position Low Phone Within Reach Bed Brake On Side Rails Up X2 Are the Floors Free From Trip Hazards? Yes Is the Room Free From Clutter? Yes Turn and Postion Bedrest No Turn Q 2HR No Patient Position Back Document 08/01/16 02:59 [id number] (Rec: 08/01/16 02:59 [id number]) Hourly Rounding Hourly Rounding Checked for Patient Positioning Patient Personal Items Placed Within Reach Checked Patient Pain Level Hourly Rounding Completed Yes Patient Awake Is family present? No Safety Call Light Within Reach Bed Position Low Fall Precautions Phone Within Reach Bed Brake On Side Rails Up X2 Are the Floors Free From Trip Hazards? Yes Is the Room Free From Clutter? Yes Turn and Postion Bedrest No Turn Q 2HR No Patient Position Back Document 08/01/16 03:30 LMO (Rec: 08/01/16 03:33 LMO [id number]) Hourly Rounding Hourly Rounding Checked for Patient Positioning Patient Personal Items Placed Within Reach Hourly Rounding Completed Yes Patient Sleeping Is family present? No Safety Call Light Within Reach Bed Position Low Phone Within Reach Bed Brake On Side Rails Up X2 Are the Floors Free From Trip Hazards? Yes Is the Room Free From Clutter? Yes Turn and Postion Bedrest No Turn Q 2HR No Patient Position Back Document 08/01/16 04:00 [id number] (Rec: 08/01/16 04:32 [id number]) Hourly Rounding Hourly Rounding Checked for Patient Positioning Patient Personal Items Placed Within Reach Checked Patient Pain Level Hourly Rounding Completed Yes Patient Sleeping Is family present? No Safety Call Light Within Reach Bed Position Low Fall Precautions Phone Within Reach Bed Brake On Side Rails Up X2 Are the Floors Free From Trip Hazards? Yes Is the Room Free From Clutter? Yes Turn and Postion Bedrest No Turn Q 2HR No Patient Position Back Document 08/01/16 07:13 ROBERT (Rec: 08/01/16 07:20 ROBERT [id number]) Hourly Rounding Hourly Rounding Checked for Patient Positioning Patient Personal Items Placed Within Reach Hourly Rounding Completed Yes Patient Awake Is family present? No Safety Call Light Within Reach Bed Position Low Phone Within Reach Bed Brake On Side Rails Up X2 Are the Floors Free From Trip Hazards? Yes Is the Room Free From Clutter? Yes Turn and Postion Bedrest No Turn Q 2HR No Document 08/01/16 08:44 KENNETH (Rec: 08/01/16 18:45 KENNETH [id number]) Hourly Rounding Hourly Rounding Checked for Patient Positioning Patient Personal Items Placed Within Reach Hourly Rounding Completed Yes Patient Awake Safety Call Light Within Reach Bed Position Low Bed Exit Alarm Side Rails Up X2 Are the Floors Free From Trip Hazards? Yes Is the Room Free From Clutter? Yes Turn and Postion Bedrest No Turn Q 2HR No Patient Position Sitting up in Bed Document 08/01/16 10:51 ROBERT (Rec: 08/01/16 10:58 ROBERT [id number]) Hourly Rounding Hourly Rounding Checked for Patient Positioning Patient Personal Items Placed Within Reach Hourly Rounding Completed Yes Patient Awake Is family present? No Safety Call Light Within Reach Bed Position Low Phone Within Reach Bed Brake On Side Rails Up X2 Are the Floors Free From Trip Hazards? Yes Is the Room Free From Clutter? Yes Turn and Postion Bedrest No Turn Q 2HR No Patient Position Chair Document 08/01/16 14:24 ROBERT (Rec: 08/01/16 14:27 ROBERT [id number]) Hourly Rounding Hourly Rounding Checked for Patient Positioning Patient Personal Items Placed Within Reach Hourly Rounding Completed Yes Patient Awake Is family present? No Safety Call Light Within Reach Bed Position Low Phone Within Reach Bed Brake On Side Rails Up X2 Are the Floors Free From Trip Hazards? Yes Is the Room Free From Clutter? Yes Turn and Postion Bedrest No Turn Q 2HR No Document 08/01/16 14:29 KENNETH (Rec: 08/01/16 18:51 KENNETH [id number]) Hourly Rounding Hourly Rounding Checked for Patient Positioning Patient Personal Items Placed Within Reach Checked Patient Pain Level Hourly Rounding Completed Yes Patient Awake Safety Call Light Within Reach Bed Position Low Bed Exit Alarm Side Rails Up X2 Are the Floors Free From Trip Hazards? Yes Is the Room Free From Clutter? Yes Turn and Postion Bedrest No Turn Q 2HR No Patient Position Sitting up in Bed Document 08/01/16 16:00 KENNETH (Rec: 08/01/16 18:55 KENNETH [id number]) Hourly Rounding Hourly Rounding Checked for Patient Positioning Patient Personal Items Placed Within Reach Checked Patient Pain Level Hourly Rounding Completed Yes Patient Awake Safety Call Light Within Reach Bed Position Low Bed Exit Alarm Side Rails Up X2 Are the Floors Free From Trip Hazards? Yes Is the Room Free From Clutter? Yes Turn and Postion Bedrest No Turn Q 2HR No Patient Position Sitting up in Bed Document 08/01/16 16:25 ROBERT (Rec: 08/01/16 16:30 ROBERT [id number]) Hourly Rounding Hourly Rounding Checked for Patient Positioning Patient Helped to Bathroom or Assisted with Bedpan or Urinal Patient Personal Items Placed Within Reach Hourly Rounding Completed Yes Patient Awake Is family present? No Safety Call Light Within Reach Bed Position Low Bed Exit Alarm Fall Precautions Phone Within Reach Bed Brake On Side Rails Up X2 Are the Floors Free From Trip Hazards? Yes Is the Room Free From Clutter? Yes Turn and Postion Bedrest No Turn Q 2HR No Document 08/01/16 18:41 RKA (Rec: 08/01/16 18:43 RKA [id number]) Hourly Rounding Hourly Rounding Checked for Patient Positioning Patient Personal Items Placed Within Reach Hourly Rounding Completed Yes Patient Awake Safety Call Light Within Reach Bed Position Low Bed Exit Alarm Side Rails Up X2 Are the Floors Free From Trip Hazards? Yes Is the Room Free From Clutter? Yes Turn and Postion Bedrest No Turn Q 2HR No Patient Position Sitting up in Bed Document 08/01/16 19:00 ALD (Rec: 08/01/16 21:16 ALD [id number]) Hourly Rounding Hourly Rounding Checked for Patient Positioning Patient Personal Items Placed Within Reach Checked Patient Pain Level Hourly Rounding Completed Yes Patient Awake Safety Call Light Within Reach Bed Position Low Bed Exit Alarm Side Rails Up X2 Turn and Postion Bedrest No Turn Q 2HR No Patient Position Back Positioning Aides Pillows Document 08/01/16 20:05 RKA (Rec: 08/01/16 20:06 RKA [id number]) Hourly Rounding Hourly Rounding Checked for Patient Positioning Patient Personal Items Placed Within Reach Hourly Rounding Completed Yes Patient Awake Safety Call Light Within Reach Bed Position Low Bed Exit Alarm Side Rails Up X2 Turn and Postion Bedrest No Turn Q 2HR No Patient Position Back Positioning Aides Pillows Document 08/01/16 21:00 ALD (Rec: 08/01/16 23:03 ALD [id number]) Hourly Rounding Hourly Rounding Checked for Patient Positioning Patient Personal Items Placed Within Reach Hourly Rounding Completed Yes Patient Awake Safety Call Light Within Reach Bed Position Low Bed Brake On Side Rails Up X2 Turn and Postion Bedrest No Turn Q 2HR No Patient Position Back Positioning Aides Pillows Document 08/01/16 22:02 RKA (Rec: 08/01/16 22:03 RKA [id number]) Hourly Rounding Hourly Rounding Checked for Patient Positioning Patient Personal Items Placed Within Reach Hourly Rounding Completed Yes Patient Awake Safety Call Light Within Reach Bed Position Low Bed Brake On Side Rails Up X2 Document 08/01/16 23:00 ALD (Rec: 08/01/16 23:03 ALD [id number]) Hourly Rounding Hourly Rounding Checked for Patient Positioning Patient Personal Items Placed Within Reach Checked Patient Pain Level Hourly Rounding Completed Yes Patient Awake Safety Call Light Within Reach Bed Position Low Bed Brake On Side Rails Up X2 Turn and Postion Bedrest No Turn Q 2HR No Patient Position Back Positioning Aides Pillows Document 08/02/16 01:00 ALD (Rec: 08/02/16 01:09 ALD [id number]) Hourly Rounding Hourly Rounding Checked for Patient Positioning Patient Personal Items Placed Within Reach Checked Patient Pain Level Hourly Rounding Completed Yes Patient Sleeping Safety Call Light Within Reach Bed Position Low Bed Brake On Side Rails Up X2 Turn and Postion Bedrest No Turn Q 2HR No Patient Position Back Positioning Aides Pillows Document 08/02/16 03:10 ALD (Rec: 08/02/16 03:19 ALD [id number]) Hourly Rounding Hourly Rounding Checked for Patient Positioning Patient Personal Items Placed Within Reach Hourly Rounding Completed Yes Patient Sleeping Safety Call Light Within Reach Bed Position Low Bed Brake On Side Rails Up X2 Turn and Postion Bedrest No Turn Q 2HR No Patient Position Back Positioning Aides Pillows Document 08/02/16 04:38 RKA (Rec: 08/02/16 04:38 RKA [id number]) Hourly Rounding Hourly Rounding Checked for Patient Positioning Patient Personal Items Placed Within Reach Hourly Rounding Completed Yes Patient Awake Safety Call Light Within Reach Bed Position Low Bed Brake On Side Rails Up X2 Document 08/02/16 05:37 ALD (Rec: 08/02/16 05:37 ALD [id number]) Hourly Rounding Hourly Rounding Checked for Patient Positioning Patient Personal Items Placed Within Reach Checked Patient Pain Level Hourly Rounding Completed Yes Patient Sleeping Safety Call Light Within Reach Bed Position Low Bed Brake On Side Rails Up X2 Turn and Postion Bedrest No Turn Q 2HR No Patient Position Left Side Positioning Aides Pillows Document 08/02/16 06:36 EGH (Rec: 08/02/16 06:37 EGH [id number]) Hourly Rounding Hourly Rounding Checked for Patient Positioning Patient Personal Items Placed Within Reach Hourly Rounding Completed Yes Patient Awake Is family present? No Safety Call Light Within Reach Bed Position Low Phone Within Reach Bed Brake On Side Rails Up X2 Are the Floors Free From Trip Hazards? Yes Is the Room Free From Clutter? Yes Turn and Postion Bedrest No Turn Q 2HR No Document 08/02/16 08:13 [id number] (Rec: 08/02/16 08:21 [id number]) Hourly Rounding Hourly Rounding Checked for Patient Positioning Patient Personal Items Placed Within Reach Checked Patient Pain Level Hourly Rounding Completed Yes Patient Awake Is family present? No Equipment in Use Specialty Bed Safety Call Light Within Reach Bed Position Low Phone Within Reach Bed Brake On Side Rails Up X2 Are the Floors Free From Trip Hazards? Yes Is the Room Free From Clutter? Yes Turn and Postion Bedrest No Turn Q 2HR No Patient Position Back Document 08/02/16 11:45 EG (Rec: 08/02/16 11:53 [id number] Hourly Rounding Hourly Rounding Checked for Patient Positioning Patient Personal Items Placed Within Reach Hourly Rounding Completed Yes Patient Awake Is family present? No Safety Call Light Within Reach Bed Position Low Fall Precautions Phone Within Reach Bed Brake On Side Rails Up X2 Are the Floors Free From Trip Hazards? Yes Is the Room Free From Clutter? Yes Turn and Postion Bedrest No Turn Q 2HR No Document 08/02/16 12:22 [id number] (Rec: 08/02/16 12:23 [id number]) Hourly Rounding Hourly Rounding Checked for Patient Positioning Patient Personal Items Placed Within Reach Hourly Rounding Completed Yes Patient Awake Is family present? No Comment Dr Kerns at bedside speaking with grandson Equipment in Use Specialty Bed Safety Call Light Within Reach Bed Position Low Fall Precautions Phone Within Reach Bed Brake On Side Rails Up X2 Are the Floors Free From Trip Hazards? Yes Is the Room Free From Clutter? Yes Turn and Postion Bedrest No Turn Q 2HR No Patient Position Sitting on Side of Bed Document 08/02/16 15:12 [facility] (Rec: 08/02/16 15:14 [facility] [id number]) Hourly Rounding Hourly Rounding Checked for Patient Positioning Patient Personal Items Placed Within Reach Hourly Rounding Completed Yes Patient Awake Is family present? No Safety Call Light Within Reach Bed Position Low Phone Within Reach Bed Brake On Side Rails Up X2 Are the Floors Free From Trip Hazards? Yes Is the Room Free From Clutter? Yes Turn and Postion Bedrest No Turn Q 2HR No Document 08/02/16 16:26 [id number] (Rec: 08/02/16 16:26 [id number]) Hourly Rounding Hourly Rounding Checked for Patient Positioning Patient Personal Items Placed Within Reach Hourly Rounding Completed Yes Patient Sleeping Is family present? No Equipment in Use Specialty Bed Safety Call Light Within Reach Bed Position Low Phone Within Reach Bed Brake On Side Rails Up X2 Are the Floors Free From Trip Hazards? Yes Is the Room Free From Clutter? Yes Turn and Postion Bedrest No Turn Q 2HR No Patient Position Left Side Document 08/02/16 16:57 [id number] (Rec: 08/02/16 17:03 [id number]) Hourly Rounding Hourly Rounding Checked for Patient Positioning Patient Personal Items Placed Within Reach Checked Patient Pain Level Hourly Rounding Completed Yes Patient Awake Is family present? Yes: Grandson Equipment in Use Specialty Bed Safety Call Light Within Reach Bed Position Low Phone Within Reach Bed Brake On Side Rails Up X2 Are the Floors Free From Trip Hazards? Yes Is the Room Free From Clutter? Yes Turn and Postion Bedrest No Turn Q 2HR No Patient Position Left Side Document 08/02/16 18:57 [id number] (Rec: 08/02/16 18:58 [id number]) Hourly Rounding Hourly Rounding Checked for Patient Positioning Patient Helped to Bathroom or Assisted with Bedpan or Urinal Patient Personal Items Placed Within Reach Hourly Rounding Completed Yes Patient Awake Is family present? No Safety Call Light Within Reach Bed Position Low Bed Exit Alarm Fall Precautions Phone Within Reach Bed Brake On Side Rails Up X1 Side Rails Up X2 Are the Floors Free From Trip Hazards? Yes Is the Room Free From Clutter? Yes Turn and Postion Bedrest No Turn Q 2HR No Patient Position Back Document 08/02/16 19:00 ALD (Rec: 08/02/16 21:29 [id number]) Hourly Rounding Hourly Rounding Checked for Patient Positioning Patient Helped to Bathroom or Assisted with Bedpan or Urinal Patient Personal Items Placed Within Reach Hourly Rounding Completed Yes Patient Awake Is family present? No Safety Call Light Within Reach Bed Position Low Bed Exit Alarm Fall Precautions Phone Within Reach Bed Brake On Side Rails Up X1 Side Rails Up X2 Are the Floors Free From Trip Hazards? Yes Is the Room Free From Clutter? Yes Turn and Postion Bedrest No Turn Q 2HR No Patient Position Left Side Document 08/02/16 21:00 ALD (Rec: 08/02/16 21:29 [id number]) Hourly Rounding Hourly Rounding Checked for Patient Positioning Patient Helped to Bathroom or Assisted with Bedpan or Urinal Patient Personal Items Placed Within Reach Hourly Rounding Completed Yes Patient Awake Is family present? No Safety Call Light Within Reach Bed Position Low Bed Exit Alarm Fall Precautions Phone Within Reach Bed Brake On Side Rails Up X1 Side Rails Up X2 Are the Floors Free From Trip Hazards? Yes Is the Room Free From Clutter? Yes Turn and Postion Bedrest No Turn Q 2HR No Patient Position Left Side Document 08/02/16 22:23 [id number] (Rec: 08/02/16 22:30 [id number]) Hourly Rounding Hourly Rounding Checked for Patient Positioning Patient Personal Items Placed Within Reach Hourly Rounding Completed Yes Patient Awake Is family present? No Safety Call Light Within Reach Bed Position Low Bed Exit Alarm Fall Precautions Phone Within Reach Bed Brake On Side Rails Up X1 Side Rails Up X2 Are the Floors Free From Trip Hazards? Yes Is the Room Free From Clutter? Yes Turn and Postion Bedrest No Turn Q 2HR No Patient Position Back Document 08/02/16 23:40 [facility] (Rec: 08/03/16 00:48 [id number]) Hourly Rounding Hourly Rounding Checked for Patient Positioning Patient Personal Items Placed Within Reach Checked Patient Pain Level Hourly Rounding Completed Yes Patient Resting With Eyes Closed Is family present? No Safety Call Light Within Reach Bed Position Low Bed Exit Alarm Fall Precautions Phone Within Reach Bed Brake On Side Rails Up X1 Side Rails Up X2 Are the Floors Free From Trip Hazards? Yes Is the Room Free From Clutter? Yes Turn and Postion Bedrest No Turn Q 2HR No Patient Position Back Document 08/03/16 00:48 [id number] (Rec: 08/03/16 00:48 [id number]) Hourly Rounding Hourly Rounding Checked for Patient Positioning Patient Helped to Bathroom or Assisted with Bedpan or Urinal Patient Personal Items Placed Within Reach Hourly Rounding Completed Yes Patient Awake Safety Call Light Within Reach Bed Position Low Bed Exit Alarm Fall Precautions Phone Within Reach Bed Brake On Side Rails Up X1 Side Rails Up X2 Are the Floors Free From Trip Hazards? Yes Is the Room Free From Clutter? Yes Turn and Postion Bedrest No Turn Q 2HR No Patient Position Back Document 08/03/16 01:35 [facility] (Rec: 08/03/16 01:36 [id number] Hourly Rounding Hourly Rounding Checked for Patient Positioning Patient Helped to Bathroom or Assisted with Bedpan or Urinal Patient Personal Items Placed Within Reach Hourly Rounding Completed Yes Patient Awake Safety Call Light Within Reach Bed Position Low Bed Exit Alarm Fall Precautions Phone Within Reach Bed Brake On Side Rails Up X1 Side Rails Up X2 Are the Floors Free From Trip Hazards? Yes Is the Room Free From Clutter? Yes Turn and Postion Bedrest No Turn Q 2HR No Patient Position Left Side Document 08/03/16 01:40 [facility] [place]: 08/03/16 02:[address] [id number] Hourly Rounding Hourly Rounding Checked for Patient Positioning Patient Helped to Bathroom or Assisted with Bedpan or Urinal Patient Personal Items Placed Within Reach Checked Patient Pain Level Hourly Rounding Completed Yes Patient Awake Is family present? No Safety Call Light Within Reach Bed Position Low Bed Exit Alarm Fall Precautions Phone Within Reach Bed Brake On Side Rails Up X2 Are the Floors Free From Trip Hazards? Yes Is the Room Free From Clutter? Yes Turn and Postion Bedrest No Turn Q 2HR No Patient Position Sitting on Side of Bed Document 08/03/16 02:44 [id number] (Rec: 08/03/16 02:46 [id number]) Hourly Rounding Hourly Rounding Checked for Patient Positioning Patient Personal Items Placed Within Reach Hourly Rounding Completed Yes Patient Awake Is family present? No Safety Call Light Within Reach Bed Position Low Bed Exit Alarm Fall Precautions Phone Within Reach Bed Brake On Side Rails Up X1 Side Rails Up X2 Are the Floors Free From Trip Hazards? Yes Is the Room Free From Clutter? Yes Turn and Postion Bedrest No Turn Q 2HR No Patient Position Back Document 08/03/16 03:30 ALD (Rec: 08/03/16 04:52 ALD [id number]) Hourly Rounding Hourly Rounding Checked for Patient Positioning Patient Personal Items Placed Within Reach Checked Patient Pain Level Hourly Rounding Completed Yes Patient Sleeping Is family present? No Safety Call Light Within Reach Bed Position Low Bed Exit Alarm Fall Precautions Phone Within Reach Bed Brake On Side Rails Up X1 Side Rails Up X2 Are the Floors Free From Trip Hazards? Yes Is the Room Free From Clutter? Yes Turn and Postion Bedrest No Turn Q 2HR No Patient Position Back Document 08/03/16 05:05 ALD (Rec: 08/03/16 05:05 ALD [id number]) Hourly Rounding Hourly Rounding Checked for Patient Positioning Patient Personal Items Placed Within Reach Hourly Rounding Completed Yes Patient Sleeping Is family present? No Safety Call Light Within Reach Bed Position Low Bed Exit Alarm Fall Precautions Phone Within Reach Bed Brake On Side Rails Up X1 Side Rails Up X2 Are the Floors Free From Trip Hazards? Yes Is the Room Free From Clutter? Yes Turn and Postion Bedrest No Turn Q 2HR No Patient Position Back Document 08/03/16 07:16 [facility] (Rec: 08/03/16 07:22 [facility] [id number]) Hourly Rounding Hourly Rounding Checked for Patient Positioning Patient Helped to Bathroom or Assisted with Bedpan or Urinal Patient Personal Items Placed Within Reach Hourly Rounding Completed Yes Patient Awake Is family present? No Safety Call Light Within Reach Bed Position Low Phone Within Reach Bed Brake On Side Rails Up X2 Are the Floors Free From Trip Hazards? Yes Is the Room Free From Clutter? Yes Turn and Postion Bedrest No Turn Q 2HR No Document 08/03/16 07:59 [facility] (Rec: 08/03/16 08:05 [facility] [id number]) Hourly Rounding Hourly Rounding Checked for Patient Positioning Patient Personal Items Placed Within Reach Checked Patient Pain Level Hourly Rounding Completed Yes Patient Awake Is family present? No Equipment in Use Specialty Bed Safety Call Light Within Reach Bed Position Low Fall Precautions Phone Within Reach Bed Brake On Side Rails Up X2 Are the Floors Free From Trip Hazards? Yes Is the Room Free From Clutter? Yes Turn and Postion Bedrest No Turn Q 2HR No Patient Position Left Side Positioning Aides Pillows Head of Bed Position (degrees) 20 Document 08/03/16 11:06 [facility] (Rec: 08/03/16 11:06 [facility] [id number]) Hourly Rounding Hourly Rounding Checked for Patient Positioning Patient Personal Items Placed Within Reach Checked Patient Pain Level Hourly Rounding Completed Yes Patient Awake Is family present? No Equipment in Use Specialty Bed Safety Call Light Within Reach Bed Position Low Bed Exit Alarm Fall Precautions Phone Within Reach Bed Brake On Side Rails Up X2 Are the Floors Free From Trip Hazards? Yes Is the Room Free From Clutter? Yes Turn and Postion Bedrest No Turn Q 2HR No Patient Position Back Positioning Aides Pillows Head of Bed Position (degrees) 30 Document 08/03/16 12:07 [facility] (Rec: 08/03/16 12:08 [facility] [id number]) Hourly Rounding Hourly Rounding Checked for Patient Positioning Patient Personal Items Placed Within Reach Hourly Rounding Completed Yes Patient Awake Is family present? No Safety Call Light Within Reach Bed Position Low Bed Exit Alarm Fall Precautions Phone Within Reach Bed Brake On Side Rails Up X2 Are the Floors Free From Trip Hazards? Yes Is the Room Free From Clutter? Yes Turn and Postion Bedrest No Turn Q 2HR No Document 08/03/16 13:00 [id number] (Rec: 08/03/16 15:12 [id number]) Hourly Rounding Hourly Rounding Checked for Patient Positioning Patient Personal Items Placed Within Reach Checked Patient Pain Level Hourly Rounding Completed Yes Patient Awake Is family present? No Equipment in Use Specialty Bed Safety Call Light Within Reach Bed Position Low Bed Exit Alarm Fall Precautions Phone Within Reach Bed Brake On Side Rails Up X2 Are the Floors Free From Trip Hazards? Yes Is the Room Free From Clutter? Yes Turn and Postion Bedrest No Turn Q 2HR No Document 08/03/16 14:00 [id number] (Rec: 08/03/16 15:12 [id number]) Hourly Rounding Hourly Rounding Checked for Patient Positioning Patient Personal Items Placed Within Reach Checked Patient Pain Level Hourly Rounding Completed Yes Patient Awake Is family present? No Equipment in Use Specialty Bed Safety Call Light Within Reach Bed Position Low Bed Exit Alarm Fall Precautions Phone Within Reach Bed Brake On Side Rails Up X2 Are the Floors Free From Trip Hazards? Yes Is the Room Free From Clutter? Yes Turn and Postion Bedrest No Turn Q 2HR No Document 08/03/16 15:00 [id number] (Rec: 08/03/16 15:12 [id number]) Hourly Rounding Hourly Rounding Checked for Patient Positioning Patient Personal Items Placed Within Reach Checked Patient Pain Level Hourly Rounding Completed Yes Patient Awake Is family present? No Equipment in Use Specialty Bed Safety Call Light Within Reach Bed Position Low Bed Exit Alarm Fall Precautions Phone Within Reach Bed Brake On Side Rails Up X2 Are the Floors Free From Trip Hazards? Yes Is the Room Free From Clutter? Yes Turn and Postion Bedrest No Turn Q 2HR No Document 08/03/16 15:40 EG (Rec: 08/03/16 15:42 EG [id number]) Hourly Rounding Hourly Rounding Checked for Patient Positioning Patient Personal Items Placed Within Reach Hourly Rounding Completed Yes Patient Awake Is family present? Yes Safety Call Light Within Reach Bed Position Low Phone Within Reach Bed Brake On Side Rails Up X2 Are the Floors Free From Trip Hazards? Yes Is the Room Free From Clutter? Yes Turn and Postion Bedrest No Turn Q 2HR No Document 08/03/16 16:00 [id number] (Rec: 08/03/16 16:13 [id number]) Hourly Rounding Hourly Rounding Checked for Patient Positioning Patient Personal Items Placed Within Reach Checked Patient Pain Level Hourly Rounding Completed Yes Patient Awake Is family present? Yes Equipment in Use Specialty Bed Safety Call Light Within Reach Bed Position Low Phone Within Reach Bed Brake On Side Rails Up X2 Are the Floors Free From Trip Hazards? Yes Is the Room Free From Clutter? Yes Turn and Postion Bedrest No Turn Q 2HR No Document 08/03/16 17:00 [id number] (Rec: 08/03/16 17:23 [id number]) Hourly Rounding Hourly Rounding Checked for Patient Positioning Patient Personal Items Placed Within Reach Checked Patient Pain Level Hourly Rounding Completed Yes Patient Awake Is family present? Yes Equipment in Use Specialty Bed Safety Call Light Within Reach Bed Position Low Phone Within Reach Bed Brake On Side Rails Up X2 Are the Floors Free From Trip Hazards? Yes Is the Room Free From Clutter? Yes Turn and Postion Bedrest No Turn Q 2HR No Document 08/03/16 19:00 GLD (Rec: 08/03/16 19:57 GLD [id number]) Hourly Rounding Hourly Rounding Checked for Patient Positioning Patient Personal Items Placed Within Reach Checked Patient Pain Level Hourly Rounding Completed Yes Patient Awake Is family present? Yes Equipment in Use Specialty Bed Safety Call Light Within Reach Bed Position Low Phone Within Reach Bed Brake On Side Rails Up X2 Are the Floors Free From Trip Hazards? Yes Is the Room Free From Clutter? Yes Turn and Postion Bedrest No Turn Q 2HR No Patient Position Back Head of Bed Position (degrees) 30 Document 08/03/16 19:58 GLD (Rec: 08/03/16 19:58 GLD [id number]) Hourly Rounding Hourly Rounding Checked for Patient Positioning Patient Personal Items Placed Within Reach Checked Patient Pain Level Hourly Rounding Completed Yes Patient Awake Is family present? No Safety Call Light Within Reach Bed Position Low Fall Precautions Bed Brake On Side Rails Up X2 Are the Floors Free From Trip Hazards? Yes Is the Room Free From Clutter? Yes Turn and Postion Bedrest No Turn Q 2HR No Patient Position Back Head of Bed Position (degrees) 30 Document 08/03/16 20:06 LMO (Rec: 08/03/16 20:07 LMO [id number]) Hourly Rounding Hourly Rounding Checked for Patient Positioning Patient Helped to Bathroom or Assisted with Bedpan or Urinal Patient Personal Items Placed Within Reach Hourly Rounding Completed Yes Patient Awake Is family present? No Safety Call Light Within Reach Bed Position Low Phone Within Reach Bed Brake On Side Rails Up X2 Are the Floors Free From Trip Hazards? Yes Is the Room Free From Clutter? Yes Turn and Postion Bedrest No Turn Q 2HR No Patient Position Left Side Document 08/03/16 21:00 GLD (Rec: 08/03/16 22:39 GLD [id number]) Hourly Rounding Hourly Rounding Checked for Patient Positioning Patient Helped to Bathroom or Assisted with Bedpan or Urinal Patient Personal Items Placed Within Reach Hourly Rounding Completed Yes Patient Sleeping Is family present? No Equipment in Use Specialty Bed Safety Call Light Within Reach Bed Position Low Phone Within Reach Bed Brake On Side Rails Up X2 Are the Floors Free From Trip Hazards? Yes Is the Room Free From Clutter? Yes Turn and Postion Bedrest No Turn Q 2HR No Patient Position Left Side Document 08/03/16 22:00 GLD (Rec: 08/03/16 22:39 GLD [id number]) Hourly Rounding Hourly Rounding Checked for Patient Positioning Patient Helped to Bathroom or Assisted with Bedpan or Urinal Patient Personal Items Placed Within Reach Hourly Rounding Completed Yes Patient Sleeping Is family present? No Equipment in Use Specialty Bed Safety Call Light Within Reach Bed Position Low Phone Within Reach Bed Brake On Side Rails Up X2 Are the Floors Free From Trip Hazards? Yes Is the Room Free From Clutter? Yes Turn and Postion Bedrest No Turn Q 2HR No Patient Position Left Side Document 08/03/16 22:40 GLD (Rec: 08/03/16 22:40 GLD [id number]) Hourly Rounding Hourly Rounding Checked for Patient Positioning Patient Helped to Bathroom or Assisted with Bedpan or Urinal Patient Personal Items Placed Within Reach Hourly Rounding Completed Yes Patient Sleeping Is family present? No Equipment in Use Specialty Bed Safety Call Light Within Reach Bed Position Low Phone Within Reach Bed Brake On Side Rails Up X2 Are the Floors Free From Trip Hazards? Yes Is the Room Free From Clutter? Yes Turn and Postion Bedrest No Turn Q 2HR No Patient Position Left Side Document 08/03/16 23:21 GLD (Rec: 08/03/16 23:27 GLD [id number]) Hourly Rounding Hourly Rounding Checked for Patient Positioning Patient Helped to Bathroom or Assisted with Bedpan or Urinal Patient Personal Items Placed Within Reach Hourly Rounding Completed Yes Patient Awake Is family present? No Equipment in Use Specialty Bed Safety Call Light Within Reach Bed Position Low Bed Exit Alarm Fall Precautions Phone Within Reach Bed Brake On Side Rails Up X2 Are the Floors Free From Trip Hazards? Yes Is the Room Free From Clutter? Yes Turn and Postion Bedrest No Turn Q 2HR No Patient Position Left Side Document 08/04/16 01:35 LMO (Rec: 08/04/16 01:41 LMO [id number]) Hourly Rounding Hourly Rounding Checked for Patient Positioning Patient Personal Items Placed Within Reach Hourly Rounding Completed Yes Patient Awake Is family present? No Safety Call Light Within Reach Bed Position Low Phone Within Reach Bed Brake On Side Rails Up X2 Are the Floors Free From Trip Hazards? Yes Is the Room Free From Clutter? Yes Turn and Postion Bedrest No Turn Q 2HR No Patient Position Back Document 08/04/16 02:00 GLD (Rec: 08/04/16 02:45 GLD [id number]) Hourly Rounding Hourly Rounding Checked for Patient Positioning Patient Personal Items Placed Within Reach Hourly Rounding Completed Yes Patient Sleeping Is family present? No Equipment in Use Specialty Bed Safety Call Light Within Reach Bed Position Low Phone Within Reach Bed Brake On Side Rails Up X2 Are the Floors Free From Trip Hazards? Yes Is the Room Free From Clutter? Yes Turn and Postion Bedrest No Turn Q 2HR No Patient Position Left Side Document 08/04/16 02:45 GLD (Rec: 08/04/16 02:45 GLD [id number]) Hourly Rounding Hourly Rounding Checked for Patient Positioning Patient Personal Items Placed Within Reach Hourly Rounding Completed Yes Patient Sleeping Is family present? No Equipment in Use Specialty Bed Safety Call Light Within Reach Bed Position Low Phone Within Reach Bed Brake On Side Rails Up X2 Are the Floors Free From Trip Hazards? Yes Is the Room Free From Clutter? Yes Turn and Postion Bedrest No Turn Q 2HR No Patient Position Left Side Document 08/04/16 03:22 GLD (Rec: 08/04/16 03:22 GLD [id number]) Hourly Rounding Hourly Rounding Checked for Patient Positioning Patient Personal Items Placed Within Reach Hourly Rounding Completed Yes Patient Sleeping Is family present? No Equipment in Use Specialty Bed Safety Call Light Within Reach Bed Position Low Phone Within Reach Bed Brake On Side Rails Up X2 Are the Floors Free From Trip Hazards? Yes Is the Room Free From Clutter? Yes Turn and Postion Bedrest No Turn Q 2HR No Patient Position Left Side Document 08/04/16 04:38 LMO (Rec: 08/04/16 04:56 LMO [id number]) Hourly Rounding Hourly Rounding Checked for Patient Positioning Patient Personal Items Placed Within Reach Hourly Rounding Completed Yes Patient Awake Is family present? No Safety Call Light Within Reach Bed Position Low Fall Precautions Phone Within Reach Bed Brake On Side Rails Up X2 Are the Floors Free From Trip Hazards? Yes Is the Room Free From Clutter? Yes Turn and Postion Bedrest No Turn Q 2HR No Patient Position Back Document 08/04/16 05:00 GLD (Rec: 08/04/16 05:01 GLD [id number]) Hourly Rounding Hourly Rounding Checked for Patient Positioning Patient Personal Items Placed Within Reach Hourly Rounding Completed Yes Patient Sleeping Is family present? No Equipment in Use Specialty Bed Safety Call Light Within Reach Bed Position Low Fall Precautions Phone Within Reach Bed Brake On Side Rails Up X2 Are the Floors Free From Trip Hazards? Yes Is the Room Free From Clutter? Yes Turn and Postion Bedrest No Turn Q 2HR No Patient Position Right Side Document 08/04/16 06:00 GLD (Rec: 08/04/16 06:16 GLD [id number]) Hourly Rounding Hourly Rounding Checked for Patient Positioning Patient Personal Items Placed Within Reach Hourly Rounding Completed Yes Patient Sleeping Is family present? No Equipment in Use Specialty Bed Safety Call Light Within Reach Bed Position Low Fall Precautions Phone Within Reach Bed Brake On Side Rails Up X2 Are the Floors Free From Trip Hazards? Yes Is the Room Free From Clutter? Yes Turn and Postion Bedrest No Turn Q 2HR No Patient Position Left Side Document 08/04/16 07:15 [id number] (Rec: 08/04/16 07:16 [id number]) Hourly Rounding Hourly Rounding Checked for Patient Positioning Patient Personal Items Placed Within Reach Hourly Rounding Completed Yes Patient Sleeping Is family present? No Equipment in Use Specialty Bed Safety Call Light Within Reach Bed Position Low Phone Within Reach Bed Brake On Side Rails Up X2 Are the Floors Free From Trip Hazards? Yes Is the Room Free From Clutter? Yes Turn and Postion Bedrest No Turn Q 2HR No Patient Position Left Side Document 08/04/16 08:10 BEH (Rec: 08/04/16 08:11 BEH [id number]) Hourly Rounding Hourly Rounding Checked for Patient Positioning Patient Personal Items Placed Within Reach Hourly Rounding Completed Yes Patient Awake Is family present? No Safety Call Light Within Reach Bed Position Low Phone Within Reach Bed Brake On Side Rails Up X2 Are the Floors Free From Trip Hazards? Yes Is the Room Free From Clutter? Yes Turn and Postion Bedrest No Turn Q 2HR No Document 08/04/16 08:41 [id number] (Rec: 08/04/16 08:41 [id number]) Hourly Rounding Hourly Rounding Checked for Patient Positioning Patient Personal Items Placed Within Reach Hourly Rounding Completed Yes Patient Awake Is family present? No Comment Assisted with tray set up. Equipment in Use Specialty Bed Safety Call Light Within Reach Bed Position Low Fall Precautions Phone Within Reach Bed Brake On Side Rails Up X2 Are the Floors Free From Trip Hazards? Yes Is the Room Free From Clutter? Yes Turn and Postion Bedrest No Turn Q 2HR No Patient Position Sitting up in Bed Document 08/04/16 09:27 BLG (Rec: 08/04/16 09:27 BLG [id number]) Hourly Rounding Hourly Rounding Checked for Patient Positioning Patient Helped to Bathroom or Assisted with Bedpan or Urinal Patient Personal Items Placed Within Reach Hourly Rounding Completed Yes Patient Awake Is family present? No Safety Call Light Within Reach Bed Position Low Fall Precautions Phone Within Reach Bed Brake On Side Rails Up X2 Are the Floors Free From Trip Hazards? Yes Is the Room Free From Clutter? Yes Turn and Postion Bedrest No Turn Q 2HR No Patient Position Bedside Commode Peripheral venous cannula mgmt/flush Start: 08/01/16 01: 33 Freq: CONT Status: Discharge Document 08/01/16 01:55 [id number] (Rec: 08/01/16 01:55 [id number]) Document 08/02/16 08:13 [id number] (Rec: 08/02/16 08:21 [id number]) Document 08/03/16 07:59 BSS (Rec: 08/03/16 08:05 BSS [id number]) RT Continuous Pulse Oximetry Start: 07/31/16 17: 09 Freq: Status: Complete Document 07/31/16 17:22 DLW (Rec: 07/31/16 17:27 DLW [id number]) RT PRN/Refused/Not Available Start: 08/02/16 18: 37 Freq: Status: Discharge Document 08/02/16 16:46 HRF (Rec: 08/02/16 18:37 HRF [id number]) PRN/Refused Refused Yes Comment No acute respiratory distress noted. Document 08/03/16 11:12 KLL (Rec: 08/03/16 12:34 KLL [id number]) PRN/Refused Comment pt didn't want tx at this time Document 08/03/16 16:29 KLL (Rec: 08/03/16 17:33 KLL [id number]) PRN/Refused Comment pt didn't want tx at this time RT Respiratory Medication Delivery Start: 08/01/16 04: 51 Freq: Status: Discharge Document 08/01/16 04:51 JPM (Rec: 08/01/16 04:52 JPM [id number]) Respiratory Therapy Pre Assessment SPO2 (95-100) 95 Heart rate 88 Respiratory Rate 16 Oxygen Delivery Method Room Air FIO2 (%) 21 Anterior & Posterior Bilateral Throughout Breath Sounds Clear Treatment Modality Nebulizer Therapy Respiratory Medications Duoneb Medication Delivery Device Mask Treatment Tolerance Good Initial Aerosol/MDI/DPI* Yes Post RT Medication Delivery Post Heart rate 89 Post Respiratory Rate (breaths/min) 16 Anterior & Posterior Bilateral Throughout Post Breath Sounds Clear Treatment Outcome No Change Comment no complications noted Document 08/01/16 11:02 KLL (Rec: 08/01/16 12:48 KLL [id number]) Respiratory Therapy Pre Assessment SPO2 (95-100) 95 Heart rate 85 Respiratory Rate 16 Oxygen Delivery Method Room Air Anterior & Posterior Bilateral Throughout Breath Sounds Clear Diminished Treatment Modality Nebulizer Therapy Respiratory Medications Duoneb Medication Delivery Device Mask Treatment Tolerance Excellent Sub. Aerosol/MDI/DPI Treatment* Yes Post RT Medication Delivery Post Heart rate 85 Post Respiratory Rate (breaths/min) 16 Anterior & Posterior Bilateral Throughout Post Breath Sounds Clear Diminished Treatment Outcome No Change Document 08/01/16 16:02 KLL (Rec: 08/01/16 17:46 KLL [id number]) Respiratory Therapy Pre Assessment SPO2 (95-100) 94 L Heart rate 84 Respiratory Rate 16 Oxygen Delivery Method Room Air Anterior & Posterior Bilateral Throughout Breath Sounds Clear Diminished Treatment Modality Nebulizer Therapy Respiratory Medications Duoneb Medication Delivery Device Mask Treatment Tolerance Excellent Sub. Aerosol/MDI/DPI Treatment* Yes Post RT Medication Delivery Post Heart rate 85 Post Respiratory Rate (breaths/min) 16 Anterior & Posterior Bilateral Throughout Post Breath Sounds Clear Diminished Treatment Outcome No Change Document 08/01/16 22:21 SMS (Rec: 08/02/16 05:34 SMS [id number]) Respiratory Therapy Pre Assessment SPO2 (95-100) 98 Heart rate 72 Respiratory Rate 18 Oxygen Delivery Method Room Air Anterior & Posterior Bilateral Throughout Breath Sounds Clear Diminished Treatment Modality Nebulizer Therapy Respiratory Medications Duoneb Medication Delivery Device Mouthpiece Treatment Tolerance Good Sub. Aerosol/MDI/DPI Treatment* Yes Post RT Medication Delivery Post Heart rate 75 Post Respiratory Rate (breaths/min) 18 Anterior & Posterior Bilateral Throughout Post Breath Sounds Clear Diminished Treatment Outcome No Change Comment Tx given- no complications noted. Document 08/02/16 04:57 SMS (Rec: 08/02/16 05:22 SMS [id number]) Respiratory Therapy Pre Assessment SPO2 (95-100) 94 L Heart rate 79 Respiratory Rate 16 Oxygen Delivery Method Room Air Anterior & Posterior Bilateral Throughout Breath Sounds Clear Treatment Modality Nebulizer Therapy Respiratory Medications Duoneb Medication Delivery Device Mouthpiece Treatment Tolerance Good Sub. Aerosol/MDI/DPI Treatment* Yes Post RT Medication Delivery Post Heart rate 79 Post Respiratory Rate (breaths/min) 16 Anterior & Posterior Bilateral Throughout Post Breath Sounds Clear Treatment Outcome No Change Comment No complications noted. Document 08/02/16 10:56 HRF (Rec: 08/02/16 14:41 HRF [id number]) Respiratory Therapy Pre Assessment SPO2 (95-100) 99 Heart rate 83 Respiratory Rate 16 Oxygen Delivery Method Room Air Anterior & Posterior Bilateral Throughout Breath Sounds Clear Treatment Modality Nebulizer Therapy Respiratory Medications Duoneb Medication Delivery Device Mask Treatment Tolerance Excellent Sub. Aerosol/MDI/DPI Treatment* Yes Post RT Medication Delivery Post Heart rate 83 Post Respiratory Rate (breaths/min) 16 Anterior & Posterior Bilateral Throughout Post Breath Sounds Clear Treatment Outcome No Change Saline lock insertion/management Start: 07/31/16 17: 09 Freq: Status: Complete Document 07/31/16 17:22 DLW (Rec: 07/31/16 17:27 DLW [id number]) IV Insertion/Site Assessment IV Attempt 1 Successful Successful Blood drawn and sent to Lab No Left Antecubital IV Established [employer] No Date of Insertion 07/31/16 Time of Insertion 17:26 IV Catheter Type Peripheral IV Gauge (gauge) 20 Site Observation Patent Dressing Applied Transparent Dressing Patient Tolerance Tolerated Well Sepsis Screening Start: 07/31/16 20: 34 Freq: Q8H Status: Discharge Document 07/31/16 21:39 [id number] (Rec: 07/31/16 21:45 [id number]) Sepsis Screening Sepsis Infection Criteria Present none Sepsis SIRS Criteria none Sepsis Screen No Definite Risk Sepsis Action Taken no action required Document 08/01/16 04:00 [id number] (Rec: 08/01/16 04:32 [id number]) Sepsis Screening Sepsis Infection Criteria Present none Sepsis SIRS Criteria none Sepsis Screen No Definite Risk Sepsis Action Taken no action required Document 08/01/16 20:00 ALD (Rec: 08/01/16 21:22 ALD [id number]) Sepsis Screening Sepsis Infection Criteria Present none Sepsis SIRS Criteria none Sepsis Screen No Definite Risk Sepsis Action Taken no action required Document 08/01/16 23:00 ALD (Rec: 08/02/16 01:08 ALD [id number]) Sepsis Screening Sepsis Infection Criteria Present none Sepsis SIRS Criteria none Sepsis Screen No Definite Risk Sepsis Action Taken no action required Document 08/02/16 08:13 [id number] (Rec: 08/02/16 08:21 [id number]) Sepsis Screening Sepsis Infection Criteria Present none Sepsis SIRS Criteria none Sepsis Screen No Definite Risk Sepsis Action Taken no action required Document 08/02/16 16:57 [id number] (Rec: 08/02/16 17:03 [id number]) Sepsis Screening Sepsis Infection Criteria Present none Sepsis SIRS Criteria none Sepsis Screen No Definite Risk Sepsis Action Taken no action required Document 08/02/16 19:00 ALD (Rec: 08/02/16 21:35 ALD [id number]) Sepsis Screening Sepsis Infection Criteria Present none Sepsis SIRS Criteria none Sepsis Screen No Definite Risk Sepsis Action Taken no action required Document 08/02/16 23:40 ALD (Rec: 08/03/16 00:48 ALD [id number]) Sepsis Screening Sepsis Infection Criteria Present none Sepsis SIRS Criteria none Sepsis Screen No Definite Risk Sepsis Action Taken no action required Document 08/03/16 03:30 ALD (Rec: 08/03/16 04:52 ALD [id number]) Sepsis Screening Sepsis Infection Criteria Present none Sepsis SIRS Criteria none Sepsis Screen No Definite Risk Sepsis Action Taken no action required Document 08/03/16 07:59 BSS (Rec: 08/03/16 08:05 BSS [id number]) Sepsis Screening Sepsis Infection Criteria Present none Sepsis SIRS Criteria none Sepsis Screen No Definite Risk Sepsis Action Taken no action required Document 08/03/16 15:26 [id number] (Rec: 08/03/16 15:26 [id number]) Sepsis Screening Sepsis Infection Criteria Present none Sepsis SIRS Criteria none Sepsis Screen No Definite Risk Sepsis Action Taken no action required Document 08/03/16 22:40 GLD (Rec: 08/03/16 22:40 GLD [id number]) Sepsis Screening Sepsis Infection Criteria Present none Sepsis SIRS Criteria none Sepsis Screen No Definite Risk Sepsis Action Taken no action required Skin Risk Assessment Scale Start: 07/31/16 20: 34 Freq: Q12H Status: Discharge Document 07/31/16 21:34 [id number] (Rec: 07/31/16 21:37 [id number]) Skin Risk Assessment Scale Moisture Risk Occasionally Moist Sensory Perception No Impairment Activity Risk Walks Occasionally Mobility Risk Slightly Limited Nutrition Risk Probably Inadequate Friction & Shear Risk Potential Problem Skin Risk Total Score (points) 17 Document 08/01/16 08:44 KENNETH (Rec: 08/01/16 18:45 KENNETH [id number]) Skin Risk Assessment Scale Moisture Risk Occasionally Moist Sensory Perception No Impairment Activity Risk Walks Occasionally Mobility Risk Slightly Limited Nutrition Risk Probably Inadequate Friction & Shear Risk Potential Problem Skin Risk Total Score (points) 17 Document 08/01/16 20:00 ALD (Rec: 08/01/16 21:17 ALD [id number]) Skin Risk Assessment Scale Moisture Risk Occasionally Moist Sensory Perception No Impairment Activity Risk Walks Occasionally Mobility Risk Slightly Limited Nutrition Risk Probably Inadequate Friction & Shear Risk Potential Problem Skin Risk Total Score (points) 17 Document 08/02/16 08:13 [id number] (Rec: 08/02/16 08:21 [id number]) Skin Risk Assessment Scale Moisture Risk Occasionally Moist Sensory Perception No Impairment Activity Risk Walks Occasionally Mobility Risk Slightly Limited Nutrition Risk Probably Inadequate Friction & Shear Risk Potential Problem Skin Risk Total Score (points) 17 Document 08/02/16 21:29 ALD (Rec: 08/02/16 21:30 ALD [id number]) Skin Risk Assessment Scale Moisture Risk Occasionally Moist Sensory Perception No Impairment Activity Risk Walks Occasionally Mobility Risk Slightly Limited Nutrition Risk Probably Inadequate Friction & Shear Risk Potential Problem Skin Risk Total Score (points) 17 Document 08/03/16 07:59 BSS (Rec: 08/03/16 08:05 BSS [id number]) Skin Risk Assessment Scale Moisture Risk Occasionally Moist Sensory Perception Very Limited Activity Risk Walks Occasionally Mobility Risk Slightly Limited Nutrition Risk Probably Inadequate Friction & Shear Risk Potential Problem Skin Risk Total Score (points) 15 Document 08/03/16 19:00 GLD (Rec: 08/03/16 19:57 GLD [id number]) Skin Risk Assessment Scale Moisture Risk Occasionally Moist Sensory Perception Very Limited Activity Risk Walks Occasionally Mobility Risk Slightly Limited Nutrition Risk Probably Inadequate Friction & Shear Risk Potential Problem Skin Risk Total Score (points) 15 Social Work Discharge Assessment Start: 08/04/16 14: 04 Freq: Status: Complete Document 08/04/16 14:04 J (Rec: 08/04/16 14:05 [facility] [id number]) Social Work Discharge Assessment Discharge Comment D/[facility] BACK [facility] Narrative CALL [facility] PT WILL BE PICKUP BY THEM AT 10:30AM TODAY AND INFORMED NURSING STAFF. System Review Start: 07/31/16 20: 34 Freq: Q8H Status: Discharge Document 07/31/16 21:39 [id number] (Rec: 07/31/16 21:45 [id number]) Pain Assessment Pain Present Reports Pain Lower Extremity Pain Intensity 3 Hand Pain Intensity 6 Description Sharp Scale Used Numeric (1 - 10) Pain Intervention Distraction Darkened Room Neurological Assessment Eye Opening Spontaneous Motor Obeys Commands Verbal Oriented Coma Scale Total 15 Neurologic Status Alert Patient Orientation Person Place Time Arousable To Name Speech Pattern Normal rate Normal rhythm Normal tone Appropriate Clear Patient Behavior Appropriate Cooperative Sensory Hard of Hearing Vision impaired All Four Limbs Strength Mild Weakness Protein Chemist Strength Equal Bilat Weak Push/Pull Equal Numbness/Tingling 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 Facial Symmetry Symmetrical Blink Present Cough/Gag Normal Doll's-Eye Absent Cardiovascular Assessment Signs and Symptoms None Heart Sounds S1 & S2 Pulse Rhythm Regular Jugular Vein Distention None Capillary Refill < 3 Seconds Circulatory Tenderness Description None Right Radial 2+ Left Radial 2+ Right Dorsalis Pedis 2+ Left Dorsalis Pedis 2+ Chest Pain Complaint No Has Confirmed Diagnosis of DVT, PE or No VTE VTE Prophylaxis Platelet Monitoring Mechanical Prophylaxis No Respiratory Assessment Respiratory Symptoms None Effort Normal for Patient Spontaneous Non-Labored Depth Normal Respiratory Pattern Regular Chest Shape Normal Expansion Symmetrical All Lung Briggs Clear Oxygen Delivery Method Room Air Cough Description Voluntary Productive Cough Frequency Intermittent Sputum Amount Scant Gastrointestinal Assessment Abdomen Description Flat Soft Non-Tender 3 or more loose stools, in less than 24 No hours Nausea/Vomiting Presence None All Four Quadrants Active Flatus Presence Present Genitourinary Assessment Genitourinary Symptoms Urinary Hesitancy Bladder Pattern Hesitancy Incontinence Urge Voiding Method Toilet Urinal Brief Bladder Distention None Suprapubic Tenderness with Palpation No Integumentary Assessment Nail Bed Appearance [place] Temperature Warm Moisture Dry Turgor Normal Color Normal All Pressure Points Assessed Yes Evidence of Incision/Wounds/Breakdown No Mucous membranes moist, pink and intact Yes Oral Cavity Dentures Integumentary Comment: scabs noted to bilateral feet and legs Musculoskeletal Assessment Musculoskeletal Symptoms Generalized Weakness Difficulty Walking Document 08/01/16 04:00 [id number] (Rec: 08/01/16 04:32 [id number]) Pain Assessment Pain Present Reports No Pain Neurological Assessment Eye Opening Spontaneous Motor Obeys Commands Verbal Oriented Coma Scale Total 15 Neurologic Status Alert Patient Orientation Person Place Time Arousable To Name Speech Pattern Normal rate Normal rhythm Normal tone Appropriate Clear Patient Behavior Appropriate Cooperative Sensory Hard of Hearing Vision impaired All Four Limbs Strength Mild Weakness Numbness/Tingling 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 Facial Symmetry Symmetrical Blink Present Doll's-Eye Absent Cardiovascular Assessment Signs and Symptoms None Heart Sounds S1 & S2 Pulse Rhythm Regular Jugular Vein Distention None Chest Pain Complaint No Has Confirmed Diagnosis of DVT, PE or No VTE VTE Prophylaxis Platelet Monitoring Mechanical Prophylaxis No Respiratory Assessment Respiratory Symptoms None Effort Normal for Patient Spontaneous Non-Labored Depth Normal Respiratory Pattern Regular Chest Shape Normal Expansion Symmetrical All Lung Briggs Clear Oxygen Delivery Method Room Air Cough Description Voluntary Productive Cough Frequency Intermittent Sputum Amount Scant Gastrointestinal Assessment Abdomen Description Flat Soft Non-Tender 3 or more loose stools, in less than 24 No hours Nausea/Vomiting Presence None All Four Quadrants Active Flatus Presence Present Genitourinary Assessment Genitourinary Symptoms Urinary Hesitancy Bladder Pattern Hesitancy Incontinence Urge Voiding Method Toilet Urinal Brief Bladder Distention None Suprapubic Tenderness with Palpation No Integumentary Assessment Nail Bed Appearance [place] Temperature Warm Moisture Dry Turgor Normal Color Normal All Pressure Points Assessed No Evidence of Incision/Wounds/Breakdown No Oral Cavity Dentures Integumentary Comment: scabs noted to bilateral feet and legs Musculoskeletal Assessment Musculoskeletal Symptoms Generalized Weakness Difficulty Walking Document 08/01/16 08:44 KENNETH (Rec: 08/01/16 18:45 KENNETH [id number]) Pain Assessment Pain Present Reports Pain bilateral hands Pain Intensity 6 Description Ache Scale Used Numeric (1 - 10) Pain Intervention Declined Lower Extremity Pain Intensity 6 Description Ache Scale Used Numeric (1 - 10) Pain Intervention Declined Neurological Assessment Eye Opening Spontaneous Motor Obeys Commands Verbal Oriented Coma Scale Total 15 Neurologic Status Alert Patient Orientation Person Place Time Arousable To Name Speech Pattern Normal rate Normal rhythm Normal tone Appropriate Clear Patient Behavior Appropriate Cooperative Bilateral Pupil Reaction Reactive Pupil [place] Equal All Four Limbs Strength Normal for Patient Protein Chemist Strength Equal Bilat Weak Push/Pull Equal Numbness/Tingling 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 Facial Symmetry Symmetrical Cardiovascular Assessment Signs and Symptoms None Heart Sounds S1 & S2 Pulse Rhythm Regular Jugular Vein Distention None Capillary Refill < 3 Seconds Circulatory Tenderness Description None Right Radial 2+ Left Radial 2+ Right Dorsalis Pedis 2+ Left Dorsalis Pedis 2+ Has Confirmed Diagnosis of DVT, PE or No VTE VTE Prophylaxis Platelet Monitoring Mechanical Prophylaxis No Cardiac Monitoring Heart Rate 95 Monitoring Method Telemetry Rhythm Sinus Rhythm SC Interval 0.12 QRS Interval 0.05 QT Interval 0.23 Monitor Number 2100 Strip placed in Chart Yes Memory Cleared No Respiratory Assessment Respiratory Symptoms None Effort Normal for Patient Spontaneous Non-Labored Depth Normal Respiratory Pattern Regular Chest Shape Normal Expansion Symmetrical All Lung Briggs Clear Oxygen Delivery Method Room Air Cough Description Voluntary Productive Cough Frequency Intermittent Sputum Amount Scant Gastrointestinal Assessment Abdomen Description Flat Soft Non-Tender 3 or more loose stools, in less than 24 No hours Nausea/Vomiting Presence None All Four Quadrants Active Flatus Presence Present Genitourinary Assessment Genitourinary Symptoms Urinary Hesitancy Bladder Pattern Hesitancy Incontinence Urge Voiding Method Toilet Urinal Brief Bladder Distention None Suprapubic Tenderness with Palpation No Integumentary Assessment Nail Bed Appearance [place] Temperature Warm Moisture Dry Turgor Normal Color Normal All Pressure Points Assessed No Evidence of Incision/Wounds/Breakdown No Oral Cavity Dentures Musculoskeletal Assessment Musculoskeletal Symptoms Generalized Weakness Difficulty Walking Document 08/01/16 14:29 [facility] (Rec: 08/01/16 18:51 [id number]) Pain Assessment Pain Present Reports Pain bilateral hands Pain Intensity 6 Description Ache Scale Used Numeric (1 - 10) Pain Intervention Medication Lower Extremity Pain Intensity 6 Description Ache Scale Used Numeric (1 - 10) Pain Intervention Medication Neurological Assessment Eye Opening Spontaneous Motor Obeys Commands Verbal Oriented Coma Scale Total 15 Neurologic Status Alert Patient Orientation Person Place Time Arousable To Name Speech Pattern Normal rate Normal rhythm Normal tone Appropriate Clear Patient Behavior Appropriate Cooperative Bilateral Pupil Reaction Reactive Pupil [place] Equal Sensory Hard of Hearing Vision impaired All Four Limbs Strength Normal for Patient Protein Chemist Strength Equal Bilat Weak Push/Pull Equal Numbness/Tingling 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 Facial Symmetry Symmetrical Cardiovascular Assessment Signs and Symptoms None Heart Sounds S1 & S2 Pulse Rhythm Regular Jugular Vein Distention None Capillary Refill < 3 Seconds Circulatory Tenderness Description None Right Radial 2+ Left Radial 2+ Right Dorsalis Pedis 2+ Left Dorsalis Pedis 2+ Has Confirmed Diagnosis of DVT, PE or No VTE VTE Prophylaxis Platelet Monitoring Mechanical Prophylaxis No Cardiac Monitoring Heart Rate 95 Monitoring Method Telemetry Rhythm Sinus Rhythm SC Interval 0.12 QRS Interval 0.05 QT Interval 0.23 Monitor Number 2100 Strip placed in Chart Yes Memory Cleared No Respiratory Assessment Respiratory Symptoms None Effort Normal for Patient Spontaneous Non-Labored Depth Normal Respiratory Pattern Regular Chest Shape Normal Expansion Symmetrical All Lung Briggs Clear Oxygen Delivery Method Room Air FIO2 (%) (%) 21 Cough Description Voluntary Productive Cough Frequency Intermittent Sputum Amount None Gastrointestinal Assessment Abdomen Description Flat Soft Non-Tender 3 or more loose stools, in less than 24 No hours Nausea/Vomiting Presence None All Four Quadrants Active Flatus Presence Present Genitourinary Assessment Genitourinary Symptoms Urinary Hesitancy Bladder Pattern Hesitancy Incontinence Urge Voiding Method Toilet Urinal Brief Bladder Distention None Suprapubic Tenderness with Palpation No Integumentary Assessment Nail Bed Appearance [place] Temperature Warm Moisture Dry Turgor Normal Color Normal All Pressure Points Assessed No Evidence of Incision/Wounds/Breakdown No Oral Cavity Dentures Musculoskeletal Assessment Musculoskeletal Symptoms Generalized Weakness Difficulty Walking Document 08/01/16 16:00 [facility] [place] (Rec: 08/01/16 18:55 KENNETH [id number]) Pain Assessment Pain Present Reports Pain bilateral hands Pain Intensity 6 Description Ache Scale Used Numeric (1 - 10) Pain Intervention Declined Lower Extremity Pain Intensity 6 Description Ache Scale Used Numeric (1 - 10) Pain Intervention Declined Neurological Assessment Eye Opening Spontaneous Motor Obeys Commands Verbal Oriented Coma Scale Total 15 Neurologic Status Alert Patient Orientation Person Place Time Arousable To Name Speech Pattern Normal rate Normal rhythm Normal tone Appropriate Clear Patient Behavior Appropriate Cooperative Mood Description Calm Relaxed Bilateral Pupil Reaction Reactive Pupil [place] Equal Sensory Hard of Hearing Vision impaired All Four Limbs Strength Normal for Patient Protein Chemist Strength Equal Bilat Weak Push/Pull Equal Numbness/Tingling 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 Facial Symmetry Symmetrical Cardiovascular Assessment Signs and Symptoms None Heart Sounds S1 & S2 Pulse Rhythm Regular Jugular Vein Distention None Capillary Refill < 3 Seconds Circulatory Tenderness Description None Right Radial 2+ Left Radial 2+ Right Dorsalis Pedis 2+ Left Dorsalis Pedis 2+ Has Confirmed Diagnosis of DVT, PE or No VTE VTE Prophylaxis Platelet Monitoring Mechanical Prophylaxis No Cardiac Monitoring Heart Rate 95 Monitoring Method Telemetry Rhythm Sinus Rhythm SC Interval 0.12 QRS Interval 0.05 QT Interval 0.23 Monitor Number 2100 Strip placed in Chart Yes Memory Cleared No Respiratory Assessment Respiratory Symptoms None Effort Normal for Patient Spontaneous Non-Labored Depth Normal Respiratory Pattern Regular Chest Shape Normal Expansion Symmetrical All Lung Briggs Clear Oxygen Delivery Method Room Air FIO2 (%) (%) 21 Cough Description Voluntary Productive Cough Frequency Intermittent Sputum Amount None Gastrointestinal Assessment Abdomen Description Flat Soft Non-Tender 3 or more loose stools, in less than 24 No hours Nausea/Vomiting Presence None All Four Quadrants Active Flatus Presence Present Genitourinary Assessment Genitourinary Symptoms Urinary Hesitancy Bladder Pattern Hesitancy Incontinence Urge Voiding Method Toilet Urinal Brief Color Dark Yellow Bladder Distention None Suprapubic Tenderness with Palpation No Integumentary Assessment Nail Bed Appearance [place] Temperature Warm Moisture Dry Turgor Normal Color Normal All Pressure Points Assessed No Evidence of Incision/Wounds/Breakdown No Oral Cavity Dentures Musculoskeletal Assessment Musculoskeletal Symptoms Generalized Weakness Difficulty Walking Document 08/01/16 19:00 ALD (Rec: 08/01/16 21:22 ALD [id number]) Pain Assessment Pain Present Reports No Pain bilateral hands Description Ache Scale Used Numeric (1 - 10) Pain Intervention Reduced Environmental Stimuli Darkened Room Declined Comment Chronic Lower Extremity Description Ache Scale Used Numeric (1 - 10) Pain Intervention Reduced Environmental Stimuli Darkened Room Declined Comment Chronic Neurological Assessment Eye Opening Spontaneous Motor Obeys Commands Verbal Oriented Coma Scale Total 15 Neurologic Status Alert Patient Orientation Person Place Time Arousable To Name Speech Pattern Normal rate Normal rhythm Normal tone Appropriate Clear Patient Behavior Appropriate Cooperative Mood Description Calm Relaxed Bilateral Pupil Reaction Reactive Pupil [place] Equal Sensory Hard of Hearing Vision impaired All Four Limbs Strength Normal for Patient Protein Chemist Strength Equal Bilat Weak Push/Pull Equal Numbness/Tingling 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 Facial Symmetry Symmetrical Blink Present Doll's-Eye Absent Cardiovascular Assessment Signs and Symptoms None Heart Sounds S1 & S2 Pulse Rhythm Regular Jugular Vein Distention None Capillary Refill < 3 Seconds Circulatory Tenderness Description None Right Radial 2+ Left Radial 2+ Right Dorsalis Pedis 2+ Left Dorsalis Pedis 2+ Chest Pain Complaint No Has Confirmed Diagnosis of DVT, PE or No VTE VTE Prophylaxis Platelet Monitoring Mechanical Prophylaxis No Cardiac Monitoring Heart Rate 76 Monitoring Method Telemetry Rhythm Sinus Rhythm SC Interval 0.13 QRS Interval 0.03 QT Interval 0.13 Monitor Number 2100 Strip placed in Chart Yes Memory Cleared No Respiratory Assessment Respiratory Symptoms None Effort Normal for Patient Spontaneous Non-Labored Depth Normal Respiratory Pattern Regular Chest Shape Normal Expansion Symmetrical All Lung Briggs Clear Oxygen Delivery Method Room Air Cough Description None Sputum Amount None Gastrointestinal Assessment Abdomen Description Flat Soft Non-Tender 3 or more loose stools, in less than 24 No hours Nausea/Vomiting Presence None All Four Quadrants Active Flatus Presence Present Genitourinary Assessment Genitourinary Symptoms Urinary Hesitancy Bladder Pattern Hesitancy Incontinence Urge Voiding Method Toilet Urinal Brief Bladder Distention None Suprapubic Tenderness with Palpation No Comment: No urine observed at this time . Will continue to monitor Integumentary Assessment Nail Bed Appearance [place] Temperature Warm Moisture Dry Turgor Normal Color Normal All Pressure Points Assessed No Evidence of Incision/Wounds/Breakdown No Oral Cavity Dentures Musculoskeletal Assessment Musculoskeletal Symptoms Generalized Weakness Difficulty Walking Document 08/01/16 23:00 [facility] (Rec: 08/02/16 01:08 ALD [id number]) Pain Assessment Pain Present Reports No Pain Neurological Assessment Eye Opening Spontaneous Motor Obeys Commands Verbal Oriented Coma Scale Total 15 Neurologic Status Alert Patient Orientation Person Place Time Arousable To Name Speech Pattern Normal rate Normal rhythm Normal tone Appropriate Clear Patient Behavior Appropriate Cooperative Mood Description Calm Relaxed Bilateral Pupil Reaction Reactive Pupil [place] Equal Sensory Hard of Hearing Vision impaired All Four Limbs Strength Normal for Patient Protein Chemist Strength Equal Bilat Weak Push/Pull Equal Numbness/Tingling 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 Facial Symmetry Symmetrical Blink Present Doll's-Eye Absent Cardiovascular Assessment Signs and Symptoms None Heart Sounds S1 & S2 Pulse Rhythm Regular Jugular Vein Distention None Capillary Refill < 3 Seconds Circulatory Tenderness Description None Right Radial 2+ Left Radial 2+ Right Dorsalis Pedis 2+ Left Dorsalis Pedis 2+ Chest Pain Complaint No Has Confirmed Diagnosis of DVT, PE or No VTE VTE Prophylaxis Platelet Monitoring Mechanical Prophylaxis No Cardiac Monitoring Heart Rate 79 Monitoring Method Telemetry Rhythm Sinus Rhythm SC Interval 0.11 QRS Interval 0.08 QT Interval 0.31 Monitor Number 2100 Strip placed in Chart Yes Memory Cleared No Respiratory Assessment Respiratory Symptoms None Effort Normal for Patient Spontaneous Non-Labored Depth Normal Respiratory Pattern Regular Chest Shape Normal Expansion Symmetrical All Lung Briggs Clear Oxygen Delivery Method Room Air Cough Description None Sputum Amount None Gastrointestinal Assessment Abdomen Description Flat Soft Non-Tender 3 or more loose stools, in less than 24 No hours Nausea/Vomiting Presence None All Four Quadrants Active Flatus Presence Present Genitourinary Assessment Incontinence Urge Voiding Method Toilet Urinal Brief Bladder Distention None Suprapubic Tenderness with Palpation No Comment: No urine observed at this time . Will continue to monitor Integumentary Assessment Nail Bed Appearance [place] Temperature Warm Moisture Dry Turgor Normal Color Normal All Pressure Points Assessed No Evidence of Incision/Wounds/Breakdown No Oral Cavity Dentures Musculoskeletal Assessment Musculoskeletal Symptoms Generalized Weakness Document 08/02/16 03:10 [facility] (Rec: 08/02/16 03:19 [facility] [id number]) Pain Assessment Pain Present Reports No Pain Neurological Assessment Eye Opening Spontaneous Motor Obeys Commands Verbal Oriented Coma Scale Total 15 Neurologic Status Alert Patient Orientation Person Place Time Arousable To Name Speech Pattern Normal rate Normal rhythm Normal tone Appropriate Clear Patient Behavior Appropriate Cooperative Mood Description Calm Relaxed Bilateral Pupil Reaction Reactive Pupil [place] Equal Sensory Hard of Hearing Vision impaired All Four Limbs Strength Normal for Patient Protein Chemist Strength Equal Bilat Weak Push/Pull Equal Numbness/Tingling 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 Facial Symmetry Symmetrical Blink Present Doll's-Eye Absent Cardiovascular Assessment Signs and Symptoms None Heart Sounds S1 & S2 Pulse Rhythm Regular Jugular Vein Distention None Capillary Refill < 3 Seconds Circulatory Tenderness Description None Right Radial 2+ Left Radial 2+ Right Dorsalis Pedis 2+ Left Dorsalis Pedis 2+ Chest Pain Complaint No Has Confirmed Diagnosis of DVT, PE or No VTE VTE Prophylaxis Platelet Monitoring Mechanical Prophylaxis No Cardiac Monitoring Heart Rate 75 Monitoring Method Telemetry Rhythm Sinus Rhythm SC Interval 0.17 QRS Interval 0.06 QT Interval 0.19 Monitor Number 2100 Strip placed in Chart Yes Memory Cleared No Respiratory Assessment Respiratory Symptoms None Effort Normal for Patient Spontaneous Non-Labored Depth Normal Respiratory Pattern Regular Chest Shape Normal Expansion Symmetrical All Lung Briggs Clear Oxygen Delivery Method Room Air Cough Description None Sputum Amount None Gastrointestinal Assessment Abdomen Description Flat Soft Non-Tender 3 or more loose stools, in less than 24 No hours Nausea/Vomiting Presence None All Four Quadrants Active Flatus Presence Present Genitourinary Assessment Incontinence Urge Voiding Method Toilet Urinal Brief Bladder Distention None Suprapubic Tenderness with Palpation No Comment: No urine observed at this time . Will continue to monitor Integumentary Assessment Nail Bed Appearance [place] Temperature Warm Moisture Dry Turgor Normal Color Normal All Pressure Points Assessed No Evidence of Incision/Wounds/Breakdown No Oral Cavity Dentures Musculoskeletal Assessment Musculoskeletal Symptoms Generalized Weakness Document 08/02/16 08:13 [id number] (Rec: 08/02/16 08:21 [id number]) Pain Assessment Pain Present Reports No Pain Neurological Assessment Eye Opening Spontaneous Motor Obeys Commands Verbal Oriented Coma Scale Total 15 Neurologic Status Alert Patient Orientation Person Place Time Arousable To Name Speech Pattern Normal rate Normal rhythm Normal tone Appropriate Clear Patient Behavior Appropriate Cooperative Mood Description Calm Relaxed Bilateral Pupil Reaction Reactive Pupil Size (mm) 3 Pupil [place] Equal Scleral Edema No Sensory Hard of Hearing Vision impaired All Four Limbs Strength Normal for Patient Protein Chemist Strength Equal Bilat Weak Push/Pull Equal Numbness/Tingling 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 Facial Symmetry Symmetrical Corneal Reflex Present Bilateral Blink Present Cough/Gag Normal Babinski Reflex Absent Bilateral Doll's-Eye Absent Cardiovascular Assessment Signs and Symptoms None Heart Sounds S1 & S2 Pulse Rhythm Regular Jugular Vein Distention None Capillary Refill < 3 Seconds Circulatory Tenderness Description None Right Radial 2+ Left Radial 2+ Right Dorsalis Pedis 2+ Left Dorsalis Pedis 2+ Chest Pain Complaint No Has Confirmed Diagnosis of DVT, PE or No VTE VTE Prophylaxis SQ Treatment Platelet Monitoring Mechanical Prophylaxis No Cardiac Monitoring Monitoring Method Telemetry Rhythm Sinus Rhythm Monitor Number 2100 Strip placed in Chart Yes Memory Cleared No Respiratory Assessment Respiratory Symptoms None Effort Normal for Patient Spontaneous Non-Labored Depth Normal Respiratory Pattern Regular Chest Shape Normal Expansion Symmetrical All Lung Briggs Clear Oxygen Delivery Method Room Air FIO2 (%) (%) 21 Cough Description None Sputum Amount None Gastrointestinal Assessment Abdomen Description Flat Soft Non-Tender 3 or more loose stools, in less than 24 No hours Nausea/Vomiting Presence None All Four Quadrants Active Flatus Presence Present Genitourinary Assessment Genitourinary Symptoms Urinary Hesitancy Bladder Pattern Hesitancy Incontinence Urge Voiding Method Toilet Urinal Brief Bladder Distention None Suprapubic Tenderness with Palpation No Comment: No urine observed at this time . Will continue to monitor Integumentary Assessment Nail Bed Appearance [place] Temperature Warm Moisture Dry Turgor Normal Color Normal All Pressure Points Assessed No Evidence of Incision/Wounds/Breakdown No Mucous membranes moist, pink and intact Yes Oral Cavity Dentures Integumentary Comment: scabs noted to bilateral feet and legs Musculoskeletal Assessment Musculoskeletal Symptoms Generalized Weakness Document 08/02/16 16:57 [id number] (Rec: 08/02/16 17:03 [id number]) Pain Assessment Pain Present Reports No Pain Neurological Assessment Eye Opening Spontaneous Motor Obeys Commands Verbal Oriented Coma Scale Total 15 Neurologic Status Alert Patient Orientation Person Place Time Arousable To Name Speech Pattern Normal rate Normal rhythm Normal tone Appropriate Clear Patient Behavior Appropriate Cooperative Mood Description Calm Relaxed Bilateral Pupil Reaction Reactive Pupil [place] Equal Scleral Edema No Sensory Hard of Hearing Vision impaired All Four Limbs Strength Normal for Patient Protein Chemist Strength Equal Bilat Weak Push/Pull Equal Numbness/Tingling 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 Facial Symmetry Symmetrical Corneal Reflex Present Bilateral Blink Present Cough/Gag Normal Babinski Reflex Absent Bilateral Doll's-Eye Absent Cardiovascular Assessment Signs and Symptoms None Heart Sounds S1 & S2 Pulse Rhythm Regular Jugular Vein Distention None Capillary Refill < 3 Seconds Circulatory Tenderness Description None Right Radial 2+ Left Radial 2+ Right Dorsalis Pedis 2+ Left Dorsalis Pedis 2+ Chest Pain Complaint No Has Confirmed Diagnosis of DVT, PE or No VTE VTE Prophylaxis SQ Treatment Platelet Monitoring Mechanical Prophylaxis No Cardiac Monitoring Monitor Number 2100 Strip placed in Chart Yes Memory Cleared No Respiratory Assessment Respiratory Symptoms None Effort Normal for Patient Spontaneous Non-Labored Depth Normal Respiratory Pattern Regular Chest Shape Normal Expansion Symmetrical All Lung Briggs Clear Oxygen Delivery Method Room Air FIO2 (%) (%) 21 Cough Description None Sputum Amount None Gastrointestinal Assessment Abdomen Description Flat Soft Non-Tender 3 or more loose stools, in less than 24 No hours Nausea/Vomiting Presence None All Four Quadrants Active Flatus Presence Present Genitourinary Assessment Genitourinary Symptoms Urinary Hesitancy Bladder Pattern Hesitancy Incontinence Urge Voiding Method Bedside Commode Urinal Brief Bladder Distention None Suprapubic Tenderness with Palpation No Comment: No urine observed at this time . Will continue to monitor Integumentary Assessment Nail Bed Appearance [place] Temperature Warm Moisture Dry Turgor Normal Color Normal All Pressure Points Assessed No Evidence of Incision/Wounds/Breakdown No Mucous membranes moist, pink and intact Yes Oral Cavity Dentures Integumentary Comment: scabs noted to bilateral feet and legs Musculoskeletal Assessment Musculoskeletal Symptoms Generalized Weakness Document 08/02/16 19:00 [facility] (Rec: 08/02/16 21:35 [facility] [id number]) Pain Assessment Pain Present Reports No Pain Neurological Assessment Eye Opening Spontaneous Motor Obeys Commands Verbal Oriented Coma Scale Total 15 Neurologic Status Alert Patient Orientation Person Place Time Arousable To Name Speech Pattern Normal rate Normal rhythm Normal tone Appropriate Clear Patient Behavior Appropriate Cooperative Mood Description Calm Relaxed Bilateral Pupil Reaction Reactive Pupil [place] Equal Scleral Edema No Sensory Hard of Hearing Vision impaired All Four Limbs Strength Normal for Patient Protein Chemist Strength Equal Bilat Weak Push/Pull Equal Numbness/Tingling 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 Facial Symmetry Symmetrical Blink Present Doll's-Eye Absent Cardiovascular Assessment Signs and Symptoms None Heart Sounds S1 & S2 Pulse Rhythm Regular Jugular Vein Distention None Capillary Refill < 3 Seconds Circulatory Tenderness Description None Right Radial 2+ Left Radial 2+ Right Dorsalis Pedis 2+ Left Dorsalis Pedis 2+ Chest Pain Complaint No Has Confirmed Diagnosis of DVT, PE or No VTE VTE Prophylaxis SQ Treatment Platelet Monitoring Mechanical Prophylaxis No Cardiac Monitoring Heart Rate 80 Monitoring Method Telemetry Rhythm Sinus Rhythm SC Interval 0.10 QRS Interval 0.06 QT Interval 0.12 Monitor Number 2100 Strip placed in Chart Yes Memory Cleared No Respiratory Assessment Respiratory Symptoms None Effort Normal for Patient Spontaneous Non-Labored Depth Normal Respiratory Pattern Regular Chest Shape Normal Expansion Symmetrical All Lung Briggs Clear Oxygen Delivery Method Room Air Cough Description None Sputum Amount None Gastrointestinal Assessment Abdomen Description Flat Soft Non-Tender 3 or more loose stools, in less than 24 No hours Nausea/Vomiting Presence None All Four Quadrants Active Flatus Presence Present Genitourinary Assessment Voiding Method Bedside Commode Urinal Brief Bladder Distention None Suprapubic Tenderness with Palpation No Comment: No urine observed at this time . Will continue to monitor Integumentary Assessment Nail Bed Appearance [place] Temperature Warm Moisture Dry Turgor Normal Color Normal All Pressure Points Assessed No Evidence of Incision/Wounds/Breakdown No Mucous membranes moist, pink and intact Yes Oral Cavity Dentures Musculoskeletal Assessment Musculoskeletal Symptoms Generalized Weakness Document 08/02/16 23:40 [facility] (Rec: 08/03/16 00:48 [id number]) Pain Assessment Pain Present Reports No Pain Neurological Assessment Eye Opening Spontaneous Motor Obeys Commands Verbal Oriented Coma Scale Total 15 Neurologic Status Alert Patient Orientation Person Place Time Arousable To Name Speech Pattern Normal rate Normal rhythm Normal tone Appropriate Clear Patient Behavior Appropriate Cooperative Mood Description Calm Relaxed Bilateral Pupil Reaction Reactive Pupil [place] Equal Scleral Edema No Sensory Hard of Hearing Vision impaired All Four Limbs Strength Normal for Patient Protein Chemist Strength Equal Bilat Weak Push/Pull Equal Numbness/Tingling 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 Facial Symmetry Symmetrical Blink Present Doll's-Eye Absent Cardiovascular Assessment Signs and Symptoms None Heart Sounds S1 & S2 Pulse Rhythm Regular Jugular Vein Distention None Capillary Refill < 3 Seconds Circulatory Tenderness Description None Right Radial 2+ Left Radial 2+ Right Dorsalis Pedis 2+ Left Dorsalis Pedis 2+ Chest Pain Complaint No Has Confirmed Diagnosis of DVT, PE or No VTE VTE Prophylaxis SQ Treatment Platelet Monitoring Mechanical Prophylaxis No Cardiac Monitoring Heart Rate 86 Monitoring Method Telemetry Rhythm Sinus Rhythm SC Interval 0.19 QRS Interval 0.07 QT Interval 0.26 Monitor Number 2100 Strip placed in Chart Yes Memory Cleared No Respiratory Assessment Respiratory Symptoms None Effort Normal for Patient Spontaneous Non-Labored Depth Normal Respiratory Pattern Regular Chest Shape Normal Expansion Symmetrical All Lung Briggs Clear Oxygen Delivery Method Room Air Cough Description None Sputum Amount None Gastrointestinal Assessment Abdomen Description Flat Soft Non-Tender 3 or more loose stools, in less than 24 No hours Nausea/Vomiting Presence None All Four Quadrants Active Flatus Presence Present Genitourinary Assessment Voiding Method Bedside Commode Urinal Brief Bladder Distention None Suprapubic Tenderness with Palpation No Comment: No urine observed at this time . Will continue to monitor Integumentary Assessment Nail Bed Appearance [place] Temperature Warm Moisture Dry Turgor Normal Color Normal All Pressure Points Assessed No Evidence of Incision/Wounds/Breakdown No Mucous membranes moist, pink and intact Yes Oral Cavity Dentures Musculoskeletal Assessment Musculoskeletal Symptoms Generalized Weakness Document 08/03/16 03:30 [facility] (Rec: 08/03/16 04:52 [id number]) Pain Assessment Pain Present Reports No Pain Neurological Assessment Eye Opening Spontaneous Motor Obeys Commands Verbal Oriented Coma Scale Total 15 Neurologic Status Alert Patient Orientation Person Place Time Arousable To Name Speech Pattern Normal rate Normal rhythm Normal tone Appropriate Clear Patient Behavior Appropriate Cooperative Mood Description Calm Relaxed Bilateral Pupil Reaction Reactive Pupil [place] Equal Scleral Edema No Sensory Hard of Hearing Vision impaired All Four Limbs Strength Normal for Patient Protein Chemist Strength Equal Bilat Weak Push/Pull Equal Numbness/Tingling 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 Facial Symmetry Symmetrical Corneal Reflex Present Bilateral Blink Present Cough/Gag Normal Babinski Reflex Absent Bilateral Doll's-Eye Absent Cardiovascular Assessment Signs and Symptoms None Heart Sounds S1 & S2 Pulse Rhythm Regular Jugular Vein Distention None Capillary Refill < 3 Seconds Circulatory Tenderness Description None Right Radial 2+ Left Radial 2+ Right Dorsalis Pedis 2+ Left Dorsalis Pedis 2+ Chest Pain Complaint No Has Confirmed Diagnosis of DVT, PE or No VTE VTE Prophylaxis SQ Treatment Platelet Monitoring Mechanical Prophylaxis No Cardiac Monitoring Heart Rate 70 Monitoring Method Telemetry Rhythm Sinus Rhythm SC Interval 0.18 QRS Interval 0.08 QT Interval 0.33 Monitor Number 2100 Strip placed in Chart Yes Memory Cleared No Respiratory Assessment Respiratory Symptoms None Effort Normal for Patient Spontaneous Non-Labored Depth Normal Respiratory Pattern Regular Chest Shape Normal Expansion Symmetrical All Lung Briggs Clear Oxygen Delivery Method Room Air Cough Description None Sputum Amount None Gastrointestinal Assessment Abdomen Description Flat Soft Non-Tender 3 or more loose stools, in less than 24 No hours Nausea/Vomiting Presence None All Four Quadrants Active Flatus Presence Present Genitourinary Assessment Voiding Method Bedside Commode Urinal Brief Bladder Distention None Suprapubic Tenderness with Palpation No Comment: No urine observed at this time . Will continue to monitor Integumentary Assessment Nail Bed Appearance [place] Temperature Warm Moisture Dry Turgor Normal Color Normal All Pressure Points Assessed No Evidence of Incision/Wounds/Breakdown No Mucous membranes moist, pink and intact Yes Oral Cavity Dentures Musculoskeletal Assessment Musculoskeletal Symptoms Generalized Weakness Document 08/03/16 07:59 [facility] (Rec: 08/03/16 08:05 [id number] Pain Assessment Pain Present Reports Pain Abdomen Pain Intensity 2 Description Ache Scale Used Numeric (1 - 10) Pain Intervention Declined Neurological Assessment Eye Opening Spontaneous Motor Obeys Commands Verbal Oriented Coma Scale Total 15 Neurologic Status Alert Patient Orientation Person Place Time Arousable To Name Speech Pattern Normal rate Normal rhythm Normal tone Appropriate Clear Patient Behavior Appropriate Cooperative Mood Description Calm Relaxed Bilateral Pupil Reaction Reactive Pupil [place] Equal Scleral Edema No Sensory Hard of Hearing Vision impaired All Four Limbs Strength Normal for Patient Protein Chemist Strength Equal Bilat Weak Push/Pull Equal Numbness/Tingling Yes: bilat hands/feet Facial Symmetry Symmetrical Neurological Comment: Pt pleasant and follows commands. Tongue midline without deviation Cardiovascular Assessment Signs and Symptoms None Heart Sounds S1 & S2 Pulse Rhythm Regular Jugular Vein Distention None Capillary Refill < 3 Seconds Circulatory Tenderness Description None Right Radial 2+ Left Radial 2+ Right Dorsalis Pedis 2+ Left Dorsalis Pedis 2+ Chest Pain Complaint No Intensity (out of 10) 0 Has Confirmed Diagnosis of DVT, PE or No VTE VTE Prophylaxis SQ Treatment Platelet Monitoring Mechanical Prophylaxis No Pacemaker Assessment Cardiac Comment: Pt denies chest pain/SOB. Pt non-tele at this time Respiratory Assessment Respiratory Symptoms None Effort Normal for Patient Spontaneous Non-Labored Depth Normal Respiratory Pattern Regular Chest Shape Normal Expansion Symmetrical All Lung Briggs Clear Oxygen Delivery Method Room Air Cough Description None Cough Frequency Intermittent Sputum Amount None Respiratory Comment: No s/s resp distress. PT appears to be resting comfortably in bed at this time Gastrointestinal Assessment Abdomen Description Flat Soft Non-Tender 3 or more loose stools, in less than 24 No hours Nausea/Vomiting Presence None GI Comment: Pt states last BM 08/02/16 All Four Quadrants Active Flatus Presence Present Genitourinary Assessment Genitourinary Symptoms Urinary Hesitancy Bladder Pattern Hesitancy Incontinence Urge Voiding Method Bedside Commode Urinal Brief Color Dark Yellow Bladder Distention None Suprapubic Tenderness with Palpation No Comment: No urine observed at this time . Will continue to monitor Integumentary Assessment Nail Bed Appearance [place] Temperature Warm Moisture Dry Turgor Normal Color Normal Evidence of Incision/Wounds/Breakdown No Mucous membranes moist, pink and intact Yes Oral Cavity Dentures Integumentary Comment: scabs noted to bilateral feet and legs Musculoskeletal Assessment Musculoskeletal Symptoms Generalized Weakness Numbness Tingling Musculoskeletal Comment: Pt ambulates with cane/walker at home Document 08/03/16 15:19 [id number] (Rec: 08/03/16 15:26 [id number]) Pain Assessment Pain Present Reports No Pain Neurological Assessment Eye Opening Spontaneous Motor Obeys Commands Verbal Oriented Coma Scale Total 15 Neurologic Status Alert Patient Orientation Person Place Time Arousable To Name Speech Pattern Normal rate Normal rhythm Normal tone Appropriate Clear Patient Behavior Appropriate Cooperative Mood Description Calm Relaxed Bilateral Pupil Reaction Reactive Pupil [place] Equal Scleral Edema No Sensory Hard of Hearing Vision impaired All Four Limbs Strength Normal for Patient Protein Chemist Strength Bilat Weak Push/Pull Bilat Weak Numbness/Tingling Yes: bilat hands/feet Facial Symmetry Symmetrical Corneal Reflex Present Bilateral Blink Present Cough/Gag Normal Babinski Reflex Absent Bilateral Doll's-Eye Absent Cardiovascular Assessment Signs and Symptoms None Leg Edema Heart Sounds S1 & S2 Pulse Rhythm Regular Jugular Vein Distention None Capillary Refill < 3 Seconds Circulatory Tenderness Description None Right Radial 2+ Left Radial 2+ Right Dorsalis Pedis 2+ Left Dorsalis Pedis 2+ Chest Pain Complaint No Intensity (out of 10) 0 Has Confirmed Diagnosis of DVT, PE or No VTE VTE Prophylaxis SQ Treatment Platelet Monitoring Mechanical Prophylaxis No Cardiac Monitoring Heart Rate 80 Monitoring Method Telemetry Rhythm Sinus Rhythm SC Interval 0.06 QRS Interval 0.06 QT Interval 0.35 Monitor Number 2100 Strip placed in Chart Yes Memory Cleared No Respiratory Assessment Respiratory Symptoms None Effort Normal for Patient Spontaneous Non-Labored Depth Normal Respiratory Pattern Regular Chest Shape Normal Expansion Symmetrical All Lung Briggs Clear Oxygen Delivery Method Room Air Cough Description None Cough Frequency Intermittent Sputum Amount None Gastrointestinal Assessment Abdomen Description Flat Soft Non-Tender 3 or more loose stools, in less than 24 No hours Nausea/Vomiting Presence None GI Comment: Pt states last BM 08/02/16 All Four Quadrants Active Flatus Presence Present Genitourinary Assessment Genitourinary Symptoms Urinary Hesitancy Bladder Pattern Hesitancy Incontinence Urge Voiding Method Bedside Commode Urinal Brief Bladder Distention None Suprapubic Tenderness with Palpation No Comment: No urine observed at this time . Will continue to monitor Integumentary Assessment Nail Bed Appearance [place] Temperature Warm Moisture Dry Turgor Normal Color Normal Evidence of Incision/Wounds/Breakdown No Mucous membranes moist, pink and intact Yes Oral Cavity Dentures Integumentary Comment: scabs noted to bilateral feet and legs Musculoskeletal Assessment Musculoskeletal Symptoms Generalized Weakness Numbness Tingling Musculoskeletal Comment: Pt ambulates with cane/walker at home pt is suppose to go to [place] for rehab Document 08/03/16 19:58 [facility] (Rec: 08/03/16 20:10 [facility] [id number]) Pain Assessment Pain Present Reports No Pain Neurological Assessment Eye Opening Spontaneous Motor Obeys Commands Verbal Oriented Coma Scale Total 15 Neurologic Status Alert Patient Orientation Person Place Time Arousable To Name Speech Pattern Normal rate Normal rhythm Normal tone Appropriate Clear Patient Behavior Appropriate Cooperative Mood Description Calm Relaxed Bilateral Pupil Reaction Brisk Pupil Size (mm) 3 Pupil Scotrun PERRLA Scleral Edema No Sensory Hard of Hearing All Four Limbs Strength Normal for Patient Protein Chemist Strength Equal Push/Pull Equal Numbness/Tingling No Facial Symmetry Symmetrical Cardiovascular Assessment Signs and Symptoms None Heart Sounds S1 & S2 Pulse Rhythm Regular Jugular Vein Distention None Capillary Refill < 3 Seconds Circulatory Tenderness Description None Right Radial 2+ Left Radial 2+ Right Dorsalis Pedis 2+ Left Dorsalis Pedis 2+ Right Posterior Tibialis 2+ Left Posterior Tibialis 2+ Has Confirmed Diagnosis of DVT, PE or No VTE VTE Prophylaxis SQ Treatment Mechanical Prophylaxis No Contraindication No VTE Prophylaxis Treatment not Indicated - Low risk for VTE Cardiac Monitoring Heart Rate 90 Monitoring Method Telemetry Rhythm Sinus Rhythm PAC SC Interval 0.08 QRS Interval 0.08 QT Interval 0.20 Monitor Number 2100 Strip placed in Chart Yes Monitor History Reviewed Yes Memory Cleared No Respiratory Assessment Respiratory Symptoms None Effort Normal for Patient Depth Normal Respiratory Pattern Regular Chest Shape Normal Expansion Symmetrical All Lung Briggs Clear Diminished Oxygen Delivery Method Room Air Cough Description None Sputum Amount None Gastrointestinal Assessment Abdomen Description Soft Round Tender 3 or more loose stools, in less than 24 No hours Nausea/Vomiting Presence None GI Comment: Large abd hernia noted All Four Quadrants Active Genitourinary Assessment Genitourinary Symptoms None Bladder Pattern Normal Voiding Method Bedside Commode Urinal Urine Appearance Clear Color Bright Yellow Odor Normal Bladder Distention None Suprapubic Tenderness with Palpation No Integumentary Assessment Temperature Warm Moisture Dry Turgor Normal Color Normal All Pressure Points Assessed Yes Evidence of Incision/Wounds/Breakdown No Mucous membranes moist, pink and intact Yes Oral Cavity Normal Musculoskeletal Assessment Musculoskeletal Symptoms None Document 08/03/16 23:21 [facility] (Rec: 08/03/16 23:27 [facility] [id number]) Pain Assessment Pain Present Reports No Pain Neurological Assessment Eye Opening Spontaneous Motor Obeys Commands Verbal Oriented Coma Scale Total 15 Neurologic Status Alert Patient Orientation Person Place Time Arousable To Name Speech Pattern Normal rate Normal rhythm Normal tone Appropriate Clear Patient Behavior Appropriate Cooperative Mood Description Calm Relaxed Bilateral Pupil Reaction Brisk Pupil Size (mm) 3 Pupil [place] PERRLA Scleral Edema No Sensory Hard of Hearing All Four Limbs Strength Normal for Patient Protein Chemist Strength Equal Push/Pull Equal Numbness/Tingling No Facial Symmetry Symmetrical Corneal Reflex Present Bilateral Blink Present Cough/Gag Normal Babinski Reflex Absent Bilateral Doll's-Eye Absent Neurological Comment: Pt pleasant and follows commands. Tongue midline without deviation Cardiovascular Assessment Signs and Symptoms None Heart Sounds S1 & S2 Pulse Rhythm Regular Jugular Vein Distention None Capillary Refill < 3 Seconds Circulatory Tenderness Description None Right Radial 2+ Left Radial 2+ Right Dorsalis Pedis 2+ Left Dorsalis Pedis 2+ Right Posterior Tibialis 2+ Left Posterior Tibialis 2+ Chest Pain Complaint No Intensity (out of 10) 0 Has Confirmed Diagnosis of DVT, PE or No VTE VTE Prophylaxis SQ Treatment Mechanical Prophylaxis No Contraindication No VTE Prophylaxis Treatment not Indicated - Low risk for VTE Cardiac Monitoring Heart Rate 80 Monitoring Method Telemetry Rhythm Sinus Rhythm PAC SC Interval 0.20 QRS Interval 0.04 QT Interval 0.40 Monitor Number 2100 Strip placed in Chart Yes Monitor History Reviewed Yes Memory Cleared No Pacemaker Assessment Cardiac Comment: Pt denies chest pain/SOB. Pt non-tele at this time Respiratory Assessment Respiratory Symptoms None Effort Normal for Patient Depth Normal Respiratory Pattern Regular Chest Shape Normal Expansion Symmetrical All Lung Briggs Clear Diminished Oxygen Delivery Method Room Air Cough Description None Cough Frequency Intermittent Sputum Amount None Respiratory Comment: No s/s resp distress. PT appears to be resting comfortably in bed at this time Gastrointestinal Assessment Abdomen Description Soft Round Tender 3 or more loose stools, in less than 24 No hours Nausea/Vomiting Presence None GI Comment: . All Four Quadrants Active Flatus Presence Present Genitourinary Assessment Genitourinary Symptoms None Bladder Pattern Normal Incontinence Urge Voiding Method Bedside Commode Urinal Urine Appearance Clear Color Bright Yellow Odor Normal Bladder Distention None Suprapubic Tenderness with Palpation No Comment: No urine observed at this time . Will continue to monitor Integumentary Assessment Nail Bed Appearance [place] Temperature Warm Moisture Dry Turgor Normal Color Normal All Pressure Points Assessed Yes Evidence of Incision/Wounds/Breakdown No Mucous membranes moist, pink and intact Yes Oral Cavity Normal Integumentary Comment: scabs noted to bilateral feet and legs Musculoskeletal Assessment Musculoskeletal Symptoms None Musculoskeletal Comment: Pt ambulates with cane/walker at home pt is suppose to go to [place] for rehab Teaching Record Start: 07/31/16 20: 34 Freq: Q12H Status: Discharge Document 07/31/16 21:34 [id number] (Rec: 07/31/16 21:37 [id number]) Teaching Record: General Education Topics Hospital Environment Response Verbalize understanding Methods Discussion Recipient Patient Document 08/01/16 20:00 ALD (Rec: 08/01/16 21:17 ALD [id number]) Teaching Record: General Response Return demonstration Verbalize understanding Reinforcement needed Recipient Patient Document 08/02/16 08:13 [id number] (Rec: 08/02/16 08:21 [id number]) Teaching Record: General Education Topics Medications Hospital Environment Pertinence Diabetes Response Verbalize understanding Reinforcement needed Methods Discussion Recipient Patient Education Provided: Details Blood glucose control. Document 08/02/16 21:29 ALD (Rec: 08/02/16 21:30 ALD [id number]) Teaching Record: General Education Topics Medications Hospital Environment Pertinence Diabetes Response Verbalize understanding Reinforcement needed Methods Discussion Recipient Patient Document 08/03/16 07:59 BSS (Rec: 08/03/16 08:05 BSS [id number]) Teaching Record: General Education Topics Medications Hospital Environment Diet Exercise/Activity Relaxation Techniques Coping Skills Health Status Pertinence Dehydration Response Verbalize understanding Methods Discussion Recipient Patient Education Provided: Details Medication regimen, daily POC, orientation to surroundings, npo except meds, lung biopsy this AM Document 08/03/16 19:00 GLD (Rec: 08/03/16 19:57 GLD [id number]) Teaching Record: General Education Topics Medications Hospital Environment Diet Exercise/Activity Health Status Pertinence Dehydration Response Verbalize understanding Methods Discussion Recipient Patient Education Provided: Details Medication regimen, daily POC, orientation to surroundings, npo except meds, lung biopsy this AM Thrombosis Risk Factor Assessment Start: 07/31/16 20: 34 Freq: .ONCE Status: Discharge Document 07/31/16 21:24 [id number] (Rec: 07/31/16 21:33 [id number]) Thrombosis Risk Factor Assessment Other Risk Factors No Each Risk Factor Represents 3 Points Age over 75 years Total Risk Factor Score 3 Risk Level Higher Risk Triage Start: 07/31/16 17: 05 Freq: Status: Complete Document 07/31/16 17:05 ARH (Rec: 07/31/16 17:09 ARH [id number]) Triage Chief Complaint triage ED Weakness Patient Stated Complaint "dehydrated" SELVIN 3 Description of Symptoms Pt reports he thinks he's dehydrated. Pt hasn't been eating very much, c/o weakness , fatigue, & diarrhea. General Appearance alert Work Related Injury? No Mode of arrival wheelchair Source patient family Limitations no limitations Ebola Risk: Travel/Contact With Anyone No From Affected Area/s Temperature (97.6 F-99.6 F) 98.1 F Temperature Source Oral Pulse Rate 92 Respiratory Rate 18 Blood Pressure 75/38 O2 Sat by Pulse Oximetry (95-100) 94 L Oxygen Delivery Room Air Height 1.63 m Weight 56.699 kg Weight Measurement Method Stated by Patient Pain Scale 7 Pain Scale Used Standard (1-10) Medical history arthritis cancer diabetes hypertension other Male surgical history other Additional surgical history PMH benign growth removed x 2 right knee replaced sigmoid resection of adenoca Psychiatric history PTSD Smoking Status Former smoker Smokeless Tobacco Status No Alcohol Use rarely Drug Use none Patient resides with/at Children Safety Concerns Feels Safe At This Time Do you currently feel hopless, have No thoughts of self harm, or thoughts of harming others History of fall in last 14 days? No Coma Scale Eye Opening Spontaneous Coma Scale Motor Response Obeys Commands Coma Scale Verbal Response Oriented Coma Scale Total 15 Father Adopted No Family Member Ethnicity Non- Family Member Living Status Hx Family Cardiac Disorders Yes Hx Family Respiratory Disorders No Hx Family Cancer No Hx Family GI Disease No Hx Family Endocrine Disorder No Hx Family Neuromuscular Dysfunction No Hx Family Neurologic Problems Yes Hx Family HEENT Problems No Hx Family Autoimmune Disease Problems No Vital Signs Assessment Start: 07/31/16 17: 09 Freq: Status: Discharge Document 07/31/16 17:22 DLW (Rec: 07/31/16 17:27 DLW [id number]) ED Vital Signs Pain Reported No Pain Reported Pain Scale 0 Pain Scale Used Standard (1-10) Blood Pressure 102/58 Blood Pressure Location Right Arm Source Automatic Cuff Position Supine Pulse Rate 87 Rhythm Regular Respiratory Rate 15 Pulse Oximetry (95-100) 95 Oxygen Delivery Room Air Document 07/31/16 18:00 DLW (Rec: 07/31/16 18:00 DLW [id number]) ED Vital Signs Pain Reported No Pain Reported Pain Scale 0 Pain Scale Used Standard (1-10) Blood Pressure 126/73 Pulse Rate 0 Respiratory Rate 16 Pulse Oximetry (95-100) 93 L Oxygen Delivery Room Air Document 07/31/16 18:37 DLW (Rec: 07/31/16 18:37 DLW [id number]) ED Vital Signs Pain Reported No Pain Reported Pain Scale 0 Pain Scale Used Standard (1-10) Pulse Rate 85 Pulse Oximetry (95-100) 98 Oxygen Delivery Room Air Document 07/31/16 19:17 DLW (Rec: 07/31/16 19:18 DLW [id number]) ED Vital Signs Pain Reported No Pain Reported Pain Scale 0 Pain Scale Used Standard (1-10) Blood Pressure 184/72 Pulse Rate 100 Respiratory Rate 16 Pulse Oximetry (95-100) 97 Oxygen Delivery Room Air Document 07/31/16 20:00 DLW (Rec: 07/31/16 20:00 DLW [id number]) ED Vital Signs Pain Reported No Pain Reported Pain Scale 0 Pain Scale Used Standard (1-10) Blood Pressure 162/74 Pulse Rate 90 Pulse Oximetry (95-100) 94 L Oxygen Delivery Room Air Vital Signs Assessment Start: 07/31/16 20: 34 Freq: Q4H Status: Discharge Document 07/31/16 20:52 LMO (Rec: 07/31/16 20:58 LMO [id number]) Vital Signs with MEWS Temperature (97.6 F-99.6 F) 98.3 F Temperature Source Oral Pulse Rate 87 Respiratory Rate 14 Pulse Oximetry (95-100) 97 Oxygen Delivery Room Air Blood Pressure 136/79 Blood Pressure Location Right Arm Source Automatic Cuff Position HOB Elevated Neuro Status *recalled from last Alert documentation MEWS Score 0 Document 08/01/16 01:20 LMO (Rec: 08/01/16 01:22 LMO [id number]) Vital Signs with MEWS Temperature (97.6 F-99.6 F) 98.0 F Temperature Source Oral Pulse Rate 83 Respiratory Rate 16 Pulse Oximetry (95-100) 97 Oxygen Delivery Room Air Blood Pressure 132/69 Blood Pressure Location Right Arm Source Automatic Cuff Position HOB Elevated Neuro Status *recalled from last Alert documentation MEWS Score 1 Vital Signs Assessment Start: 08/01/16 01: 33 Freq: Q4H Status: Discharge Document 08/01/16 03:30 LMO (Rec: 08/01/16 03:33 LMO [id number]) Vital Signs with MEWS Temperature (97.6 F-99.6 F) 98.4 F Temperature Source Oral Pulse Rate 89 Respiratory Rate 14 Pulse Oximetry (95-100) 97 Oxygen Delivery Room Air Blood Pressure 160/80 Blood Pressure Location Right Arm Source Automatic Cuff Position HOB Elevated Neuro Status *recalled from last Alert documentation MEWS Score 0 Document 08/01/16 07:13 ROBERT (Rec: 08/01/16 07:20 [id number] Vital Signs with MEWS Temperature (97.6 F-99.6 F) 98.5 F Temperature Source Oral Pulse Rate 89 Respiratory Rate 16 Pulse Oximetry (95-100) 97 Oxygen Delivery Room Air Blood Pressure 162/76 Blood Pressure Location Left Arm Source Automatic Cuff Position Supine Neuro Status *recalled from last Alert documentation MEWS Score 1 Document 08/01/16 10:51 ROBERT (Rec: 08/01/16 10:58 [id number]) Vital Signs with MEWS Temperature (97.6 F-99.6 F) 98.1 F Temperature Source Oral Pulse Rate 79 Respiratory Rate 16 Pulse Oximetry (95-100) 95 Oxygen Delivery Room Air Blood Pressure 135/75 Blood Pressure Location Right Arm Source Automatic Cuff Position Sitting Neuro Status *recalled from last Alert documentation MEWS Score 1 Document 08/01/16 14:24 ROBERT (Rec: 08/01/16 14:27 [id number]) Vital Signs with MEWS Temperature (97.6 F-99.6 F) 97.9 F Temperature Source Oral Pulse Rate 79 Respiratory Rate 18 Pulse Oximetry (95-100) 94 L Oxygen Delivery Room Air Blood Pressure 174/81 Blood Pressure Location Right Arm Source Automatic Cuff Position Supine Neuro Status *recalled from last Alert documentation MEWS Score 1 Document 08/01/16 18:41 RKA (Rec: 08/01/16 18:43 RKA [id number]) Vital Signs with MEWS Temperature (97.6 F-99.6 F) 98.2 F Temperature Source Oral Pulse Rate 73 Respiratory Rate 14 Pulse Oximetry (95-100) 96 Oxygen Delivery Room Air Blood Pressure 131/62 Blood Pressure Location Left Arm Source Automatic Cuff Position HOB Elevated Document 08/01/16 22:02 RKA (Rec: 08/01/16 22:03 RKA [id number]) Vital Signs with MEWS Temperature (97.6 F-99.6 F) 99.3 F Temperature Source Oral Pulse Rate 73 Respiratory Rate 14 Pulse Oximetry (95-100) 95 Oxygen Delivery Room Air Blood Pressure 167/74 Blood Pressure Location Left Arm Source Automatic Cuff Position Supine 08/01/16 22:04 Nurse Note by Jorge Alberto Layton RN notified about blood pressure. Initialized on 08/01/16 22:04 - END OF NOTE Document 08/02/16 00:05 CINDI (Rec: 08/02/16 00:05 RKA [id number]) Vital Signs with MEWS Pulse Rate 85 Blood Pressure 174/79 Blood Pressure Location Right Arm Source Automatic Cuff Position Supine Document 08/02/16 06:36 [facility] (Rec: 08/02/16 06:37 [id number] Vital Signs with MEWS Temperature (97.6 F-99.6 F) 99.0 F Temperature Source Oral Pulse Rate 77 Respiratory Rate 18 Pulse Oximetry (95-100) 96 Oxygen Delivery Room Air Blood Pressure 135/64 Blood Pressure Location Left Arm Source Automatic Cuff Position HOB Elevated Neuro Status *recalled from last Alert documentation MEWS Score 1 Document 08/02/16 11:45 [facility] (Rec: 08/02/16 11:53 [id number]) Vital Signs with MEWS Temperature (97.6 F-99.6 F) 98.5 F Temperature Source Oral Pulse Rate 80 Respiratory Rate 18 Pulse Oximetry (95-100) 98 Oxygen Delivery Nasal Cannula Oxygen Flow Rate (LPM) 2 Blood Pressure 156/67 Blood Pressure Location Left Arm Source Automatic Cuff Position HOB Elevated Neuro Status *recalled from last Alert documentation MEWS Score 1 Document 08/02/16 15:12 [facility] (Rec: 08/02/16 15:14 [facility] [id number]) Vital Signs with MEWS Temperature (97.6 F-99.6 F) 98.2 F Temperature Source Oral Pulse Rate 84 Respiratory Rate 18 Pulse Oximetry (95-100) 96 Oxygen Delivery Room Air Blood Pressure 129/61 Blood Pressure Location Left Arm Source Automatic Cuff Position HOB Elevated Neuro Status *recalled from last Alert documentation MEWS Score 1 Document 08/02/16 18:57 [id number] (Rec: 08/02/16 18:58 [id number]) Vital Signs with MEWS Temperature (97.6 F-99.6 F) 98.2 F Temperature Source Oral Pulse Rate 74 Respiratory Rate 18 Pulse Oximetry (95-100) 95 Oxygen Delivery Room Air Blood Pressure 142/69 Blood Pressure Location Left Arm Source Automatic Cuff Position HOB Elevated Neuro Status *recalled from last Alert documentation MEWS Score 1 Document 08/02/16 22:23 [id number] (Rec: 08/02/16 22:[id number]) Vital Signs with MEWS Temperature (97.6 F-99.6 F) 98.8 F Temperature Source Oral Pulse Rate 83 Respiratory Rate 16 Pulse Oximetry (95-100) 95 Oxygen Delivery Room Air Blood Pressure 124/56 Blood Pressure Location Left Arm Source Automatic Cuff Position HOB Elevated Neuro Status *recalled from last Alert documentation MEWS Score 1 Document 08/03/16 02:44 [id number] (Rec: 08/03/16 02:[id number]) Vital Signs with MEWS Temperature (97.6 F-99.6 F) 98.4 F Temperature Source Oral Pulse Rate 80 Respiratory Rate 18 Pulse Oximetry (95-100) 94 L Oxygen Delivery Room Air Blood Pressure 152/68 Blood Pressure Location Left Arm Source Automatic Cuff Position Supine Neuro Status *recalled from last Alert documentation MEWS Score 1 Document 08/03/16 07:16 [facility] (Rec: 08/03/16 07:22 [id number]) Vital Signs with MEWS Temperature (97.6 F-99.6 F) 98.8 F Temperature Source Oral Pulse Rate 86 Respiratory Rate 18 Pulse Oximetry (95-100) 99 Oxygen Delivery Room Air Blood Pressure 169/61 Blood Pressure Location Left Arm Source Automatic Cuff Position Supine Neuro Status *recalled from last Alert documentation MEWS Score 1 Document 08/03/16 12:07 [facility] (Rec: 08/03/16 12:08 [id number]) Vital Signs with MEWS Temperature (97.6 F-99.6 F) 97.8 F Temperature Source Oral Pulse Rate 78 Respiratory Rate 18 Pulse Oximetry (95-100) 95 Oxygen Delivery Room Air Blood Pressure 132/73 Blood Pressure Location Left Arm Source Automatic Cuff Position HOB Elevated Neuro Status *recalled from last Alert documentation MEWS Score 1 Document 08/03/16 15:40 [facility] (Rec: 08/03/16 15:42 [id number]) Vital Signs with MEWS Temperature (97.6 F-99.6 F) 98.2 F Temperature Source Oral Pulse Rate 83 Respiratory Rate 16 Pulse Oximetry (95-100) 91 L Oxygen Delivery Room Air Blood Pressure 155/76 Blood Pressure Location Left Arm Source Automatic Cuff Position HOB Elevated Neuro Status *recalled from last Alert documentation MEWS Score 1 Document 08/03/16 19:00 GLD (Rec: 08/03/16 19:57 GLD [id number]) Vital Signs (Critical Care) Rhythm Sinus Rhythm Right Radial 2+ Left Radial 2+ Right Dorsalis Pedis 2+ Left Dorsalis Pedis 2+ Right Posterior Tibialis 2+ Left Posterior Tibialis 2+ Oxygen Delivery Room Air Neuro Status *Recalled from last Alert documented assessment Vital Signs with MEWS Oxygen Delivery Room Air Position HOB Elevated Document 08/03/16 20:06 LMO (Rec: 08/03/16 20:07 LMO [id number]) Vital Signs with MEWS Temperature (97.6 F-99.6 F) 98.8 F Temperature Source Oral Pulse Rate 91 Respiratory Rate 14 Pulse Oximetry (95-100) 99 Oxygen Delivery Room Air Blood Pressure 134/67 Blood Pressure Location Left Arm Source Automatic Cuff Position HOB Elevated Neuro Status *recalled from last Alert documentation MEWS Score 0 Document 08/03/16 23:21 GLD (Rec: 08/03/16 23:27 GLD [id number]) Vital Signs (Critical Care) Pulse Rate 80 Rhythm Sinus Rhythm Right Radial 2+ Left Radial 2+ Right Dorsalis Pedis 2+ Left Dorsalis Pedis 2+ Right Posterior Tibialis 2+ Left Posterior Tibialis 2+ Oxygen Delivery Room Air Neuro Status *Recalled from last Alert documented assessment Vital Signs with MEWS Pulse Rate 80 Oxygen Delivery Room Air Position HOB Elevated Neuro Status *recalled from last Alert documentation Document 08/04/16 01:35 LMO (Rec: 08/04/16 01:41 LMO [id number]) Vital Signs with MEWS Temperature (97.6 F-99.6 F) 98.1 F Temperature Source Oral Pulse Rate 83 Respiratory Rate 16 Pulse Oximetry (95-100) 97 Oxygen Delivery Room Air Blood Pressure 153/78 Blood Pressure Location Left Arm Source Automatic Cuff Position HOB Elevated Neuro Status *recalled from last Alert documentation MEWS Score 1 Document 08/04/16 04:38 LMO (Rec: 08/04/16 04:56 LMO [id number]) Vital Signs with MEWS Temperature (97.6 F-99.6 F) 98.7 F Temperature Source Oral Pulse Rate 83 Respiratory Rate 16 Pulse Oximetry (95-100) 97 Oxygen Delivery Room Air Blood Pressure 134/69 Blood Pressure Location Left Arm Source Automatic Cuff Position HOB Elevated Neuro Status *recalled from last Alert documentation MEWS Score 1 Document 08/04/16 08:10 BEH (Rec: 08/04/16 08:11 BEH [id number]) Vital Signs with MEWS Temperature (97.6 F-99.6 F) 98.3 F Temperature Source Oral Pulse Rate 84 Respiratory Rate 18 Pulse Oximetry (95-100) 95 Oxygen Delivery Room Air Blood Pressure 99/58 Blood Pressure Location Left Arm Source Automatic Cuff Position Supine Neuro Status *recalled from last Alert documentation MEWS Score 2 Document 08/04/16 08:30 [id number] (Rec: 08/04/16 08:37 [id number]) Vital Signs with MEWS Pulse Rate 87 Blood Pressure 112/65 Blood Pressure Location Left Arm Source Automatic Cuff Position Sitting Discharge Information ED Provider: Ming Gonzalez Status: Departed Time Seen by Provider: 07/31/16 17:11 Condition: Fair Triaged At: 07/31/16 17:05 Other ED Providers: Kalli Russo,Yanely Oliver I Emergency Discharge Date/Time: 07/31/16 20:38 Emergency Discharge Disposition: Admitted As Inpatient Clinical Impression Failure to thrive Emergency Discharge Comment: Admit Intervention Last Done ED Weakness Assessment 07/31/16 17:22 Query Result Weakness Symptoms/Complaint Generalized Weakness Weakness Duration Constant Weakness Associated Symptoms Denies Other Symptoms Level Of Consciousness Awake Alert Appropriate Follows Commands Patient Orientation Person Place Time Neurological Symptoms None All Four Limbs -Movement Description +5 Problems with Ambulation Gait and Balance Satisfac Capillary Refill < 3 Seconds Anterior & Posterior Bilateral Throughout -Breath Sounds Clear Respiratory Depth Normal Abdomen Description Soft Nausea/Vomiting Presence None ED Discharge Assessment 07/31/16 20:28 Query Result ED Discharge Disposition Admitted ED Condition on Discharge Good Med Rec/Patient Phamracy completed? Yes ED Admit to 3A Bed assigned 3A-31 Transported by nurse Transported with monitor oxygen IV pulse oximetry Report given to Nurse Care transferred to EMMY RN Information relayed patient's care treatments medications given condition recent/anticipated change Clinical Documentation Summary Provided Yes Severity scale (1-10) 0 Pain Scale Used Standard (1-10) Blood Pressure 132/62 Heart rate 76 Respiratory Rate 16 Oxygen Delivery Room Air Pulse Oximetry Reading 97 Critical Care Minutes 0 Inpatient Discharge Date/Time: 08/04/16 10:57 Inpatient Discharge Disposition: Transfer [facility] Inpatient Discharge Comment: Observation Discharge Date/Time: Observation Discharge Disposition: Observation Discharge Comment: Instructions: Stand-Alone Forms: Prescriptions: Ondansetron [Zofran] Rajbhandari,Prativa Dicyclomine [Bentyl] Rajbhandari,Prativa Megestrol Acetate [Megace] Rajbhandari,Prativa Metoclopramide [Reglan] Rajbhandari,Prativa Omeprazole [PriLOSEC] Rajbhandari,Prativa Sucralfate [Carafate] Rajbhandari,Prativa Visit Report - Forms: - Referrals: Watson Jimenes DO (Partnered Physician) - 08/08/16 10:15 am Savannah Durán CNP (Advanced Practice Nurse) - 08/11/16 9:00 am Radiology Results Chest X-Ray 07/31/16 17:13 IMPRESSION: Focal opacity right upper lobe worrisome for possible lung carcinoma. Chest CT is warranted for complete evaluation. D/ / 07/31/2016 17:57:32 Glen Fernandez MD / manan Interpreting Provider: Glen Fernandez MD Chest CT 07/31/16 18:00
[2016-08-01] MEDS ORDERED: D5% in Water 1,000 ML IV PRN (01:33)
[2016-08-01] MEDS ORDERED: Albuterol 2.5 MG/3 ML NEBULIZER IH PRN (01:33)
[2016-08-01] MEDS ORDERED: Acetaminophen 325 MG TABLET PO PRN (01:33)
[2016-08-01] MEDS ORDERED: Naloxone 0.4 MG/ML INJ IVP PRN (01:33)
[2016-08-01] MEDS ORDERED: Dextrose Gel 15 GM PO PRN ×2 (01:33)
[2016-08-01] MEDS ORDERED: *HR* Dextrose 50 % in Water (Syg) 50 ML SYRINGE IVP PRN (01:33)
[2016-08-01] MEDS ORDERED: Benzonatate 100 MG CAPSULE PO PRN (01:33)
[2016-08-01] MEDS ORDERED: *HR* OxyCODONE Immed Rel 5 MG TABLET PO PRN (01:33)
[2016-08-01] MEDS ORDERED: *HR* Morphine 2 MG/ML SYRINGE IVP PRN (01:33)
[2016-08-01] MEDS ORDERED: Ondansetron 4 MG/2 ML VIAL IVP PRN (01:33)
[2016-08-01] MEDS: 0.9 % Sodium Chloride 1,000 ML IVC SCH (02:52)
[2016-08-01] MEDS: Ipratropium/Albuterol Neb 3 ML IH SCH ×4 (04:46→22:21)
[2016-08-01 05:33] LABS: VBG HCO3 23.9 mEq/L (21-27); VBG PH 7.43 pH Units (7.32-7.42)
[2016-08-01 05:39] LABS: INR 1.1; Prothrombin Time 11.6 Seconds (9.4-12.1)
[2016-08-01 05:43] LABS: Hemoglobin A1C 7.2 %; Ionized Calcium 1.2 mmol/L (1.15-1.35)
[2016-08-01 05:57] LABS: Chol/HDL Ratio 3.1 (0-4.9); Magnesium 1.9 mg/dL (1.6-2.6); Phosphorous 3.9 mg/dL (2.3-4.7)
[2016-08-01] MEDS: *HR* Enoxaparin 40 MG/0.4 ML SYRINGE SQ SCH (06:16)
[2016-08-01 06:17] LABS: Carcinoembryonic Antigen 5.4 ng/mL (0-5.0)
--- NOTE | 2016-08-01 08:07 | Pulmonology Consult Note ---
Date of Encounter: 08/01/16 Time of Encounter: 08:06 Assessment and Plan (1) Lung nodules Current Visit: Yes Status: Acute Clearly patient at high risk for primary lung malignancy with possible by evidence of bilateral disease and even metastatic disease with a notable liver lesion. There has been for the patient at least some evaluation of this condition in the past and for stent would be to obtain outside records from [place] including here in [place] and at [place] which I have already requested. Patient does not have evidence of a mediastinal lymph node that could be amenable to a bus biopsy which could be considered tomorrow or in the next 48 hours upon what outside hospital records show and what workup has been done. Be on the safe side we will keep patient nothing by mouth at midnight tonight for possible biopsy tomorrow. The RUL lesion is most concerning and this could also be amenable to CT-guided biopsy based upon what workup has been done in the past. (2) Failure to thrive Current Visit: Yes Status: Acute This is main managed by the primary internal medicine service including full/ extensive neurological and gastroenterological evaluations in the past (3) Generalized weakness Current Visit: Yes Status: Acute MRI of this year the head without evidence of metastatic disease does have a history of cerebrovascular accident managed by internal medicine service and undergoing rehabilitation possible that worsening acutely related more to dehydration secondary to poor by mouth intake (4) DVT prophylaxis Current Visit: No Status: Acute With history of malignancy and possible ongoing active malignancy agree with covering patient for DVT prophylaxis with subcutaneous Lovenox History of Present Illness Consult date: 08/01/16 Requesting physician: Jeramie Alarcon Reason for consult: abnormal CXR/CT Chief complaint: Weakness History of present illness: This is a 81-year-old gentleman who presented from home to the [facility] ED for worsening weakness and inability to perform activities of daily living and weight loss. Per the patient he has been seen for this same including inpatient outpatient rehabilitation at the [facility] in [place]. As part of evaluation here in the emergency department chest x- ray was performed which was suggestive of nodules in the long this was followed by CT of the chest which showed bilateral lung nodules and some groundglass opacities with some concern for primary lung malignancy pulmonary was consulted to further evaluate this. The patient is a former smoker of approximately 3 packs a day for approximately 30 years. He has a history of colon cancer per the medical record status post resection. 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 He denies hemoptysis. He denies any baseline shortness of breath and does not take any inhalers. Per the patient these lung [facility] and an on at least one occasion he was sent to the [facility] administration for further evaluation and told that "he does not have lung cancer" it is unclear what workup was done at that time but he patient does not recall that there was a biopsy performed. Outside of inability to tolerate diet he is most pressing concern is generalized weakness and severe peripheral neuropathy that he attributes to uncontrolled diabetes Past Med Surg Social Fam HX - Past Medical History Medical history: arthritis, cancer, COPD (KRISTAL), coronary artery disease, CVA, dementia, diabetes, GERD, GI bleed (History of melena secondary to small bowel intussusception status post resection.), hyperlipidemia, hypertension, malignancy, myocardial infarction, osteoporosis, renal disease (BPH with prostatism and urinary retention/urinary incontinence.), thyroid disease, other (Cholelithiasis. History of colon cancer.) Psychiatric history: anxiety, depression, PTSD, other - Past Surgical History Surgical History: angioplasty/stent, cancer surgery, colectomy (partial colectomy for colon CA), herniorrhaphy, knee replacement, orthopedic, other, other (Partial small bowel resection of distal small bowel intussusception 2013.colonoscopy. EGD.) - Social History Smoking Status: Former smoker Packs per day: ~3ppp [id number]; abstinent x20yrs Smokeless Tobacco Status: No Alcohol use: rarely Drug use: none - Family History Father Adopted: No Family Member Ethnicity: Non- Living Status: Hx Family Cardiac Disorders: Yes Hx Family Respiratory Disorders: No Hx Family Cancer: No Hx Family GI Disorders: No Hx Family Endocrine Disorder: No Hx Family Neuromuscular Disorders: No Hx Family Neurologic Disorders: Yes Hx Family HEENT Disorders: No Hx Family Autoimmune Disorders: No Medications and Allergies Aspirin 81 mg PO DAILY 06/23/16 [History] Cholecalciferol (Vitamin D3) [Vitamin D3] 2,000 unit PO DAILY 06/23/16 [History] Dextrose Gel [Gluctose] 15 gm PO DAILY PRN 06/23/16 [History] Finasteride [Proscar] 5 mg PO DAILY 06/23/16 [History] Insulin ASPART [NovoLOG] 10 unit SQ TID 06/23/16 [History] Metformin [Glucophage] 1,000 mg PO DAILY 06/23/16 [History] Mv-Mn/FA/Vit K/Lycop/Lut/Coq10 [Daily Multivitamin Capsule] 1 each PO DAILY [History] Potassium Chloride [K-Tab ER] 10 meq PO BID 06/23/16 [History] Pravastatin Sodium [Pravachol] 40 mg PO DAILY 06/23/16 [History] Ranitidine HCl [Heartburn Relief] 150 mg PO HS 06/23/16 [History] Tamsulosin [Flomax] 0.4 mg PO BID 06/23/16 [History] Urea [Ure-K] 1 appl TP BID 06/23/16 [History] Lisinopril [Zestril] 10 mg PO BID #60 tablet 06/28/16 [Rx] Metoprolol [Lopressor] 50 mg PO BID #60 tablet 06/28/16 [Rx] Chlorhexidine Gluconate [Betasept] 15 ml TP BID 07/19/16 [History] Docusate Sodium [Dok] 200 mg PO DAILY 07/19/16 [History] Fludrocortisone Acetate [Florinef] 0.1 mg PO DAILY 07/19/16 [History] MOM Conc [Milk of Magnesia Conc] 10 ml PO Q4H PRN 07/19/16 [History] Mirtazapine [Remeron] 15 mg PO HS 07/19/16 [History] Ondansetron HCl 4 mg PO Q6H PRN 07/19/16 [History] Polyethylene Glycol/Polyvinyl [Hypotears Eye Drops] 1 drop BOTH EYES TID [History] Pregabalin [Lyrica] 50 mg PO HS 07/19/16 [History] Allergies gabapentin Allergy (Verified 07/19/16 09:47) Itching Nortriptyline Allergy (Verified 07/19/16 09:47) Rash Terazosin Allergy (Verified 07/19/16 09:47) Itching All Systems: A 10-system review of systems was performed and is negative for pertinent findings except as documented above in the HPI. Physical Examination Vital Signs: Vital Signs, Last 4 Hours Temp Pulse Resp BP Pulse Ox 08/01/16 07:13 98.5 F 89 16 162/76 97 08/01/16 04:51 16 95 General appearance: no acute distress Eyes: nonicteric ENT: oropharynx dry Neck: supple Effort: normal Auscultation: bilateral: clear Cardiovascular: regular rate and rhythm Gastrointestinal: normoactive bowel sounds, soft, non-tender Integumentary: normal Extremities: no cyanosis, no clubbing Musculoskeletal: no deformities normal mental status, non-focal exam, other (Generalized weakness but symmetric in upper and lower extremities) mood appropriate Results - Laboratory Findings CBC and BMP: 07/31/16 17:24 07/31/16 17:24 PT/INR, D-dimer PT 11.6 Seconds (9.4-12.1) 08/01/16 05:19 Abnormal lab findings: Abnormal lab results MCH 26.9 pg (28.0-33.3) L 07/31/16 17:24 ESR 11 mm/hr (0-10) H 08/01/16 05:19 VBG pH 7.43 pH Units (7.32-7.42) H 08/01/16 05:19 VBG pCO2 36 mmHg (41-51) L 08/01/16 05:19 VBG pO2 48 mmHg (25-40) H 08/01/16 05:19 Glucose 103 mg/dL (70-99) H 07/31/16 17:24 Hemoglobin A1c 7.2 % (-5.6) H 08/01/16 05:19 Albumin 3.2 g/dL (3.5-5.0) L 07/31/16 17:24 Albumin/Globulin Ratio 1.0 (1.1-2.2) L 07/31/16 17:24 HDL Cholesterol 35 mg/dL (40-59) L 08/01/16 05:19 Carcinoembryonic Ag 5.4 ng/mL (0-5.0) H 08/01/16 05:19 - Diagnostic Findings CT scan - chest: report reviewed (1. A 2.0 cm x 1.3 cm solid nodule with spiculated margins in the right upper), image reviewed - Clinical Findings Intake & Output: Intake & Output 07/31/16 08/01/16 08/01/16 23:59 07:59 15:59 Intake Total 0 / 1000 0 / 0 Output Total 0 / 0 200 / 200 Balance 0 / 1000 -200 / -200 Weight 60.3 kg 60.9 kg Consult Discharge Plan - Plan Referrals: Jonathan Herron Jr, MD [Primary Care Provider] -
[2016-08-01] MEDS: Aspirin 81 MG TAB.CHEW PO SCH (08:40)
[2016-08-01] MEDS: Finasteride 5 MG TABLET PO SCH (08:41)
[2016-08-01] MEDS: Megestrol Acetate 400 MG/10 ML UDC PO SCH (08:41)
[2016-08-01] MEDS: Insulin LISPRO 300 UNITS/3 ML VIAL SQ SCH ×4 (08:42→20:06)
[2016-08-01] MEDS: Artificial Tears SOLN 15 ML BOTTLE BOTH EYES SCH ×3 (08:44→20:14)
--- NOTE | 2016-08-01 14:19 | Internal Med Progress Note ---
Date of Encounter: 08/01/16 Time of Encounter: 14:17 - Assessment and plan (1) Lung nodules Current Visit: Yes Status: Acute Assessment and plan: High risk for primary lung malignancy as per pulmonary. Planned for possible biopsy tomorrow, CT-guided biopsy of the right upper lobe lesion. He does have a history of colon cancer and gives history of colon resection in the past. Patient not sure about his last colonoscopy. We will get records. Keep NPO past MN. (2) Neuropathy Current Visit: Yes Status: Acute (3) Failure to thrive Current Visit: Yes Status: Acute Qualifiers: Failure to thrive age range: in adult Qualified Code(s): R62.7 - Adult failure to thrive (4) Generalized weakness Current Visit: Yes Status: Acute Assessment and plan: HE has had neuro and GI eval in the past for deneralized weakness as per neurology's last note, he does have distal weakness and it seemed to be possible secondary to peroneal neuropathy, plan for outpatient follow-up with EMG with Dr. Jimenes. Appointment was scheduled for today, however he is admitted to the hospital for evaluation of the lung nodule. Did consult Dr. Thomas who is on-call neurologist for today, recommended that EMG has to be done outpatient and this could be done after the patient is discharged and once the lung nodule has been evaluated and ruled out of cancer. - Time Spent With Patient 25 - 35 minutes - Subjective Interval history: Patient seen at the bedside, nontender in any acute distress. Denies any complaints other than bilateral lower leg weakness, which seems to be chronic. Admitted for evlauation of a lung nodule, plan for biopsy tomorrow, pulmonary has been consulted. - Constitutional Vitals: Temp Pulse Resp BP Pulse Ox 98.1 F 79 16 135/75 95 08/01/16 10:51 08/01/16 10:51 08/01/16 11:02 08/01/16 10:51 08/01/16 11:02 General appearance: Present: cachectic, cooperative, A&O X 3, answers questions appropriately Exam: Eyes: nonicteric ENT: oropharynx dry Neck: supple Effort: normal Auscultation: bilateral: clear, no wheezing or crepitations. Cardiovascular: regular rate and rhythm Gastrointestinal: normoactive bowel sounds, soft, non-tender Integumentary: normal Extremities: no cyanosis, no clubbing Musculoskeletal: no deformities b/l distal weakness of the lower legs Internal Medicine: Result - Labs CBC & Chem 7: 07/31/16 17:24 07/31/16 17:24 Labs: Cardiac Enzymes 08/01/16 08/01/16 Range/Units 05:19 10:51 Troponin I 0.01 0.01 (0-0.03) ng/mL - ABG Interpretation ABG results: PT/INR, D-dimer PT 11.6 Seconds (9.4-12.1) 08/01/16 05:19 Consult Discharge Plan - Plan Referrals: Jonathan Herron Jr, MD [Primary Care Provider] -
--- NOTE | 2016-08-01 16:58 | Electrocardiograph Report ---
[address] [place] [address] Test Date: 2016-07-31 Pat Name: Wilfredo Conn Department: 103 Room: 3A Gender: M Tablet Tester: : 1935 Requested By: Ming Gonzalez Order Number: [id number] Reading MD: Gab Palacio Measurements Intervals [place] Rate: 84 P: -87 RI: 117 QRS: -26 QRSD: 81 T: 0 QT: 355 QTc: 396 Interpretive Statements JUNCTIONAL RHYTHM INFERIOR MYOCARDIAL INFARCTION, OF INDETERMINATE AGE Electronically Signed On 08-01-2016 16:56:57 EST by Gab Palacio
[2016-08-01] MEDS: Pregabalin 50 MG CAPSULE PO SCH (20:13)
[2016-08-01] MEDS: Mirtazapine 15 MG TABLET PO SCH (20:14)
[2016-08-01] MEDS ORDERED: Famotidine 20 MG TABLET PO SCH (21:00)
[2016-08-02 03:39] LABS: Bilirubin,Urine Negative (Negative); Blood,Urine Negative (Negative); Clarity,Urine Clear (Clear); Color,Urine Yellow (Yellow); Glucose,Urine (UA) 100 mg/dL (Normal); Ketones,Urine Negative (Negative); Leukocyte Esterase,Urine Negative (Negative); Nitrite,Urine Negative (Negative); PH,Urine 6.5 pH Units (5.0-8.0); Protein,Urine Negative (Neg-Trace); Specific Gravity,Urine 1.012 (1.010-1.025); Urobilinogen,Urine Normal (Normal)
[2016-08-02] MEDS: Ipratropium/Albuterol Neb 3 ML IH SCH ×4 (04:57→22:36)
[2016-08-02] MEDS: 0.9 % Sodium Chloride 1,000 ML IVC SCH (05:31)
[2016-08-02] MEDS: *HR* Enoxaparin 40 MG/0.4 ML SYRINGE SQ SCH (05:31)
--- NOTE | 2016-08-02 07:50 | Internal Med Progress Note ---
Date of Encounter: 08/02/16 - Constitutional Vitals: Temp Pulse Resp BP Pulse Ox 99.0 F 77 18 135/64 96 08/02/16 06:36 08/02/16 06:36 08/02/16 06:36 08/02/16 06:36 08/02/16 06:36 General appearance: Present: cachectic, cooperative, A&O X 3, answers questions appropriately Internal Medicine: Result - Labs CBC & Chem 7: 07/31/16 17:24 07/31/16 17:24 Labs: Cardiac Enzymes 08/01/16 08/01/16 Range/Units 10:51 17:32 Troponin I 0.01 0.01 (0-0.03) ng/mL Urine 08/02/16 Range/Units 01:51 Urine Color Yellow (Yellow) Urine Clarity Clear (Clear) Urine pH 6.5 (5.0-8.0) pH Units Ur Specific [place] 1.012 (1.010-1.025) Urine Protein Negative (Neg-Trace) mg/dL Urine Glucose (UA) 100 H (Normal) mg/dL - ABG Interpretation ABG results: PT/INR, D-dimer PT 11.6 Seconds (9.4-12.1) 08/01/16 05:19 Consult Discharge Plan - Plan Referrals: Jonathan Herron Jr, MD [Primary Care Provider] -
[2016-08-02] MEDS: Insulin LISPRO 300 UNITS/3 ML VIAL SQ SCH ×4 (08:21→20:37)
[2016-08-02] MEDS: Artificial Tears SOLN 15 ML BOTTLE BOTH EYES SCH ×3 (08:22→20:32)
[2016-08-02] MEDS: Megestrol Acetate 400 MG/10 ML UDC PO SCH ×2 (08:23→12:18)
[2016-08-02] MEDS: Finasteride 5 MG TABLET PO SCH (08:23)
[2016-08-02] MEDS: Aspirin 81 MG TAB.CHEW PO SCH (08:23)
--- NOTE | 2016-08-02 10:12 | ECHO - Doppler Report ---
Limited Echocardiogram Name: Wilfredo Conn Date of Study: 08/01/2016 Date: 1935 Ht: 72.0 in Medical Record#: [id number] Age: 81 Wt: 134.0 lb Gender: Male BSA: 1.8 Order #: [id number] Location: [facility] Room #: 3A31 Reading Physician: Joanie Paiz DO Gis Analyst Developer: Beatriz Zimmerman RDCS Ordering Physician: Jeramie Alarcon MD Primary Physician: Jonathan Herron MD Indications: Chest pain, Weakness, Dyspnea Impressions: LVEF 60%. Normal left ventricular size and systolic function. Normal right ventricular size and function. Left Ventricular Wall Motion: Rest Echo Findings All wall segments showed normal motion. Findings: Study Quality * Technically adequate exam. ECG Findings * Normal sinus rhythm. Left Ventricle * LVEF 60%. * Normal LV chamber size, wall thickness and function. Right Ventricle * Normal right ventricular structure and function. History Hypertension Diabetes Hypercholesteremia Family History of CAD History of CAD/PTCA Myocardial Infarction 06/23/2016 a Previous Echo was performed. Measurements: BP: 174/ 81 2D Normal Values RVIDd: 3.14 cm <2.7 cm IVSd: .93 cm 0.6 - 1.0 cm LVIDd: 4.00 cm 3.7 - 5.6 cm LVPWd: 1.18 cm 0.6 - 1.1 cm LVIDs: 2.83 cm 1.5 - 3.6 cm %FS: 29.30 cm >25 % LA volume: Updated by Joanie Paiz on 08/02/2016 10:03:46 AM electronically signed on 08/02/2016 10:05:31 AM with status of Final [employer] [place]: 1=Normal, 2=Hypokinesis, 3=Akinesis, 4=Dyskinesis, 5=Aneurysmal, 6=Hyperkinetic, X=Not Visualized (Blank)=Missing
--- NOTE | 2016-08-02 11:21 | Pulmonology Progress Note ---
Date of Encounter: 08/02/16 Time of Encounter: 11:19 Assessment and Plan (1) Lung nodules Current Visit: Yes Status: Acute I reviewed his CT scan on admission here and compared that with the CT reports from March PET scan from April and repeat CT scan from May. All records obtained from the [facility]. It appears that the left- sided nodules the primary one being the superior segment of the left lower lobe has decreased in size it had significant pet avidity (greater than 6 SUV) but has decreased in size as noted. Subcarinal lymph node has also decreased in size from previous CT scans. The right upper lobe nodule has not decreased in size and remains approximately 2 cm this was only modestly PET avid ( approximately 1.7 SUV) which is of unclear significance but could represent slow growing neoplastic process I outlined the possibility for continued CT surveillance versus biopsy of right upper lobe nodule in the context of a patient who is a former smoker with agent orange exposure advanced age and prior malignancy patient opted to undergo CT- guided biopsy which we will organize for tomorrow morning at approximately 9:15A please hold warning dose of Lovenox keep patient nothing by mouth at midnight (appropriate for him to resume diet at this time until then) (2) Failure to thrive Current Visit: Yes Status: Acute Qualifiers: Failure to thrive age range: in adult Qualified Code(s): R62.7 - Adult failure to thrive (3) Generalized weakness Current Visit: Yes Status: Acute (4) DVT prophylaxis Current Visit: No Status: Acute Subjective Principal diagnosis: Weakness Interval history: No acute events overnight says he feels somewhat better than at admission Objective PUL Vital signs: Last Vital Signs Temp 99.0 F 08/02/16 06:36 Pulse 77 08/02/16 06:36 Resp 18 08/02/16 06:36 BP 135/64 08/02/16 06:36 Pulse Ox 96 08/02/16 06:36 General appearance: no acute distress ENT: oropharynx moist Neck: supple Effort: normal Auscultation: bilateral: clear Cardiovascular: regular rate and rhythm normal mental status, non-focal exam mood appropriate Results - Laboratory Findings CBC and BMP: 07/31/16 17:24 07/31/16 17:24 PT/INR, D-dimer PT 11.6 Seconds (9.4-12.1) 08/01/16 05:19 Abnormal lab findings: Abnormal lab results MCH 26.9 pg (28.0-33.3) L 07/31/16 17:24 ESR 11 mm/hr (0-10) H 08/01/16 05:19 VBG pH 7.43 pH Units (7.32-7.42) H 08/01/16 05:19 VBG pCO2 36 mmHg (41-51) L 08/01/16 05:19 VBG pO2 48 mmHg (25-40) H 08/01/16 05:19 Glucose 103 mg/dL (70-99) H 07/31/16 17:24 POC Glucose 145 (58-89) H 08/01/16 16:28 Hemoglobin A1c 7.2 % (-5.6) H 08/01/16 05:19 Albumin 3.2 g/dL (3.5-5.0) L 07/31/16 17:24 Albumin/Globulin Ratio 1.0 (1.1-2.2) L 07/31/16 17:24 HDL Cholesterol 35 mg/dL (40-59) L 08/01/16 05:19 Carcinoembryonic Ag 5.4 ng/mL (0-5.0) H 08/01/16 05:19 Urine Glucose (UA) 100 mg/dL (Normal) H 08/02/16 01:51 - Clinical Findings Intake & Output: Intake & Output 08/01/16 08/02/16 08/02/16 23:59 07:59 15:59 Intake Total 340 / 340 1000 / 1000 0 / 0 Output Total 275 / 275 125 / 125 Balance 65 / 65 875 / 875 0 / 0 Weight 63.2 kg Consult Discharge Plan - Plan Referrals: Watson Jimenes DO [Partnered Physician] - 08/08/16 10:15 am (This appt. will be for the EMG. After this appt. the office will set up the follow up appt. Thank you) Savannah Durán COMMERCIAL PRODUCER [Advanced Practice Nurse] - 08/09/16 11:00 am
--- NOTE | 2016-08-02 14:23 | Neurology - Consult Note ---
<Jordi Carlson - Last Filed: 08/02/16 14:19> Date of Encounter: 08/02/16 Time of Encounter: 14:19 Assessment and Plan (1) Generalized weakness Current Visit: Yes Status: Acute Likely associated with generalized deconditioning and possible concerns with lung nodules. Patient has continued to lose weight without trying. He states that he has been eating less than normal for him. He denies any new focalization of his weakness from his baseline. This appears to be chronic and should receive EMG testing outpatient for his possible neuropathy. This does not appaear to be neurogenic in origin with consideration to his new symptoms. He does have hx of CVA with deficits noted in his RLE and RUE, but there is no change in these extremities. We will sign off at this time with the patient follow-up to be scheduled for outpatient EMG. (2) Diabetic neuropathy associated with type 2 diabetes mellitus Current Visit: Yes Status: Chronic Qualifiers: Diabetes mellitus complication detail: diabetic polyneuropathy Qualified Code(s): E11.42 - Type 2 diabetes mellitus with diabetic polyneuropathy (3) CVA (cerebral vascular accident) Current Visit: No Status: Chronic Qualifiers: CVA mechanism: unspecified Qualified Code(s): I63.9 - Cerebral infarction, unspecified History of Present Illness Chief complaint: Generalized weakness HPI: Mr. Conn is a 81 year old male with history of CVA arrives to the ED complaining of generalized weakness and difficulty to eat. The patient states that he has baseline weakness in RUE and RLE extremities from DM associated neuropathy. He states that it has been ongoing since February 2016. He denies any new focalized weakness or deficits. He answers all questions correctly and without difficulty and is a very accurate historian. The patient has been experiencing generalized weakness for the past few months. He was evaluated at the [facility] in [place]. They noted lung nodules so he was sent to [facility] for further evaluation and work-up. His biopsies there were apparently negative but he is unsure. He states that he has been eating less over the past month and has been unintentionally losing weight. Denies any recent syncopal episodes, focalized weakness that is new, headaches, new paraesthesias. Past Med Surg Social Fam HX - Past Medical History Attestation: Yes The following information was validated with the patient. Source: patient, old records reviewed Medical history: arthritis, cancer, COPD (KRISTAL), coronary artery disease, CVA, dementia, diabetes, GERD, GI bleed (History of melena secondary to small bowel intussusception status post resection.), hyperlipidemia, hypertension, malignancy, myocardial infarction, osteoporosis, renal disease (BPH with prostatism and urinary retention/urinary incontinence.), thyroid disease, other (Cholelithiasis. History of colon cancer.) Psychiatric history: anxiety, depression, PTSD, other - Past Surgical History Surgical History: angioplasty/stent, cancer surgery, colectomy (partial colectomy for colon CA), herniorrhaphy, knee replacement, orthopedic, other, other (Partial small bowel resection of distal small bowel intussusception 2013.colonoscopy. EGD.) - Social History Smoking Status: Former smoker Packs per day: ~3ppp [id number]; abstinent x20yrs Smokeless Tobacco Status: No Alcohol use: rarely Drug use: none - Family History Father Adopted: No Family Member Ethnicity: Non- Living Status: Hx Family Cardiac Disorders: Yes Hx Family Respiratory Disorders: No Hx Family Cancer: No Hx Family GI Disorders: No Hx Family Endocrine Disorder: No Hx Family Neuromuscular Disorders: No Hx Family Neurologic Disorders: Yes Hx Family HEENT Disorders: No Hx Family Autoimmune Disorders: No Medications and Allergies Aspirin 81 mg PO DAILY 06/23/16 [History] Cholecalciferol (Vitamin D3) [Vitamin D3] 2,000 unit PO DAILY 06/23/16 [History] Finasteride [Proscar] 5 mg PO DAILY 06/23/16 [History] Insulin ASPART [NovoLOG] 10 unit SQ TID 06/23/16 [History] Metformin [Glucophage] 1,000 mg PO DAILY 06/23/16 [History] Mv-Mn/FA/Vit K/Lycop/Lut/Coq10 [Daily Multivitamin Capsule] 1 cap PO DAILY 06/23 [History] Potassium Chloride [K-Tab ER] 10 meq PO BID 06/23/16 [History] Pravastatin Sodium [Pravachol] 40 mg PO DAILY 06/23/16 [History] Ranitidine HCl [Heartburn Relief] 150 mg PO HS 06/23/16 [History] Tamsulosin [Flomax] 0.4 mg PO BID 06/23/16 [History] Urea [Ure-K] 1 appl TP BID 06/23/16 [History] Lisinopril [Zestril] 10 mg PO BID #60 tablet 06/28/16 [Rx] Docusate Sodium [Dok] 200 mg PO DAILY 07/19/16 [History] Fludrocortisone Acetate [Florinef] 0.1 mg PO DAILY 07/19/16 [History] Mirtazapine [Remeron] 15 mg PO HS 07/19/16 [History] Ondansetron HCl 4 mg PO Q6H PRN 07/19/16 [History] Polyethylene Glycol/Polyvinyl [Hypotears Eye Drops] 1 drop BOTH EYES TID [History] Pregabalin [Lyrica] 50 mg PO HS 07/19/16 [History] Clotrimazole 1% CRM [Lotrimin 1%] 1 appl TP BID 08/01/16 [History] Guaifenesin [Sherrie-Tussin] 10 ml PO Q4H PRN 08/01/16 [History] Hydrocortisone 2.5% CREAM [Cortaid] 1 appl RC QID PRN 08/01/16 [History] Insulin Glargine [Lantus] 8 unit SQ HS 08/01/16 [History] Metoprolol [Lopressor] 25 mg PO BID 08/01/16 [History] Pantoprazole Sodium [Protonix] 40 mg PO DAILY 08/01/16 [History] Polyethylene Glycol 3350 [MiraLAX bowel prep] 17 gm PO HS 08/01/16 [History] Sennosides [Senna] 8.6 mg PO BID 08/01/16 [History] Venlafaxine XR (24 HR) [Effexor XR] 37.5 mg PO DAILY 08/01/16 [History] Allergies gabapentin Allergy (Verified 07/19/16 09:47) Itching Nortriptyline Allergy (Verified 07/19/16 09:47) Rash Terazosin Allergy (Verified 07/19/16 09:47) Itching All Systems: A 10-system review of systems was performed and is negative for pertinent findings except as documented above in the HPI. - Constitutional Constitutional ROS IM: fatigue, weakness, weight loss - Musculoskeletal Musculoskeletal ROS IM: muscle weakness - Neurological Neurological ROS: sensory deficit (from neuropathy) Physical Examination - Vital Signs Vital Signs: Initial Vital Signs Temp Pulse Resp BP Pulse Ox 98.1 F 92 18 75/38 94 L 07/31/16 17:05 07/31/16 17:05 07/31/16 17:05 07/31/16 17:05 07/31/16 17:05 - Constitutional General appearance: comfortable - Neurologic Detailed motor examination: grossly full strength in all extremities Motor examination - right side: 4/5: biceps, triceps, top lift and automatic window repairer, hip flexors, tibialis Anterior, quadriceps, toe extension (EHL), plantarflexion, 5/5: deltoids, wrist flexion, wrist extension Motor examination - left side: 5/5: deltoids, biceps, triceps, wrist flexion, wrist extension, hip flexors, top lift and automatic window repairer, quadriceps, tibialis Anterior, toe extension (EHL), plantarflexion Detailed sensory examination: light touch (decreased in RLE and RUE ) Reflexes: Biceps: 2+, Brachioradialis: 2+, Patella: 2+, Achilles: 2+ Mental Status Examination: awake, alert, oriented to person, oriented to place, oriented to time, follows commands appropriately, answers questions appropriately, no agnosia, no aphasia, no aproxia Cranial nerve examination: PERRL, EOMI, visual monreal intact, corneal reflexes brisk symmetrically, sensory to face intact, mastication intact, no facial asymmetry is present, no dysarthria, hearing is intact symmetrically, soft palate elevates bilaterally upon phonation, gag reflex intact, flexes SCM and trapezius muscles symmetrically with full power, tongue protrudes midline, no atrophy or facial fasiculations present Cerebellar examination: no dysmetria, performs finger to nose and heel to forman symmetrically without ataxia, no gait ataxia, no truncal ataxia, no difficulty with rapid alternating movements Results - Laboratory Findings CBC and BMP: 07/31/16 17:24 07/31/16 17:24 Abnormal lab findings: Abnormal lab results MCH 26.9 pg (28.0-33.3) L 07/31/16 17:24 ESR 11 mm/hr (0-10) H 08/01/16 05:19 VBG pH 7.43 pH Units (7.32-7.42) H 08/01/16 05:19 VBG pCO2 36 mmHg (41-51) L 08/01/16 05:19 VBG pO2 48 mmHg (25-40) H 08/01/16 05:19 Glucose 103 mg/dL (70-99) H 07/31/16 17:24 POC Glucose 145 (58-89) H 08/01/16 16:28 Hemoglobin A1c 7.2 % (-5.6) H 08/01/16 05:19 Albumin 3.2 g/dL (3.5-5.0) L 07/31/16 17:24 Albumin/Globulin Ratio 1.0 (1.1-2.2) L 07/31/16 17:24 HDL Cholesterol 35 mg/dL (40-59) L 08/01/16 05:19 Carcinoembryonic Ag 5.4 ng/mL (0-5.0) H 08/01/16 05:19 Urine Glucose (UA) 100 mg/dL (Normal) H 08/02/16 01:51 - Attending Attestation I examined this patient and my medical decision-making was reviewed with the Resident Physician. I agree with the documented findings, disposition and treatment plan as described except to the extent set forth below. Consult Discharge Plan - Plan Referrals: Watson Jimenes DO [Partnered Physician] - 08/08/16 10:15 am (This appt. will be for the EMG. After this appt. the office will set up the follow up appt. Thank you) Savannah Durán, LABOR REPRESENTATIVE [Advanced Practice Nurse] - 08/09/16 11:00 am <Yanely Thomas I - Last Filed: 08/02/16 16:25> Date of Encounter: 08/02/16 History of Present Illness HPI: Mr. Conn is a 81 year old male All Systems: A 10-system review of systems was performed and is negative for pertinent findings except as documented above in the HPI. Physical Examination - Vital Signs Vital Signs: Initial Vital Signs Temp Pulse Resp BP Pulse Ox 98.1 F 92 18 75/38 94 L 07/31/16 17:05 07/31/16 17:05 07/31/16 17:05 07/31/16 17:05 07/31/16 17:05 Results - Laboratory Findings CBC and BMP: 07/31/16 17:24 07/31/16 17:24 Abnormal lab findings: Abnormal lab results MCH 26.9 pg (28.0-33.3) L 07/31/16 17:24 ESR 11 mm/hr (0-10) H 08/01/16 05:19 VBG pH 7.43 pH Units (7.32-7.42) H 08/01/16 05:19 VBG pCO2 36 mmHg (41-51) L 08/01/16 05:19 VBG pO2 48 mmHg (25-40) H 08/01/16 05:19 Glucose 103 mg/dL (70-99) H 07/31/16 17:24 POC Glucose 145 (58-89) H 08/01/16 16:28 Hemoglobin A1c 7.2 % (-5.6) H 08/01/16 05:19 Albumin 3.2 g/dL (3.5-5.0) L 07/31/16 17:24 Albumin/Globulin Ratio 1.0 (1.1-2.2) L 07/31/16 17:24 HDL Cholesterol 35 mg/dL (40-59) L 08/01/16 05:19 Carcinoembryonic Ag 5.4 ng/mL (0-5.0) H 08/01/16 05:19 Urine Glucose (UA) 100 mg/dL (Normal) H 08/02/16 01:51
[2016-08-02 15:34] LABS: Triiodothyronine (T3) Free 2.11 pg/mL (1.71-3.71)
[2016-08-02] MEDS: Pregabalin 50 MG CAPSULE PO SCH (20:31)
[2016-08-02] MEDS: Mirtazapine 15 MG TABLET PO SCH (20:32)
[2016-08-03] MEDS: 0.9 % Sodium Chloride 1,000 ML IVC SCH (00:30)
[2016-08-03] MEDS: Ipratropium/Albuterol Neb 3 ML IH SCH ×4 (03:51→21:49)
[2016-08-03] MEDS: *HR* Enoxaparin 40 MG/0.4 ML SYRINGE SQ SCH (05:04)
[2016-08-03] MEDS: Insulin LISPRO 300 UNITS/3 ML VIAL SQ SCH ×4 (07:50→20:56)
[2016-08-03] MEDS: Megestrol Acetate 400 MG/10 ML UDC PO SCH (07:55)
[2016-08-03] MEDS: Finasteride 5 MG TABLET PO SCH (07:56)
[2016-08-03] MEDS: Aspirin 81 MG TAB.CHEW PO SCH (07:57)
[2016-08-03] MEDS: Artificial Tears SOLN 15 ML BOTTLE BOTH EYES SCH ×3 (07:59→20:55)
[2016-08-03 08:26] LABS: C-Peptide 1.5 ng/mL (0.8-3.5)
[2016-08-03] MEDS ORDERED: 0.9 % Sodium Chloride 1,000 ML IVC SCH ×2 (10:59→13:35)
[2016-08-03 12:10] LABS: Basophils % 0.3 %; Eosinophils # 0.1 K/mcL (0.0-0.6); Eosinophils % 1.8 %; Hematocrit 38.9 % (37.5-50.1); Immature Granulocytes % 0.3 % (0-4); Lymphocytes # 1.6 K/mcL (0.6-4.6); Mean Corpuscular HGB Conc 32.9 g/dL (31.6-35.5); Mean Corpuscular Hemoglobin 27.2 pg (28.0-33.3); Mean Corpuscular Volume 82.6 fL (83.0-100.0); Mean Platelet Volume 12.1 fL (9.4-12.4); Monocytes # 0.5 K/mcL (0.0-1.3); Monocytes % 7.3 %; Neutrophils # 5.2 K/mcL (1.6-8.9); Platelet Count 214 K/mcL (140-400); Red Blood Count 4.71 M/mcL (4.19-5.50); Red Cell Distribution Width 13.8 % (11.5-14.5); Segmented Neutrophils % 69.3 %
[2016-08-03 12:11] LABS: Hemoglobin 12.8 g/dL (12.9-16.9)
[2016-08-03 12:24] LABS: BUN/Creatinine Ratio 14 (6-26); Blood Urea Nitrogen 12 mg/dL (8-26); Carbon Dioxide 22 mEq/L (19-29); Chloride 111 mEq/L (98-109); Glucose 191 mg/dL (70-99); Osmolality,Calculated 299 (280-300); Potassium 3.3 mEq/L (3.5-4.5); Sodium 142 mEq/L (136-145); eGFR For African Americans > 60 (> 60); eGFR For Non-African Americans > 60 (> 60)
--- NOTE | 2016-08-03 13:30 | Internal Med Progress Note ---
Date of Encounter: 08/03/16 Time of Encounter: 13:27 - Assessment and plan (1) Lung nodules Current Visit: Yes Status: Acute Assessment and plan: High risk for primary lung malignancy as per pulmonary. Planned for CT-guided biopsy of the right upper lobe lesion, however has been cancelled , CT not working He does have a history of colon cancer and gives history of colon resection in the past. will start diet, biopsy will have to be planned as OP with pulmonary . dc [place] , he has to go back to [place], will arrange appointment. (2) Neuropathy Current Visit: Yes Status: Acute Assessment and plan: seen by neurology, recommend OP EMG, no acute intervention at this time. (3) Failure to thrive Current Visit: Yes Status: Acute Qualifiers: Failure to thrive age range: in adult Qualified Code(s): R62.7 - Adult failure to thrive (4) Generalized weakness Current Visit: Yes Status: Acute Assessment and plan: HE has had neuro and GI eval in the past for deneralized weakness f/u OP for EMG with neurology. concerned for lung nodules, need to r/o lung cancer first, waiting for biopsy. - Time Spent With Patient 25 - 35 minutes - Subjective Interval history: Patient seen at the bedside, not in any acute distress. Denies any complaints other than bilateral lower leg weakness, which seems to be chronic. Admitted for evlauation of a lung nodule, plan for biopsy today , pulm following , however CT down, has to be done as OP, procedure cancelled today. - Constitutional Vitals: Temp Pulse Resp BP Pulse Ox 97.8 F 78 18 132/73 95 08/03/16 12:07 08/03/16 12:07 08/03/16 12:07 08/03/16 12:07 08/03/16 12:07 General appearance: Present: cachectic, cooperative, A&O X 3, answers questions appropriately Exam: - Head Head exam: Present: atraumatic, normal inspection - Expanded Head Exam Head exam expanded: Absent: abrasion, contusion, general tenderness - Eye Eye exam: Present: PERRL. Absent: scleral icterus Pupils: Present: normal accommodation - ENT ENT exam: Present: mucous membranes moist, normal exam, normal oropharynx - Neck Neck exam general surgery: Present: full ROM, supple. Absent: lymphadenopathy, tenderness - Respiratory Respiratory exam: Present: minimal creptns at the bases, no wheezing Absent: chest wall tenderness, respiratory distress, rhonchi, wheezes - Cardiovascular Cardiovascular exam: Present: RRR, +S1, +S2. Absent: diastolic murmur, JVD, systolic murmur - GI/Abdominal GI/Abdominal exam: Present: normal bowel sounds, soft. Absent: guarding, mass, rebound, tenderness - Extremities Exam Extremities exam: Present: warm. Absent: calf tenderness, joint swelling, pedal edema Additional comments: foot deformities consistent with Charcot feet, deformties of the upper and lower ext with swan neck deformity - Back Exam Back exam: Present: normal inspection. Absent: CVA tenderness (L), CVA tenderness (R) - Neurological Exam Neurological exam: Present: alert, CN II-XII intact, oriented X3, no focal deficits - Psychiatric Psychiatric exam: Present: normal affect, normal mood Internal Medicine: Result - Labs CBC & Chem 7: 08/03/16 11:25 08/03/16 11:25 Labs: Short CBC 08/03/16 Range/Units 11:25 WBC 7.4 (4.3-11.1) K/mcL Hgb 12.8 L D (12.9-16.9) g/dL Hct 38.9 (37.5-50.1) % Plt Count 214 (140-400) K/mcL Neutrophils # 5.2 (1.6-8.9) K/mcL BMP 08/03/16 11:25 Sodium 142 Potassium 3.3 L Chloride 111 H Carbon Dioxide 22 BUN 12 Creatinine 0.84 Glucose 191 H Calcium 8.0 L - ABG Interpretation ABG results: PT/INR, D-dimer PT 11.6 Seconds (9.4-12.1) 08/01/16 05:19 Consult Discharge Plan - Plan Referrals: Watson Jimenes DO [Partnered Physician] - 08/08/16 10:15 am (This appt. will be for the EMG. After this appt. the office will set up the follow up appt. Thank you) Savannah Durán BOWLING BALL MARKER [Advanced Practice Nurse] - 08/09/16 11:00 am
[2016-08-03] MEDS: Mirtazapine 15 MG TABLET PO SCH (20:53)
[2016-08-03] MEDS: Pregabalin 50 MG CAPSULE PO SCH (20:53)
[2016-08-04] MEDS: Ipratropium/Albuterol Neb 3 ML IH SCH ×2 (03:56→10:54)
[2016-08-04] MEDS: *HR* Enoxaparin 40 MG/0.4 ML SYRINGE SQ SCH (05:12)
--- NOTE | 2016-08-04 08:14 | Discharge Summary ---
Date of Encounter: 08/04/16 Time of Encounter: 08:11 - Discharge Diagnosis (1) Lung nodules Priority: Primary Status: Acute (2) Neuropathy Priority: Secondary Status: Acute (3) Failure to thrive Priority: Secondary Status: Acute Qualifiers: Failure to thrive age range: in adult Qualified Code(s): R62.7 - Adult failure to thrive (4) Generalized weakness Priority: Secondary Status: Acute - Discharge Medications Prescriptions: Ondansetron [Zofran] 4 mg PO Q8HR #30 tablet Dicyclomine [Bentyl] 10 mg PO QID #60 capsule Megestrol Acetate [Megace] 400 mg PO DAILY 30 Days Metoclopramide [Reglan] 5 mg PO QIDAC 30 Days Omeprazole [PriLOSEC] 20 mg PO BID 30 Days Sucralfate [Carafate] 1 gm PO QIDAC 30 Days Home Medications: Aspirin 81 mg PO DAILY 06/23/16 [History] Cholecalciferol (Vitamin D3) [Vitamin D3] 2,000 unit PO DAILY 06/23/16 [History] Finasteride [Proscar] 5 mg PO DAILY 06/23/16 [History] Insulin ASPART [NovoLOG] 10 unit SQ TID 06/23/16 [History] Metformin [Glucophage] 1,000 mg PO DAILY 06/23/16 [History] Mv-Mn/FA/Vit K/Lycop/Lut/Coq10 [Daily Multivitamin Capsule] 1 cap PO DAILY 06/23 [History] Potassium Chloride [K-Tab ER] 10 meq PO BID 06/23/16 [History] Pravastatin Sodium [Pravachol] 40 mg PO DAILY 06/23/16 [History] Ranitidine HCl [Heartburn Relief] 150 mg PO HS 06/23/16 [History] Tamsulosin [Flomax] 0.4 mg PO BID 06/23/16 [History] Urea [Ure-K] 1 appl TP BID 06/23/16 [History] Lisinopril [Zestril] 10 mg PO BID #60 tablet 06/28/16 [Rx] Docusate Sodium [Dok] 200 mg PO DAILY 07/19/16 [History] Fludrocortisone Acetate [Florinef] 0.1 mg PO DAILY 07/19/16 [History] Mirtazapine [Remeron] 15 mg PO HS 07/19/16 [History] Ondansetron HCl 4 mg PO Q6H PRN 07/19/16 [History] Polyethylene Glycol/Polyvinyl [Hypotears Eye Drops] 1 drop BOTH EYES TID [History] Pregabalin [Lyrica] 50 mg PO HS 07/19/16 [History] Clotrimazole 1% CRM [Lotrimin 1%] 1 appl TP BID 08/01/16 [History] Guaifenesin [Sherrie-Tussin] 10 ml PO Q4H PRN 08/01/16 [History] Hydrocortisone 2.5% CREAM [Cortaid] 1 appl RC QID PRN 08/01/16 [History] Insulin Glargine [Lantus] 8 unit SQ HS 08/01/16 [History] Metoprolol [Lopressor] 25 mg PO BID 08/01/16 [History] Pantoprazole Sodium [Protonix] 40 mg PO DAILY 08/01/16 [History] Polyethylene Glycol 3350 [MiraLAX bowel prep] 17 gm PO HS 08/01/16 [History] Sennosides [Senna] 8.6 mg PO BID 08/01/16 [History] Venlafaxine XR (24 HR) [Effexor Xr] 37.5 mg PO DAILY 08/01/16 [History] Dicyclomine [Bentyl] 10 mg PO QID #60 capsule 08/04/16 [Rx] Megestrol Acetate [Megace] 400 mg PO DAILY 30 Days 08/04/16 [Rx] Metoclopramide [Reglan] 5 mg PO QIDAC 30 Days 08/04/16 [Rx] Omeprazole [PriLOSEC] 20 mg PO BID 30 Days 08/04/16 [Rx] Ondansetron [Zofran] 4 mg PO Q8HR #30 tablet 08/04/16 [Rx] Sucralfate [Carafate] 1 gm PO QIDAC 30 Days 08/04/16 [Rx] Allergies/Adverse Reactions: Allergies gabapentin Allergy (Verified 07/19/16 09:47) Itching Nortriptyline Allergy (Verified 07/19/16 09:47) Rash Terazosin Allergy (Verified 07/19/16 09:47) Itching Procedures/tests Complete & Pending: Procedures Performed prior 72 hours Category Date Time Status CT biopsy lung RT [CT] Routine Cat Scan 08/04/16 Ordered Date of admission: 08/02/16 13:58 Primary care physician: Jonathan Herron Jr, MD Discharging clinician: Falguni Shea Anticipated date of discharge: 08/04/16 - Patient Status Disposition: Transfer [facility] Condition: Fair Functional capacity at discharge: uses cane/walker Overall status at discharge: patient is progressing back to baseline - Discharge Instructions Follow Up With: Watson Jimenes DO [Partnered Physician] - 08/08/16 10:15 am (This appt. will be for the EMG. After this appt. the office will set up the follow up appt. Thank you) Savannah Durán SET UP TECHNICIAN [Advanced Practice Nurse] - 08/11/16 9:00 am - Diet and Activity Activity: resume usual activities as tolerated Diet: other (soft diet) Interval History: This is a 81-year-old gentleman who presented from home to the [facility] ED for worsening weakness and inability to perform activities of daily living and weight loss. Per the patient he has been seen for this same including inpatient outpatient rehabilitation at the [facility] in [place]. As part of evaluation here in the emergency department chest x- ray was performed which was suggestive of nodules in the long this was followed by CT of the chest which showed bilateral lung nodules and some groundglass opacities with some concern for primary lung malignancy. The patient is a former smoker of approximately 3 packs a day for approximately 30 years. He has a history of colon cancer per the medical record status post resection. 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 patient denies cough fever or chills he does endorse about a 40 pound weight loss over the last few months mostly related to his inability to tolerate food and becoming nauseous when he eats workup from this standpoint has been ongoing.As per the son, at [place] they were told that he has gastric ulcers. He denies hemoptysis. He denies any baseline shortness of breath and does not take any inhalers. Per the patient these lung nodules had been noted from imaging at the [place] previously and an on at least one occasion he was sent to the [facility] administration for further evaluation and told that "he does not have lung cancer" it is unclear what workup was done at that time but he patient does not recall that there was a biopsy performed. Outside of inability to tolerate diet he is most pressing concern is generalized weakness and severe peripheral neuropathy that he attributes to uncontrolled diabetes. gordo bradford, he was see by pulmonary , reviewed his CT scan on admission here and compared that with the CT reports from March PET scan from April and repeat CT scan from May. All records obtained from the [facility]. It appears that the left-sided nodules the primary one being the superior segment of the left lower lobe has decreased in size it had significant pet avidity (greater than 6 SUV) but has decreased in size as noted. Subcarinal lymph node has also decreased in size from previous CT scans. The right upper lobe nodule has not decreased in size and remains approximately 2 cm this was only modestly PET avid (approximately 1.7 SUV) which is of unclear significance but could represent slow growing neoplastic process. We outlined the possibility for continued CT surveillance versus biopsy of right upper lobe nodule in the context of a patient who is a former smoker with agent orange exposure advanced age and prior malignancy, patient opted to undergo CT-guided biopsy. However, given that [facility] CT is down, he is n ot able to get the biopsy done at this time, IT was discussed with the patient and the family that this might have to be arranged asOP, They expressed that he would like to seek further advice at [facility] , he has been aranged for an appt. to be seen at the clinic on 08/09/16. Will continue tx with PPI, carafate and reglan for his gastric ulcer at this time, he is being dc today to [place] in stable condition. Hospital course: Mr. Conn is a 81 year old male Time spent discussing smoking cessation with patient: more than 10 minutes - Time Spent with Patient Total time spent providing and/or coordinating discharge services: Greater than 30 minutes - Constitutional Vitals: Temp Pulse Resp BP Pulse Ox 98.7 F 83 16 134/69 97 08/04/16 04:38 08/04/16 04:38 08/04/16 04:38 08/04/16 04:38 08/04/16 04:38 General appearance: Present: cachectic, cooperative, A&O X 3, answers questions appropriately Exam: ENT: oropharynx moist Neck: supple Effort: normal Auscultation: bilateral: clear Cardiovascular: regular rate and rhythm normal mental status, non-focal exam mood appropriate
[2016-08-04] MEDS: Insulin LISPRO 300 UNITS/3 ML VIAL SQ SCH (08:26)
[2016-08-04] MEDS: Aspirin 81 MG TAB.CHEW PO SCH (08:29)
[2016-08-04] MEDS: Megestrol Acetate 400 MG/10 ML UDC PO SCH (08:29)
[2016-08-04] MEDS: Finasteride 5 MG TABLET PO SCH (08:31)
[2016-08-04 08:37] VITALS: BP 112/65
--- NOTE | 2016-08-05 18:10 | Electrocardiograph Report ---
[place] [id number] Test Date: 2016-08-04 Pat Name: Wilfredo Conn Department: 115 Room: 3A Gender: M A And P Technician: : [id number] Requested By: Falguni Shea Order Number: [id number] Reading MD: Cheryl Palacio Measurements Intervals [place] Rate: 88 P: CA: 0 QRS: -28 QRSD: 90 T: 2 QT: 375 QTc: 421 Interpretive Statements SINUS RHYTHM WITH VENTRICULAR PREMATURE COMPLEXES BORDERLINE LEFT AXIS DEVIATION LOW QRS VOLTAGE IN PRECORDIAL LEADS PATTERN CONSISTENT WITH PULMONARY DISEASE MINIMAL ST DEPRESSION Electronically Signed On 08-05-2016 18:09:05 EST by Cheryl Palacio
== END 2016-08-04 10:57 | DRG 640 ==
LOC: 3ANU 17:04 → EMEROO 17:04 → 3ANU 19:55
PROVIDERS: ADMIT Family Medicine; ATTEND Internal Medicine Endocrinology, Diabetes & Metabolism

== ENCOUNTER 2016-08-29 04:21 | Inpatient (IN) ==
[2016-08-29] MEDS ORDERED: 0.9 % Sodium Chloride 1,000 ML IVC ONE (04:46)
[2016-08-29 04:54] LABS: Basophils # 0.1 K/mcL (0.0-0.2); Basophils % 0.5 %; Eosinophils # 0.1 K/mcL (0.0-0.6); Hematocrit 49.9 % (37.5-50.1); Immature Granulocytes % 0.6 % (0-4); Lymphocytes # 2.9 K/mcL (0.6-4.6); Lymphocytes % 30.5 %; Mean Corpuscular HGB Conc 32.1 g/dL (31.6-35.5); Mean Corpuscular Hemoglobin 27.2 pg (28.0-33.3); Mean Corpuscular Volume 84.7 fL (83.0-100.0); Monocytes # 0.7 K/mcL (0.0-1.3); Monocytes % 7.2 %; Neutrophils # 5.8 K/mcL (1.6-8.9); Platelet Count 218 K/mcL (140-400); Red Blood Count 5.89 M/mcL (4.19-5.50); Red Cell Distribution Width 13.9 % (11.5-14.5); Segmented Neutrophils % 60.2 %
--- NOTE | 2016-08-29 04:59 | Emergency Department Note ---
Disposition Clinical Impression: Lung nodules, Lactic acidosis, Unresponsiveness, Encounter for intubation, History of cardioversion Altered mental status Qualifiers: Altered mental status type: unspecified Qualified Code(s): R41.82 - Altered mental status, unspecified Hypotension Qualifiers: Hypotension type: unspecified hypotension type Qualified Code(s): I95.9 - Hypotension, unspecified UTI (urinary tract infection) Qualifiers: Urinary tract infection type: site unspecified Hematuria presence: with hematuria Qualified Code(s): N39.0 - Urinary tract infection, site not specified Disposition: Admitted As Inpatient Condition: Fair Time of Disposition: 05:49 General Adult HPI - General Chief complaint: ED Altered Mental Status Stated complaint: AMS, RESP DISTRESS Time Seen by Provider: 08/29/16 04:46 Source: EMS Mode of arrival: EMS Limitations: altered mental status Nursing Notes Reviewed: Yes Vital Signs Reviewed: Yes - History of Present Illness HPI Narrative: 81-year-old male since the ED via EMS altered mental status and respiratory distress. Patient reportedly became unresponsive at home and collapsed, witnessed by son. Per EMS patient was in SVT upon arrival with heart rate 160s. He was given 6mg and 12 mg of adenosine and converted to sinus rhythm for a brief period. He went back in SVT shortly and was then successfully cardioverted into sinus rhythm. He became hypotensive and blood pressure was low. He was becoming unresponsive and his oxygen saturation was falling into the 70s, concern he was unable to protect his airway EMS nasally intubated him in the left nare. 1 L of normal saline running in the left arm on arrival. Upon arrival he was in normal sinus rhythm and unresponsive but was given 5 mg Versed. He was cold to the touch. Not cyanotic or diaphorhetic. After a few minutes he began to become alert with respiratory effort. He was fighting any attempts to assist breathing or to bag him. He was cooperative and not combative. His initial BP was 100/63. He was awake alert and answering questions by shaking his head. A 2nd IV was established. After several minutes of observation and oxygen saturation in the high 90s, he was extubated at bedside. His BP on recheck 146/91. At one point he franny down to the upper 40s but then after several seconds came back up to 80. No atropine was given at that time. Lungs are clear bilaterally. He denies any pain at this time. He is oriented and recognizes his son at bedside. Son helps with history and reports that he woke up this morning saying he needed to go to the bathroom. Some got his wheelchair when he got up he fell and was unresponsive and therefore called EMS squad. Patient has been ill and week over the past 6 months. He has been recently diagnosed with lung [facility] He was sent to [facility] for lung biopsy. Scheduled for biopsy later this month. They report that he has had increased oral intake and appetite. Concerned that he may be dehydrated. Pain Scale: 0 - Related Data Home Medications Medication Instructions Recorded Confirmed Aspirin 81 mg PO DAILY 06/23/16 08/01/16 Cholecalciferol (Vitamin D3) 2,000 unit PO DAILY 06/23/16 08/01/16 [Vitamin D3] Finasteride [Proscar] 5 mg PO DAILY 06/23/16 08/01/16 Insulin ASPART [NovoLOG] 10 unit SQ TID 06/23/16 08/01/16 Metformin [Glucophage] 1,000 mg PO DAILY 06/23/16 08/01/16 Mv-Mn/FA/Vit K/Lycop/Lut/Coq10 1 cap PO DAILY 06/23/16 08/01/16 [Daily Multivitamin Capsule] Potassium Chloride [K-Tab ER] 10 meq PO BID 06/23/16 08/01/16 Pravastatin Sodium [Pravachol] 40 mg PO DAILY 06/23/16 08/01/16 Ranitidine HCl [Heartburn Relief] 150 mg PO HS 06/23/16 08/01/16 Tamsulosin [Flomax] 0.4 mg PO BID 06/23/16 08/01/16 Urea [Ure-K] 1 appl TP BID 06/23/16 08/01/16 Docusate Sodium [Dok] 200 mg PO DAILY 07/19/16 08/01/16 Fludrocortisone Acetate [Florinef] 0.1 mg PO DAILY 07/19/16 08/01/16 Mirtazapine [Remeron] 15 mg PO HS 07/19/16 08/01/16 Ondansetron HCl 4 mg PO Q6H PRN 07/19/16 08/01/16 Polyethylene Glycol/Polyvinyl 1 drop BOTH EYES TID 07/19/16 08/01/16 [Hypotears Eye Drops] Pregabalin [Lyrica] 50 mg PO HS 07/19/16 08/01/16 Clotrimazole 1% CRM [Lotrimin 1%] 1 appl TP BID 08/01/16 08/01/16 Guaifenesin [Sherrie-Tussin] 10 ml PO Q4H PRN 08/01/16 08/01/16 Hydrocortisone 2.5% CREAM [Cortaid] 1 appl RC QID PRN 08/01/16 08/01/16 Insulin Glargine [Lantus] 8 unit SQ HS 08/01/16 08/01/16 Metoprolol [Lopressor] 25 mg PO BID 08/01/16 08/01/16 Pantoprazole Sodium [Protonix] 40 mg PO DAILY 08/01/16 08/01/16 Polyethylene Glycol 3350 [MiraLAX 17 gm PO HS 08/01/16 08/01/16 bowel prep] Sennosides [Senna] 8.6 mg PO BID 08/01/16 08/01/16 Venlafaxine XR (24 HR) [Effexor Xr] 37.5 mg PO DAILY 08/01/16 08/01/16 Previous Rx's Medication Instructions Recorded Lisinopril [Zestril] 10 mg PO BID #60 tablet 06/28/16 Dicyclomine [Bentyl] 10 mg PO QID #60 capsule 08/04/16 Megestrol Acetate [Megace] 400 mg PO DAILY 30 Days 08/04/16 Metoclopramide [Reglan] 5 mg PO QIDAC 30 Days 08/04/16 Omeprazole [PriLOSEC] 20 mg PO BID 30 Days 08/04/16 Ondansetron [Zofran] 4 mg PO Q8HR #30 tablet 08/04/16 Sucralfate [Carafate] 1 gm PO QIDAC 30 Days 08/04/16 Allergies Allergy/AdvReac Type Severity Reaction Status Date / Time gabapentin Allergy Itching Verified 08/16/16 20:55 Nortriptyline Allergy Rash Verified 08/16/16 20:55 Terazosin Allergy Itching Verified 08/16/16 20:55 All systems ED: reviewed and negative except as stated. Constitutional: Reports: weakness. Denies: fever, chills Cardiovascular: Reports: chest pain. Denies: palpitations Respiratory: Reports: dyspnea. Denies: cough Gastrointestinal: Denies: abdominal pain, nausea, vomiting Integumentary: Denies: rash, abrasion Past Medical History - Past Medical History Attestation: Yes The following information was validated with the patient. Medical history: Reports: arthritis, cancer, COPD, coronary artery disease, CVA , dementia, diabetes, GERD, GI bleed, hyperlipidemia, hypertension, malignancy, myocardial infarction, osteoporosis, renal disease, thyroid disease, other Surgical history: Reports: angioplasty/stent, cancer surgery, colectomy ( partial colectomy for colon CA), herniorrhaphy, knee replacement, orthopedic, other, other (Partial small bowel resection of distal small bowel intussusception 2013.colonoscopy. EGD.) Psychiatric history: Reports: anxiety, depression, PTSD, other - Social History Smoking Status: Former smoker Smokeless Tobacco Status: No Alcohol use: Reports: rarely Drug use: Reports: none Physical Exam - General General appearance: in distress, cachectic - Head Head exam: atraumatic, normocephalic, normal inspection - Eye Eye exam: Present: normal appearance, PERRL, EOMI - ENT ENT exam: normal exam, normal oropharynx, mucous membranes dry, other (nasally intubated in the left nare) - Neck Neck exam: Present: normal inspection, full ROM, trachea midline - Chest Chest inspection: Present: normal inspection, symmetric chest wall rise, other ( midline scar). Absent: tenderness, rash - Respiratory Respiratory exam: Present: normal lung sounds bilaterally (with bagging, after extubated remains clear), respiratory distress. Absent: wheezes, stridor - Cardiovascular Cardiovascular exam: Present: regular rate, normal rhythm, normal heart sounds. Absent: systolic murmur, diastolic murmur - Abdominal Exam Abdominal exam: Present: soft, Non-Tender, normal bowel sounds. Absent: tenderness, distention, guarding, rebound, rigidity - Neurological Exam Neurological exam: Present: alert, oriented X3 - Psychiatric Psychiatric exam: Present: normal affect, normal mood - Skin Skin exam: Present: dry, intact, pallor, other (cold to touch). Absent: diaphoresis Course Course Narrative: 81-year-old male presents ED for altered mental status and respiratory distress. Reportedly was an SVT 160s. Currently he is normal sinus rhythm heart rate 80s. Blood pressure is stable 129/89. He is awake alert and oriented to person place and time. He is unsure about the events prior to arrival here. Son is at bedside to help with the history. He is in no apparent distress. He is afebrile. Lungs are clear auscultation bilaterally. Heart's regular rate and rhythm. He is slightly cold to the touch but is well perfused. Moves all 4 extremities without difficulty. No focal neuro deficits. Oxygen saturation in the upper 90s. He is breathing on his own. Will check basic labs, troponin, urinalysis, lactate, EKG and chest x-ray. He has completed a whole liter of fluids, will start on 60 mL/hr normal saline. - Reevaluation(s) Reevaluation #1: Lactate is elevated 3.2. No leukocytosis. Troponin 0.03. Labs are otherwise unremarkable. Urine appears consistent with infection. Will treat with Zosyn. He is on 2 liters nasal cannula oxygen saturation 98%. He appears in no acute distress. Will admit patient for SVT, unresponsiveness, altered mental status, hypotension, UTI, status post cardioversion, status post endotracheal intubation. Time: 05:55 - Consultations Consultation #1: Spoke to Dr. Alarcon hospitalist [facility] unfortunately there is no ICU or 2 N. beds. Urine appears consistent with UTI. He will speak with bed management for admission if unable to find him appropriate monitoring may need to consider transfer. Will call back. Reiterated that patient is alert and oriented to person place and time. No apparent distress. Vitals stable. 98% on 2L NC. Labs unremarkable other than elevated lactate 3.2. Time: 05:46 Consultation #2: Dr. Alarcon called back, appropriate for ICU admission. Urine is consistent with UTI, recommend to treat with Zosyn. Repeat lactate is coming down 2.5. [facility] and being [facility]. Time: 05:56 Vital Signs Temperature 96.3 F L 08/29/16 04:23 Pulse Rate 84 08/29/16 04:23 Respiratory Rate 12 08/29/16 04:23 Blood Pressure 100/63 08/29/16 04:23 O2 Sat by Pulse Oximetry 81 08/29/16 04:23 Temperature 97.5 F L 08/29/16 05:00 Pulse Rate 79 08/29/16 05:43 Respiratory Rate 16 08/29/16 06:21 Blood Pressure 149/80 08/29/16 06:21 O2 Sat by Pulse Oximetry 99 08/29/16 05:43 Oxygen Delivery Oxygen Delivery Nasal Cannula Medical Decision Making - Medical Records Medical records reviewed: Yes I reviewed the patient's medical records. - Lab Data Lab results reviewed: Yes I reviewed the patient's lab results. Result diagrams: 08/29/16 04:30 08/29/16 04:30 Lab Results 08/29/16 08/29/16 08/29/16 Range/Units 04:30 04:30 04:30 WBC 9.6 (4.3-11.1) K/mcL RBC 5.89 H (4.19-5.50) M/mcL Hgb 16.0 (12.9-16.9) g/dL Hct 49.9 (37.5-50.1) % MCV 84.7 (83.0-100.0) fL MCH 27.2 L (28.0-33.3) pg MCHC 32.1 (31.6-35.5) g/dL RDW 13.9 (11.5-14.5) % Plt Count 218 (140-400) K/mcL MPV 13.0 H (9.4-12.4) fL Immature Gran % 0.6 (0-4) % Seg Neutrophils % 60.2 % Lymphocytes % 30.5 % Monocytes % 7.2 % Eosinophils % 1.0 % Basophils % 0.5 % Neutrophils # 5.8 (1.6-8.9) K/mcL Lymphocytes # 2.9 (0.6-4.6) K/mcL Monocytes # 0.7 (0.0-1.3) K/mcL Eosinophils # 0.1 (0.0-0.6) K/mcL Basophils # 0.1 (0.0-0.2) K/mcL PT 11.5 (9.4-12.1) Seconds INR 1.1 APTT 29.8 (26.0-36.0) Seconds Sodium (136-145) mEq/L Potassium (3.5-4.5) mEq/L Chloride (98-109) mEq/L Carbon Dioxide (19-29) mEq/L BUN (8-26) mg/dL Creatinine (0.72-1.25) mg/dL Est GFR ( Amer) (> 60) Est GFR (Non-Af Amer) (> 60) BUN/Creatinine Ratio (6-26) Glucose (70-99) mg/dL Calculated Osmolality (280-300) Lactic Acid (0.5-2.2) mmol/L Calcium (8.6-10.8) mg/dL Phosphorus (2.3-4.7) mg/dL Magnesium (1.6-2.6) mg/dL Total Bilirubin (0.2-1.2) mg/dL Direct Bilirubin (0.0-0.5) mg/dL Indirect Bilirubin (0.0-1.2) mg/dL AST (5-34) Units/L ALT (0-55) Units/L Alkaline Phosphatase (38-126) Units/L Troponin I 0.03 (0-0.03) ng/mL Serum Total Protein (6.0-8.3) g/dL Albumin (3.5-5.0) g/dL Globulin (2.4-3.5) g/dL Albumin/Globulin Ratio (1.1-2.2) Urine Color (Yellow) Urine Clarity (Clear) Urine pH (5.0-8.0) pH Units Ur Specific Vincent (1.010-1.025) Urine Protein (Neg-Trace) mg/dL Urine Glucose (UA) (Normal) mg/dL Urine Ketones (Negative) mg/dL Urine Blood (Negative) Urine Nitrite (Negative) Urine Bilirubin (Negative) Urine Urobilinogen (Normal) mg/dL Ur Leukocyte Esterase (Negative) Urine Microscopic RBC (0-3) per hpf Urine Microscopic WBC (0-3) per hpf Ur Squamous Epith Cells (None-Few) per lpf Urine Bacteria (None-Few) per hpf Hyaline Casts (None-Few) per lpf Ur Culture Indicated? (NO) 08/29/16 08/29/16 08/29/16 Range/Units 04:30 04:30 05:29 WBC (4.3-11.1) K/mcL RBC (4.19-5.50) M/mcL Hgb (12.9-16.9) g/dL Hct (37.5-50.1) % MCV (83.0-100.0) fL MCH (28.0-33.3) pg MCHC (31.6-35.5) g/dL RDW (11.5-14.5) % Plt Count (140-400) K/mcL MPV (9.4-12.4) fL Immature Gran % (0-4) % Seg Neutrophils % % Lymphocytes % % Monocytes % % Eosinophils % % Basophils % % Neutrophils # (1.6-8.9) K/mcL Lymphocytes # (0.6-4.6) K/mcL Monocytes # (0.0-1.3) K/mcL Eosinophils # (0.0-0.6) K/mcL Basophils # (0.0-0.2) K/mcL PT (9.4-12.1) Seconds INR APTT (26.0-36.0) Seconds Sodium 141 (136-145) mEq/L Potassium 3.4 L (3.5-4.5) mEq/L Chloride 107 (98-109) mEq/L Carbon Dioxide 19 (19-29) mEq/L BUN 13 (8-26) mg/dL Creatinine 1.22 (0.72-1.25) mg/dL Est GFR ( Amer) > 60 (> 60) Est GFR (Non-Af Amer) 57 L (> 60) BUN/Creatinine Ratio 11 (6-26) Glucose 175 H (70-99) mg/dL Calculated Osmolality 296 (280-300) Lactic Acid 3.2 H 2.5 H (0.5-2.2) mmol/L Calcium 9.0 (8.6-10.8) mg/dL Phosphorus 4.1 (2.3-4.7) mg/dL Magnesium 1.8 (1.6-2.6) mg/dL Total Bilirubin 1.7 H (0.2-1.2) mg/dL Direct Bilirubin 0.6 H (0.0-0.5) mg/dL Indirect Bilirubin 1.1 (0.0-1.2) mg/dL AST 24 (5-34) Units/L ALT 40 (0-55) Units/L Alkaline Phosphatase 80 (38-126) Units/L Troponin I (0-0.03) ng/mL Serum Total Protein 6.0 (6.0-8.3) g/dL Albumin 3.1 L (3.5-5.0) g/dL Globulin 2.9 (2.4-3.5) g/dL Albumin/Globulin Ratio 1.1 (1.1-2.2) Urine Color (Yellow) Urine Clarity (Clear) Urine pH (5.0-8.0) pH Units Ur Specific Vincent (1.010-1.025) Urine Protein (Neg-Trace) mg/dL Urine Glucose (UA) (Normal) mg/dL Urine Ketones (Negative) mg/dL Urine Blood (Negative) Urine Nitrite (Negative) Urine Bilirubin (Negative) Urine Urobilinogen (Normal) mg/dL Ur Leukocyte Esterase (Negative) Urine Microscopic RBC (0-3) per hpf Urine Microscopic WBC (0-3) per hpf Ur Squamous Epith Cells (None-Few) per lpf Urine Bacteria (None-Few) per hpf Hyaline Casts (None-Few) per lpf Ur Culture Indicated? (NO) 08/29/16 Range/Units 05:35 WBC (4.3-11.1) K/mcL RBC (4.19-5.50) M/mcL Hgb (12.9-16.9) g/dL Hct (37.5-50.1) % MCV (83.0-100.0) fL MCH (28.0-33.3) pg MCHC (31.6-35.5) g/dL RDW (11.5-14.5) % Plt Count (140-400) K/mcL MPV (9.4-12.4) fL Immature Gran % (0-4) % Seg Neutrophils % % Lymphocytes % % Monocytes % % Eosinophils % % Basophils % % Neutrophils # (1.6-8.9) K/mcL Lymphocytes # (0.6-4.6) K/mcL Monocytes # (0.0-1.3) K/mcL Eosinophils # (0.0-0.6) K/mcL Basophils # (0.0-0.2) K/mcL PT (9.4-12.1) Seconds INR APTT (26.0-36.0) Seconds Sodium (136-145) mEq/L Potassium (3.5-4.5) mEq/L Chloride (98-109) mEq/L Carbon Dioxide (19-29) mEq/L BUN (8-26) mg/dL Creatinine (0.72-1.25) mg/dL Est GFR ( Amer) (> 60) Est GFR (Non-Af Amer) (> 60) BUN/Creatinine Ratio (6-26) Glucose (70-99) mg/dL Calculated Osmolality (280-300) Lactic Acid (0.5-2.2) mmol/L Calcium (8.6-10.8) mg/dL Phosphorus (2.3-4.7) mg/dL Magnesium (1.6-2.6) mg/dL Total Bilirubin (0.2-1.2) mg/dL Direct Bilirubin (0.0-0.5) mg/dL Indirect Bilirubin (0.0-1.2) mg/dL AST (5-34) Units/L ALT (0-55) Units/L Alkaline Phosphatase (38-126) Units/L Troponin I (0-0.03) ng/mL Serum Total Protein (6.0-8.3) g/dL Albumin (3.5-5.0) g/dL Globulin (2.4-3.5) g/dL Albumin/Globulin Ratio (1.1-2.2) Urine Color Yellow (Yellow) Urine Clarity Cloudy A (Clear) Urine pH 6.5 (5.0-8.0) pH Units Ur Specific Vincent 1.010 (1.010-1.025) Urine Protein 30 H (Neg-Trace) mg/dL Urine Glucose (UA) Normal (Normal) mg/dL Urine Ketones Trace H (Negative) mg/dL Urine Blood Moderate H (Negative) Urine Nitrite Negative (Negative) Urine Bilirubin Negative (Negative) Urine Urobilinogen Normal (Normal) mg/dL Ur Leukocyte Esterase Large H (Negative) Urine Microscopic RBC 5-15 H (0-3) per hpf Urine Microscopic WBC TNTC H (0-3) per hpf Ur Squamous Epith Cells Few (None-Few) per lpf Urine Bacteria Moderate H (None-Few) per hpf Hyaline Casts None Seen (None-Few) per lpf Ur Culture Indicated? YES A (NO) - Radiology Data Radiology results reviewed: Yes I reviewed the patient's radiology results. Chest X-Ray 08/29/16 04:46 IMPRESSION: No acute disease. Known right upper lobe nodule again identified. D/ / Benjamin Renee MD / Benjamin Renee MD Interpreting Provider: Benjamin Renee MD - EKG Data EKG #1 EKG attestation: Yes I reviewed and interpreted this EKG. EKG results narrative: EKG performed 0425 normal sinus rhythm 81 bpm, good R-R wave progression, normal axis, there are no ST elevations or depressions, no T-wave inversions. Compared to old EKG performed 08/04/2016 shows consistent findings normal sinus rhythm with occasional PVCs. No acute ischemic changes. Critical Care Time Critical Care Time: Yes Total Critical Care Time: 35 Attestation: Critical care performed: Time is exclusive of separately billable procedures. Time includes: direct patient care, patient reassessment, coordination of patient care, interpretation of data (laboratory data, radiology data, and respiratory data), review of patient's medical records, medical consultation and documentation of patient care. Procedures included in critical care time: Procedures excluded from critical care time: Attestation Statement - Attestation Attestation: I, Jorge Alberto Gupta MD, personally performed a history and physical exam of the patient and discussed their management with the resident. I reviewed the resident's note and agree with the documented findings, medical decision making , and plan of care. 81-year-old male presents to the emergency department by ambulance intubated and unresponsive. EMS reports that they were called for altered mental status. When they arrived patient was altered and found to be in SVT. He was hypotensive. He received adenosine 2 doses and did convert to a sinus rhythm at this for a short time and then went back into SVT. Her drop to 70 and oxygen saturation were in the 70s. He was then electrically cardioverted to a normal sinus rhythm. He was also nasally intubated and his airway. He received Versed 5 mg. On arrival here the patient was initially unresponsive but then gradually began to wake up as the Versed wore off. He opened his eyes and followed commands and answer questions by shaking his head. He was breathing spontaneously without having to be bagged. Vital signs were stable in decision was made to extubate patient. Tube was removed and he was placed on oxygen at 2 L/m by nasal cannula. He tolerated this well with oxygen saturations in the upper 90s. One brief episode here in the emergency department have bradycardia with a heart rate down into the 30s but then it spontaneously resolved and heart rate came back up into the 60s and 70s without any treatment. On examination patient has a thin elderly male in no acute distress. He is alert and oriented and answers questions appropriately. There is no cyanosis or diaphoresis. Rest sounds are decreased but equal bilaterally with no rales or wheezes noted. Heart regular rate and rhythm. Abdomen soft and nontender with normal bowel sounds. No pedal edema. No acute changes on EKG. Labs reviewed. Chest x-ray shows nothing acute. The hospitalist, Dr. Alarcon, was consulted and accepted admission of the patient. Patient is being admitted to the ICU.
[2016-08-29 05:00] LABS: INR 1.1; Prothrombin Time 11.5 Seconds (9.4-12.1)
[2016-08-29] MEDS: 0.9 % Sodium Chloride 1,000 ML IVC SCH ×3 (05:00→23:41)
[2016-08-29 05:03] LABS: Activated Partial Thrombo Time 29.8 Seconds (26.0-36.0)
[2016-08-29 05:04] LABS: Alanine Aminotransferase 40 Units/L (0-55); Albumin 3.1 g/dL (3.5-5.0); Albumin/Globulin Ratio 1.1 (1.1-2.2); Alkaline Phosphatase 80 Units/L (38-126); Aspartate Amino Transferase 24 Units/L (5-34); BUN/Creatinine Ratio 11 (6-26); Bilirubin,Direct 0.6 mg/dL (0.0-0.5); Bilirubin,Indirect 1.1 mg/dL (0.0-1.2); Bilirubin,Total 1.7 mg/dL (0.2-1.2); Blood Urea Nitrogen 13 mg/dL (8-26); Carbon Dioxide 19 mEq/L (19-29); Chloride 107 mEq/L (98-109); Globulin 2.9 g/dL (2.4-3.5); Glucose 175 mg/dL (70-99); Magnesium 1.8 mg/dL (1.6-2.6); Osmolality,Calculated 296 (280-300); Phosphorous 4.1 mg/dL (2.3-4.7); Potassium 3.4 mEq/L (3.5-4.5); Sodium 141 mEq/L (136-145); eGFR For African Americans > 60 (> 60); eGFR For Non-African Americans 57 (> 60)
[2016-08-29 05:45] LABS: Bilirubin,Urine Negative (Negative); Blood,Urine Moderate (Negative); Clarity,Urine Cloudy (Clear); Color,Urine Yellow (Yellow); Glucose,Urine (UA) Normal (Normal); Ketones,Urine Trace mg/dL (Negative); Leukocyte Esterase,Urine Large (Negative); Nitrite,Urine Negative (Negative); PH,Urine 6.5 pH Units (5.0-8.0); Protein,Urine 30 mg/dL (Neg-Trace); Urobilinogen,Urine Normal (Normal)
[2016-08-29 05:46] LABS: Bacteria,Urine Moderate per hpf (None-Few); Hyaline Casts,Urine None Seen per lpf (None-Few); Squamous Epithelial Cell,Urine Few per lpf (None-Few); WBC,Urine TNTC per hpf (0-3)
[2016-08-29] MEDS ORDERED: Piperacillin/Tazobactam 3.375 GM in D5% in Water (Mini-Bag+) 100 ML IVPB ONE (05:59)
[2016-08-29] MEDS ORDERED: *HR* Morphine 2 MG/ML SYRINGE IVP PRN (08:11)
[2016-08-29] MEDS ORDERED: Acetaminophen 325 MG TABLET PO PRN (08:11)
[2016-08-29] MEDS ORDERED: Naloxone 0.4 MG/ML INJ IVP PRN (08:11)
[2016-08-29] MEDS ORDERED: Dextrose Gel 15 GM PO PRN ×2 (08:20)
[2016-08-29] MEDS ORDERED: D5% in Water 1,000 ML IVC PRN (08:20)
[2016-08-29] MEDS ORDERED: *HR* Dextrose 50 % in Water (Syg) 50 ML SYRINGE IVP PRN (08:20)
--- NOTE | 2016-08-29 08:37 | Internal Med History&Physical ---
Date of Encounter: 08/29/16 Time of Encounter: 08:35 Assessment and Plan (1) SVT (supraventricular tachycardia) Current visit: Yes Status: Acute Syncopal episode possibly related to SVT, unclear etiology other than urinary tract infection and the use of Reglan (Reglan can cause arrhythmia/SVT) s/p adenosien and cardioversion Was intubated and extubated Fall precautions, telemetry Repeat a limited echocardiogram, cardiology consult, continue metoprolol Discontinue Reglan Follow troponins PT OT High risk due to collapse and SVT (2) Syncope and collapse Current visit: Yes Status: Acute (3) CAD (coronary artery disease) Current visit: Yes Status: Acute Continue metoprolol Qualifiers: Coronary Disease-Associated Artery/Lesion type: [place] artery [place] vs. transplanted heart: [place] heart Associated angina: without angina Qualified Code(s): I25.10 - Atherosclerotic heart disease of [place] coronary artery without angina pectoris (4) Diabetes mellitus Current visit: No Status: Acute Continue insulin sliding scale Qualifiers: Diabetes mellitus type: type 2 Diabetes mellitus complication status: with neurologic complications Diabetes mellitus complication detail: with polyneuropathy Diabetes mellitus assistant terminal manager insulin use: with assistant terminal manager use Qualified Code(s): E11.42 - Type 2 diabetes mellitus with diabetic polyneuropathy; 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 next week Severe protein calorie malnutrition due to anorexia and severe weight loss possibly secondary to malignancy May continue mirtazapine (6) Anorexia Current visit: No Status: Acute (7) UTI (urinary tract infection) Current visit: Yes Status: Acute Stop Zosyn and start Rocephin Await culture report Qualifiers: Urinary tract infection type: site unspecified Hematuria presence: with hematuria Qualified Code(s): N39.0 - Urinary tract infection, site not specified; R31.9 - Hematuria, unspecified (8) History of cardioversion Current visit: Yes Status: Acute Internal Medicine - H&P: HPI Chief complaint: Syncope Admitted From: Emergency Dept History of present illness: Mr. Conn is a 81 year old male with a past medical history of diabetes type 2 insulin-dependent, CVA, CAD, COPD not oxygen dependent, who apparently got up but 2:15 AM and collapsed, he became unresponsive for which his family members called the EMS. The patient desaturated down to the 70s. The patient was found to be in SVT in the 160s, was given 6 mg of adenosine. Later, he received another dose of 12 mg adenosine and had to be cardioverted. The patient was intubated on the field and was extubated in the ICU as he was responsive. Currently he is in sinus rhythm. Denies any recent infection, his chest x-ray does not show any acute cardiopulmonary disease but shows the prior noticed right upper lung nodule. Patient has been losing lots of weight in the past 4 months. Also he was recently diagnosed 2 months ago with gastroparesis and was started on Reglan. Today, his potassium is 2.4 his lactic acid was 3.2 and is coming down to 2.5. He was started on Zosyn as his urine was found to have too many to count white blood cells and moderate amount of bacteria. She denies any dysuria. Currently his is stable in the ICU, his EKG is unremarkable. His troponin is 0.03, denies any chest pain Past Med Surg Social Fam HX - Past Medical History Medical history: arthritis, cancer (Colon cancer status post colectomy), COPD ( Not oxygen dependent), coronary artery disease, CVA, dementia, diabetes (Insulin -dependent), GERD, GI bleed, hyperlipidemia, hypertension, malignancy (Right upper lung nodule scheduled to be biopsied at [facility] next week), myocardial infarction, osteoporosis, renal disease (CKD3), thyroid disease, other (Gastric ulcers, exposure to agent orange, BPH, neuropathy, osteoporosis) Psychiatric history: anxiety, depression, PTSD, other - Past Surgical History Surgical History: angioplasty/stent, cancer surgery, colectomy, herniorrhaphy, knee replacement, orthopedic, other, other (Small bowel resection for intussusception in 2014, knee replacement, herniorrhaphy. Last echocardiogram from July of this year shows an ejection fraction of 60% with no abnormalities) - Social History Smoking Status: Former smoker Smokeless Tobacco Status: No Alcohol use: rarely Drug use: none - Family History Father Adopted: No Family Member Ethnicity: Non- Living Status: Cause of : food poisoning Hx Family Cardiac Disorders: Yes Hx Family Respiratory Disorders: No Hx Family Cancer: No Hx Family GI Disorders: No Hx Family Endocrine Disorder: No Hx Family Neuromuscular Disorders: No Hx Family Neurologic Disorders: Yes Hx Family HEENT Disorders: No Hx Family Autoimmune Disorders: No Mother Cause of : stroke - Additional Family History Additional family history: Father with CVA and mother with renal disease Internal Medicine - H&P: Meds Aspirin 81 mg PO DAILY 06/23/16 [History] Cholecalciferol (Vitamin D3) [Vitamin D3] 2,000 unit PO DAILY 06/23/16 [History] Finasteride [Proscar] 5 mg PO DAILY 06/23/16 [History] Insulin ASPART [NovoLOG] 10 unit SQ TID 06/23/16 [History] Metformin [Glucophage] 1,000 mg PO DAILY 06/23/16 [History] Mv-Mn/FA/Vit K/Lycop/Lut/Coq10 [Daily Multivitamin Capsule] 1 cap PO DAILY 06/23 [History] Potassium Chloride [K-Tab ER] 10 meq PO BID 06/23/16 [History] Pravastatin Sodium [Pravachol] 40 mg PO DAILY 06/23/16 [History] Ranitidine HCl [Heartburn Relief] 150 mg PO HS 06/23/16 [History] Tamsulosin [Flomax] 0.4 mg PO BID 06/23/16 [History] Urea [Ure-K] 1 appl TP BID 06/23/16 [History] Lisinopril [Zestril] 10 mg PO BID #60 tablet 06/28/16 [Rx] Docusate Sodium [Dok] 200 mg PO DAILY 07/19/16 [History] Fludrocortisone Acetate [Florinef] 0.1 mg PO DAILY 07/19/16 [History] Mirtazapine [Remeron] 15 mg PO HS 07/19/16 [History] Ondansetron HCl 4 mg PO Q6H PRN 07/19/16 [History] Polyethylene Glycol/Polyvinyl [Hypotears Eye Drops] 1 drop BOTH EYES TID [History] Pregabalin [Lyrica] 50 mg PO HS 07/19/16 [History] Clotrimazole 1% CRM [Lotrimin 1%] 1 appl TP BID 08/01/16 [History] Guaifenesin [Sherrie-Tussin] 10 ml PO Q4H PRN 08/01/16 [History] Hydrocortisone 2.5% CREAM [Cortaid] 1 appl RC QID PRN 08/01/16 [History] Insulin Glargine [Lantus] 8 unit SQ HS 08/01/16 [History] Metoprolol [Lopressor] 25 mg PO BID 08/01/16 [History] Pantoprazole Sodium [Protonix] 40 mg PO DAILY 08/01/16 [History] Polyethylene Glycol 3350 [MiraLAX bowel prep] 17 gm PO HS 08/01/16 [History] Sennosides [Senna] 8.6 mg PO BID 08/01/16 [History] Venlafaxine XR (24 HR) [Effexor Xr] 37.5 mg PO DAILY 08/01/16 [History] Dicyclomine [Bentyl] 10 mg PO QID #60 capsule 08/04/16 [Rx] Megestrol Acetate [Megace] 400 mg PO DAILY 30 Days 08/04/16 [Rx] Metoclopramide [Reglan] 5 mg PO QIDAC 30 Days 08/04/16 [Rx] Omeprazole [PriLOSEC] 20 mg PO BID 30 Days 08/04/16 [Rx] Ondansetron [Zofran] 4 mg PO Q8HR #30 tablet 08/04/16 [Rx] Sucralfate [Carafate] 1 gm PO QIDAC 30 Days 08/04/16 [Rx] Allergies gabapentin Allergy (Verified 08/16/16 20:55) Itching Nortriptyline Allergy (Verified 08/16/16 20:55) Rash Terazosin Allergy (Verified 08/16/16 20:55) Itching All Systems PM: A 10-system review of systems was performed and is negative for pertinent findings except as documented above in the HPI. Review of systems: Denies any chest pain, feels mildly short of breath, no abdominal pain, dysuria. Feels very weak, has no appetite. Other systems out of 10 reviewed were negative - Constitutional Vitals: Temp Pulse Resp BP Pulse Ox 97.5 F L 79 16 149/80 98 08/29/16 05:00 08/29/16 05:43 08/29/16 06:21 08/29/16 06:21 08/29/16 06:22 General appearance: Present: A&O X 3, underweight - Head Head exam: Present: atraumatic, normocephalic - Eye Eye exam: Present: PERRL, conjuntiva pink, sclera anicteric Pupils: Present: PERRL - Neck Neck exam general surgery: Present: supple, trachea midline. Absent: lymphadenopathy - Respiratory Respiratory exam: Present: decreased breath sounds, CTAB. Absent: accessory muscle use, rales, rhonchi, wheezes - Cardiovascular Cardiovascular exam: Present: RRR, +S1, +S2. Absent: diastolic murmur, gallop, rubs, systolic murmur - GI/Abdominal GI/Abdominal exam: Present: normal bowel sounds, soft, no peritoneal signs. Absent: distended, tenderness - Extremities Exam Extremities exam: Present: warm, radial pulses palpable and symetrical. Absent : calf tenderness, cyanotic, pedal edema - Neurological Exam Neurological exam: Present: CN II-XII intact, oriented X3, no focal deficits. Absent: pronater drift, facial droop, speech deficit Additional comments: Generalized weakness - Skin Skin exam: Present: dry, intact Internal Med - H&P Results - Labs CBC & Chem 7: 08/29/16 04:30 08/29/16 04:30
[2016-08-29] MEDS ORDERED: Famotidine 20 MG TABLET PO SCH (09:00)
--- NOTE | 2016-08-29 09:53 | Cardiology Consult Note ---
Date of Encounter: 08/29/16 Time of Encounter: 09:20 Assessment and Plan (1) SVT (supraventricular tachycardia) Current Visit: Yes Status: Acute Presented to the ED with acute respiratory failure, AMS; reportedly in SVT in the ED (no strips). Was given 6mg & 12 mg which successfully converted to SR; SVT recurred, patient was then cardioverted. Required temporary nasal intubation. Lung biopsy scheduled at [facility] for spiculated right upper lobe lesion--malignancy suspected. Substantial weight loss, >50 lbs in the past 5 months. Hypokalemic upon admission, will replace. Keep K>4.0, Mag >2.0 SVT with hypotension recurrence in ICU; responded to carotid massage. IV lopressor 2.5 mg x1 given. Start short-acting cardizem. Monitor BP and HR closely. Limited echocardiogram pending. Will continue to follow. Discussion w patient/family: The assessment and plan as outlined above was discussed with the patient and/or family members who expressed understanding and agreement. All questions were answered. Thank you for involving us in the care of your patient. Please call with any questions. The patient will be discussed and reviewed with Dr. Machado; changes to be made accordingly. History of Present Illness Consult date: 08/29/16 Requesting physician: Yosvany Herron Consult reason: SVT Chief complaint: AMS, respiratory failure History of present illness: Mr. Conn is a 81 year old male with PMH significant for DMII, COPD, HTN, GERD , and gastroparesis with ulcer who was brought to [facility] ED by EMS this AM for respiratory failure and altered mental status. Per EMS documentation; patient was found slumped over in his wheelchair, SPO2 was 68% and HR was 160's per monitor. He was then taken to the ED for further evaluation. Reported SVT in the ED (strips not available); he was given 6 mg & 12 mg of Adenosine which converted him to SR, he then went back into SVT and was cardioverted to SR. He required temporary nasal intubation. Upon exam, he is drowsy and unclear of events leading up to hospitalization. He has an appointment later this wek at the [facility] for biopsy of right lung spiculated lesion concerning for malignancy. He has lost a significant amount of weight in the past 5 months, >50 lbs. PET scan demonstration mediastinal adenopathy. Recently left the [facility] AM, he was not satisfied with his care. He denies hx of irregular heart rhythm or arrhythmia. Denies hx of CAD. Recent testing includes: TTE (limited) 08/01/16: EF 60%, normal wall motion TTE 06/23/16: EF 60-65%, mild LVDD, no significant valvular dysfunction, normal wall motion BCU 06/23/16: bilateral non-stenotic plaque Past Med Surg Social Fam HX - Past Medical History Attestation: Yes The following information was validated with the patient. Source: patient, old records reviewed Medical history: arthritis, cancer (Colon cancer status post colectomy), COPD ( Not oxygen dependent), dementia, diabetes (Insulin-dependent), GERD, GI bleed, hyperlipidemia, hypertension, malignancy (Hx of colon CA), myocardial infarction , osteoporosis, renal disease (CKD3), thyroid disease, other (Gastric ulcers, exposure to agent orange, BPH, neuropathy, osteoporosis) Psychiatric history: anxiety, depression, PTSD, other - Past Surgical History Surgical History: cancer surgery, colectomy, herniorrhaphy, knee replacement, orthopedic, other - Social History Smoking Status: Former smoker Smokeless Tobacco Status: No Alcohol use: rarely Drug use: none - Family History Father Adopted: No Family Member Ethnicity: Non- Living Status: Cause of : food poisoning Hx Family Cardiac Disorders: Yes Hx Family Respiratory Disorders: No Hx Family Cancer: No Hx Family GI Disorders: No Hx Family Endocrine Disorder: No Hx Family Neuromuscular Disorders: No Hx Family Neurologic Disorders: Yes Hx Family HEENT Disorders: No Hx Family Autoimmune Disorders: No Mother Cause of : stroke Medications and Allergies Aspirin 81 mg PO DAILY 06/23/16 [History] Cholecalciferol (Vitamin D3) [Vitamin D3] 2,000 unit PO DAILY 06/23/16 [History] Finasteride [Proscar] 5 mg PO DAILY 06/23/16 [History] Insulin ASPART [NovoLOG] 10 unit SQ TID 06/23/16 [History] Metformin [Glucophage] 1,000 mg PO DAILY 06/23/16 [History] Mv-Mn/FA/Vit K/Lycop/Lut/Coq10 [Daily Multivitamin Capsule] 1 cap PO DAILY 06/23 [History] Potassium Chloride [K-Tab ER] 10 meq PO BID 06/23/16 [History] Pravastatin Sodium [Pravachol] 40 mg PO DAILY 06/23/16 [History] Ranitidine HCl [Heartburn Relief] 150 mg PO HS 06/23/16 [History] Tamsulosin [Flomax] 0.4 mg PO BID 06/23/16 [History] Urea [Ure-K] 1 appl TP BID 06/23/16 [History] Lisinopril [Zestril] 10 mg PO BID #60 tablet 06/28/16 [Rx] Docusate Sodium [Dok] 200 mg PO DAILY 07/19/16 [History] Fludrocortisone Acetate [Florinef] 0.1 mg PO DAILY 07/19/16 [History] Mirtazapine [Remeron] 15 mg PO HS 07/19/16 [History] Ondansetron HCl 4 mg PO Q6H PRN 07/19/16 [History] Polyethylene Glycol/Polyvinyl [Hypotears Eye Drops] 1 drop BOTH EYES TID [History] Pregabalin [Lyrica] 50 mg PO HS 07/19/16 [History] Clotrimazole 1% CRM [Lotrimin 1%] 1 appl TP BID 08/01/16 [History] Guaifenesin [Sherrie-Tussin] 10 ml PO Q4H PRN 08/01/16 [History] Hydrocortisone 2.5% CREAM [Cortaid] 1 appl RC QID PRN 08/01/16 [History] Insulin Glargine [Lantus] 8 unit SQ HS 08/01/16 [History] Metoprolol [Lopressor] 25 mg PO BID 08/01/16 [History] Pantoprazole Sodium [Protonix] 40 mg PO DAILY 08/01/16 [History] Polyethylene Glycol 3350 [MiraLAX bowel prep] 17 gm PO HS 08/01/16 [History] Sennosides [Senna] 8.6 mg PO BID 08/01/16 [History] Venlafaxine XR (24 HR) [Effexor Xr] 37.5 mg PO DAILY 08/01/16 [History] Dicyclomine [Bentyl] 10 mg PO QID #60 capsule 08/04/16 [Rx] Megestrol Acetate [Megace] 400 mg PO DAILY 30 Days 08/04/16 [Rx] Metoclopramide [Reglan] 5 mg PO QIDAC 30 Days 08/04/16 [Rx] Omeprazole [PriLOSEC] 20 mg PO BID 30 Days 08/04/16 [Rx] Ondansetron [Zofran] 4 mg PO Q8HR #30 tablet 08/04/16 [Rx] Sucralfate [Carafate] 1 gm PO QIDAC 30 Days 08/04/16 [Rx] Allergies gabapentin Allergy (Verified 08/16/16 20:55) Itching Nortriptyline Allergy (Verified 08/16/16 20:55) Rash Terazosin Allergy (Verified 08/16/16 20:55) Itching All Systems Review: A 10-system review of systems was performed and is negative for pertinent findings except as documented above in the HPI. - Cardiovascular Cardiovascular: as per HPI Physical Examination Vital Signs, Last 4 Hours Resp BP Pulse Ox 08/29/16 09:00 16 117/57 98 General: Conversant (drowsy) HEENT: Atraumatic, Normocephaly Cardiac: Reg Rate and Rhythm, Normal S1 and S2 Lungs: Normal Breath Sounds Neuro: Alert and responsive (to self. ) Abdomen: Soft Skin: No rashes noted on visualized skin Musculoskeletal: No Chest Wall Tenderness Extremities: Other (mild bilateral pedal edema) Results 08/29/16 04:30 08/29/16 04:30 Active Medications Acetaminophen (Tylenol) 650 mg PO Q6HR PRN PRN Reason: Mild Pain (1-3) Stop: 02/28/17 08:12 Dextrose/Water (Dextrose 50% (Syg)) 25 ml IVP AD PRN PRN Reason: Hypoglycemia Stop: 02/28/17 08:21 Famotidine (Pepcid) 20 mg PO BID [facility] Stop: 02/28/17 09:01 Last Admin: 08/29/16 08:33 Dose: 20 mg Glucagon (Glucagen) 1 mg IM ONCE PRN PRN Reason: Hypoglycemia Stop: 02/28/17 08:21 Glucose (Gluctose) 15 gm PO ONCE PRN PRN Reason: Hypoglycemia Stop: 02/28/17 08:21 Glucose (Gluctose) 30 gm PO ONCE PRN PRN Reason: Hypoglycemia Stop: 02/28/17 08:21 Heparin Sodium (Porcine) (Heparin) 5,000 unit SQ Q12HR [facility] Stop: 02/28/17 18:01 Sodium Chloride (0.9 % Sodium Chloride) 1,000 mls @ 60 mls/hr IVC .[id number] [facility] Stop: 02/28/17 05:01 Last Admin: 08/29/16 05:00 Dose: 60 mls/hr Dextrose (Dextrose 5%) 1,000 mls @ 100 mls/hr IVC .Q10H PRN PRN Reason: HYPOGLYCEMIA Stop: 02/28/17 08:21 Ceftriaxone Sodium 1,000 mg/ (Dextrose) 100 mls @ 200 mls/hr IVPB Q24H [facility] Stop: 02/28/17 09:01 Insulin Detemir (Levemir) 20 unit SQ HS [facility] Stop: 02/28/17 21:01 Insulin Human Lispro (Humalog) 0 units SQ HS [facility] PRN Reason: Protocol Stop: 02/28/17 21:01 Insulin Human Lispro (Humalog) 0 units SQ TIDAC [facility] PRN Reason: Protocol Stop: 02/28/17 08:31 Metoprolol Tartrate (Lopressor) 50 mg PO BID [facility] Stop: 02/28/17 09:01 Last Admin: 08/29/16 08:30 Dose: Not Given Mirtazapine (Remeron) 15 mg PO HS [facility] Stop: 02/28/17 21:01 Morphine Sulfate (Morphine Sulfate) 2 mg IVP Q4HR PRN PRN Reason: Severe Pain (7-10) Stop: 02/28/17 08:12 Naloxone HCl (Narcan) 0.4 mg IVP Q2MIN PRN PRN Reason: Opioid Reversal Stop: 02/28/17 08:12 Tamsulosin HCl (Flomax) 0.4 mg PO HS [facility] PRN Reason: Protocol Stop: 02/28/17 21:01 - Imaging and Cardiology Echo: report reviewed Other Results: Telemetry: avg HR=81 SR. - EKG Interpretation EKG results cardiology: personally reviewed Consult Discharge Plan - Plan Referrals: Jonathan Herron Jr, MD [Primary Care Provider] -
[2016-08-29] MEDS ORDERED: *HR* Metoprolol 5 MG/5 ML VIAL IVP ONE (10:05)
[2016-08-29] MEDS ORDERED: Magnesium Sulfate 2 GM in D5% in Water 100 ML IVPB ONE (10:17)
--- NOTE | 2016-08-29 10:43 | ECHO - Doppler Report ---
Limited Echocardiogram Name: Wilfredo Conn Date of Study: 08/29/2016 Date: 1935 Ht: 64.0 in Medical Record#: [id number] Age: 81 Wt: 125.0 lb Gender: Male BSA: 1.6 Order #: [id number] Location: [facility] Room #: ICU01 Reading Physician: Watson Ramos MD, [facility] Automation Application Engineer: Edil Olivera RN Ordering Physician: Yosvany Herron MD Primary Physician: Jonathan Herron MD Indications: Arrhythmia, Syncope Impressions: Normal LV systolic function, LVEF 65-70%. Normal right ventricular size and function. Valvular function was not assessed on this limited study. Left Ventricular Wall Motion: Rest Echo Findings All wall segments showed normal motion. Findings: Study Quality * Suboptimal echo windows. ECG Findings * Normal sinus rhythm. Left Ventricle * Normal LV systolic function, LVEF 65-70%. * Normal LV chamber size and wall thickness. Right Ventricle * Normal right ventricular size and function. Left Atrium * Normal left atrial size. Right Atrium * Normal right atrial size. Aorta * Normally sized aortic root. Pericardium * There is a trivial pericardial effusion present. IVC * Normal IVC dimensions and inspiratory collapse. History Hypertension Diabetes Hypercholesteremia Family History of CAD History of CAD/PTCA Myocardial Infarction 08/01/2016 a Previous Echo was performed. Measurements: BP: 117/ 57 2D Normal Values RVIDd: 2.60 cm IVSd: .80 cm 0.6 - 1.0 cm LVIDd: 3.80 cm 3.7 - 5.6 cm LVPWd: .90 cm 0.6 - 1.1 cm LVIDs: 2.10 cm 1.5 - 3.6 cm AO: 2.80 cm < 4.0 cm %FS: 36.70 cm >25 % Updated by Watson Ramos MD, [facility] on 08/29/2016 10:37:14 AM electronically signed on 08/29/2016 10:37:41 AM with status of Final Wall Motion Cabrera: 1=Normal, 2=Hypokinesis, 3=Akinesis, 4=Dyskinesis, 5=Aneurysmal, 6=Hyperkinetic, X=Not Visualized (Blank)=Missing
[2016-08-29] MEDS: Insulin LISPRO 300 UNITS/3 ML VIAL SQ SCH ×4 (11:27→21:06)
--- NOTE | 2016-08-29 11:57 | Electrocardiograph Report ---
[address] [place], [place] [address] Test Date: 2016-08-29 Pat Name: Wilfredo Conn Department: 104 Room: [facility] Gender: M Concreter: CALVIN : 1935 Requested By: Alan Gomez Order Number: [id number] Reading MD: Joanie Paiz Measurements Intervals [place] Rate: 81 P: CA: 0 QRS: 12 QRSD: 80 T: 33 QT: 403 QTc: 440 Interpretive Statements SINUS RHYTHM LOW VOLTAGE LIMB LEADS Electronically Signed On 08-29-2016 11:56:30 EDT by Joanie Paiz
[2016-08-29] MEDS: *HR* Heparin 5,000 UNIT/ML VIAL SQ SCH (18:44)
[2016-08-29] MEDS: Mirtazapine 15 MG TABLET PO SCH (21:05)
[2016-08-29] MEDS: Insulin DETEMIR 100 UNIT/ML X5UNITS SQ SCH (21:06)
[2016-08-30] MEDS: *HR* Heparin 5,000 UNIT/ML VIAL SQ SCH ×2 (05:04→16:41)
[2016-08-30] MEDS: 0.9 % Sodium Chloride 1,000 ML IVC SCH ×2 (05:04→23:59)
[2016-08-30 05:16] LABS: Hematocrit 42.8 % (37.5-50.1); Mean Corpuscular HGB Conc 33.2 g/dL (31.6-35.5); Mean Corpuscular Hemoglobin 27.3 pg (28.0-33.3); Mean Corpuscular Volume 82.1 fL (83.0-100.0); Mean Platelet Volume 12.6 fL (9.4-12.4); Platelet Count 188 K/mcL (140-400); Red Blood Count 5.21 M/mcL (4.19-5.50); Red Cell Distribution Width 14.1 % (11.5-14.5)
[2016-08-30 05:17] LABS: Hemoglobin 14.2 g/dL (12.9-16.9)
[2016-08-30 05:33] LABS: BUN/Creatinine Ratio 12 (6-26); Blood Urea Nitrogen 11 mg/dL (8-26); Calcium 8.7 mg/dL (8.6-10.8); Carbon Dioxide 20 mEq/L (19-29); Chloride 112 mEq/L (98-109); Chol/HDL Ratio 3.7 (0-4.9); Cholesterol 112 mg/dL (< 200); Glucose 99 mg/dL (70-99); HDL Cholesterol 30 mg/dL (40-59); LDL Cholesterol,Calculated 63 mg/dL (0-99); Magnesium 2.1 mg/dL (1.6-2.6); Osmolality,Calculated 293 (280-300); Potassium 3.1 mEq/L (3.5-4.5); Sodium 142 mEq/L (136-145); Triglycerides 93 mg/dL (< 150); eGFR For African Americans > 60 (> 60); eGFR For Non-African Americans > 60 (> 60)
[2016-08-30] MEDS: Insulin LISPRO 300 UNITS/3 ML VIAL SQ SCH ×4 (07:29→20:27)
[2016-08-30] MEDS ORDERED: Potassium Chloride 40 MEQ, Lidocaine 1% 2 ML in D5% in Water 500 ML IVPB ONE (08:25)
[2016-08-30] MEDS: Megestrol Acetate 400 MG/10 ML UDC PO SCH (08:57)
[2016-08-30] MEDS: Famotidine 20 MG TABLET PO SCH (08:58)
[2016-08-30] MEDS ORDERED: Vancomycin 1,000 MG in D5% in Water 250 ML IVPB ONE (09:00)
--- NOTE | 2016-08-30 09:51 | Internal Med Progress Note ---
Date of Encounter: 08/30/16 Time of Encounter: 08:15 (.) - Assessment and plan (1) SVT (supraventricular tachycardia) Current Visit: Yes Status: Acute Assessment and plan: Currently rate controlled with Cardizem 2D echo reported normal LV systolic function with LVEF of 65-70%, normal right ventricular size and function Will continue tele monitoring Cardiology consultation appreciated-will follow up (2) Syncope and collapse Current Visit: Yes Status: Resolved Assessment and plan: no further episodes of syncope reported since hospitalization follow up PT eval (3) UTI (urinary tract infection) Current Visit: Yes Status: Acute Assessment and plan: Urine cultures preliminary results positive for Gram positive cocci will discontinue Ceftriaxone and start Vancomycin Will de-escalate therapy once final culture reports are available Qualifiers: Urinary tract infection type: site unspecified Hematuria presence: with hematuria Qualified Code(s): N39.0 - Urinary tract infection, site not specified; R31.9 - Hematuria, unspecified (4) Hypertension Current Visit: No Status: Chronic Assessment and plan: BP within acceptable range will continue current management continue to closely monitor Qualifiers: Hypertension type: essential hypertension Qualified Code(s): I10 - Essential (primary) hypertension (5) Diabetes mellitus Current Visit: No Status: Acute Assessment and plan: BG within acceptable range will continue to monitor BG and FS continue sliding scale insulin algorithm Qualifiers: Diabetes mellitus type: type 2 Diabetes mellitus complication status: with neurologic complications Diabetes mellitus complication detail: with polyneuropathy Diabetes mellitus fci insulin use: with fci use Qualified Code(s): E11.42 - Type 2 diabetes mellitus with diabetic polyneuropathy; Z79.4 - halfway (current) use of insulin (6) Mass of upper lobe of right lung Current Visit: No Status: Chronic Assessment and plan: Reported history of right uppper lobe mass-schedule for biopsy at [facility] next week Severe protein calorie malnutrition due to anorexia and severe weight loss likely secondary to underlying malignancy (undiagnosed) Will REstart Megace and Reglan nutrition consultation requested (7) Electrolyte abnormality Current Visit: Yes Status: Acute Assessment and plan: Hypokalemia-K supplemented continue to monitor electrolytes and replace as needed Electrolyte protocol initiated. (8) CAD (coronary artery disease), [place] coronary artery Current Visit: No Status: Chronic Qualifiers: [place] vs. transplanted heart: [place] heart Associated angina: angina presence unspecified Qualified Code(s): I25.10 - Atherosclerotic heart disease of [place] coronary artery without angina pectoris (9) DVT prophylaxis Current Visit: No Status: Acute Assessment and plan: Heparin SQ - Subjective Interval history: Patient seen and examined at bedside. Reports of feeling tired but denies chest pain or sob at this time. Reported to have another run of SVT overnight which was converted to sinus rhythm with carotid massage. At this time, noted to be in sinus rhythm. States he has poor appetite and does not feel like eating. - Constitutional Vitals: Temp Pulse Resp BP Pulse Ox 98.7 F 81 18 121/78 96 08/30/16 09:00 08/30/16 09:00 08/30/16 09:00 08/30/16 09:00 08/30/16 09:00 General appearance: Present: A&O X 3, no acute distress, underweight, answers questions appropriately - Head Head exam: Present: atraumatic, normocephalic - Eye Eye exam: Present: normal appearance, conjuntiva pink, sclera anicteric - Respiratory Respiratory exam: Present: CTAB. Absent: accessory muscle use, rales, rhonchi, wheezes - Cardiovascular Cardiovascular exam: Present: RRR, +S1, +S2. Absent: diastolic murmur, gallop, rubs, systolic murmur - GI/Abdominal GI/Abdominal exam: Present: normal bowel sounds, soft, no peritoneal signs. Absent: distended, tenderness - Extremities Exam Extremities exam: Present: warm, radial pulses palpable and symetrical. Absent : calf tenderness, cyanotic, pedal edema - Neurological Exam Neurological exam: Present: alert, oriented X3 Internal Medicine: Result - Labs CBC & Chem 7: 08/30/16 04:52 08/30/16 04:52 Labs: Short CBC 08/30/16 Range/Units 04:52 WBC 6.8 (4.3-11.1) K/mcL Hgb 14.2 D (12.9-16.9) g/dL Hct 42.8 (37.5-50.1) % Plt Count 188 (140-400) K/mcL BMP 08/30/16 04:52 Sodium 142 Potassium 3.1 L Chloride 112 H Carbon Dioxide 20 BUN 11 Creatinine 0.89 Glucose 99 Calcium 8.7 Cardiac Enzymes 08/29/16 Range/Units 10:47 Troponin I 0.03 (0-0.03) ng/mL - ABG Interpretation ABG results: PT/INR, D-dimer PT 11.5 Seconds (9.4-12.1) 08/29/16 04:30 Consult Discharge Plan - Plan Referrals: Jonathan Herron Jr, MD [Primary Care Provider] -
--- NOTE | 2016-08-30 10:13 | Cardiology Progress Note ---
Date of Encounter: 08/30/16 Time of Encounter: 09:00 Assessment and Plan (1) SVT (supraventricular tachycardia) Current Visit: Yes Status: Acute Per cardiology: -Presented to the ED with acute respiratory failure, AMS; reportedly in SVT in the ED. -Was given 6mg & 12 mg which successfully converted to SR; SVT recurred, patient was then cardioverted. Required temporary nasal intubation. -Recurrence of SVT in ICU with hypotension. Was converted to SR with carotid massage. IV lopressor 2.5mg x1 given. -Hypokalemic upon admission, will replace. Keep K>4.0, Mag >2.0. -K today 3.1, was replaced by primary service. -On short acting cardizem. -Limited echo with LVEF 65-70%, normal right ventricular size and function. -Will convert short acting cardizem to Cardizem CD 120mg po daily. -Cardiology will sign off and will set up follow up in outpatient setting. -Pateint states understanding and agrees with plan. (RAYO) (2) Lung nodules Current Visit: Yes Status: Acute Per cardiology: -Known lung nodule per CT. -Was scheduled for lung biopsy at [facility], however is now inpatient. - discussed with family regarding lung nodules and family requested pulmonary consultation while inpatient. -Will consult pulmonary. Order placed and discussed verbally with ICU resident. -Management per pulomnary and primary services. (RAYO) Discussion w patient/family: The assessment and plan as outlined above was discussed with the patient who expressed understanding and agreement. All questions were answered. Thank you for involving us in the care of your patient. Please call with any questions. Patient seen and examined with NITISH Ruiz Discussed and reviewed with . Subjective Principal diagnosis: SVT Interval history: Mr. Conn is a 81 year old male with PMH significant for DMII, COPD, HTN, GERD , and gastroparesis with ulcer who was brought to [facility] ED by EMS this AM for respiratory failure and altered mental status. Per EMS documentation; patient was found slumped over in his wheelchair, SPO2 was 68% and HR was 160's per monitor. He was then taken to the ED for further evaluation. Reported SVT in the ED; he was given 6 mg & 12 mg of Adenosine which converted him to SR, he then went back into SVT and was cardioverted to SR. In ICU patient had recurrence of SVT with hypotension. Patient was then converted to sinus rhythm with carotid massage. No SVT noted on telemetry overnight. Patient states he is feeling better. Denies palpitations or chest pain. (RAYO) He has an appointment later this wek at the [facility] for biopsy of right lung spiculated lesion concerning for malignancy. He has lost a significant amount of weight in the past 5 months, >50 lbs. PET scan demonstration mediastinal adenopathy. Recently left the [facility] AM, he was not satisfied with his care. He denies hx of irregular heart rhythm or arrhythmia. Denies hx of CAD. Recent testing includes: TTE (limited) 08/01/16: EF 60%, normal wall motion TTE 06/23/16: EF 60-65%, mild LVDD, no significant valvular dysfunction, normal wall motion BCU 06/23/16: bilateral non-stenotic plaque Objective Vital Signs, Last 4 Hours Temp Pulse Resp BP Pulse Ox 08/30/16 09:00 98.7 F 81 18 121/78 96 08/30/16 07:44 93 08/30/16 07:41 93 18 136/73 95 08/30/16 07:26 98.7 F General: Conversant, No Apparent Distress HEENT: Atraumatic, Normocephaly, Mucus Membranes Moist Neck: No JVD, Normal carotid pulses Cardiac: Reg Rate and Rhythm, Normal S1 and S2, No Murmur Lungs: Normal Breath Sounds, No Wheeze, Rales, Rhonchi Neuro: Alert and responsive, No focal deficits noted Abdomen: Soft, Non-Tender Skin: No rashes noted on visualized skin Musculoskeletal: No Chest Wall Tenderness Extremities: No Clubbing, No Cyanosis, No Edema, Normal Pulses Results 08/30/16 04:52 08/30/16 04:52 Lab Results Active Medications Acetaminophen (Tylenol) 650 mg PO Q6HR PRN PRN Reason: Mild Pain (1-3) Stop: 02/28/17 08:12 Dextrose/Water (Dextrose 50% (Syg)) 25 ml IVP AD PRN PRN Reason: Hypoglycemia Stop: 02/28/17 08:21 Diltiazem HCl (Cardizem Cd) 120 mg PO DAILY DAVIS Stop: 03/01/17 10:31 Famotidine (Pepcid) 20 mg PO DAILY DAVIS Stop: 02/28/17 09:01 Last Admin: 08/30/16 08:58 Dose: 20 mg Glucagon (Glucagen) 1 mg IM ONCE PRN PRN Reason: Hypoglycemia Stop: 02/28/17 08:21 Glucose (Gluctose) 15 gm PO ONCE PRN PRN Reason: Hypoglycemia Stop: 02/28/17 08:21 Glucose (Gluctose) 30 gm PO ONCE PRN PRN Reason: Hypoglycemia Stop: 02/28/17 08:21 Heparin Sodium (Porcine) (Heparin) 5,000 unit SQ Q12HR DAVIS Stop: 02/28/17 18:01 Last Admin: 08/30/16 05:04 Dose: 5,000 unit Sodium Chloride (0.9 % Sodium Chloride) 1,000 mls @ 60 mls/hr IVC .[id number] DAVIS Stop: 02/28/17 05:01 Last Admin: 08/30/16 05:04 Dose: 60 mls/hr Dextrose (Dextrose 5%) 1,000 mls @ 100 mls/hr IVC .Q10H PRN PRN Reason: HYPOGLYCEMIA Stop: 02/28/17 08:21 Vancomycin HCl 1,000 mg/ (Dextrose) 250 mls @ 166.667 mls/hr IVPB ONCE ONE Stop: 08/30/16 10:29 Last Admin: 08/30/16 09:00 Dose: 166.667 mls/hr Vancomycin HCl 1,000 mg/ (Dextrose) 250 mls @ 166.667 mls/hr IVPB Q24H [facility] Stop: 03/01/17 21:01 Insulin Detemir (Levemir) 20 unit SQ HS [facility] Stop: 02/28/17 21:01 Last Admin: 08/29/16 21:06 Dose: 20 unit Insulin Human Lispro (Humalog) 0 units SQ HS DAVIS PRN Reason: Protocol Stop: 02/28/17 21:01 Last Admin: 08/29/16 21:06 Dose: Not Given Insulin Human Lispro (Humalog) 0 units SQ TIDAC DAVIS PRN Reason: Protocol Stop: 02/28/17 08:31 Last Admin: 08/30/16 07:29 Dose: Not Given Megestrol Acetate (Megace) 400 mg PO DAILY [facility] Stop: 03/01/17 09:01 Last Admin: 08/30/16 08:57 Dose: 400 mg Metoclopramide HCl (Reglan) 10 mg PO TIDAC [facility] Stop: 03/01/17 11:31 Mirtazapine (Remeron) 15 mg PO HS [facility] Stop: 02/28/17 21:01 Last Admin: 08/29/16 21:05 Dose: 15 mg Morphine Sulfate (Morphine Sulfate) 2 mg IVP Q4HR PRN PRN Reason: Severe Pain (7-10) Stop: 02/28/17 08:12 Naloxone HCl (Narcan) 0.4 mg IVP Q2MIN PRN PRN Reason: Opioid Reversal Stop: 02/28/17 08:12 Tamsulosin HCl (Flomax) 0.4 mg PO HS DAVIS PRN Reason: Protocol Stop: 02/28/17 21:01 Last Admin: 08/29/16 21:05 Dose: 0.4 mg Laboratory Tests 08/29/16 08/29/16 08/29/16 04:30 04:30 10:47 Hgb Hct Potassium 3.4 L Creatinine Magnesium Troponin I 0.03 0.03 08/30/16 08/30/16 04:52 04:52 Hgb 14.2 D Hct 42.8 Potassium 3.1 L Creatinine 0.89 Magnesium 2.1 Troponin I - Imaging and Cardiology Chest Xray: report reviewed Echo: report reviewed - EKG Interpretation EKG results cardiology: other (Telemetry reviewed with average HR previous 12 hours noted to be 85. PVCs noted. Occasional couplet PVCs noted.) Consult Discharge Plan - Plan Referrals: Jonathan Herron Jr, MD [Primary Care Provider] -
[2016-08-30] MEDS ORDERED: Diltiazem CD (24hr) 120 MG CAPSULE PO SCH (14:00)
--- NOTE | 2016-08-30 15:30 | Pulmonology Consult Note ---
<Larry Cardona - Last Filed: 08/30/16 17:13> Date of Encounter: 08/30/16 Time of Encounter: 15:28 Assessment and Plan (1) Nodule of right lung Current Visit: Yes Status: Acute CT of chest with contrast from 07/31/2016 showed 2.0 cm x 1.3 cm solid nodule with spiculated margins in the right upper lobe suspicious for malignancy, additional solid nodules/groundglass nodules b/l, subtle hypodense lesion in hepatic segment could represent focal steatosis, hemangioma or metastasis, pt was scheduled to have biopsy this week at [facility] but it did not happen as he was hospitalized currently for SVT, spoke to his son at bedside, currently pt is not stable to go through biopsy due to recent episodes of SVTs, he will need to follow up with his primary gun barrel finisher for outpt biopsy. (2) SVT (supraventricular tachycardia) Current Visit: Yes Status: Acute Initially he was given 6mg & 12 mg of adenosine which successfully converted to SR however SVT recurred, patient was then cardioverted to sinus. Recurrence of SVT in ICU with hypotension noted, it was converted to sinus rhythm with carotid massage, IV lopressor 2.5mg x1 given that time. Limited echo this time showed LVEF 65-70%, normal right ventricular size and function, cardiology consulted, pt is currently on cardizem CD 120mg po daily, HR has been stable and it is sinus, pt will f/u with cardiology service as outpt. (3) UTI (urinary tract infection) Current Visit: Yes Status: Acute Urine culture grew gram positive cocci, managed by primary team, he is currently on vancomycin, recommend continuation of rocephin until sensitivity comes back, will communicate this to primary team. Qualifiers: Qualified Code(s): N39.0 - Urinary tract infection, site not specified (4) Malnutrition Current Visit: Yes Status: Acute This is 2/2 poor appetite and dysphagia issue, recommend consulting speech therapy for swallowing evaluation. (5) Hypokalemia Current Visit: Yes Status: Acute This has been replaced, magnesium level is 2.1 today, recheck in AM. (6) Non-insulin dependent type 2 diabetes mellitus Current Visit: No Status: Chronic Glucose has been stable on 20 units of levemir HS and SSI with accucheck ACHS, con't with current regimen. (7) DVT prophylaxis Current Visit: Yes Status: Acute Heparin SQ BID. History of Present Illness Consult date: 08/30/16 Requesting physician: Harsha Cannon Reason for consult: other (lung nodule) Chief complaint: Lung nodule r/o neoplasm History of present illness: This is a 81 year old male with a history of diabetes type 2, CVA, CAD, COPD not oxygen dependent, two days ago when he got up middle of night he collapsed, he became unresponsive, EMS arrived, he was found to be in SVT in the 160s, he was given 6 mg of adenosine, later, he received another dose of 12 mg adenosine and had to be cardioverted to sinus rhythm, pt was once intubated on the way to ER but extubated when he got to the ICU, cardiology was consulted during this hospitalization, limited echo this time showed EF 60% with normal wall motion. Pt was recently discharged from this hospital on 08/04/2016 for generalized weakness and during that time pulmonology service was consulted for suspicious right upper lung nodule, r/o neoplasm, pt was supposed to have CT guided biopsy however it did not happen as the CT machine was malfunctioning, pt was scheduled to have another biopsy schedule this week at [facility] but it was cancelled as pt was hospitalized this time for SVT. Pt had weight loss of 50 lbs over the last several months from poor appetite and dysphagia, he is former smoker and used to smoke 3 PPD for 30 yrs, occasional productive cough with yellowish sputum since two months ago, no baseline dyspnea, he does not use home oxygen or CPAP/BIPAP at night. Pt is former and has hx of exposure to agent orange. Pt denies night sweat or hemoptysis. Pulmonology was consulted for further workup for this right upper lung nodule suspicious for neoplasm. Past Med Surg Social Fam HX - Past Medical History Medical history: arthritis, cancer (Colon cancer status post colectomy), COPD ( Not oxygen dependent), dementia, diabetes (Insulin-dependent), GERD, GI bleed, hyperlipidemia, hypertension, malignancy (Hx of colon CA), myocardial infarction , osteoporosis, renal disease (CKD3), thyroid disease, other (Gastric ulcers, exposure to agent orange, BPH, neuropathy, osteoporosis) Psychiatric history: anxiety, depression, PTSD, other - Past Surgical History Surgical History: cancer surgery, colectomy, herniorrhaphy, knee replacement, orthopedic, other - Social History Smoking Status: Former smoker Smokeless Tobacco Status: No Alcohol use: rarely Drug use: none - Family History Father Adopted: No Family Member Ethnicity: Non- Living Status: Cause of : food poisoning Hx Family Cardiac Disorders: Yes Hx Family Respiratory Disorders: No Hx Family Cancer: No Hx Family GI Disorders: No Hx Family Endocrine Disorder: No Hx Family Neuromuscular Disorders: No Hx Family Neurologic Disorders: Yes Hx Family HEENT Disorders: No Hx Family Autoimmune Disorders: No Mother Cause of : stroke Medications and Allergies Finasteride [Proscar] 5 mg PO DAILY 06/23/16 [History] Insulin ASPART [NovoLOG] 10 unit SQ TIDWM 06/23/16 [History] Fludrocortisone Acetate [Florinef] 0.1 mg PO DAILY 07/19/16 [History] Mirtazapine [Remeron] 15 mg PO HS 07/19/16 [History] Hydrocortisone 2.5% CREAM [Cortaid] 1 appl RC QID PRN 08/01/16 [History] Insulin Glargine [Lantus] 20 unit SQ HS 08/01/16 [History] Sennosides [Senna] 8.6 mg PO BID PRN 08/01/16 [History] Venlafaxine XR (24 HR) [Effexor Xr] 37.5 mg PO QAM 08/01/16 [History] GuaiFENesin/Dextromethorphan [Tussin Dm Syrup] 10 ml PO Q4H PRN 08/29/16 [ History] Metformin HCl [Metformin HCl ER] 1,000 mg PO QPM 08/29/16 [History] Metoclopramide [Reglan] 5 mg PO DAILY 08/29/16 [History] Metoprolol [Lopressor] 50 mg PO BID 08/29/16 [History] Omeprazole [PriLOSEC] 20 mg PO DAILY 08/29/16 [History] Polyethylene Glycol 3350 [Smoothlax] 17 gm PO HS 08/29/16 [History] Propylene Glycol/Peg 400 [Systane 0.3-0.4% Eye Drops] 1 drop BOTH EYES TID 08/29 [History] Allergies gabapentin Allergy (Verified 08/16/16 20:55) Itching Nortriptyline Allergy (Verified 08/16/16 20:55) Rash Terazosin Allergy (Verified 08/16/16 20:55) Itching All Systems: A 10-system review of systems was performed and is negative for pertinent findings except as documented above in the HPI. Review of Systems: Pt admits recent weight loss, weakness, loss of appetite, dysphagia, constipation, occasional productive cough but denies headache, fever/chill, hemoptysis, night sweat, nausea/emesis, chest pain, palpitation, abd pain, diarrhea or dysuria. Physical Examination Vital Signs: Vital Signs, Last 4 Hours Temp Pulse Resp BP Pulse Ox 08/30/16 15:00 97.9 F 90 16 153/71 96 08/30/16 14:00 87 18 143/74 96 08/30/16 13:00 87 18 130/64 96 08/30/16 12:00 87 08/30/16 11:57 83 18 147/74 96 General appearance: no acute distress, alert Eyes: nonicteric ENT: oropharynx moist Neck: supple Effort: normal Inspection: normal Auscultation: bilateral: clear Cardiovascular: regular rate and rhythm Gastrointestinal: normoactive bowel sounds, soft, non-tender, non-distended Integumentary: normal Extremities: no cyanosis, no edema, no clubbing Musculoskeletal: no deformities normal mental status, non-focal exam, pupils equal and round, CN II-XII normal, motor strength normal and symmetric mood appropriate, affect normal Results - Laboratory Findings CBC and BMP: 08/30/16 04:52 08/30/16 04:52 PT/INR, D-dimer PT 11.5 Seconds (9.4-12.1) 08/29/16 04:30 Abnormal lab findings: Abnormal lab results MCV 82.1 fL (83.0-100.0) L 08/30/16 04:52 MCH 27.3 pg (28.0-33.3) L 08/30/16 04:52 MPV 12.6 fL (9.4-12.4) H 08/30/16 04:52 Potassium 3.1 mEq/L (3.5-4.5) L 08/30/16 04:52 Chloride 112 mEq/L (98-109) H 08/30/16 04:52 POC Glucose 135 (58-89) H 08/29/16 19:07 Lactic Acid 2.5 mmol/L (0.5-2.2) H 08/29/16 05:29 Total Bilirubin 1.7 mg/dL (0.2-1.2) H 08/29/16 04:30 Direct Bilirubin 0.6 mg/dL (0.0-0.5) H 08/29/16 04:30 Albumin 3.1 g/dL (3.5-5.0) L 08/29/16 04:30 HDL Cholesterol 30 mg/dL (40-59) L 08/30/16 04:52 Urine Clarity Cloudy (Clear) A 08/29/16 05:35 Urine Protein 30 mg/dL (Neg-Trace) H 08/29/16 05:35 Urine Ketones Trace mg/dL (Negative) H 08/29/16 05:35 Urine Blood Moderate (Negative) H 08/29/16 05:35 Ur Leukocyte Esterase Large (Negative) H 08/29/16 05:35 Urine Microscopic RBC 5-15 per hpf (0-3) H 08/29/16 05:35 Urine Microscopic WBC TNTC per hpf (0-3) H 08/29/16 05:35 Urine Bacteria Moderate per hpf (None-Few) H 08/29/16 05:35 Ur Culture Indicated? YES (NO) A 08/29/16 05:35 - Clinical Findings Intake & Output: Intake & Output 08/29/16 08/30/16 08/30/16 23:59 07:59 15:59 Intake Total 1600 / 1600 250 / 250 Output Total 150 / 150 525 / 525 Balance -150 / -150 1075 / 1075 250 / 250 Weight 60.464 kg Consult Discharge Plan - Plan Referrals: Brendan aDy CNP [Advanced Practice Nurse] - 09/14/16 10:00 am Jonathan Herron Jr, MD [Primary Care Provider] - <Hilda Cruz - Last Filed: 08/30/16 21:51> Date of Encounter: 08/30/16 All Systems: A 10-system review of systems was performed and is negative for pertinent findings except as documented above in the HPI. Physical Examination Vital Signs: Vital Signs, Last 4 Hours Temp Pulse Resp BP Pulse Ox 08/30/16 21:00 88 18 156/78 97 08/30/16 20:00 98.0 F 89 20 146/65 95 08/30/16 19:00 91 21 153/73 94 08/30/16 18:00 96 16 141/62 96 Results - Laboratory Findings CBC and BMP: 08/30/16 04:52 08/30/16 04:52 PT/INR, D-dimer PT 11.5 Seconds (9.4-12.1) 08/29/16 04:30 Abnormal lab findings: Abnormal lab results MCV 82.1 fL (83.0-100.0) L 08/30/16 04:52 MCH 27.3 pg (28.0-33.3) L 08/30/16 04:52 MPV 12.6 fL (9.4-12.4) H 08/30/16 04:52 Potassium 3.1 mEq/L (3.5-4.5) L 08/30/16 04:52 Chloride 112 mEq/L (98-109) H 08/30/16 04:52 POC Glucose 135 (58-89) H 08/29/16 19:07 Lactic Acid 2.5 mmol/L (0.5-2.2) H 08/29/16 05:29 Total Bilirubin 1.7 mg/dL (0.2-1.2) H 08/29/16 04:30 Direct Bilirubin 0.6 mg/dL (0.0-0.5) H 08/29/16 04:30 Albumin 3.1 g/dL (3.5-5.0) L 08/29/16 04:30 HDL Cholesterol 30 mg/dL (40-59) L 08/30/16 04:52 Urine Clarity Cloudy (Clear) A 08/29/16 05:35 Urine Protein 30 mg/dL (Neg-Trace) H 08/29/16 05:35 Urine Ketones Trace mg/dL (Negative) H 08/29/16 05:35 Urine Blood Moderate (Negative) H 08/29/16 05:35 Ur Leukocyte Esterase Large (Negative) H 08/29/16 05:35 Urine Microscopic RBC 5-15 per hpf (0-3) H 08/29/16 05:35 Urine Microscopic WBC TNTC per hpf (0-3) H 08/29/16 05:35 Urine Bacteria Moderate per hpf (None-Few) H 08/29/16 05:35 Ur Culture Indicated? YES (NO) A 08/29/16 05:35 - Clinical Findings Intake & Output: Intake & Output 08/30/16 08/30/16 08/30/16 07:59 15:59 23:59 Intake Total 1600 / 1600 250 / 250 Output Total 525 / 525 300 / 300 Balance 1075 / 1075 250 / 250 -300 / -300 Weight 60.464 kg - Attending Attestation I examined this patient and my medical decision-making was reviewed with the REGISTRATION REP/PA/Advanced Practice Nurse/Resident Physician. I agree with the documented findings, disposition and treatment plan as described except to the extent set forth below. Patient seen and examined. Labs, radiology, chart personally reviewed. Agree with resident's history and physical, assessment, plan with following comments: HOSTED SERVICES ANALYST: Patient follows commands, Pulmonary: Acceptable oxygenation and ventilation and explained to patient and his family that lung nodule work up need to be completed as out patient. Patient has been sen in [facility] and can follow up in our pulmonary office. He is not stable clinically for any interventions or biopsies. Cardiovascular: stable now and readiness paraprofessional has seen patient. GI: Nutrition per dietary and GI prophylaxis per routine Thanks for the consult and please call for any questions.
[2016-08-30] MEDS: Mirtazapine 15 MG TABLET PO SCH (20:30)
[2016-08-30] MEDS: Insulin DETEMIR 100 UNIT/ML X5UNITS SQ SCH (20:31)
[2016-08-30] MEDS ORDERED: Vancomycin 1,000 MG in D5% in Water 250 ML IVPB SCH (21:00)
[2016-08-31 04:52] LABS: Basophils % 0.5 %; Eosinophils % 0.7 %; Hematocrit 41.2 % (37.5-50.1); Hemoglobin 13.8 g/dL (12.9-16.9); Immature Granulocytes % 0.2 % (0-4); Lymphocytes # 1.8 K/mcL (0.6-4.6); Lymphocytes % 30.5 %; Mean Corpuscular HGB Conc 33.5 g/dL (31.6-35.5); Mean Corpuscular Hemoglobin 27.9 pg (28.0-33.3); Mean Corpuscular Volume 83.2 fL (83.0-100.0); Monocytes # 0.6 K/mcL (0.0-1.3); Monocytes % 9.8 %; Neutrophils # 3.5 K/mcL (1.6-8.9); Platelet Count 178 K/mcL (140-400); Red Blood Count 4.95 M/mcL (4.19-5.50); Red Cell Distribution Width 14.3 % (11.5-14.5); Segmented Neutrophils % 58.3 %
[2016-08-31 05:12] LABS: BUN/Creatinine Ratio 8 (6-26); Blood Urea Nitrogen 6 mg/dL (8-26); Calcium 8.5 mg/dL (8.6-10.8); Carbon Dioxide 20 mEq/L (19-29); Chloride 113 mEq/L (98-109); Glucose 87 mg/dL (70-99); Osmolality,Calculated 293 (280-300); Phosphorous 2.7 mg/dL (2.3-4.7); Potassium 2.9 mEq/L (3.5-4.5); Sodium 143 mEq/L (136-145); eGFR For African Americans > 60 (> 60); eGFR For Non-African Americans > 60 (> 60)
[2016-08-31] MEDS: *HR* Heparin 5,000 UNIT/ML VIAL SQ SCH ×2 (05:31→18:29)
[2016-08-31] MEDS ORDERED: Aminoglycoside Consult 1 EACH MC ONE (08:05)
--- NOTE | 2016-08-31 08:09 | Pulmonology Progress Note ---
<Larry Cardona - Last Filed: 08/31/16 10:58> Date of Encounter: 08/31/16 Time of Encounter: 08:07 Assessment and Plan (1) Nodule of right lung Current Visit: Yes Status: Acute CT of chest with contrast from 07/31/2016 showed 2.0 cm x 1.3 cm solid nodule with spiculated margins in the right upper lobe suspicious for malignancy, additional solid nodules/groundglass nodules b/l, subtle hypodense lesion in hepatic segment could represent focal steatosis, hemangioma or metastasis, pt was scheduled to have biopsy this week at [facility] but it did not happen as he was hospitalized currently for SVT, spoke to his son at bedside yesterday, currently pt is not stable to go through biopsy due to recent episodes of SVTs, he will need to follow up with his primary coke drawer for outpt biopsy. (2) SVT (supraventricular tachycardia) Current Visit: Yes Status: Acute Overnight patient had 2 episodes of asymptomatic SVT, no interventions were done and patient converted to sinus rhythm by his own, I spoke to account advisor this morning, they increased Cardizem dosage today, low potassium levels were noted from this morning's lab, it has been replaced, and we will recheck the level at noon, his SVT is likely secondary to underlying electrolyte abnormality , possibly from malnutrition/poor appetite, limited echo this time showed LVEF 65-70%, normal right ventricular size and function, continue to monitor his heart rhythm on telemetry, patient is stable to be transferred from ICU to telemetry floor. (3) UTI (urinary tract infection) Current Visit: Yes Status: Acute Urine culture came back enterococcus faecalis, sensitive to ampicillin, will switch from vancomycin to ampicillin today. Qualifiers: Qualified Code(s): N39.0 - Urinary tract infection, site not specified (4) Malnutrition Current Visit: Yes Status: Acute This is 2/2 poor appetite and dysphagia issue, speech therapy has been consulted for swallowing evaluation, nutrition service is on board. (5) Hypokalemia Current Visit: Yes Status: Acute 2.9 this morning, it has been replaced with po supplementations, magnesium level was 2.0, we will recheck the level and noon, then replace it as needed. (6) Non-insulin dependent type 2 diabetes mellitus Current Visit: No Status: Chronic Glucose has been stable on 20 units of levemir HS and SSI with accucheck ACHS, con't with current regimen. (7) DVT prophylaxis Current Visit: Yes Status: Acute Heparin SQ BID. Subjective Principal diagnosis: SVT right lung nodule Interval history: This is a 81-year-old male who was brought to the ER with unresponsiveness found to be in SVT and received adenosine 2 times and had a cardioversion, converted to sinus rhythm, he was subsequently sent to ICU for close monitoring. Patient seen and examined this morning. Overnight patient had SVT episodes twice, he was asymptomatic, no interventions were done and he converted to sinus rhythm on his own, this morning patient was resting in bed comfortably, denies any complains on chest pain/palpitations. Objective PUL Vital signs: Last Vital Signs Temp 98.3 F 08/31/16 07:00 Pulse 91 08/31/16 06:00 Resp 15 08/31/16 06:00 BP 140/69 08/31/16 06:00 Pulse Ox 95 08/31/16 06:00 General appearance: no acute distress, alert Eyes: nonicteric ENT: oropharynx moist Neck: supple Effort: normal Auscultation: bilateral: clear Cardiovascular: regular rate and rhythm Gastrointestinal: normoactive bowel sounds, soft, non-distended Integumentary: normal Extremities: no cyanosis, no edema Musculoskeletal: no deformities normal mental status, pupils equal and round, CN II-XII normal mood appropriate, affect normal Results - Laboratory Findings CBC and BMP: 08/31/16 09:04 08/31/16 09:04 PT/INR, D-dimer PT 11.5 Seconds (9.4-12.1) 08/29/16 04:30 Abnormal lab findings: Abnormal lab results MCH 27.9 pg (28.0-33.3) L 08/31/16 03:52 MPV 13.0 fL (9.4-12.4) H 08/31/16 03:52 Potassium 2.9 mEq/L (3.5-4.5) L 08/31/16 03:52 Chloride 113 mEq/L (98-109) H 08/31/16 03:52 BUN 6 mg/dL (8-26) L 08/31/16 03:52 POC Glucose 180 (58-89) H 08/30/16 19:57 Lactic Acid 2.5 mmol/L (0.5-2.2) H 08/29/16 05:29 Calcium 8.5 mg/dL (8.6-10.8) L 08/31/16 03:52 Total Bilirubin 1.7 mg/dL (0.2-1.2) H 08/29/16 04:30 Direct Bilirubin 0.6 mg/dL (0.0-0.5) H 08/29/16 04:30 Albumin 3.1 g/dL (3.5-5.0) L 08/29/16 04:30 HDL Cholesterol 30 mg/dL (40-59) L 08/30/16 04:52 Urine Clarity Cloudy (Clear) A 08/29/16 05:35 Urine Protein 30 mg/dL (Neg-Trace) H 08/29/16 05:35 Urine Ketones Trace mg/dL (Negative) H 08/29/16 05:35 Urine Blood Moderate (Negative) H 08/29/16 05:35 Ur Leukocyte Esterase Large (Negative) H 08/29/16 05:35 Urine Microscopic RBC 5-15 per hpf (0-3) H 08/29/16 05:35 Urine Microscopic WBC TNTC per hpf (0-3) H 08/29/16 05:35 Urine Bacteria Moderate per hpf (None-Few) H 08/29/16 05:35 Ur Culture Indicated? YES (NO) A 08/29/16 05:35 - Clinical Findings Intake & Output: Intake & Output 08/30/16 08/31/16 08/31/16 23:59 07:59 15:59 Intake Total 1000 / 1000 320 / 320 Output Total 550 / 550 225 / 225 Balance 450 / 450 95 / 95 Weight 67 kg Consult Discharge Plan - Plan Referrals: Brendan Day CNP [Advanced Practice Nurse] - 09/14/16 10:00 am Jonathan Herron Jr, MD [Primary Care Provider] - <Hilda Cruz - Last Filed: 08/31/16 16:36> Date of Encounter: 08/31/16 Objective PUL Vital signs: Last Vital Signs Temp 98.3 F 08/31/16 07:00 Pulse 91 08/31/16 12:29 Resp 18 08/31/16 08:00 BP 122/81 08/31/16 08:00 Pulse Ox 95 08/31/16 08:00 Results - Laboratory Findings CBC and BMP: 08/31/16 09:04 08/31/16 12:15 PT/INR, D-dimer PT 11.5 Seconds (9.4-12.1) 08/29/16 04:30 Abnormal lab findings: Abnormal lab results MCH 27.9 pg (28.0-33.3) L 08/31/16 09:04 MPV 12.7 fL (9.4-12.4) H 08/31/16 09:04 Chloride 111 mEq/L (98-109) H 08/31/16 09:04 BUN 5 mg/dL (8-26) L 08/31/16 09:04 POC Glucose 180 (58-89) H 08/30/16 19:57 Lactic Acid 2.5 mmol/L (0.5-2.2) H 08/29/16 05:29 Total Bilirubin 1.7 mg/dL (0.2-1.2) H 08/29/16 04:30 Direct Bilirubin 0.6 mg/dL (0.0-0.5) H 08/29/16 04:30 Albumin 3.1 g/dL (3.5-5.0) L 08/29/16 04:30 HDL Cholesterol 30 mg/dL (40-59) L 08/30/16 04:52 Urine Clarity Cloudy (Clear) A 08/29/16 05:35 Urine Protein 30 mg/dL (Neg-Trace) H 08/29/16 05:35 Urine Ketones Trace mg/dL (Negative) H 08/29/16 05:35 Urine Blood Moderate (Negative) H 08/29/16 05:35 Ur Leukocyte Esterase Large (Negative) H 08/29/16 05:35 Urine Microscopic RBC 5-15 per hpf (0-3) H 08/29/16 05:35 Urine Microscopic WBC TNTC per hpf (0-3) H 08/29/16 05:35 Urine Bacteria Moderate per hpf (None-Few) H 08/29/16 05:35 Ur Culture Indicated? YES (NO) A 08/29/16 05:35 - Clinical Findings Intake & Output: Intake & Output 08/31/16 08/31/16 08/31/16 07:59 15:59 23:59 Intake Total 320 / 320 560 / 560 Output Total 225 / 225 300 / 300 Balance 95 / 95 260 / 260 Weight 67 kg - Attending Attestation I examined this patient and my medical decision-making was reviewed with the [employer]/PA/Advanced Practice Nurse/Resident Physician. I agree with the documented findings, disposition and treatment plan as described except to the extent set forth below. Patient seen and examined. Labs, radiology, chart personally reviewed. 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 Patient is not stable for any lung biopsy and this can be addressed as outpatient. Cardiovascular: Cardiology team follow-up GI: Nutrition per dietary and GI prophylaxis per routine Plan of care discussed with the primary team and his family regarding workup for his lung nodule.
[2016-08-31] MEDS: Insulin LISPRO 300 UNITS/3 ML VIAL SQ SCH ×4 (08:23→20:41)
--- NOTE | 2016-08-31 08:28 | Cardiology Progress Note ---
Date of Encounter: 08/31/16 Time of Encounter: 08:30 Assessment and Plan (1) SVT (supraventricular tachycardia) Current Visit: Yes Status: Acute Per cardiology: Presented to the ED with acute respiratory failure, AMS; reportedly in SVT in the ED. Was given 6mg & 12 mg which successfully converted to SR; SVT recurred, patient was then cardioverted. Required temporary nasal intubation. Recurrence of SVT in ICU with hypotension. Was converted to SR with carotid massage. IV lopressor 2.5mg x1 given. Hypokalemic upon admission, will replace. Keep K>4.0, Mag >2.0. Limited echo with LVEF 65-70%, normal right ventricular size and function. On Cardizem CD 120mg po daily. Cardiology asked to reevaluate for recurrent SVT yesterday evening. Potassium noted to be 2.9-- has been replaced this morning by primary service. Repeat potassium level pending this afternoon. Magnesium currently 2.0. Recommend follow previous recommendations to keep potassium above 4.0 and magnesium of 2.0. Patient with poor nutrition status and about 50 lb weight loss-- suspect contributing factor. Systolic blood pressures in the 130s, will increase Cardizem to 180 by mouth daily. Continue to titrate as needed. Consider addition of beta scout if needed. (2) Hypokalemia Current Visit: Yes Status: Acute Per Cardiology: Replaced, recommend continue to monitor. Consider nephrology consult for evaluation of causes of hypokalemia. (3) Lung nodules Current Visit: Yes Status: Acute Per cardiology: Pulm following. Discussion w patient/family: The assessment and plan as outlined above was discussed with the patient who expressed understanding and agreement. All questions were answered. Thank you for involving us in the care of your patient. Please call with any questions. Discussed and reviewed with . Subjective Principal diagnosis: SVT, right lung nodule Interval history: Patient denies any chest pain, short of breath, palpitations. Denies any concerns overnight. Objective Vital Signs, Last 4 Hours Temp Pulse Resp BP Pulse Ox 08/31/16 08:20 91 08/31/16 08:00 96 18 122/81 95 08/31/16 07:00 98.3 F 08/31/16 06:00 91 15 140/69 95 08/31/16 05:00 94 23 147/79 95 General: Conversant, No Apparent Distress HEENT: Atraumatic, Normocephaly Cardiac: Reg Rate and Rhythm, Normal S1 and S2, No Murmur Lungs: Normal Breath Sounds, No Wheeze, Rales, Rhonchi Neuro: Alert and responsive, No focal deficits noted Extremities: No Edema Results 08/31/16 09:04 08/31/16 09:04 Lab Results Laboratory Tests 08/31/16 03:52 Potassium 2.9 L Laboratory Tests 08/31/16 03:52 Magnesium 2.0 Active Medications Acetaminophen (Tylenol) 650 mg PO Q6HR PRN PRN Reason: Mild Pain (1-3) Stop: 02/28/17 08:12 Dextrose/Water (Dextrose 50% (Syg)) 25 ml IVP AD PRN PRN Reason: Hypoglycemia Stop: 02/28/17 08:21 Diltiazem HCl (Cardizem Cd) 180 mg PO DAILY [facility] Stop: 03/02/17 09:01 Famotidine (Pepcid) 20 mg PO DAILY [facility] Stop: 02/28/17 09:01 Last Admin: 08/30/16 08:58 Dose: 20 mg Glucagon (Glucagen) 1 mg IM ONCE PRN PRN Reason: Hypoglycemia Stop: 02/28/17 08:21 Glucose (Gluctose) 15 gm PO ONCE PRN PRN Reason: Hypoglycemia Stop: 02/28/17 08:21 Glucose (Gluctose) 30 gm PO ONCE PRN PRN Reason: Hypoglycemia Stop: 02/28/17 08:21 Heparin Sodium (Porcine) (Heparin) 5,000 unit SQ Q12HR DAVIS Stop: 02/28/17 18:01 Last Admin: 08/31/16 05:31 Dose: 5,000 unit Sodium Chloride (0.9 % Sodium Chloride) 1,000 mls @ 60 mls/hr IVC .[id number] DAVIS Stop: 02/28/17 05:01 Last Admin: 08/30/16 23:59 Dose: 60 mls/hr Dextrose (Dextrose 5%) 1,000 mls @ 100 mls/hr IVC .Q10H PRN PRN Reason: HYPOGLYCEMIA Stop: 02/28/17 08:21 Ampicillin Sodium 1,000 mg/ (Sodium Chloride) 100 mls @ 200 mls/hr IVPB Q6H DAVIS Stop: 03/02/17 08:01 Insulin Detemir (Levemir) 20 unit SQ HS DAVIS Stop: 02/28/17 21:01 Last Admin: 08/30/16 20:31 Dose: 20 unit Insulin Human Lispro (Humalog) 0 units SQ HS DAVIS PRN Reason: Protocol Stop: 02/28/17 21:01 Last Admin: 08/30/16 20:27 Dose: Not Given Insulin Human Lispro (Humalog) 0 units SQ TIDAC DAVIS PRN Reason: Protocol Stop: 02/28/17 08:31 Last Admin: 08/31/16 08:23 Dose: Not Given Megestrol Acetate (Megace) 400 mg PO DAILY [facility] Stop: 03/01/17 09:01 Last Admin: 08/30/16 08:57 Dose: 400 mg Metoclopramide HCl (Reglan) 10 mg PO TIDAC DAVIS Stop: 03/01/17 11:31 Last Admin: 08/30/16 16:41 Dose: 10 mg Mirtazapine (Remeron) 15 mg PO HS [facility] Stop: 02/28/17 21:01 Last Admin: 08/30/16 20:30 Dose: 15 mg Morphine Sulfate (Morphine Sulfate) 2 mg IVP Q4HR PRN PRN Reason: Severe Pain (7-10) Stop: 02/28/17 08:12 Naloxone HCl (Narcan) 0.4 mg IVP Q2MIN PRN PRN Reason: Opioid Reversal Stop: 02/28/17 08:12 Tamsulosin HCl (Flomax) 0.4 mg PO HS DAVIS PRN Reason: Protocol Stop: 02/28/17 21:01 Last Admin: 08/30/16 20:30 Dose: 0.4 mg - EKG Interpretation EKG results cardiology: other (24 hour telemetry reviewed with average heart rate 89, brief episodes of SVT noted last night, no further SVT appreciated this morning, currently sinus rhythm) Consult Discharge Plan - Plan Referrals: Brendan Day CNP [Advanced Practice Nurse] - 09/14/16 10:00 am Jonathan Herron Jr, MD [Primary Care Provider] -
[2016-08-31] MEDS: Megestrol Acetate 400 MG/10 ML UDC PO SCH (08:35)
[2016-08-31] MEDS: Famotidine 20 MG TABLET PO SCH (08:36)
[2016-08-31] MEDS: Diltiazem CD (24hr) 180 MG CAPSULE PO SCH (08:36)
[2016-08-31] MEDS: Ampicillin 1,000 MG in 0.9 % Sodium Chloride Mini Bag 100 ML IVPB SCH ×3 (08:41→20:40)
[2016-08-31] MEDS ORDERED: Potassium Phosphate 44 MEQ in 0.9 % Sodium Chloride 250 ML IVPB PRN (08:44)
[2016-08-31] MEDS ORDERED: Magnesium Sulfate 2 GM in D5% in Water 100 ML IVPB PRN (08:44)
[2016-08-31] MEDS ORDERED: Calcium Gluconate 1,000 MG in D5% in Water 100 ML IVPB PRN (08:44)
[2016-08-31 09:18] LABS: Basophils % 0.5 %; Eosinophils # 0.1 K/mcL (0.0-0.6); Hematocrit 42.6 % (37.5-50.1); Hemoglobin 14.3 g/dL (12.9-16.9); Immature Granulocytes % 0.3 % (0-4); Lymphocytes # 2.7 K/mcL (0.6-4.6); Lymphocytes % 34.2 %; Mean Corpuscular HGB Conc 33.6 g/dL (31.6-35.5); Mean Corpuscular Hemoglobin 27.9 pg (28.0-33.3); Mean Platelet Volume 12.7 fL (9.4-12.4); Monocytes # 0.7 K/mcL (0.0-1.3); Monocytes % 8.7 %; Neutrophils # 4.3 K/mcL (1.6-8.9); Platelet Count 182 K/mcL (140-400); Red Blood Count 5.13 M/mcL (4.19-5.50); Red Cell Distribution Width 14.3 % (11.5-14.5); Segmented Neutrophils % 55.3 %
[2016-08-31 09:27] LABS: Ionized Calcium 1.17 mmol/L (1.15-1.35)
[2016-08-31 09:33] LABS: BUN/Creatinine Ratio 6 (6-26); Calcium 8.8 mg/dL (8.6-10.8); Carbon Dioxide 22 mEq/L (19-29); Chloride 111 mEq/L (98-109); Glucose 76 mg/dL (70-99); Osmolality,Calculated 290 (280-300); Potassium 3.3 mEq/L (3.5-4.5); Sodium 142 mEq/L (136-145); eGFR For African Americans > 60 (> 60); eGFR For Non-African Americans > 60 (> 60)
[2016-08-31 09:36] LABS: Blood Urea Nitrogen 5 mg/dL (8-26)
--- NOTE | 2016-08-31 11:39 | Internal Med Progress Note ---
Date of Encounter: 08/31/16 Time of Encounter: 09:15 - Assessment and plan (1) SVT (supraventricular tachycardia) Current Visit: Yes Status: Acute Assessment and plan: Currently rate controlled with Cardizem 2D echo reported normal LV systolic function with LVEF of 65-70%, normal right ventricular size and function Will continue tele monitoring Cardiology consultation appreciated Cardizem increased to 180mg qd, will add BB if rate controlled not achieved Patient to be transferred out of the ICU to a tele floor D/C planning initiated PT eval recommended inpatient swing bed, social media coordinator consulted for placement (2) Syncope and collapse Current Visit: Yes Status: Resolved Assessment and plan: no further episodes of syncope reported since hospitalization (3) UTI (urinary tract infection) Current Visit: Yes Status: Acute Assessment and plan: Urine cultures reported Enterococcus Faecallis Started Ampicillin as per culture report Qualifiers: Urinary tract infection type: site unspecified Hematuria presence: with hematuria Qualified Code(s): N39.0 - Urinary tract infection, site not specified; R31.9 - Hematuria, unspecified (4) Hypertension Current Visit: No Status: Chronic Assessment and plan: BP within acceptable range will continue current management continue to closely monitor Qualifiers: Hypertension type: essential hypertension Qualified Code(s): I10 - Essential (primary) hypertension (5) Diabetes mellitus Current Visit: No Status: Acute Assessment and plan: BG within acceptable range will continue to monitor BG and FS continue sliding scale insulin algorithm Qualifiers: Diabetes mellitus type: type 2 Diabetes mellitus complication status: with neurologic complications Diabetes mellitus complication detail: with polyneuropathy Diabetes mellitus middle or intermediate school principal insulin use: with middle or intermediate school principal use Qualified Code(s): E11.42 - Type 2 diabetes mellitus with diabetic polyneuropathy; 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 (8) CAD (coronary artery disease), [place] coronary artery Current Visit: No Status: Chronic Qualifiers: [place] vs. transplanted heart: [place] heart Associated angina: angina presence unspecified Qualified Code(s): I25.10 - Atherosclerotic heart disease of [place] coronary artery without angina pectoris (9) DVT prophylaxis Current Visit: No Status: Acute Assessment and plan: Heparin SQ - Subjective Interval history: Patient seen and examined at bedside. Reports of having neuropathy in bilateral upper and lower extremities. Unable to participate with physical therapy, states he is not able to walk and is bed/wheelchair bound at baseline. 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 He follows neurology and his generalized weakness is secondary to generalized deconditioning with residual RLE and RUE weakness secondary to prior CVA. PT eval noted and inpatient rehab recommended. - Constitutional Vitals: Temp Pulse Resp BP Pulse Ox 98.3 F 91 18 122/81 95 08/31/16 07:00 08/31/16 08:20 08/31/16 08:00 08/31/16 08:00 08/31/16 08:00 General appearance: Present: A&O X 3, no acute distress, underweight, answers questions appropriately - Head Head exam: Present: atraumatic, normocephalic - Eye Eye exam: Present: PERRL, conjuntiva pink, sclera anicteric - Respiratory Respiratory exam: Present: CTAB. Absent: accessory muscle use, rales, rhonchi, wheezes - Cardiovascular Cardiovascular exam: Present: RRR, +S1, +S2. Absent: diastolic murmur, gallop, rubs, systolic murmur - GI/Abdominal GI/Abdominal exam: Present: normal bowel sounds, soft, no peritoneal signs. Absent: distended, tenderness - Extremities Exam Extremities exam: Present: warm, radial pulses palpable and symetrical. Absent : calf tenderness, cyanotic, pedal edema - Neurological Exam Neurological exam: Present: alert, oriented X3 - Psychiatric Psychiatric exam: Present: normal affect, normal mood Internal Medicine: Result - Labs CBC & Chem 7: 08/31/16 09:04 08/31/16 09:04 Labs: Short CBC 08/31/16 08/31/16 Range/Units 03:52 09:04 WBC 6.0 7.8 (4.3-11.1) K/mcL Hgb 13.8 14.3 (12.9-16.9) g/dL Hct 41.2 42.6 (37.5-50.1) % Plt Count 178 182 (140-400) K/mcL Neutrophils # 3.5 4.3 (1.6-8.9) K/mcL BMP 08/31/16 08/31/16 03:52 09:04 Sodium 143 142 Potassium 2.9 L 3.3 L Chloride 113 H 111 H Carbon Dioxide 20 22 BUN 6 L 5 L Creatinine 0.74 0.77 Glucose 87 76 Calcium 8.5 L 8.8 - ABG Interpretation ABG results: PT/INR, D-dimer PT 11.5 Seconds (9.4-12.1) 08/29/16 04:30 Consult Discharge Plan - Plan Referrals: Brendan Day CNP [Advanced Practice Nurse] - 09/14/16 10:00 am Jonathan Herron Jr, MD [Primary Care Provider] -
[2016-08-31] MEDS: 0.9 % Sodium Chloride 1,000 ML IVC SCH (16:58)
[2016-08-31] MEDS: Mirtazapine 15 MG TABLET PO SCH (20:40)
[2016-08-31] MEDS: Insulin DETEMIR 100 UNIT/ML X5UNITS SQ SCH (20:40)
[2016-09-01] MEDS: Ampicillin 1,000 MG in 0.9 % Sodium Chloride Mini Bag 100 ML IVPB SCH ×4 (01:48→20:49)
[2016-09-01] MEDS: *HR* Heparin 5,000 UNIT/ML VIAL SQ SCH ×2 (05:22→18:02)
[2016-09-01 07:03] LABS: BUN/Creatinine Ratio 7 (6-26); Blood Urea Nitrogen 5 mg/dL (8-26); Carbon Dioxide 19 mEq/L (19-29); Chloride 112 mEq/L (98-109); Glucose 87 mg/dL (70-99); Magnesium 1.8 mg/dL (1.6-2.6); Osmolality,Calculated 287 (280-300); Potassium 3.6 mEq/L (3.5-4.5); Sodium 140 mEq/L (136-145); eGFR For African Americans > 60 (> 60); eGFR For Non-African Americans > 60 (> 60)
[2016-09-01] MEDS: Insulin LISPRO 300 UNITS/3 ML VIAL SQ SCH ×4 (07:47→20:56)
[2016-09-01] MEDS: Megestrol Acetate 400 MG/10 ML UDC PO SCH (07:54)
[2016-09-01] MEDS: Famotidine 20 MG TABLET PO SCH (07:54)
[2016-09-01] MEDS: Diltiazem CD (24hr) 180 MG CAPSULE PO SCH (07:54)
--- NOTE | 2016-09-01 08:54 | Pulmonology Progress Note ---
<Larry Cardona - Last Filed: 09/01/16 08:49> Date of Encounter: 09/01/16 Time of Encounter: 08:49 Assessment and Plan (1) Nodule of right lung Current Visit: Yes Status: Acute CT of chest with contrast from 07/31/2016 showed 2.0 cm x 1.3 cm solid nodule with spiculated margins in the right upper lobe suspicious for malignancy, additional solid nodules/groundglass nodules b/l, subtle hypodense lesion in hepatic segment could represent focal steatosis, hemangioma or metastasis, pt was scheduled to have biopsy this week at [facility] but it did not happen as he was hospitalized currently for SVT, spoke to his son at bedside, currently pt is not stable to go through biopsy due to recent episodes of SVTs, he will need to follow up with his primary hoop coiler for outpt biopsy. (2) SVT (supraventricular tachycardia) Current Visit: Yes Status: Acute Overnight patient had 1 episode of asymptomatic SVT, no interventions were done and patient converted to sinus rhythm by his own, his Cardizem dosage increased to 180 mg yesterday, per cardiology note, EPS with possible ablation could be considered if SVT persists or worsens, his SVT is likely secondary to underlying electrolyte abnormality, possibly from malnutrition/poor appetite, limited echo this time showed LVEF 65-70%, normal right ventricular size and function, goal potassium and magnesium levels are 4 and 2, respectively, will replace them today and recheck levels in the morning, continue to monitor his heart rhythm on telemetry, patient is stable to be transferred from ICU to telemetry floor. (3) UTI (urinary tract infection) Current Visit: Yes Status: Acute Urine culture came back enterococcus faecalis, sensitive to ampicillin, continue ampicillin. Qualifiers: Qualified Code(s): N39.0 - Urinary tract infection, site not specified (4) Malnutrition Current Visit: Yes Status: Acute This is 2/2 poor appetite and dysphagia issue, speech therapy has been consulted for swallowing evaluation, nutrition service is on board. (5) Hypokalemia Current Visit: Yes Status: Acute 3.6 this morning, the goal is more than 4, it has been replaced with po supplementations, magnesium level was 1.8, we will recheck the levels in the morning. (6) Non-insulin dependent type 2 diabetes mellitus Current Visit: No Status: Chronic Glucose has been stable on 20 units of levemir HS and SSI with accucheck ACHS, con't with current regimen. (7) DVT prophylaxis Current Visit: Yes Status: Acute Heparin SQ BID. Subjective Principal diagnosis: SVT, right lung nodule Interval history: This is a 81-year-old male who was brought to the ER with unresponsiveness found to be in SVT and received adenosine 2 times and had a cardioversion, converted to sinus rhythm, he was subsequently sent to ICU for close monitoring. Patient seen and examined this morning. Overnight patient had SVT episode one time for 3 minutes, he was asymptomatic, no interventions were done and he converted to sinus rhythm on his own, this morning patient was resting in bed comfortably, denies any complains on chest pain/palpitations. Objective PUL Vital signs: Last Vital Signs Temp 98.8 F 09/01/16 07:08 Pulse 94 09/01/16 08:08 Resp 20 09/01/16 08:00 BP 144/92 09/01/16 08:00 Pulse Ox 95 09/01/16 08:00 General appearance: no acute distress, alert Eyes: nonicteric ENT: oropharynx moist Neck: supple Effort: normal Auscultation: bilateral: clear Cardiovascular: regular rate and rhythm Gastrointestinal: normoactive bowel sounds, soft, non-tender, non-distended Integumentary: normal Extremities: no cyanosis, no edema, no clubbing Musculoskeletal: no deformities normal mental status, non-focal exam, pupils equal and round, CN II-XII normal mood appropriate, affect normal Results - Laboratory Findings CBC and BMP: 08/31/16 09:04 09/01/16 06:07 PT/INR, D-dimer PT 11.5 Seconds (9.4-12.1) 08/29/16 04:30 Abnormal lab findings: Abnormal lab results MCH 27.9 pg (28.0-33.3) L 08/31/16 09:04 MPV 12.7 fL (9.4-12.4) H 08/31/16 09:04 Chloride 112 mEq/L (98-109) H 09/01/16 06:07 BUN 5 mg/dL (8-26) L 09/01/16 06:07 Creatinine 0.70 mg/dL (0.72-1.25) L 09/01/16 06:07 POC Glucose 217 (58-89) H 08/31/16 19:18 Lactic Acid 2.5 mmol/L (0.5-2.2) H 08/29/16 05:29 Total Bilirubin 1.7 mg/dL (0.2-1.2) H 08/29/16 04:30 Direct Bilirubin 0.6 mg/dL (0.0-0.5) H 08/29/16 04:30 Albumin 3.1 g/dL (3.5-5.0) L 08/29/16 04:30 HDL Cholesterol 30 mg/dL (40-59) L 08/30/16 04:52 Urine Clarity Cloudy (Clear) A 08/29/16 05:35 Urine Protein 30 mg/dL (Neg-Trace) H 08/29/16 05:35 Urine Ketones Trace mg/dL (Negative) H 08/29/16 05:35 Urine Blood Moderate (Negative) H 08/29/16 05:35 Ur Leukocyte Esterase Large (Negative) H 08/29/16 05:35 Urine Microscopic RBC 5-15 per hpf (0-3) H 08/29/16 05:35 Urine Microscopic WBC TNTC per hpf (0-3) H 08/29/16 05:35 Urine Bacteria Moderate per hpf (None-Few) H 08/29/16 05:35 Ur Culture Indicated? YES (NO) A 08/29/16 05:35 - Clinical Findings Intake & Output: Intake & Output 08/31/16 09/01/16 09/01/16 23:59 07:59 15:59 Intake Total 1100 / 1100 100 / 100 240 / 240 Output Total 950 / 950 1100 / 1100 Balance 150 / 150 -1000 / -1000 240 / 240 Weight 61.2 kg Consult Discharge Plan - Plan Referrals: Brendan Day CNP [Advanced Practice Nurse] - 09/14/16 10:00 am Jonathan Herron Jr, MD [Primary Care Provider] - <Hilda Cruz - Last Filed: 09/01/16 15:02> Date of Encounter: 09/01/16 Objective PUL Vital signs: Last Vital Signs Temp 98.8 F 09/01/16 07:08 Pulse 94 09/01/16 11:18 Resp 20 09/01/16 08:00 BP 144/92 09/01/16 08:00 Pulse Ox 95 09/01/16 08:00 Results - Laboratory Findings CBC and BMP: 08/31/16 09:04 09/01/16 06:07 PT/INR, D-dimer PT 11.5 Seconds (9.4-12.1) 08/29/16 04:30 Abnormal lab findings: Abnormal lab results MCH 27.9 pg (28.0-33.3) L 08/31/16 09:04 MPV 12.7 fL (9.4-12.4) H 08/31/16 09:04 Chloride 112 mEq/L (98-109) H 09/01/16 06:07 BUN 5 mg/dL (8-26) L 09/01/16 06:07 Creatinine 0.70 mg/dL (0.72-1.25) L 09/01/16 06:07 POC Glucose 217 (58-89) H 08/31/16 19:18 Lactic Acid 2.5 mmol/L (0.5-2.2) H 08/29/16 05:29 Total Bilirubin 1.7 mg/dL (0.2-1.2) H 08/29/16 04:30 Direct Bilirubin 0.6 mg/dL (0.0-0.5) H 08/29/16 04:30 Albumin 3.1 g/dL (3.5-5.0) L 08/29/16 04:30 HDL Cholesterol 30 mg/dL (40-59) L 08/30/16 04:52 Urine Clarity Cloudy (Clear) A 08/29/16 05:35 Urine Protein 30 mg/dL (Neg-Trace) H 08/29/16 05:35 Urine Ketones Trace mg/dL (Negative) H 08/29/16 05:35 Urine Blood Moderate (Negative) H 08/29/16 05:35 Ur Leukocyte Esterase Large (Negative) H 08/29/16 05:35 Urine Microscopic RBC 5-15 per hpf (0-3) H 08/29/16 05:35 Urine Microscopic WBC TNTC per hpf (0-3) H 08/29/16 05:35 Urine Bacteria Moderate per hpf (None-Few) H 08/29/16 05:35 Ur Culture Indicated? YES (NO) A 08/29/16 05:35 - Clinical Findings Intake & Output: Intake & Output 08/31/16 09/01/16 09/01/16 23:59 07:59 15:59 Intake Total 1100 / 1100 100 / 100 1340 / 1340 Output Total 950 / 950 1100 / 1100 300 / 300 Balance 150 / 150 -1000 / -1000 1040 / 1040 Weight 61.2 kg - Attending Attestation I examined this patient and my medical decision-making was reviewed with the REACH LIFT TRUCK DRIVER/PA/Advanced Practice Nurse/Resident Physician. I agree with the documented findings, disposition and treatment plan as described except to the extent set forth below. Patient seen and examined. Labs, radiology, chart personally reviewed. Agree with resident's history and physical, assessment, plan with following comments: BOILERS INSPECTOR: Patient follows commands, Pulmonary: Acceptable oxygenation and ventilation. As far as the lung nodule same recommendation as before Cardiovascular: Patient continued to have episodes of SVT and will defer the management to cardiology GI: Nutrition per dietary and GI prophylaxis per routine Patient is awaiting to be transferred to the floor and will follow-up when necessary
[2016-09-01] MEDS: 0.9 % Sodium Chloride 1,000 ML IVC SCH ×2 (10:27→15:54)
--- NOTE | 2016-09-01 13:23 | Electrocardiograph Report ---
[address] [place], [place] [address] Test Date: 2016-08-30 Pat Name: Wilfredo Conn Department: 109 Room: [facility] Gender: M Geriatric Assistant: : [id number] Requested By: Preeti Cao Order Number: [id number] Reading MD: Fidel Johnson MD Measurements Intervals [place] Rate: 158 P: MA: 0 QRS: 7 QRSD: 79 T: 57 QT: 213 QTc: 301 Interpretive Statements SUPRAVENTRICULAR TACHYCARDIA Electronically Signed On 09-01-2016 13:21:51 EDT by Fidel Johnson MD
[2016-09-01] MEDS ORDERED: *HR* Adenosine 6 MG/2 ML VIAL IVP ONE (14:18)
[2016-09-01] MEDS ORDERED: 0.9 % Sodium Chloride 1,000 ML IVC ONE (14:32)
--- NOTE | 2016-09-01 15:02 | Internal Med Progress Note ---
Date of Encounter: 09/01/16 Time of Encounter: 13:30 - Assessment and plan (1) SVT (supraventricular tachycardia) Current Visit: Yes Status: Acute Assessment and plan: Recurrent episode of SVT noted today which converted to NSR after one dose of Adenosine 6mg IV Continue Cardizem Added Metoprolol 12.5mg PO BID (hold if SBP<12) Dr. Machado aware and will see the patient will continue tele monitoring and monitor in the ICU at this time. (2) Syncope and collapse Current Visit: Yes Status: Resolved Assessment and plan: no further episodes of syncope reported since hospitalization (3) UTI (urinary tract infection) Current Visit: Yes Status: Acute Assessment and plan: Urine cultures reported Enterococcus Faecallis Continue Ampicillin as per culture report, will treat for a total of 7 days. Qualifiers: Urinary tract infection type: site unspecified Hematuria presence: with hematuria Qualified Code(s): N39.0 - Urinary tract infection, site not specified; R31.9 - Hematuria, unspecified (4) Hypertension Current Visit: No Status: Chronic Assessment and plan: BP within acceptable range will continue current management continue to closely monitor Qualifiers: Hypertension type: essential hypertension Qualified Code(s): I10 - Essential (primary) hypertension (5) Diabetes mellitus Current Visit: No Status: Acute Assessment and plan: BG within acceptable range will continue to monitor BG and FS continue sliding scale insulin algorithm Qualifiers: Diabetes mellitus type: type 2 Diabetes mellitus complication status: with neurologic complications Diabetes mellitus complication detail: with polyneuropathy Diabetes mellitus laborer marine terminal insulin use: with laborer marine terminal use Qualified Code(s): E11.42 - Type 2 diabetes mellitus with diabetic polyneuropathy; Z79.4 - intermediate (current) use of insulin (6) 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 (8) CAD (coronary artery disease), [place] coronary artery Current Visit: No Status: Chronic Qualifiers: [place] vs. transplanted heart: [place] heart Associated angina: angina presence unspecified Qualified Code(s): I25.10 - Atherosclerotic heart disease of [place] coronary artery without angina pectoris (9) DVT prophylaxis Current Visit: No Status: Acute Assessment and plan: Heparin SQ - Subjective Interval history: Patient was seen by me multiple times throughout the day. He remained stable overnight and was awaiting ECF placement for discharge, however this afternoon he had another run of SVT with HR fluctuating up to 170bpm. He did not respond to valsalva or carotid massage due to which one time dose of adenosine 6mg IV was given. He responded appropriately to adenosine with conversion to NSR. His BP was noted to be hypotensive however he responded appropriately to IV fluid bolus and adenosine. At this time he is resting comfortably in bed, denies any discomfort, no chest pain or sob reported. BP within acceptable limits. Family present at bedside and is informed of the current events. Dr. Machado made aware of the recurrent SVT and low dose Metoprolol was added to his regimen. Patient's discharge will be placed on hold today due to this episode. - Constitutional Vitals: Temp Pulse Resp BP Pulse Ox 98.8 F 94 20 144/92 95 09/01/16 07:08 09/01/16 11:18 09/01/16 08:00 09/01/16 08:00 09/01/16 08:00 General appearance: Present: A&O X 3, no acute distress, underweight, answers questions appropriately - Head Head exam: Present: atraumatic, normocephalic - Eye Eye exam: Present: normal appearance, conjuntiva pink, sclera anicteric - Respiratory Respiratory exam: Present: CTAB. Absent: accessory muscle use, rales, rhonchi, wheezes - Cardiovascular Cardiovascular exam: Present: RRR, +S1, +S2. Absent: diastolic murmur, gallop, rubs, systolic murmur - GI/Abdominal GI/Abdominal exam: Present: normal bowel sounds, soft, no peritoneal signs. Absent: distended, tenderness - Extremities Exam Extremities exam: Present: warm, radial pulses palpable and symetrical. Absent : calf tenderness, cyanotic, pedal edema - Neurological Exam Neurological exam: Present: alert, oriented X3 - Psychiatric Psychiatric exam: Present: normal affect, normal mood Internal Medicine: Result - Labs CBC & Chem 7: 08/31/16 09:04 09/01/16 06:07 Labs: BMP 09/01/16 06:07 Sodium 140 Potassium 3.6 Chloride 112 H Carbon Dioxide 19 BUN 5 L Creatinine 0.70 L Glucose 87 Calcium 9.0 - ABG Interpretation ABG results: PT/INR, D-dimer PT 11.5 Seconds (9.4-12.1) 08/29/16 04:30 Consult Discharge Plan - Plan Referrals: Brendan Day CNP [Advanced Practice Nurse] - 09/14/16 10:00 am Jonathan Herron Jr, MD [Primary Care Provider] -
--- NOTE | 2016-09-01 18:10 | Event Note ---
Date of Encounter: 09/01/16 Time of Encounter: 18:09 Return of SVT earlier today. Case discussed with Dr. Cao. Continue CCB and add BB. If SVT persists despite this titration, Rythmol could be considered. If continues beyond that, will need to consider EPS with possible ablation. Discussed with ICU and family.
[2016-09-01] MEDS: Insulin DETEMIR 100 UNIT/ML X5UNITS SQ SCH (20:50)
[2016-09-01] MEDS: Metoprolol XL (24 HR) Succ 25 MG TAB.ER.24H PO SCH (20:50)
[2016-09-01] MEDS: Mirtazapine 15 MG TABLET PO SCH (20:50)
[2016-09-02] MEDS: Ampicillin 1,000 MG in 0.9 % Sodium Chloride Mini Bag 100 ML IVPB SCH ×2 (02:25→09:17)
[2016-09-02 03:11] LABS: Basophils % 0.7 %; Eosinophils # 0.1 K/mcL (0.0-0.6); Eosinophils % 2.9 %; Hematocrit 45.2 % (37.5-50.1); Hemoglobin 14.8 g/dL (12.9-16.9); Immature Granulocytes % 0.4 % (0-4); Lymphocytes # 1.4 K/mcL (0.6-4.6); Lymphocytes % 31.6 %; Mean Corpuscular HGB Conc 32.7 g/dL (31.6-35.5); Mean Corpuscular Hemoglobin 27.8 pg (28.0-33.3); Mean Corpuscular Volume 84.8 fL (83.0-100.0); Mean Platelet Volume 12.2 fL (9.4-12.4); Monocytes # 0.5 K/mcL (0.0-1.3); Monocytes % 11.2 %; Neutrophils # 2.4 K/mcL (1.6-8.9); Platelet Count 191 K/mcL (140-400); Red Blood Count 5.33 M/mcL (4.19-5.50); Red Cell Distribution Width 14.3 % (11.5-14.5); Segmented Neutrophils % 53.2 %
[2016-09-02 03:23] LABS: Magnesium 2.1 mg/dL (1.6-2.6)
[2016-09-02 04:04] LABS: BUN/Creatinine Ratio 7 (6-26); Blood Urea Nitrogen 6 mg/dL (8-26); Calcium 9.4 mg/dL (8.6-10.8); Carbon Dioxide 21 mEq/L (19-29); Chloride 111 mEq/L (98-109); Glucose 175 mg/dL (70-99); Osmolality,Calculated 298 (280-300); Sodium 143 mEq/L (136-145); eGFR For African Americans > 60 (> 60); eGFR For Non-African Americans > 60 (> 60)
[2016-09-02 04:12] LABS: Potassium 4.8 mEq/L (3.5-4.5)
[2016-09-02] MEDS: *HR* Heparin 5,000 UNIT/ML VIAL SQ SCH (05:43)
[2016-09-02] MEDS: Insulin LISPRO 300 UNITS/3 ML VIAL SQ SCH ×3 (08:07→16:08)
[2016-09-02] MEDS: 0.9 % Sodium Chloride 1,000 ML IVC SCH (08:20)
[2016-09-02] MEDS: Diltiazem CD (24hr) 180 MG CAPSULE PO SCH (09:16)
[2016-09-02] MEDS: Famotidine 20 MG TABLET PO SCH (09:16)
[2016-09-02] MEDS: Metoprolol XL (24 HR) Succ 25 MG TAB.ER.24H PO SCH (09:16)
[2016-09-02] MEDS: Megestrol Acetate 400 MG/10 ML UDC PO SCH (09:16)
[2016-09-02] MEDS: Insulin DETEMIR 100 UNIT/ML X5UNITS SQ SCH (09:19)
--- NOTE | 2016-09-02 09:22 | Discharge Summary ---
Date of Encounter: 09/02/16 Time of Encounter: 09:18 - Discharge Diagnosis (1) SVT (supraventricular tachycardia) Priority: Primary Status: Acute (2) Syncope and collapse Priority: Primary Status: Resolved (3) UTI (urinary tract infection) Priority: Secondary Status: Acute Qualifiers: Urinary tract infection type: site unspecified Hematuria presence: with hematuria Qualified Code(s): N39.0 - Urinary tract infection, site not specified; R31.9 - Hematuria, unspecified (4) Hypertension Priority: Secondary Status: Chronic Qualifiers: Hypertension type: essential hypertension Qualified Code(s): I10 - Essential (primary) hypertension (5) Diabetes mellitus Priority: Secondary Status: Acute Qualifiers: Diabetes mellitus type: type 2 Diabetes mellitus complication status: with neurologic complications Diabetes mellitus complication detail: with polyneuropathy Diabetes mellitus terminal computer operator insulin use: with terminal computer operator use Qualified Code(s): E11.42 - Type 2 diabetes mellitus with diabetic polyneuropathy; Z79.4 - prison (current) use of insulin (6) Mass of upper lobe of right lung Priority: Secondary Status: Chronic (7) Electrolyte abnormality Priority: Secondary Status: Acute (8) CAD (coronary artery disease), [place] coronary artery Priority: Secondary Status: Chronic Qualifiers: [place] vs. transplanted heart: [place] heart Associated angina: angina presence unspecified Qualified Code(s): I25.10 - Atherosclerotic heart disease of [place] coronary artery without angina pectoris (9) DVT prophylaxis Priority: Secondary Status: Acute - Discharge Medications Prescriptions: Diltiazem CD (24hr) [Cardizem CD] 180 mg PO DAILY #30 cap.er.24h Levofloxacin [Levaquin] 750 mg PO DAILY #2 tablet Metoprolol XL (24 HR) Succ [Toprol Xl] 25 mg PO BID #60 tab.er.24h Home Medications: Finasteride [Proscar] 5 mg PO DAILY 06/23/16 [History] Insulin ASPART [NovoLOG] 10 unit SQ TIDWM 06/23/16 [History] Fludrocortisone Acetate [Florinef] 0.1 mg PO DAILY 07/19/16 [History] Mirtazapine [Remeron] 15 mg PO HS 07/19/16 [History] Hydrocortisone 2.5% CREAM [Cortaid] 1 appl RC QID PRN 08/01/16 [History] Insulin Glargine [Lantus] 20 unit SQ HS 08/01/16 [History] Sennosides [Senna] 8.6 mg PO BID PRN 08/01/16 [History] Venlafaxine XR (24 HR) [Effexor Xr] 37.5 mg PO QAM 08/01/16 [History] GuaiFENesin/Dextromethorphan [Tussin Dm Syrup] 10 ml PO Q4H PRN 08/29/16 [ History] Metformin HCl [Metformin HCl ER] 1,000 mg PO QPM 08/29/16 [History] Metoclopramide [Reglan] 5 mg PO DAILY 08/29/16 [History] Omeprazole [PriLOSEC] 20 mg PO DAILY 08/29/16 [History] Polyethylene Glycol 3350 [Smoothlax] 17 gm PO HS 08/29/16 [History] Propylene Glycol/Peg 400 [Systane 0.3-0.4% Eye Drops] 1 drop BOTH EYES TID 08/29 [History] Diltiazem CD (24hr) [Cardizem CD] 180 mg PO DAILY #30 cap.er.24h 09/02/16 [Rx] Levofloxacin [Levaquin] 750 mg PO DAILY #2 tablet 09/02/16 [Rx] Metoprolol XL (24 HR) Succ [Toprol Xl] 25 mg PO BID #60 tab.er.24h 09/02/16 [Rx] Allergies/Adverse Reactions: Allergies gabapentin Allergy (Verified 08/16/16 20:55) Itching Nortriptyline Allergy (Verified 08/16/16 20:55) Rash Terazosin Allergy (Verified 08/16/16 20:55) Itching Procedures/tests Complete & Pending: Procedures Performed prior 72 hours Category Date Time Status ECG 12 lead ECG [ECG] Routine Y 08/30/16 23:59 Completed Date of admission: 08/29/16 08:38 Primary care physician: Jonathan Herron Jr, MD Consults: 08/29/16 08:49 Consult to Occupational Therapy [CONS] Routine Comment: Evaluate, develop and implement POC Consult to Physical Therapy [CONS] Routine Comment: Evaluate, develop and implement POC Consult to Offal Baler [CONS] Routine Reason for SW Consult: . 08/30/16 10:17 Consult to Pulmonology [CONS] Routine Consulting Provider: [facility] Reason for Consult: spiculated lesion on CXR with concern for malignancy, patient and family request Call Completed: Yes 08/31/16 07:50 Consult to Speech Therapy [CONS] Routine Comment: Evaluate, develop and implement POC Reason for Consult: dysphagia for two months Call Completed: No Discharging clinician: Preeti Cao Anticipated date of discharge: 09/02/16 - Patient Status Disposition: Transfer SNF Condition: Fair Functional capacity at discharge: wheelchair bound Overall status at discharge: patient is back to baseline - Discharge Instructions Follow Up With: Brendan Day CNP [Advanced Practice Nurse] - 09/14/16 10:00 am Jonathan Herron Jr, MD [Primary Care Provider] - Forms: ED Satisfaction Letter Additional Instructions: Please follow up with cardiology and your primary care physician within one week after your discharge from the hospital. Please follow up with your timber repairer at [facility] in regards to further evaluation of your lung mass. Your home dose of Metoprolol has been decreased to 25mg twice a day with addition of Cardizem 180mg once a day. Please take these medications as prescribed. please continue two more days of Levofloxacin to complete treatment of your UTI. Please resume all your other home medications as prescribed by your primary care physician. Please seek medical help immediately if you have any chest pain. - Diet and Activity Activity: as per physical therapy Diet: advance to your usual diet, diabetic diet Hospital course: Mr. Conn is a 81 year old male with PMH of CAD, CVA, dementia, DM, HLD, HTN, concern for lung ca who was admitted for management of SVT s/p syncopal episode and UTI. Patient was closely monitored in the ICU due to persistent SVT requiring multiple doses of adenosine. He responded well to medical therapy and was closely followed by cardiology. He was started on empiric IV abx for his UTI which were de-escalated as per final culture report. He was also evaluated by physical therapy and SNF placement was recommended. Patient has history of a lung mass which needs further work up. Patient has a follow up scheduled at [facility]. AT this time patient is hemodynamically stable with rate controlled. He will be discharged to SNF today with follow up with PCP, cardiology, and pulmonology. Patient demonstrates understanding of his diagnosis and agrees with the discharge care and plan. - Time Spent with Patient Total time spent providing and/or coordinating discharge services: Greater than 30 minutes - Constitutional Vitals: Temp Pulse Resp BP Pulse Ox 98.6 F 83 16 130/60 95 09/02/16 08:12 09/02/16 08:24 09/02/16 08:24 09/02/16 08:24 09/02/16 08:24 General appearance: Present: A&O X 3, no acute distress, underweight, answers questions appropriately - Head Head exam: Present: atraumatic, normocephalic - Eye Eye exam: Present: normal appearance, PERRL, conjuntiva pink, sclera anicteric - Respiratory Respiratory exam: Present: CTAB. Absent: accessory muscle use, rales, rhonchi, wheezes - Cardiovascular Cardiovascular exam: Present: RRR, +S1, +S2. Absent: diastolic murmur, gallop, rubs, systolic murmur - GI/Abdominal GI/Abdominal exam: Present: normal bowel sounds, soft, no peritoneal signs. Absent: distended, tenderness - Extremities Exam Extremities exam: Present: warm, radial pulses palpable and symetrical. Absent : calf tenderness, cyanotic, pedal edema - Neurological Exam Neurological exam: Present: alert, oriented X3 - Psychiatric Psychiatric exam: Present: normal affect, normal mood
[2016-09-02] MEDS ORDERED: levoFLOXacin 500 MG TABLET PO SCH (10:00)
--- NOTE | 2016-09-02 14:09 | Pulmonology Progress Note ---
<Larry Cardona - Last Filed: 09/02/16 14:03> Date of Encounter: 09/02/16 Time of Encounter: 14:04 Assessment and Plan (1) Nodule of right lung Status: Acute CT of chest with contrast from 07/31/2016 showed 2.0 cm x 1.3 cm solid nodule with spiculated margins in the right upper lobe suspicious for malignancy, additional solid nodules/groundglass nodules b/l, subtle hypodense lesion in hepatic segment could represent focal steatosis, hemangioma or metastasis, pt was scheduled to have biopsy this week at [facility] but it did not happen as he was hospitalized currently for SVT, Dr. Cruz discussed at length with pt's family members today about risks vs benefits of getting biopsy of this lung nodule, and this was explained to pt by his grandson and pt told him that he does not want to have biopsy done now, either inpt or outpt, therefore at this time, he will no go for biopsy and he will f/u with his primary crabbing machine operator as outpt. (2) SVT (supraventricular tachycardia) Status: Acute another episode of asymptomatic SVT yesterday, toprol xl was added on top of cardiem, per cardiology note, EPS with possible ablation could be considered if SVT persists or worsens, his SVT is likely secondary to underlying electrolyte abnormality, possibly from malnutrition/poor appetite, limited echo this time showedLVEF 65-70%, normal right ventricular size and function, goal potassium and magnesium levels are 4 and 2, respectively. (3) UTI (urinary tract infection) Status: Acute Urine culture came back enterococcus faecalis, sensitive to ampicillin, continue ampicillin. Qualifiers: Qualified Code(s): N39.0 - Urinary tract infection, site not specified (4) Malnutrition Status: Acute This is 2/2 poor appetite and dysphagia issue, speech therapy has been consulted for swallowing evaluation, nutrition service is on board. (5) Non-insulin dependent type 2 diabetes mellitus Status: Chronic Glucose has been stable on 20 units of levemir HS and SSI with accucheck ACHS, con't with current regimen. (6) DVT prophylaxis Status: Acute Heparin SQ BID. Subjective Principal diagnosis: SVT, right lung nodule Interval history: This is a 81-year-old male who was brought to the ER with unresponsiveness found to be in SVT and received adenosine 2 times and had a cardioversion, converted to sinus rhythm, he was subsequently sent to ICU for close monitoring. Patient seen and examined. Yesterday afternoon he had another episode of SVT, adenosine given x1, returned to sinus rhythm, he was asymptomatic, this morning patient was resting in bed comfortably, denies any complains on chest pain/ palpitations. Objective PUL Vital signs: Last Vital Signs Temp 98.6 F 09/02/16 11:15 Pulse 85 09/02/16 13:30 Resp 20 09/02/16 13:30 BP 140/74 09/02/16 13:30 Pulse Ox 96 09/02/16 13:30 General appearance: no acute distress, alert Eyes: nonicteric ENT: oropharynx moist Neck: supple Effort: normal Auscultation: bilateral: diminished breath sounds (slightly at base) Cardiovascular: regular rate and rhythm Gastrointestinal: normoactive bowel sounds, soft, non-tender, non-distended Integumentary: normal Extremities: no cyanosis, no edema, no clubbing Musculoskeletal: no deformities normal mental status, non-focal exam, pupils equal and round, CN II-XII normal mood appropriate, affect normal Results - Laboratory Findings CBC and BMP: 09/02/16 02:42 09/02/16 02:42 PT/INR, D-dimer PT 11.5 Seconds (9.4-12.1) 08/29/16 04:30 Abnormal lab findings: Abnormal lab results MCH 27.8 pg (28.0-33.3) L 09/02/16 02:42 Potassium 4.8 mEq/L (3.5-4.5) H D 09/02/16 02:42 Chloride 111 mEq/L (98-109) H 09/02/16 02:42 BUN 6 mg/dL (8-26) L 09/02/16 02:42 Glucose 175 mg/dL (70-99) H 09/02/16 02:42 POC Glucose 183 (58-89) H 09/02/16 11:16 Lactic Acid 2.5 mmol/L (0.5-2.2) H 08/29/16 05:29 Total Bilirubin 1.7 mg/dL (0.2-1.2) H 08/29/16 04:30 Direct Bilirubin 0.6 mg/dL (0.0-0.5) H 08/29/16 04:30 Albumin 3.1 g/dL (3.5-5.0) L 08/29/16 04:30 HDL Cholesterol 30 mg/dL (40-59) L 08/30/16 04:52 Urine Clarity Cloudy (Clear) A 08/29/16 05:35 Urine Protein 30 mg/dL (Neg-Trace) H 08/29/16 05:35 Urine Ketones Trace mg/dL (Negative) H 08/29/16 05:35 Urine Blood Moderate (Negative) H 08/29/16 05:35 Ur Leukocyte Esterase Large (Negative) H 08/29/16 05:35 Urine Microscopic RBC 5-15 per hpf (0-3) H 08/29/16 05:35 Urine Microscopic WBC TNTC per hpf (0-3) H 08/29/16 05:35 Urine Bacteria Moderate per hpf (None-Few) H 08/29/16 05:35 Ur Culture Indicated? YES (NO) A 08/29/16 05:35 - Clinical Findings Intake & Output: Intake & Output 09/01/16 09/02/16 09/02/16 23:59 07:59 15:59 Intake Total 200 / 200 100 / 100 1580 / 1580 Output Total 375 / 375 950 / 950 350 / 350 Balance -175 / -175 -850 / -850 1230 / 1230 Weight 60 kg Consult Discharge Plan - Plan Additional Instructions: Please follow up with cardiology and your primary care physician within one week after your discharge from the hospital. Please follow up with your crabbing machine operator at [facility] in regards to further evaluation of your lung mass. Your home dose of Metoprolol has been decreased to 25mg twice a day with addition of Cardizem 180mg once a day. Please take these medications as prescribed. please continue two more days of Levofloxacin to complete treatment of your UTI. Please resume all your other home medications as prescribed by your primary care physician. Please seek medical help immediately if you have any chest pain. Referrals: Brendan Day CNP [Advanced Practice Nurse] - 09/14/16 10:00 am Jonathan Herron Jr, MD [Primary Care Provider] - Prescriptions: Diltiazem CD (24hr) [Cardizem CD] 180 mg PO DAILY #30 cap.er.24h Levofloxacin [Levaquin] 750 mg PO DAILY #2 tablet Metoprolol XL (24 HR) Succ [Toprol Xl] 25 mg PO BID #60 tab.er.24h <Hilda Cruz M - Last Filed: 09/02/16 23:59> Date of Encounter: 09/02/16 Objective PUL Vital signs: Last Vital Signs Temp 98.7 F 09/02/16 16:00 Pulse 84 09/02/16 16:00 Resp 20 09/02/16 16:00 BP 103/54 09/02/16 16:00 Pulse Ox 94 09/02/16 16:00 Results - Laboratory Findings CBC and BMP: 09/02/16 02:42 09/02/16 02:42 PT/INR, D-dimer PT 11.5 Seconds (9.4-12.1) 08/29/16 04:30 Abnormal lab findings: Abnormal lab results MCH 27.8 pg (28.0-33.3) L 09/02/16 02:42 Potassium 4.8 mEq/L (3.5-4.5) H D 09/02/16 02:42 Chloride 111 mEq/L (98-109) H 09/02/16 02:42 BUN 6 mg/dL (8-26) L 09/02/16 02:42 Glucose 175 mg/dL (70-99) H 09/02/16 02:42 POC Glucose 141 (58-89) H 09/02/16 16:05 Lactic Acid 2.5 mmol/L (0.5-2.2) H 08/29/16 05:29 Total Bilirubin 1.7 mg/dL (0.2-1.2) H 08/29/16 04:30 Direct Bilirubin 0.6 mg/dL (0.0-0.5) H 08/29/16 04:30 Albumin 3.1 g/dL (3.5-5.0) L 08/29/16 04:30 HDL Cholesterol 30 mg/dL (40-59) L 08/30/16 04:52 Urine Clarity Cloudy (Clear) A 08/29/16 05:35 Urine Protein 30 mg/dL (Neg-Trace) H 08/29/16 05:35 Urine Ketones Trace mg/dL (Negative) H 08/29/16 05:35 Urine Blood Moderate (Negative) H 08/29/16 05:35 Ur Leukocyte Esterase Large (Negative) H 08/29/16 05:35 Urine Microscopic RBC 5-15 per hpf (0-3) H 08/29/16 05:35 Urine Microscopic WBC TNTC per hpf (0-3) H 08/29/16 05:35 Urine Bacteria Moderate per hpf (None-Few) H 08/29/16 05:35 Ur Culture Indicated? YES (NO) A 08/29/16 05:35 - Clinical Findings Intake & Output: Intake & Output 09/02/16 09/02/16 09/02/16 07:59 15:59 23:59 Intake Total 100 / 100 2057 Output Total 950 / 950 350 / 350 Balance -850 / -850 1707 / 1707 Weight 60 kg - Attending Attestation I examined this patient and my medical decision-making was reviewed with the ELEMENTARY SCHOOL TUTOR/PA/Advanced Practice Nurse/Resident Physician. I agree with the documented findings, disposition and treatment plan as described except to the extent set forth below. Patient seen and examined. Labs, radiology, chart personally reviewed. Agree with resident's history and physical, assessment, plan with following comments: OWNER SPA DIRECTOR: Patient follows commands, Pulmonary: Acceptable oxygenation and ventilation. I have explained to family in detail about his lung nodule and told them in my opinion risks of biopsy outweigh benefits at this time and asked them to explain that to patient, which they did. I've also told them, if patient wants to do it understanding complications, then will be happy to consult IR for CT guided biopsy. Patient refused to do it and he was discharged to rehab. I've offered them to follow up as outpatient if he still wants to follow up as outpatient, will be happy to see him. Cardiovascular: stable
--- NOTE | 2016-09-02 15:18 | Physician Discharge Referral ---
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 (7) Electrolyte abnormality Priority: Secondary Status: Acute (8) CAD (coronary artery disease), [place] coronary artery Priority: Secondary Status: Chronic (9) DVT prophylaxis Priority: Secondary Status: Acute - Transfer Medications Prescriptions: Diltiazem CD (24hr) [Cardizem CD] 180 mg PO DAILY #30 cap.er.24h Levofloxacin [Levaquin] 750 mg PO DAILY #2 tablet Metoprolol XL (24 HR) Succ [Toprol Xl] 25 mg PO BID #60 tab.er.24h Home Medications: Finasteride [Proscar] 5 mg PO DAILY 06/23/16 [History] Insulin ASPART [NovoLOG] 10 unit SQ TIDWM 06/23/16 [History] Fludrocortisone Acetate [Florinef] 0.1 mg PO DAILY 07/19/16 [History] Mirtazapine [Remeron] 15 mg PO HS 07/19/16 [History] Hydrocortisone 2.5% CREAM [Cortaid] 1 appl RC QID PRN 08/01/16 [History] Insulin Glargine [Lantus] 20 unit SQ HS 08/01/16 [History] Sennosides [Senna] 8.6 mg PO BID PRN 08/01/16 [History] Venlafaxine XR (24 HR) [Effexor Xr] 37.5 mg PO QAM 08/01/16 [History] GuaiFENesin/Dextromethorphan [Tussin Dm Syrup] 10 ml PO Q4H PRN 08/29/16 [ History] Metformin HCl [Metformin HCl ER] 1,000 mg PO QPM 08/29/16 [History] Metoclopramide [Reglan] 5 mg PO DAILY 08/29/16 [History] Omeprazole [PriLOSEC] 20 mg PO DAILY 08/29/16 [History] Polyethylene Glycol 3350 [Smoothlax] 17 gm PO HS 08/29/16 [History] Propylene Glycol/Peg 400 [Systane 0.3-0.4% Eye Drops] 1 drop BOTH EYES TID 08/29 [History] Diltiazem CD (24hr) [Cardizem CD] 180 mg PO DAILY #30 cap.er.24h 09/02/16 [Rx] Levofloxacin [Levaquin] 750 mg PO DAILY #2 tablet 09/02/16 [Rx] Metoprolol XL (24 HR) Succ [Toprol Xl] 25 mg PO BID #60 tab.er.24h 09/02/16 [Rx] Allergies/Adverse Reactions: Allergies gabapentin Allergy (Verified 08/16/16 20:55) Itching Nortriptyline Allergy (Verified 08/16/16 20:55) Rash Terazosin Allergy (Verified 08/16/16 20:55) Itching - Respiratory Orders Smoking Cessation: Smoking cessation has been advised. For more information, call the [facility] Quit Line at 2-173-QPJK-NOW. - Rehabiliation Orders Other: Please follow up with cardiology and your primary care physician within one week after your discharge from the hospital. Please follow up with your senior teller at [facility] in regards to further evaluation of your lung mass. Your home dose of Metoprolol has been decreased to 25mg twice a day with addition of Cardizem 180mg once a day. Please take these medications as prescribed. please continue two more days of Levofloxacin to complete treatment of your UTI. Please resume all your other home medications as prescribed by your primary care physician. Please seek medical help immediately if you have any chest pain. CERTIFICATION: I certify that the transfer of the above named patient to an Extended Care Facility is necessary for the continuing treatment of the diagnosis listed. The above information is true and accurate reflection of patient's current condition. Confidential - Redisclosure prohibited without a patient's written consent.
[2016-09-02 16:07] VITALS: BP 103/54
== END 2016-09-02 16:48 | DRG 308 ==
LOC: ICNU 04:21 → EMEROO 04:21 → ICNU 06:29 → SUATTDRO 08:38
PROVIDERS: ADMIT Internal Medicine; ATTEND Internal Medicine

== ENCOUNTER 2019-12-27 12:42 | Inpatient (IN) ==
[2019-12-27 14:54] LABS: Basophils % 0.5 %; Eosinophils # 0.1 K/mcL (0.0-0.6); Eosinophils % 0.9 %; Hematocrit 35.6 % (37.5-50.1); Hemoglobin 10.6 g/dL (12.9-16.9); Immature Granulocytes % 0.5 % (0-4); Lymphocytes # 1.1 K/mcL (0.6-4.6); Lymphocytes % 14.7 %; Mean Corpuscular HGB Conc 29.8 g/dL (31.6-35.5); Mean Corpuscular Hemoglobin 27.5 pg (28.0-33.3); Mean Corpuscular Volume 92.2 fL (83.0-100.0); Mean Platelet Volume 11.2 fL (9.4-12.4); Monocytes # 0.7 K/mcL (0.0-1.3); Monocytes % 9.5 %; Neutrophils # 5.8 K/mcL (1.6-8.9); Platelet Count 369 K/mcL (140-400); Prothrombin Time 11.5 Seconds (9.4-12.1); Red Blood Count 3.86 M/mcL (4.19-5.50); Red Cell Distribution Width 14.7 % (11.5-14.5); Segmented Neutrophils % 73.9 %; White Blood Count 7.8 K/mcL (4.3-11.1)
[2019-12-27 14:57] LABS: Activated Partial Thrombo Time 30.6 Seconds (26.0-36.0)
[2019-12-27 15:06] LABS: BUN/Creatinine Ratio 58 (6-26); Blood Urea Nitrogen 18 mg/dL (8-23); Calcium 8.1 mg/dL (8.6-10.3); Carbon Dioxide 31 mEq/L (23-29); Chloride 105 mEq/L (98-107); Glucose 151 mg/dL (70-105); Osmolality,Calculated 299 (280-300); Potassium 3.8 mEq/L (3.5-5.1); Sodium 142 mEq/L (136-145); Troponin I < 0.03 ng/mL (< 0.04); eGFR For African Americans > 60 (> 60); eGFR For Non-African Americans > 60 (> 60)
[2019-12-27] MEDS ORDERED: Isovue-370 500 ML BOTTLE IVP ONE (15:11)
[2019-12-27 15:58] LABS: Adenovirus Not Detected (Not Detect); Coronavirus 229E Not Detected (Not Detect); Coronavirus HKU1 Not Detected (Not Detect); Coronavirus NL63 Not Detected (Not Detect); Coronavirus OC43 Not Detected (Not Detect); Human Metapneumovirus Not Detected (Not Detect); Human Rhinovirus/Enterovirus Not Detected (Not Detect); Influenza A Subtype 2009 H1 Not Detected (Not Detect)
[2019-12-27 15:59] LABS: Bordetella Pertussis Not Detected (Not Detect); Chlamydophila pneumoniae Not Detected (Not Detect); Influenza B Not Detected (Not Detect); Mycoplasma pneumoniae Not Detected (Not Detect); Parainfluenza Virus 1 Not Detected (Not Detect); Parainfluenza Virus 2 Not Detected (Not Detect); Parainfluenza Virus 3 Not Detected (Not Detect); Parainfluenza Virus 4 Not Detected (Not Detect); Respiratory Syncytial Virus Not Detected (Not Detect)
[2019-12-27 18:17] LABS: Alanine Aminotransferase 22 Units/L (7-52); Albumin 2.4 g/dL (3.5-5.7); Albumin/Globulin Ratio 0.9 (1.1-2.2); Alkaline Phosphatase 73 Units/L (34-104); Aspartate Amino Transferase 28 Units/L (13-39); Bilirubin,Direct 0.1 mg/dL (0.0-0.2); Bilirubin,Indirect 0.4 mg/dL (0.0-1.0); Bilirubin,Total 0.5 mg/dL (0.3-1.0); Globulin 2.7 g/dL (2.4-3.5); Total Protein 5.1 g/dL (6.4-8.9)
[2019-12-27] MEDS ORDERED: Acetaminophen 325 MG TABLET PO PRN (18:49)
[2019-12-27] MEDS ORDERED: D5% in Water 1,000 ML IVC PRN (18:49)
[2019-12-27] MEDS ORDERED: MOM Conc 10 ML UD.LIQ PO PRN (18:49)
[2019-12-27] MEDS ORDERED: Naloxone 0.4 MG/ML INJ IVP PRN (18:49)
[2019-12-27] MEDS ORDERED: Ondansetron ODT 4 MG TAB.RAPDIS SL PRN (18:49)
[2019-12-27] MEDS ORDERED: Mag Hydrox/Al Hydrox/Simeth 30 ML UDC PO PRN (18:49)
[2019-12-27] MEDS ORDERED: Dextrose Gel 15 GM/37.5 ML TUBE PO PRN ×2 (18:49)
[2019-12-27] MEDS ORDERED: *HR* Dextrose 50 % in Water (Vial) 50 ML VIAL IVP PRN (18:49)
[2019-12-27] MEDS: Insulin LISPRO 300 UNITS/3 ML VIAL SQ SCH (23:02)
[2019-12-27] MEDS: Mirtazapine 15 MG TABLET PO SCH (23:11)
[2019-12-27] MEDS: Metoprolol XL (24 HR) Succ 25 MG TAB.ER.24H PO SCH (23:11)
[2019-12-27] MEDS: polyethylene glycoL 3350 17 GM POWD.PACK PO SCH (23:11)
[2019-12-28] MEDS: *HR* Heparin 5,000 UNIT/ML VIAL SQ SCH (06:42)
[2019-12-28] MEDS: Metoprolol XL (24 HR) Succ 25 MG TAB.ER.24H PO SCH ×2 (08:37→20:56)
[2019-12-28 08:40] LABS: Prothrombin Time 11.5 Seconds (9.4-12.1)
[2019-12-28] MEDS: Insulin LISPRO 300 UNITS/3 ML VIAL SQ SCH ×4 (08:40→22:35)
[2019-12-28 08:51] LABS: BUN/Creatinine Ratio 50 (6-26); Blood Urea Nitrogen 15 mg/dL (8-23); Calcium 8.5 mg/dL (8.6-10.3); Carbon Dioxide 31 mEq/L (23-29); Chloride 105 mEq/L (98-107); Glucose 54 mg/dL (70-105); Osmolality,Calculated 298 (280-300); Potassium 3.4 mEq/L (3.5-5.1); Sodium 145 mEq/L (136-145); eGFR For African Americans > 60 (> 60); eGFR For Non-African Americans > 60 (> 60)
[2019-12-28 17:51] LABS: Albumin 2.6 g/dL (3.5-5.7); Globulin 2.6 g/dL (2.4-3.5); Lactate Dehydrogenase 194 Units/L (140-271); Total Protein 5.2 g/dL (6.4-8.9)
[2019-12-28] MEDS: Mirtazapine 15 MG TABLET PO SCH (20:56)
[2019-12-28] MEDS: polyethylene glycoL 3350 17 GM POWD.PACK PO SCH (20:56)
[2019-12-28 21:43] LABS: RBC,Pleural Fluid < 2000 RBC/mcL
[2019-12-28 21:47] LABS: Appearance of Pleural Fl Clear (Clear)
[2019-12-28 22:02] LABS: Glucose,Pleural Fluid 64 mg/dL (No Ref Range); LDH,Pleural Fluid 309 Units/L (No Ref Range); Total Protein,Pleural Fluid < 3.0 g/dL
[2019-12-28 22:40] LABS: Lymphocytes,Pleural Fluid 92.5 %
[2019-12-29 02:29] LABS: Hematocrit 37.3 % (37.5-50.1); Hemoglobin 11.2 g/dL (12.9-16.9); Mean Corpuscular Hemoglobin 28.1 pg (28.0-33.3); Mean Corpuscular Volume 93.5 fL (83.0-100.0); Platelet Count 446 K/mcL (140-400); Red Blood Count 3.99 M/mcL (4.19-5.50); Red Cell Distribution Width 14.6 % (11.5-14.5); White Blood Count 9.8 K/mcL (4.3-11.1)
[2019-12-29 02:33] LABS: BUN/Creatinine Ratio 51 (6-26); Blood Urea Nitrogen 19 mg/dL (8-23); Calcium 8.4 mg/dL (8.6-10.3); Carbon Dioxide 28 mEq/L (23-29); Chloride 104 mEq/L (98-107); Glucose 173 mg/dL (70-105); Osmolality,Calculated 300 (280-300); Potassium 3.7 mEq/L (3.5-5.1); Sodium 142 mEq/L (136-145); eGFR For African Americans > 60 (> 60); eGFR For Non-African Americans > 60 (> 60)
[2019-12-29] MEDS: *HR* Heparin 5,000 UNIT/ML VIAL SQ SCH ×3 (05:26→17:19)
[2019-12-29] MEDS: Metoprolol XL (24 HR) Succ 25 MG TAB.ER.24H PO SCH ×2 (08:35→22:16)
[2019-12-29] MEDS: Insulin LISPRO 300 UNITS/3 ML VIAL SQ SCH ×4 (08:40→22:16)
[2019-12-29] MEDS ORDERED: Sennosides 8.6 MG TABLET PO PRN (08:58)
[2019-12-29] MEDS: Artificial Tears SOLN 15 ML BOTTLE BOTH EYES SCH ×3 (10:39→22:15)
[2019-12-29] MEDS: Venlafaxine XR (24 HR) 37.5 MG CAP.ER.24H PO SCH (10:39)
[2019-12-29] MEDS: polyethylene glycoL 3350 17 GM POWD.PACK PO SCH (22:16)
[2019-12-29] MEDS: Mirtazapine 15 MG TABLET PO SCH (22:16)
[2019-12-30 02:02] LABS: Hemoglobin 10.9 g/dL (12.9-16.9); Mean Corpuscular HGB Conc 30.3 g/dL (31.6-35.5); Mean Corpuscular Hemoglobin 27.9 pg (28.0-33.3); Mean Corpuscular Volume 92.1 fL (83.0-100.0); Mean Platelet Volume 10.6 fL (9.4-12.4); Platelet Count 407 K/mcL (140-400); Red Blood Count 3.91 M/mcL (4.19-5.50); Red Cell Distribution Width 14.6 % (11.5-14.5); White Blood Count 7.4 K/mcL (4.3-11.1)
[2019-12-30 02:07] LABS: Prothrombin Time 11.4 Seconds (9.4-12.1)
[2019-12-30 02:22] LABS: BUN/Creatinine Ratio 59 (6-26); Blood Urea Nitrogen 19 mg/dL (8-23); Calcium 8.1 mg/dL (8.6-10.3); Carbon Dioxide 32 mEq/L (23-29); Chloride 105 mEq/L (98-107); Glucose 200 mg/dL (70-105); Osmolality,Calculated 302 (280-300); Potassium 3.6 mEq/L (3.5-5.1); Sodium 142 mEq/L (136-145); eGFR For African Americans > 60 (> 60); eGFR For Non-African Americans > 60 (> 60)
[2019-12-30] MEDS: *HR* Heparin 5,000 UNIT/ML VIAL SQ SCH ×4 (04:46→23:26)
[2019-12-30] MEDS: Metoprolol XL (24 HR) Succ 25 MG TAB.ER.24H PO SCH ×2 (09:23→21:12)
[2019-12-30] MEDS: Venlafaxine XR (24 HR) 37.5 MG CAP.ER.24H PO SCH (09:23)
[2019-12-30] MEDS: Insulin LISPRO 300 UNITS/3 ML VIAL SQ SCH ×4 (09:26→20:39)
[2019-12-30] MEDS: Artificial Tears SOLN 15 ML BOTTLE BOTH EYES SCH ×3 (09:28→21:12)
[2019-12-30] MEDS: polyethylene glycoL 3350 17 GM POWD.PACK PO SCH (21:11)
[2019-12-30] MEDS: Mirtazapine 15 MG TABLET PO SCH (21:12)
[2019-12-31 02:42] LABS: Hematocrit 36.7 % (37.5-50.1); Hemoglobin 10.7 g/dL (12.9-16.9); Mean Corpuscular HGB Conc 29.2 g/dL (31.6-35.5); Mean Corpuscular Hemoglobin 26.8 pg (28.0-33.3); Mean Platelet Volume 11.1 fL (9.4-12.4); Platelet Count 438 K/mcL (140-400); Red Blood Count 3.99 M/mcL (4.19-5.50); Red Cell Distribution Width 14.6 % (11.5-14.5); White Blood Count 8.2 K/mcL (4.3-11.1)
[2019-12-31 03:00] LABS: BUN/Creatinine Ratio 61 (6-26); Blood Urea Nitrogen 19 mg/dL (8-23); Calcium 8.3 mg/dL (8.6-10.3); Carbon Dioxide 31 mEq/L (23-29); Chloride 103 mEq/L (98-107); Glucose 214 mg/dL (70-105); Osmolality,Calculated 303 (280-300); Potassium 3.7 mEq/L (3.5-5.1); Sodium 142 mEq/L (136-145); eGFR For African Americans > 60 (> 60); eGFR For Non-African Americans > 60 (> 60)
[2019-12-31] MEDS: *HR* Heparin 5,000 UNIT/ML VIAL SQ SCH ×2 (08:36→15:58)
[2019-12-31] MEDS: Insulin LISPRO 300 UNITS/3 ML VIAL SQ SCH ×4 (08:37→21:10)
[2019-12-31] MEDS: Artificial Tears SOLN 15 ML BOTTLE BOTH EYES SCH ×3 (08:37→21:09)
[2019-12-31] MEDS: Venlafaxine XR (24 HR) 37.5 MG CAP.ER.24H PO SCH (08:42)
[2019-12-31] MEDS: Metoprolol XL (24 HR) Succ 25 MG TAB.ER.24H PO SCH ×2 (08:42→20:27)
[2019-12-31] MEDS: Mirtazapine 15 MG TABLET PO SCH (21:13)
[2019-12-31] MEDS: polyethylene glycoL 3350 17 GM POWD.PACK PO SCH (21:13)
[2020-01-01] MEDS: *HR* Heparin 5,000 UNIT/ML VIAL SQ SCH ×3 (00:06→16:51)
[2020-01-01] MEDS: Metoprolol XL (24 HR) Succ 25 MG TAB.ER.24H PO SCH ×2 (08:28→21:37)
[2020-01-01] MEDS: Venlafaxine XR (24 HR) 37.5 MG CAP.ER.24H PO SCH (08:28)
[2020-01-01] MEDS: Insulin LISPRO 300 UNITS/3 ML VIAL SQ SCH ×4 (08:30→20:46)
[2020-01-01] MEDS: Artificial Tears SOLN 15 ML BOTTLE BOTH EYES SCH ×4 (08:31→21:37)
[2020-01-01 08:33] LABS: Hemoglobin 10.9 g/dL (12.9-16.9); Mean Corpuscular HGB Conc 30.3 g/dL (31.6-35.5); Mean Corpuscular Volume 92.5 fL (83.0-100.0); Mean Platelet Volume 10.7 fL (9.4-12.4); Platelet Count 407 K/mcL (140-400); Red Blood Count 3.89 M/mcL (4.19-5.50); Red Cell Distribution Width 14.7 % (11.5-14.5); White Blood Count 7.1 K/mcL (4.3-11.1)
[2020-01-01 08:52] LABS: BUN/Creatinine Ratio 61 (6-26); Blood Urea Nitrogen 20 mg/dL (8-23); Calcium 8.3 mg/dL (8.6-10.3); Carbon Dioxide 35 mEq/L (23-29); Chloride 101 mEq/L (98-107); Glucose 249 mg/dL (70-105); Osmolality,Calculated 301 (280-300); Potassium 4.1 mEq/L (3.5-5.1); Sodium 140 mEq/L (136-145); eGFR For African Americans > 60 (> 60); eGFR For Non-African Americans > 60 (> 60)
[2020-01-01] MEDS: Insulin DETEMIR 100 UNIT/ML X5UNITS SQ SCH (12:33)
[2020-01-01] MEDS: polyethylene glycoL 3350 17 GM POWD.PACK PO SCH (21:37)
[2020-01-01] MEDS: Mirtazapine 15 MG TABLET PO SCH (21:37)
[2020-01-02] MEDS: *HR* Heparin 5,000 UNIT/ML VIAL SQ SCH ×3 (08:00→17:26)
[2020-01-02] MEDS: Insulin LISPRO 300 UNITS/3 ML VIAL SQ SCH ×3 (08:00→17:34)
[2020-01-02] MEDS: Insulin DETEMIR 100 UNIT/ML X5UNITS SQ SCH (09:00)
[2020-01-02] MEDS: Artificial Tears SOLN 15 ML BOTTLE BOTH EYES SCH ×2 (09:00→17:34)
[2020-01-02] MEDS: Venlafaxine XR (24 HR) 37.5 MG CAP.ER.24H PO SCH (09:00)
[2020-01-02] MEDS: Metoprolol XL (24 HR) Succ 25 MG TAB.ER.24H PO SCH (09:00)
[2020-01-02 10:45] LABS: Hematocrit 36.2 % (37.5-50.1); Hemoglobin 10.9 g/dL (12.9-16.9); Mean Corpuscular HGB Conc 30.1 g/dL (31.6-35.5); Mean Corpuscular Hemoglobin 27.7 pg (28.0-33.3); Mean Corpuscular Volume 91.9 fL (83.0-100.0); Mean Platelet Volume 10.7 fL (9.4-12.4); Platelet Count 398 K/mcL (140-400); Red Blood Count 3.94 M/mcL (4.19-5.50); Red Cell Distribution Width 14.6 % (11.5-14.5); White Blood Count 8.4 K/mcL (4.3-11.1)
[2020-01-02 10:55] LABS: BUN/Creatinine Ratio 61 (6-26); Blood Urea Nitrogen 20 mg/dL (8-23); Calcium 8.5 mg/dL (8.6-10.3); Carbon Dioxide 34 mEq/L (23-29); Chloride 103 mEq/L (98-107); Glucose 155 mg/dL (70-105); Osmolality,Calculated 300 (280-300); Potassium 4.1 mEq/L (3.5-5.1); Sodium 142 mEq/L (136-145); eGFR For African Americans > 60 (> 60); eGFR For Non-African Americans > 60 (> 60)
[2020-01-03] MEDS: Metoprolol XL (24 HR) Succ 25 MG TAB.ER.24H PO SCH ×2 (00:25→10:49)
[2020-01-03] MEDS: *HR* Heparin 5,000 UNIT/ML VIAL SQ SCH ×2 (00:25→10:49)
[2020-01-03] MEDS: polyethylene glycoL 3350 17 GM POWD.PACK PO SCH (00:25)
[2020-01-03] MEDS: Insulin LISPRO 300 UNITS/3 ML VIAL SQ SCH ×3 (00:25→13:01)
[2020-01-03] MEDS: Mirtazapine 15 MG TABLET PO SCH (00:25)
[2020-01-03] MEDS: Artificial Tears SOLN 15 ML BOTTLE BOTH EYES SCH ×2 (00:27→10:49)
[2020-01-03 02:48] LABS: Hemoglobin 10.9 g/dL (12.9-16.9); Mean Corpuscular HGB Conc 29.5 g/dL (31.6-35.5); Mean Corpuscular Volume 91.6 fL (83.0-100.0); Mean Platelet Volume 11.1 fL (9.4-12.4); Platelet Count 408 K/mcL (140-400); Red Blood Count 4.04 M/mcL (4.19-5.50); Red Cell Distribution Width 14.8 % (11.5-14.5); White Blood Count 8.6 K/mcL (4.3-11.1)
[2020-01-03 03:13] LABS: BUN/Creatinine Ratio 58 (6-26); Blood Urea Nitrogen 18 mg/dL (8-23); Calcium 8.5 mg/dL (8.6-10.3); Carbon Dioxide 30 mEq/L (23-29); Chloride 102 mEq/L (98-107); Glucose 119 mg/dL (70-105); Osmolality,Calculated 295 (280-300); Potassium 4.1 mEq/L (3.5-5.1); Sodium 141 mEq/L (136-145); eGFR For African Americans > 60 (> 60); eGFR For Non-African Americans > 60 (> 60)
[2020-01-03 10:18] VITALS: BP 118/63
[2020-01-03] MEDS: Venlafaxine XR (24 HR) 37.5 MG CAP.ER.24H PO SCH (10:49)
[2020-01-03] MEDS: Insulin DETEMIR 100 UNIT/ML X5UNITS SQ SCH (10:51)
[2020-01-04 11:26] LABS: Fluid Source for Albumin PLEURAL FLUID
== END 2020-01-03 13:50 | DRG 180 ==
LOC: 3ANU 12:42 → EMEROOARM 12:42 → 3ANU 19:40 → SUATTDRO 20:25
PROVIDERS: ADMIT Family Medicine; ATTEND Internal Medicine